=== PATIENT | male | born 1930 | race Caucasian/White ===

== ENCOUNTER 2016-11-05 10:18 | Inpatient (IN) ==
--- NOTE | 2016-11-05 11:13 | Emergency Department Note ---
Disposition Clinical Impression: Hematuria Pulmonary embolism Qualifiers: Pulmonary embolism type: other Chronicity: acute Acute cor pulmonale presence: without acute cor pulmonale Qualified Code(s): I26.99 - Other pulmonary embolism without acute cor pulmonale Disposition: Admitted As Inpatient Condition: Fair SOB HPI - General Chief Complaint: ED Shortness of Breath/Dyspnea Stated Complaint: SOB/Weak/High BP Time Seen by Provider: 11/05/16 10:24 Source: patient, family Limitations: physical limitation Nursing Notes Reviewed: Yes Vital Signs Reviewed: Yes - History of Present Illness Pt Subjective Complaint: shortness of breath Onset (ago): hour(s) (3) Severity: mild Consistency/Duration: constant Improves with: nothing Worsens with: exertion Associated symptoms: Denies: wheezing, sputum production Treatment prior to arrival: none Cough present: No - Related Data Home Medications Medication Instructions Recorded Confirmed Aspirin [Lo-Dose Aspirin EC] 81 mg PO DAILY 11/05/16 11/05/16 Atorvastatin Calcium [Lipitor] 20 mg PO HS 11/05/16 11/05/16 Diltiazem CD (24hr) [Cardizem CD] 120 mg PO DAILY 11/05/16 11/05/16 Enalapril Maleate [Vasotec] 2.5 mg PO DAILY 11/05/16 11/05/16 Furosemide [Lasix] 20 mg PO DAILY PRN 11/05/16 11/05/16 LORazepam [Ativan] 0.5 mg PO HS 11/05/16 11/05/16 Melatonin 10 mg PO HS PRN 11/05/16 11/05/16 Metoprolol [Lopressor] 25 mg PO BID 11/05/16 11/05/16 Naproxen Sodium [Aleve] 220 mg PO Q12H PRN 11/05/16 11/05/16 Warfarin [Coumadin] 3 mg PO 1800 11/05/16 11/05/16 Allergies Allergy/AdvReac Type Severity Reaction Status Date / Time tetanus immune globulin Allergy Intermediate Rash Verified 11/05/16 14:13 All systems ED: reviewed and negative except as stated. Constitutional: Reports: weakness. Denies: fever, chills Respiratory: Reports: dyspnea Gastrointestinal: Denies: nausea, vomiting Past Medical History - Past Medical History Source: patient, old records reviewed, obtained from family, nursing notes reviewed Medical history: Reports: aortic aneurysm, atrial fibrillation, CHF, myocardial infarction Surgical history: Reports: angioplasty/stent, appendectomy, knee replacement Psychiatric history: Reports: no psych history - Social History Smoking Status: Former smoker Smokeless Tobacco Status: No Alcohol use: Reports: none Drug use: Reports: none Physical Exam - General Limitations: physical limitation General appearance: alert, in no apparent distress - Head Head exam: atraumatic, normocephalic, normal inspection - Eye Eye exam: Present: normal appearance, PERRL, EOMI - Expanded Eye Exam Pupils: Left: reactive - ENT ENT exam: normal exam, normal oropharynx, mucous membranes moist - Expanded ENT Exam External ear exam: Present: normal external inspection Mouth exam: Present: normal external inspection Teeth exam: Present: normal inspection Throat exam: Present: normal inspection - Neck Neck exam: Present: normal inspection, full ROM, trachea midline - Chest Chest inspection: Present: normal inspection, symmetric chest wall rise - Respiratory Respiratory exam: Present: other (bibasilar crackles) - Cardiovascular Cardiovascular exam: Present: irregular rhythm - Abdominal Exam Abdominal exam: Present: soft, Non-Tender. Absent: tenderness, distention, guarding, rebound, rigidity - Extremities Exam Extremities exam: Present: normal inspection, full ROM. Absent: tenderness, pedal edema - Expanded Upper Extremity Exam Shoulder exam: Present: normal inspection, full ROM Arm exam: Present: normal inspection, full ROM Elbow exam: Present: normal inspection, full ROM Forearm/Wrist exam: Present: normal inspection, full ROM Hand exam: Present: normal inspection, full ROM Vascular exam: Normal: capillary refill, radial pulse - Expanded Lower Extremity Exam Hip/Pelvis exam: Present: normal inspection, full ROM Upper leg exam: Present: normal inspection, full ROM Knee exam: Present: normal inspection, full ROM Lower leg exam: Present: other (2+pitting edema) Ankle exam: Present: normal inspection, full ROM Foot/toe exam: Present: normal inspection, full ROM Neurovascular/Tendon exam: Absent: motor deficit, sensory deficit, tendon deficit - Back Exam Back exam: Present: normal inspection, full ROM. Absent: tenderness - Neurological Exam Neurological exam: Present: alert, oriented X3 - Expanded Neurological Exam Patient oriented to: Present: person, place, time Coma Scale Eye Opening: Spontaneous Coma Scale Motor Response: Obeys Commands Coma Scale Verbal Response: Oriented Coma Scale Total: 15 - Psychiatric Psychiatric exam: Present: normal affect, normal mood - Skin Skin exam: Present: warm, dry, intact, normal color Course Vital Signs Temperature 99.1 F 11/05/16 10:24 Pulse Rate 83 11/05/16 10:24 Respiratory Rate 20 11/05/16 10:24 Blood Pressure 118/85 11/05/16 10:24 O2 Sat by Pulse Oximetry 93 11/05/16 10:24 Temperature 99.1 F 11/05/16 10:24 Pulse Rate 69 11/05/16 14:22 Respiratory Rate 13 11/05/16 14:22 Blood Pressure 125/91 11/05/16 14:22 O2 Sat by Pulse Oximetry 95 11/05/16 14:22 Oxygen Delivery Oxygen Delivery Nasal Cannula Shortness of Breath/Dyspnea - [facility] Narrative Medical decision making narrative: Dr. Maldonado was notified that the patient will need heparin for his PE he has a known bladder mass and no hematuria for the last [address] Lopez except for the hospitalist service evaluated the patient in the ER we will start heparin now in the ER. - Differential Diagnosis Likely: pneumonia, asthma with exacerbation, pulmonary embolism, pneumothorax, arrhythmia - Medical Records Medical records reviewed: Yes I reviewed the patient's medical records. - Lab Data Lab results reviewed: Yes I reviewed the patient's lab results. Result diagrams: 11/05/16 11:21 11/05/16 11:21 Lab Results 11/05/16 11/05/16 11/05/16 Range/Units 11:21 11:21 11:21 WBC 8.9 (4.3-11.1) K/mcL RBC 4.72 (4.19-5.50) M/mcL Hgb 13.0 (12.9-16.9) g/dL Hct 40.2 (37.5-50.1) % MCV 85.2 (83.0-100.0) fL MCH 27.5 L (28.0-33.3) pg MCHC 32.3 (31.6-35.5) g/dL RDW 14.9 H (11.5-14.5) % Plt Count 263 (140-400) K/mcL MPV 10.0 (9.4-12.4) fL Immature Gran % 0.3 (0-4) % Seg Neutrophils % 75.2 % Lymphocytes % 13.5 % Monocytes % 8.7 % Eosinophils % 1.7 % Basophils % 0.6 % Neutrophils # 6.7 (1.6-8.9) K/mcL Lymphocytes # 1.2 (0.6-4.6) K/mcL Monocytes # 0.8 (0.0-1.3) K/mcL Eosinophils # 0.2 (0.0-0.6) K/mcL Basophils # 0.1 (0.0-0.2) K/mcL PT 24.7 H (9.4-12.1) Seconds INR 2.2 APTT 38.0 H (26.0-36.0) Seconds Sodium 140 (136-145) mEq/L Potassium 3.4 L (3.5-4.5) mEq/L Chloride 99 (98-109) mEq/L Carbon Dioxide 31 H (19-29) mEq/L BUN 22 (8-26) mg/dL Creatinine 1.26 H (0.72-1.25) mg/dL Est GFR ( Amer) > 60 (> 60) Est GFR (Non-Af Amer) 54 L (> 60) BUN/Creatinine Ratio 17 (6-26) Glucose 126 H (70-99) mg/dL Calculated Osmolality 295 (280-300) Calcium 9.0 (8.6-10.8) mg/dL Troponin I (0-0.03) ng/mL B-Natriuretic Peptide (0-100) pg/mL 11/05/16 11/05/16 Range/Units 11:21 11:21 WBC (4.3-11.1) K/mcL RBC (4.19-5.50) M/mcL Hgb (12.9-16.9) g/dL Hct (37.5-50.1) % MCV (83.0-100.0) fL MCH (28.0-33.3) pg MCHC (31.6-35.5) g/dL RDW (11.5-14.5) % Plt Count (140-400) K/mcL MPV (9.4-12.4) fL Immature Gran % (0-4) % Seg Neutrophils % % Lymphocytes % % Monocytes % % Eosinophils % % Basophils % % Neutrophils # (1.6-8.9) K/mcL Lymphocytes # (0.6-4.6) K/mcL Monocytes # (0.0-1.3) K/mcL Eosinophils # (0.0-0.6) K/mcL Basophils # (0.0-0.2) K/mcL PT (9.4-12.1) Seconds INR APTT (26.0-36.0) Seconds Sodium (136-145) mEq/L Potassium (3.5-4.5) mEq/L Chloride (98-109) mEq/L Carbon Dioxide (19-29) mEq/L BUN (8-26) mg/dL Creatinine (0.72-1.25) mg/dL Est GFR ( Amer) (> 60) Est GFR (Non-Af Amer) (> 60) BUN/Creatinine Ratio (6-26) Glucose (70-99) mg/dL Calculated Osmolality (280-300) Calcium (8.6-10.8) mg/dL Troponin I 0.06 H* (0-0.03) ng/mL B-Natriuretic Peptide 537 H (0-100) pg/mL - Radiology Data Radiology results reviewed: Yes I reviewed the patient's radiology results. Critical Care Time Critical Care Time: Yes Total Critical Care Time: 40 Attestation: Critical care performed: Time is exclusive of separately billable procedures. Time includes: direct patient care, patient reassessment, coordination of patient care, interpretation of data (laboratory data, radiology data, and respiratory data), review of patient's medical records, medical consultation and documentation of patient care. Procedures included in critical care time: Procedures excluded from critical care time:
[2016-11-05 11:30] LABS: Basophils # 0.1 K/mcL (0.0-0.2); Basophils % 0.6 %; Eosinophils # 0.2 K/mcL (0.0-0.6); Eosinophils % 1.7 %; Hematocrit 40.2 % (37.5-50.1); Immature Granulocytes % 0.3 % (0-4); Lymphocytes # 1.2 K/mcL (0.6-4.6); Lymphocytes % 13.5 %; Mean Corpuscular HGB Conc 32.3 g/dL (31.6-35.5); Mean Corpuscular Hemoglobin 27.5 pg (28.0-33.3); Mean Corpuscular Volume 85.2 fL (83.0-100.0); Monocytes # 0.8 K/mcL (0.0-1.3); Monocytes % 8.7 %; Neutrophils # 6.7 K/mcL (1.6-8.9); Platelet Count 263 K/mcL (140-400); Red Blood Count 4.72 M/mcL (4.19-5.50); Red Cell Distribution Width 14.9 % (11.5-14.5); Segmented Neutrophils % 75.2 %
[2016-11-05 11:36] LABS: INR 2.2; Prothrombin Time 24.7 Seconds (9.4-12.1)
[2016-11-05 11:42] LABS: BUN/Creatinine Ratio 17 (6-26); Blood Urea Nitrogen 22 mg/dL (8-26); Carbon Dioxide 31 mEq/L (19-29); Chloride 99 mEq/L (98-109); Glucose 126 mg/dL (70-99); Osmolality,Calculated 295 (280-300); Potassium 3.4 mEq/L (3.5-4.5); Sodium 140 mEq/L (136-145); eGFR For African Americans > 60 (> 60); eGFR For Non-African Americans 54 (> 60)
[2016-11-05] MEDS ORDERED: 0.9 % Sodium Chloride 500 ML IVC ONE (12:03)
[2016-11-05] MEDS ORDERED: *HR* Heparin 5,000 UNIT/ML VIAL IVP ONE (13:56)
[2016-11-05] MEDS ORDERED: *HR* Heparin 5,000 UNIT/ML VIAL IVP PRN ×2 (13:56)
[2016-11-05] MEDS: Heparin 25,000 UNIT/500 ML D5W 25,000 UNIT/500 ML MLS IVC SCH (14:15)
[2016-11-05] MEDS ORDERED: Naloxone 0.4 MG/ML INJ IVP PRN (14:31)
[2016-11-05] MEDS ORDERED: Acetaminophen 325 MG TABLET PO PRN (14:31)
[2016-11-05] MEDS ORDERED: *HR* HYDROcodone/Acet 5/325 mg TABLET PO PRN (14:31)
--- NOTE | 2016-11-05 14:56 | Event Note ---
Date of Encounter: 11/05/16 Time of Encounter: 14:52 Patient seen and examined with nurse practitioner. Agree with this assessment and plan. Acute sub massive pulmonary embolism. Patient has a 4 cm letter mass suspicious for malignancy on imaging and is currently having Wero hematuria. Patient's takes Coumadin for atrial fibrillation and his INR's 2.2. ER physician has spoken with urology and their agreeable with starting heparin drip. Watch for the security of hematuria. Appreciate urology recommendation. I am not sure if you benefit from Santamaria catheter because of expected worsening bleeding and clotting and complications related to that. I think the patient will benefit from placement of IVC filter for 2 reasons: 1st, patient had PE despite therapeutic anticoagulation while his INR was 2.2. 2nd patient has Wero hematuria from bladder mass and he will probably have periods of worsening bleeding requiring interruption of anticoagulation. Will discuss with cardiology for placement of IVC filter. Patient has acute congestive heart failure due to diastolic dysfunction and will give IV Lasix 40 mg daily. Patient is do not resuscitate do not intubate.
--- NOTE | 2016-11-05 15:02 | Internal Med History&Physical ---
Date of Encounter: 11/05/16 Time of Encounter: 15:01 Assessment and Plan (1) Pulmonary embolism Current visit: Yes Status: Acute Patient presented with shortness of breath. CTA revealed filling defect within the left lower lobe segmental pulmonary artery compatible with acute pulmonary embolism. As well as small to moderate-sized bilateral pleural effusions. This is despite having therapeutic anticoagulation with INR of 2.2 today. Patient has newly diagnosed bladder mass and malignancy may be inciting factor. continuous telemetry monitor Heparin drip started. Hold coumadin. Cardiology consulted, spoke with Dr. Farr who plans filter placement tomorrow. NPO after midnight for filter placement tomorrow. Qualifiers: Pulmonary embolism type: other Chronicity: acute Acute cor pulmonale presence: without acute cor pulmonale Qualified Code(s): I26.99 - Other pulmonary embolism without acute cor pulmonale (2) Bladder mass Current visit: No Status: Acute Patient with hematuria and presented to ED yesterday. CT abd/pelvis revealed 4.2cm bladder mass suspicious for malignancy. He was scheduled to see Dr. Maldonado tomorrow in the clinic. Urology consulted. (3) Hematuria Current visit: No Status: Acute Patient with hematuria and found to have bladder mass on CT yesterday. Coumadin held, but now on heparin drip for PE. Hgb stable at 13.0. Monitor for increased bleeding. Check CBC with morning labs. Urology consulted. (4) Anticoagulant long-term use Current visit: No Status: Chronic Patient on coumadin for history of afib. He was instructed to hold it yesterday for hematuria. INR today was therapeutic at 2.2. Heparin drip initiated for acute PE. Monitor for increased bleeding. check coags on schedule with heparin drip. (5) Atrial fibrillation Current visit: No Status: Chronic Patient with chronic afib, on metoprolol and diltiazem for rate control and coumadin for anti-coagulation. Coumadin held yesterday for hematuria. Heparin drip started today for PE. Continuous telemetry monitor. Qualifiers: Atrial fibrillation type: chronic Qualified Code(s): I48.2 - Chronic atrial fibrillation (6) CHF (congestive heart failure) Current visit: Yes Status: Acute Patient with pulmonary edema and small left pleural effusion on CXR. BLE +2 edema. Echo 03/19/16 showed LVEF of 65%, moderate concentric hypertrophy of the LV, indeterminate diastolic function, severely calcified aortic valve and severe aortic stenosis. daily weights strict Is/Os. Lasix 40mg IVP daily Qualifiers: Congestive heart failure type: unspecified congestive heart failure type Congestive heart failure chronicity: acute Qualified Code(s): I50.9 - Heart failure, unspecified (7) DVT prophylaxis Current visit: Yes Status: Acute anti-embolic stockings on heparin drip for PE. Internal Medicine - H&P: HPI Chief complaint: shortness of breath Admitted From: Emergency Dept Plans for Post Hospital Care: Home History of present illness: Mr. Hayes is a 85 year old male with atrial fibrillation on Coumadin, coronary artery disease, CHF, aortic aneurysm, and recently diagnosed bladder mass presents to the emergency department today with complaints of shortness of breath. This morning he woke up and stated he could not catch his breath, he felt very anxious, and he felt like he had a lot of pressure in his head pressure and numbness had resolved but he continued with shortness of breath. He denies any chest pain, palpitations, lightheadedness, nausea, vomiting, abdominal pain, fever, chills, sweats. Patient presented to the emergency room yesterday with complaints of hematuria, and was found to have a 4.2 cm near bladder mass on CT, and was scheduled to follow-up with urology tomorrow. He was instructed to hold his coumadin until evaluation by Urology. Evaluation in the emergency department included a chest x-ray which showed pulmonary edema and small left pleural effusion suggesting CHF. The CTA was obtained and showed filling defect within the left lower lobe compatible with acute pulmonary embolism, small to moderate size bilateral pleural effusions. Patient 's INR was found to be therapeutic at 2.2. Hemoglobin is stable at 13.0. BNP is elevated at 37. Troponin is mildly elevated to 0.06. Urology was consulted and felt it was safe to proceed with heparin drip given the patient is not massively bleeding with therapeutic INR. On exam, patient is alert and oriented , in no acute distress. Heart had irregular rhythm, normal rate. Lungs had mild crackles bilaterally. He has bilateral lower extremity +2 edema. Past Med Surg Social Fam HX - Past Medical History Medical history: aortic aneurysm, atrial fibrillation, CHF, myocardial infarction Psychiatric history: no psych history - Past Surgical History Surgical History: angioplasty/stent, appendectomy, knee replacement - Social History Smoking Status: Former smoker Smokeless Tobacco Status: No Alcohol use: none Drug use: none - Family History Father Hx Family Cardiac Disorders: Yes Internal Medicine - H&P: Meds Aspirin [Lo-Dose Aspirin EC] 81 mg PO DAILY 11/05/16 [History] Atorvastatin Calcium [Lipitor] 20 mg PO HS 11/05/16 [History] Diltiazem CD (24hr) [Cardizem CD] 120 mg PO DAILY 11/05/16 [History] Enalapril Maleate [Vasotec] 2.5 mg PO DAILY 11/05/16 [History] Furosemide [Lasix] 20 mg PO DAILY PRN 11/05/16 [History] LORazepam [Ativan] 0.5 mg PO HS 11/05/16 [History] Melatonin 10 mg PO HS PRN 11/05/16 [History] Metoprolol [Lopressor] 25 mg PO BID 11/05/16 [History] Naproxen Sodium [Aleve] 220 mg PO Q12H PRN 11/05/16 [History] Warfarin [Coumadin] 3 mg PO 1800 11/05/16 [History] Allergies tetanus immune globulin Allergy (Intermediate, Verified 11/05/16 14:13) Rash All Systems PM: A 10-system review of systems was performed and is negative for pertinent findings except as documented above in the HPI. - Constitutional Constitutional: no chills, no fever(s), no night sweats - EENT Eyes: no change in vision, no discharge, no pain, no photophobia Ears: no ear discharge, no ear pain, no tinnitus Nose, mouth and throat: no dysphagia, no nasal discharge, no neck pain, no sore throat - Cardiovascular Cardiovascular ROS IM: dyspnea, no chest pain, no diaphoresis, no lightheadedness, no palpitations, no syncope - Respiratory Respiratory: dyspnea, no cough, no wheezing, no excessive phlegm production - Gastrointestinal Gastrointestinal: heartburn, no abdominal pain, no diarrhea, no hematemesis, no hematochezia, no melena, no nausea, no vomiting - Genitourinary Genitourinary ROS male: hematuria - Musculoskeletal Musculoskeletal ROS IM: no numbness, no tingling - Integumentary Integumentary IM: no rash, no unusual bruising - Neurological Neurological ROS: headache(s), no confusion, no convulsions, no focal weakness, no numbness, no tingling, no tremor(s) - Hematologic/Lymphatic Hematologic/Lymphatic: no easy bruising - Constitutional Vitals: Temp Pulse Resp BP Pulse Ox 99.1 F 69 13 125/91 95 11/05/16 10:24 11/05/16 14:22 11/05/16 14:22 11/05/16 14:22 11/05/16 14:22 General appearance: Present: A&O X 3, pleasant, no acute distress - Head Head exam: Present: atraumatic, normocephalic - Eye Eye exam: Present: PERRL, conjuntiva pink, sclera anicteric Pupils: Present: PERRL - Neck Neck exam general surgery: Present: supple, trachea midline. Absent: lymphadenopathy - Respiratory Respiratory exam: Present: rales. Absent: accessory muscle use, rhonchi, wheezes - Cardiovascular Cardiovascular exam: Present: irregular rhythm, +S1, +S2. Absent: diastolic murmur, gallop, rubs, systolic murmur - GI/Abdominal GI/Abdominal exam: Present: normal bowel sounds, soft, no peritoneal signs. Absent: distended, tenderness - Extremities Exam Extremities exam: Present: pedal edema (+2 BLE edema), warm, radial pulses palpable and symetrical. Absent: calf tenderness, cyanotic - Neurological Exam Neurological exam: Present: CN II-XII intact, oriented X3, no focal deficits. Absent: pronater drift, facial droop, speech deficit - Skin Skin exam: Present: dry, intact Internal Med - H&P Results - Labs CBC & Chem 7: 11/05/16 11:21 11/05/16 11:21 Labs: All Lab Results (24 Hours) 11/05/16 11/05/16 11/05/16 Range/Units 11:21 11:21 11:21 WBC 8.9 (4.3-11.1) K/mcL RBC 4.72 (4.19-5.50) M/mcL Hgb 13.0 (12.9-16.9) g/dL Hct 40.2 (37.5-50.1) % MCV 85.2 (83.0-100.0) fL MCH 27.5 L (28.0-33.3) pg MCHC 32.3 (31.6-35.5) g/dL RDW 14.9 H (11.5-14.5) % Plt Count 263 (140-400) K/mcL MPV 10.0 (9.4-12.4) fL Immature Gran % 0.3 (0-4) % Seg Neutrophils % 75.2 % Lymphocytes % 13.5 % Monocytes % 8.7 % Eosinophils % 1.7 % Basophils % 0.6 % Neutrophils # 6.7 (1.6-8.9) K/mcL Lymphocytes # 1.2 (0.6-4.6) K/mcL Monocytes # 0.8 (0.0-1.3) K/mcL Eosinophils # 0.2 (0.0-0.6) K/mcL Basophils # 0.1 (0.0-0.2) K/mcL PT 24.7 H (9.4-12.1) Seconds INR 2.2 APTT 38.0 H (26.0-36.0) Seconds Sodium 140 (136-145) mEq/L Potassium 3.4 L (3.5-4.5) mEq/L Chloride 99 (98-109) mEq/L Carbon Dioxide 31 H (19-29) mEq/L BUN 22 (8-26) mg/dL Creatinine 1.26 H (0.72-1.25) mg/dL Est GFR ( Amer) > 60 (> 60) Est GFR (Non-Af Amer) 54 L (> 60) BUN/Creatinine Ratio 17 (6-26) Glucose 126 H (70-99) mg/dL Calculated Osmolality 295 (280-300) Calcium 9.0 (8.6-10.8) mg/dL Troponin I (0-0.03) ng/mL B-Natriuretic Peptide (0-100) pg/mL 11/05/16 11/05/16 Range/Units 11:21 11:21 WBC (4.3-11.1) K/mcL RBC (4.19-5.50) M/mcL Hgb (12.9-16.9) g/dL Hct (37.5-50.1) % MCV (83.0-100.0) fL MCH (28.0-33.3) pg MCHC (31.6-35.5) g/dL RDW (11.5-14.5) % Plt Count (140-400) K/mcL MPV (9.4-12.4) fL Immature Gran % (0-4) % Seg Neutrophils % % Lymphocytes % % Monocytes % % Eosinophils % % Basophils % % Neutrophils # (1.6-8.9) K/mcL Lymphocytes # (0.6-4.6) K/mcL Monocytes # (0.0-1.3) K/mcL Eosinophils # (0.0-0.6) K/mcL Basophils # (0.0-0.2) K/mcL PT (9.4-12.1) Seconds INR APTT (26.0-36.0) Seconds Sodium (136-145) mEq/L Potassium (3.5-4.5) mEq/L Chloride (98-109) mEq/L Carbon Dioxide (19-29) mEq/L BUN (8-26) mg/dL Creatinine (0.72-1.25) mg/dL Est GFR ( Amer) (> 60) Est GFR (Non-Af Amer) (> 60) BUN/Creatinine Ratio (6-26) Glucose (70-99) mg/dL Calculated Osmolality (280-300) Calcium (8.6-10.8) mg/dL Troponin I 0.06 H* (0-0.03) ng/mL B-Natriuretic Peptide 537 H (0-100) pg/mL - Diagnostic Studies Chest x-ray Additional comments: Chest X-Ray 11/05/16 11:12 IMPRESSION: Pulmonary edema and small left pleural effusion suggesting CHF. D/ / Braulio Sauer MD / Braulio Sauer MD Interpreting Provider: Braulio Sauer MD CT scan - chest Additional comments: Chest CTA 11/05/16 12:01 IMPRESSION: 1. Filling defect within the left lower lobe segmental pulmonary artery compatible with acute pulmonary embolism. 2. Small to moderate sized bilateral pleural effusions. There is pulmonary edema. Findings may represent CHF. 3. Cardiomegaly and coronary disease. 4. Mild ascending thoracic aortic aneurysm measures 4.1 cm. 5. The main pulmonary artery is dilated at 3.4 cm compatible with pulmonary arterial hypertension. Critical results were called by Dr. Braulio Sauer MD to Eamon Duenas on 11/05/2016 at 13:27. D/ / 11/05/2016 13:29:50 Braulio Sauer MD / alex Interpreting Provider: Braulio Sauer MD
--- NOTE | 2016-11-05 17:28 | Electrocardiograph Report ---
[place] AfterYes Test Date: 2016-11-05 Pat Name: Homero Hayes Department: 102 Room: 2NE28 Gender: M Wound Nurse: Kristi : 1930 Requested By: Eamon Duenas Order Number: [id number] Reading MD: Shan Samuel MD Measurements Intervals [place] Rate: 82 P: SC: 0 QRS: -68 QRSD: 153 T: 13 QT: 439 QTc: 478 Interpretive Statements ATRIAL FIBRILLATION MARKED LEFT AXIS DEVIATION [QRS AXIS < -30] RIGHT BUNDLE BRANCH BLOCK [120+ ms QRS DURATION, UPRIGHT V1, 40+ ms S IN I/aVL/V4/V5/V6] POSSIBLE SEPTAL MYOCARDIAL INFARCTION [30 ms Q WAVE IN V1/V2], OF INDETERMINATE AGE Electronically Signed On 11-05-2016 17:26:22 EDT by Shan Samuel MD
[2016-11-05] MEDS: Furosemide 40 MG/4 ML VIAL IVP SCH (17:49)
[2016-11-05] MEDS ORDERED: Mag Hydrox/Al Hydrox/Simeth 30 ML UDC PO PRN (17:50)
[2016-11-05 21:04] LABS: Activated Partial Thrombo Time > 360.0 Seconds (26.0-36.0)
[2016-11-05] MEDS: Famotidine 20 MG TABLET PO SCH (21:12)
[2016-11-05] MEDS: *HR* LORazepam 0.5 MG TABLET PO SCH (21:12)
[2016-11-05] MEDS: Melatonin 3 MG TABLET PO PRN (21:17)
[2016-11-05 21:34] LABS: Heparin anti-factor XA UFH 1.21 IU/mL (0.30-0.70)
[2016-11-06 00:29] LABS: Basophils # 0.1 K/mcL (0.0-0.2); Basophils % 0.6 %; Eosinophils # 0.2 K/mcL (0.0-0.6); Eosinophils % 2.1 %; Hematocrit 39.5 % (37.5-50.1); Hemoglobin 12.9 g/dL (12.9-16.9); Immature Granulocytes % 0.4 % (0-4); Immature Platelets 5.7 % (1.1-6.1); Lymphocytes # 1.9 K/mcL (0.6-4.6); Lymphocytes % 17.6 %; Mean Corpuscular HGB Conc 32.7 g/dL (31.6-35.5); Mean Corpuscular Hemoglobin 27.7 pg (28.0-33.3); Mean Corpuscular Volume 84.9 fL (83.0-100.0); Mean Platelet Volume 10.3 fL (9.4-12.4); Monocytes # 1.1 K/mcL (0.0-1.3); Monocytes % 9.7 %; Neutrophils # 7.5 K/mcL (1.6-8.9); Platelet Count 272 K/mcL (140-400); Red Blood Count 4.65 M/mcL (4.19-5.50); Red Cell Distribution Width 15.1 % (11.5-14.5); Segmented Neutrophils % 69.6 %
[2016-11-06 00:43] LABS: BUN/Creatinine Ratio 17 (6-26); Blood Urea Nitrogen 22 mg/dL (8-26); Calcium 9.1 mg/dL (8.6-10.8); Carbon Dioxide 30 mEq/L (19-29); Chloride 99 mEq/L (98-109); Glucose 103 mg/dL (70-99); Osmolality,Calculated 294 (280-300); Potassium 3.8 mEq/L (3.5-4.5); Sodium 140 mEq/L (136-145); eGFR For African Americans > 60 (> 60); eGFR For Non-African Americans 52 (> 60)
--- NOTE | 2016-11-06 07:19 | Urology - Consult Note ---
Date of Encounter: 11/06/16 Time of Encounter: 07:17 - Assessment and Plan (1) Hematuria Current Visit: Yes Status: Acute Assessment and plan: This is coming from the patient's bladder tumor which was found on CT scan. Patient will need transurethral resection of bladder tumor in the future. Patient's more acute issue is his pulmonary embolism and resultant pulmonary hypertension. We will continue to follow along. At this time no urgent need for resection of bladder tumor. Also no urgent need for urinary catheter as the patient is voiding at this time. Urology CN:HPI Consult date: 11/06/16 Reason for consult Urology: Other (bladder mass) Requesting physician: Lindsay Cummins History of present illness: Homero is an 85-year-old male with a history of 14 days of gross hematuria. Patient was in the emergency department earlier in the week where CT scan was done which revealed large left-sided bladder tumor. Patient did not have any hydronephrosis. He was emptying his bladder without any clots at that time. Patient does have a long-standing history of being on Coumadin. He is now admitted to the hospital secondary to pulmonary embolism. Heparin was added to the patient's anticoagulation regimen. Patient states that he is still voiding okay with continued blood in his urine. No clots and no difficulty voiding. Past Med Surg Social Fam HX - Past Medical History Medical history: aortic aneurysm, atrial fibrillation, CHF, myocardial infarction Psychiatric history: no psych history - Past Surgical History Surgical History: angioplasty/stent, appendectomy, knee replacement - Social History Smoking Status: Former smoker Smokeless Tobacco Status: No Alcohol use: none Drug use: none - Family History Father Hx Family Cardiac Disorders: Yes Medications and Allergies Aspirin [Lo-Dose Aspirin EC] 81 mg PO DAILY 11/05/16 [History] Atorvastatin Calcium [Lipitor] 20 mg PO HS 11/05/16 [History] Diltiazem CD (24hr) [Cardizem CD] 120 mg PO DAILY 11/05/16 [History] Enalapril Maleate [Vasotec] 2.5 mg PO DAILY 11/05/16 [History] Furosemide [Lasix] 20 mg PO DAILY PRN 11/05/16 [History] LORazepam [Ativan] 0.5 mg PO HS 11/05/16 [History] Melatonin 10 mg PO HS PRN 11/05/16 [History] Metoprolol [Lopressor] 25 mg PO BID 11/05/16 [History] Naproxen Sodium [Aleve] 220 mg PO Q12H PRN 11/05/16 [History] Warfarin [Coumadin] 3 mg PO 1800 11/05/16 [History] Allergies tetanus immune globulin Allergy (Intermediate, Verified 11/05/16 14:13) Rash Review of Systems - Constitutional no chills - EENT Nose, mouth and throat: no dizziness - Cardiovascular as per HPI - Respiratory as per HPI - Genitourinary as per HPI - Musculoskeletal no back pain - Integumentary no erythema Exam Initial Vital Signs Temp Pulse Resp BP Pulse Ox 99.1 F 83 20 118/85 93 11/05/16 10:24 11/05/16 10:24 11/05/16 10:24 11/05/16 10:24 11/05/16 10:24 - General physical appearance Present: well developed - Respiratory Present: normal respiratory effort - Cardiovascular Cardiovascular exam IM: RRR - Abdomen Abdomen: Present: soft - Genitourinary normal penis with no external lesions Urology Results - Labs 11/06/16 00:19 11/06/16 00:19 Abnormal lab results MCH 27.7 pg (28.0-33.3) L 11/06/16 00:19 RDW 15.1 % (11.5-14.5) H 11/06/16 00:19 PT 24.7 Seconds (9.4-12.1) H 11/05/16 11:21 APTT 79.3 Seconds (26.0-36.0) H D 11/06/16 04:50 Heparin Anti-Xa, Unfract 1.21 IU/mL (0.30-0.70) H* 11/05/16 20:26 Carbon Dioxide 30 mEq/L (19-29) H 11/06/16 00:19 Creatinine 1.30 mg/dL (0.72-1.25) H 11/06/16 00:19 Est GFR (Non-Af Amer) 52 (> 60) L 11/06/16 00:19 Glucose 103 mg/dL (70-99) H 11/06/16 00:19 Troponin I 0.07 ng/mL (0-0.03) H* 11/06/16 00:19 B-Natriuretic Peptide 537 pg/mL (0-100) H 11/05/16 11:21 Diabetes panel 11/06/16 Range/Units 00:19 Sodium 140 (136-145) mEq/L Potassium 3.8 (3.5-4.5) mEq/L Chloride 99 (98-109) mEq/L Carbon Dioxide 30 H (19-29) mEq/L BUN 22 (8-26) mg/dL Creatinine 1.30 H (0.72-1.25) mg/dL Glucose 103 H (70-99) mg/dL Calcium 9.1 (8.6-10.8) mg/dL Calcium panel 11/06/16 Range/Units 00:19 Calcium 9.1 (8.6-10.8) mg/dL Pituitary panel 11/06/16 Range/Units 00:19 Sodium 140 (136-145) mEq/L Potassium 3.8 (3.5-4.5) mEq/L Chloride 99 (98-109) mEq/L Carbon Dioxide 30 H (19-29) mEq/L BUN 22 (8-26) mg/dL Creatinine 1.30 H (0.72-1.25) mg/dL Glucose 103 H (70-99) mg/dL Calcium 9.1 (8.6-10.8) mg/dL Adrenal panel 11/06/16 Range/Units 00:19 Sodium 140 (136-145) mEq/L Potassium 3.8 (3.5-4.5) mEq/L Chloride 99 (98-109) mEq/L Carbon Dioxide 30 H (19-29) mEq/L BUN 22 (8-26) mg/dL Creatinine 1.30 H (0.72-1.25) mg/dL Glucose 103 H (70-99) mg/dL Calcium 9.1 (8.6-10.8) mg/dL All other labs normal. - Imaging CT scan - abdomen: image reviewed CT scan - pelvis: image reviewed Consult Discharge Plan - Plan Referrals: Marycruz Mackenzie MD [Primary Care Provider] -
[2016-11-06] MEDS: Furosemide 40 MG/4 ML VIAL IVP SCH (09:09)
[2016-11-06] MEDS: Diltiazem CD (24hr) 120 MG CAPSULE PO SCH (09:10)
[2016-11-06] MEDS: Famotidine 20 MG TABLET PO SCH ×2 (09:10→21:22)
--- NOTE | 2016-11-06 10:16 | Internal Med Progress Note ---
<Baljit Dickey - Last Filed: 11/06/16 16:32> Date of Encounter: 11/06/16 Time of Encounter: 10:00 - Assessment and plan (1) Pulmonary embolism Current Visit: Yes Status: Acute Assessment and plan: CTA revealed filling defect within the left lower lobe segmental pulmonary artery compatible with acute pulmonary embolism. This is despite having therapeutic anticoagulation with INR of 2.2. Patient has newly diagnosed bladder mass and malignancy, possible hypercoagulable state. Doppler negative for DVTs. On heparin drip, restart coumadin tonight. IVC filter placed today without complication; cardiology recommend goal INR 2.5- 3.5 and to consider hematology consult for further guidance on anticoagulant therapy. Concern with patient's hematuria. Qualifiers: Pulmonary embolism type: other Chronicity: acute Acute cor pulmonale presence: without acute cor pulmonale Qualified Code(s): I26.99 - Other pulmonary embolism without acute cor pulmonale (2) Atrial fibrillation Current Visit: No Status: Chronic Assessment and plan: Patient with chronic afib, on metoprolol and diltiazem for rate control and coumadin for anti-coagulation. Restarting coumadin. Heparin drip started for PE. Continuous manager monitoring. [id number] score 7 (age, HTN, embolism, CHF, vascular disease) Qualifiers: Atrial fibrillation type: chronic Qualified Code(s): I48.2 - Chronic atrial fibrillation (3) Anticoagulant long-term use Current Visit: No Status: Chronic Assessment and plan: Patient on coumadin for history of afib. He was instructed to hold it yesterday for hematuria. INR yesterday was therapeutic at 2.2, though PE found. Heparin drip initiated for acute PE. Monitor for increased bleeding. (4) Hematuria Current Visit: No Status: Acute Assessment and plan: Patient with hematuria and found to have bladder mass on CT. Urology consulted , recommending transurethral resection of bladder tumor in the future. No urgent need for resection of bladder tumor. Also no urgent need for urinary catheter as the patient is voiding at this time. (5) Bladder mass Current Visit: No Status: Acute Assessment and plan: CT abd/pelvis revealed 4.2cm bladder mass suspicious for malignancy. He was scheduled to see Dr. Maldonado in the clinic, however he was able to see him inpatient. See plan for hematuria. (6) CHF (congestive heart failure) Current Visit: Yes Status: Acute Assessment and plan: Patient with pulmonary edema and small left pleural effusion on CXR. BLE edema. Echo 03/19/16 showed LVEF of 65%, moderate concentric hypertrophy of the LV, indeterminate diastolic function, severely calcified aortic valve and severe aortic stenosis. daily weights strict Is/Os. Lasix 40mg IVP daily Qualifiers: Congestive heart failure type: unspecified congestive heart failure type Congestive heart failure chronicity: acute Qualified Code(s): I50.9 - Heart failure, unspecified (7) DVT prophylaxis Current Visit: Yes Status: Acute Assessment and plan: Heparin drip prior to IVC filter placement, will restart coumadin per pharmacy dosing. - Time Spent With Patient less than 15 minutes - Subjective Interval history: Patient denies respiratory distress or chest broderick currently, notes he feels better on oxygen. currently on 3L O2, no home oxygen. - Constitutional Vitals: Temp Pulse Resp BP Pulse Ox 97.5 F L 79 16 136/101 98 11/06/16 07:02 11/06/16 07:02 11/06/16 07:02 11/06/16 07:02 11/06/16 07:02 General appearance: Present: cooperative, A&O X 3, pleasant, no acute distress, answers questions appropriately - Head Head exam: Present: atraumatic, normocephalic - Eye Eye exam: Present: EOMI - ENT ENT exam: Present: mucous membranes moist - Neck Neck exam general surgery: Present: full ROM, supple - Respiratory Respiratory exam: Present: CTAB. Absent: rhonchi, wheezes - Cardiovascular Cardiovascular exam: Present: irregular rhythm - GI/Abdominal GI/Abdominal exam: Present: soft. Absent: tenderness - Extremities Exam Extremities exam: Present: pedal edema (1+ BLE edema), warm - Neurological Exam Neurological exam: Present: alert, oriented X3, no focal deficits - Psychiatric Psychiatric exam: Present: normal affect, normal mood - Skin Skin exam: Present: dry, normal color. Absent: cyanosis, rash Internal Medicine: Result - Labs CBC & Chem 7: 11/06/16 00:19 11/06/16 00:19 Labs: Short CBC 11/05/16 11/05/16 11/06/16 Range/Units 18:13 20:26 00:19 WBC (4.3-11.1) K/mcL RBC (4.19-5.50) M/mcL Hgb (12.9-16.9) g/dL Hct (37.5-50.1) % MCV (83.0-100.0) fL MCH (28.0-33.3) pg MCHC (31.6-35.5) g/dL RDW (11.5-14.5) % Plt Count (140-400) K/mcL MPV (9.4-12.4) fL Immature Gran % (0-4) % Seg Neutrophils % % Lymphocytes % % Monocytes % % Eosinophils % % Basophils % % Neutrophils # (1.6-8.9) K/mcL Lymphocytes # (0.6-4.6) K/mcL Monocytes # (0.0-1.3) K/mcL Eosinophils # (0.0-0.6) K/mcL Basophils # (0.0-0.2) K/mcL Immature Plt Fraction (1.1-6.1) % APTT > 360.0 H* D (26.0-36.0) Seconds Heparin Anti-Xa, Unfract 1.21 H* (0.30-0.70) IU/mL Sodium (136-145) mEq/L Potassium (3.5-4.5) mEq/L Chloride (98-109) mEq/L Carbon Dioxide (19-29) mEq/L BUN (8-26) mg/dL Creatinine (0.72-1.25) mg/dL Est GFR ( Amer) (> 60) Est GFR (Non-Af Amer) (> 60) BUN/Creatinine Ratio (6-26) Glucose (70-99) mg/dL Calculated Osmolality (280-300) Calcium (8.6-10.8) mg/dL Troponin I 0.06 H* 0.07 H* (0-0.03) ng/mL 11/06/16 11/06/16 11/06/16 Range/Units 00:19 00:19 04:50 WBC 10.8 (4.3-11.1) K/mcL RBC 4.65 (4.19-5.50) M/mcL Hgb 12.9 (12.9-16.9) g/dL Hct 39.5 (37.5-50.1) % MCV 84.9 (83.0-100.0) fL MCH 27.7 L (28.0-33.3) pg MCHC 32.7 (31.6-35.5) g/dL RDW 15.1 H (11.5-14.5) % Plt Count 272 (140-400) K/mcL MPV 10.3 (9.4-12.4) fL Immature Gran % 0.4 (0-4) % Seg Neutrophils % 69.6 % Lymphocytes % 17.6 % Monocytes % 9.7 % Eosinophils % 2.1 % Basophils % 0.6 % Neutrophils # 7.5 (1.6-8.9) K/mcL Lymphocytes # 1.9 (0.6-4.6) K/mcL Monocytes # 1.1 (0.0-1.3) K/mcL Eosinophils # 0.2 (0.0-0.6) K/mcL Basophils # 0.1 (0.0-0.2) K/mcL Immature Plt Fraction 5.7 (1.1-6.1) % APTT 79.3 H D (26.0-36.0) Seconds Heparin Anti-Xa, Unfract (0.30-0.70) IU/mL Sodium 140 (136-145) mEq/L Potassium 3.8 (3.5-4.5) mEq/L Chloride 99 (98-109) mEq/L Carbon Dioxide 30 H (19-29) mEq/L BUN 22 (8-26) mg/dL Creatinine 1.30 H (0.72-1.25) mg/dL Est GFR ( Amer) > 60 (> 60) Est GFR (Non-Af Amer) 52 L (> 60) BUN/Creatinine Ratio 17 (6-26) Glucose 103 H (70-99) mg/dL Calculated Osmolality 294 (280-300) Calcium 9.1 (8.6-10.8) mg/dL Troponin I (0-0.03) ng/mL BMP 11/06/16 00:19 Sodium 140 Potassium 3.8 Chloride 99 Carbon Dioxide 30 H BUN 22 Creatinine 1.30 H Glucose 103 H Calcium 9.1 Cardiac Enzymes 11/05/16 11/06/16 Range/Units 18:13 00:19 Troponin I 0.06 H* 0.07 H* (0-0.03) ng/mL - ABG Interpretation ABG results: PT/INR, D-dimer PT 24.7 Seconds (9.4-12.1) H 11/05/16 11:21 Consult Discharge Plan - Plan Referrals: Marycruz Mackenzie MD [Primary Care Provider] - <Latrell Leal - Last Filed: 11/06/16 16:55> Date of Encounter: 11/06/16 - Assessment and plan (1) Pulmonary embolism Current Visit: Yes Status: Acute Qualifiers: Pulmonary embolism type: other Chronicity: acute Acute cor pulmonale presence: without acute cor pulmonale Qualified Code(s): I26.99 - Other pulmonary embolism without acute cor pulmonale (2) Atrial fibrillation Current Visit: No Status: Chronic Qualifiers: Atrial fibrillation type: chronic Qualified Code(s): I48.2 - Chronic atrial fibrillation (3) Hematuria Current Visit: Yes Status: Acute (4) Bladder mass Current Visit: No Status: Acute (5) Hyperlipidemia Current Visit: No Status: Acute Qualifiers: Hyperlipidemia type: mixed hyperlipidemia Qualified Code(s): E78.2 - Mixed hyperlipidemia - Constitutional Vitals: Temp Pulse Resp BP Pulse Ox 96.4 F L 66 16 114/81 97 11/06/16 16:04 11/06/16 16:04 11/06/16 16:04 11/06/16 16:04 11/06/16 16:04 Internal Medicine: Result - Labs CBC & Chem 7: 11/06/16 00:19 11/06/16 00:19 Labs: Short CBC 11/06/16 Range/Units 00:19 WBC 10.8 (4.3-11.1) K/mcL Hgb 12.9 (12.9-16.9) g/dL Hct 39.5 (37.5-50.1) % Plt Count 272 (140-400) K/mcL Neutrophils # 7.5 (1.6-8.9) K/mcL BMP 11/06/16 00:19 Sodium 140 Potassium 3.8 Chloride 99 Carbon Dioxide 30 H BUN 22 Creatinine 1.30 H Glucose 103 H Calcium 9.1 Cardiac Enzymes 11/05/16 11/06/16 Range/Units 18:13 00:19 Troponin I 0.06 H* 0.07 H* (0-0.03) ng/mL - ABG Interpretation ABG results: PT/INR, D-dimer PT 24.7 Seconds (9.4-12.1) H 11/05/16 11:21 - Attending Attestation I examined this patient and my medical decision-making was reviewed with the Resident Physician on 11/06/16. I agree with the documented findings, disposition and treatment plan as described except to the extent set forth below. Mr Hayes is currently admitted for acute PE while on therapeutic coumadin and bladder tumor with hematuria. He is high risk due to need for IV meds and acute bleeding with anticoagulation and PE. Mr. Hayes is feeling OK. No pain at this time. Still with hematuria. On heparin drip. Appreciate urology and cardiology input. Exam Alert. Comfortable Heart irreg No wheeze I/P 1. Acute LLL PE 2. A fib 3. Bladder tumor with hematuria Further diagnoses and plan as above.
--- NOTE | 2016-11-06 12:09 | Cardiology Consult Note ---
Date of Encounter: 11/06/16 Time of Encounter: 10:00 Assessment and Plan (1) Pulmonary embolism Current Visit: Yes Status: Acute Per cardiology: -PE noted per CT scan. -Cardiology consulted for IVC filter placement, aware and ordered placement. -Risks versus benefits of IVC filter placement explained to pateint. Patient agreeable for IVC filter. -On heparin drip. -Management per primary service. -CArdiology plans to sign off after IVC filter placement. Qualifiers: Pulmonary embolism type: other Chronicity: acute Acute cor pulmonale presence: without acute cor pulmonale Qualified Code(s): I26.99 - Other pulmonary embolism without acute cor pulmonale (2) Atrial fibrillation Current Visit: No Status: Chronic Per cardiology: -Known history fo atrial fibrillation. -On coumadin in outpatient setting. INR 2.2 on admission, however patient with PE. -ON heparin drip now. [id number] score 7 (age, HTN, embolism, CHF, vascular disease). Recommend continuing anticogaulation due to increase risk of CVA or embolic event. -Patient currently rate controlled. -Recommned continuing current regimen. Qualifiers: Atrial fibrillation type: chronic Qualified Code(s): I48.2 - Chronic atrial fibrillation (3) Elevated troponin Current Visit: No Status: Acute Per cardiology: -Troponin 0.06, 0.06, 0.07. -Troponins flat and adynamic in the setting of PE. -ECG with no ischemic changes, -Pateint denies chest pain. -Do not suspect NSTEMI, suspect demand ischemia. NO cardiac rehab warranted at this time. (4) Bladder mass Current Visit: No Status: Acute Per cardiology: -Bladder mass noted per CT almost 2 weeks ago. -Pateint now with PE while therpeutic INRs on coumadin. -Management per primary and urology services. Discussion w patient/family: The assessment and plan as outlined above was discussed with the patient who expressed understanding and agreement. All questions were answered. Thank you for involving us in the care of your patient. Please call with any questions. Discussed and reviewed with . History of Present Illness Consult date: 11/05/16 Requesting physician: Lindsay Cummins Consult reason: PE, need for IVC filter Chief complaint: shortness of breath History of present illness: Mr. Crago is a 85 year old male with a relevant past medical history of hyperlipidemia, HTN, CAD, HTN, aortic stenosis, atrial fibrillation. Patient was in the ER for hematuria about [address] scan was performed and bladder tumor was noted. Patient was to follow up with urology. Patient states yesterday he became short of breath and he presented to ER. CT chest was performed and PE was noted. Cardiology has been consulted for IVC filter placement. Past Med Surg Social Fam HX - Past Medical History Attestation: Yes The following information was validated with the patient. Source: patient, obtained from family Medical history: aortic aneurysm, atrial fibrillation, CHF, myocardial infarction Psychiatric history: no psych history - Past Surgical History Surgical History: angioplasty/stent, appendectomy, knee replacement - Social History Smoking Status: Former smoker Smokeless Tobacco Status: No Alcohol use: none Drug use: none - Family History Father Hx Family Cardiac Disorders: Yes Medications and Allergies Aspirin [Lo-Dose Aspirin EC] 81 mg PO DAILY 11/05/16 [History] Atorvastatin Calcium [Lipitor] 20 mg PO HS 11/05/16 [History] Diltiazem CD (24hr) [Cardizem CD] 120 mg PO DAILY 11/05/16 [History] Enalapril Maleate [Vasotec] 2.5 mg PO DAILY 11/05/16 [History] Furosemide [Lasix] 20 mg PO DAILY PRN 11/05/16 [History] LORazepam [Ativan] 0.5 mg PO HS 11/05/16 [History] Melatonin 10 mg PO HS PRN 11/05/16 [History] Metoprolol [Lopressor] 25 mg PO BID 11/05/16 [History] Naproxen Sodium [Aleve] 220 mg PO Q12H PRN 11/05/16 [History] Warfarin [Coumadin] 3 mg PO 1800 11/05/16 [History] Allergies tetanus immune globulin Allergy (Intermediate, Verified 11/05/16 14:13) Rash All Systems Review: A 10-system review of systems was performed and is negative for pertinent findings except as documented above in the HPI. - Cardiovascular Cardiovascular: as per HPI, dyspnea on exertion Physical Examination Vital Signs, Last 4 Hours Temp Pulse Resp BP Pulse Ox 11/06/16 11:17 97.8 F 81 16 133/96 98 General: Conversant, No Apparent Distress HEENT: Atraumatic, Normocephaly, Mucus Membranes Moist Neck: No JVD, Normal carotid pulses Cardiac: Other (Irregularly, irregular) Lungs: Normal Breath Sounds, No Wheeze, Rales, Rhonchi Neuro: Alert and responsive, No focal deficits noted Abdomen: Soft, Non-Tender Skin: No rashes noted on visualized skin Musculoskeletal: No Chest Wall Tenderness Extremities: No Clubbing, No Cyanosis, Normal Pulses, Other (Mild bilateral non- pitting pedal edema. ) Results 11/06/16 00:19 11/06/16 00:19 Lab Results Impressions Chest CTA 11/05/16 12:01 IMPRESSION: 1. Filling defect within the left lower lobe segmental pulmonary artery compatible with acute pulmonary embolism. 2. Small to moderate sized bilateral pleural effusions. There is pulmonary edema. Findings may represent CHF. 3. Cardiomegaly and coronary disease. 4. Mild ascending thoracic aortic aneurysm measures 4.1 cm. 5. The main pulmonary artery is dilated at 3.4 cm compatible with pulmonary arterial hypertension. Critical results were called by Dr. Braulio Sauer MD to Eamon Duenas on 11/05/2016 at 13:27. D/ / 11/05/2016 13:29:50 Braulio Sauer MD / alex Interpreting Provider: Braulio Sauer MD Active Medications Acetaminophen (Tylenol) 650 mg PO Q6HR PRN PRN Reason: Mild Pain (1-3) Stop: 05/07/17 14:32 Acetaminophen/Hydrocodone Bitart ([place] 5-325 Mg) 1 tab PO Q4HR PRN PRN Reason: Moderate Pain (4-6) Stop: 05/07/17 14:32 Al Hydrox/Mg Hydrox/Simethicone (Maalox) 15 ml PO Q6HR PRN; Protocol PRN Reason: Indigestion Stop: 05/07/17 17:51 Atorvastatin Calcium (Lipitor) 20 mg PO HS [facility] Stop: 05/07/17 21:01 Last Admin: 11/05/16 21:12 Dose: 20 mg Diltiazem HCl (Cardizem Cd) 120 mg PO DAILY [facility] Stop: 05/08/17 09:01 Last Admin: 11/06/16 09:10 Dose: 120 mg Docusate Sodium (Colace) 100 mg PO BID PRN PRN Reason: Constipation Stop: 05/07/17 14:32 Famotidine (Pepcid) 20 mg PO BID [facility] Stop: 05/07/17 21:01 Last Admin: 11/06/16 09:10 Dose: 20 mg Furosemide (Lasix) 40 mg IVP DAILY [facility] Stop: 05/07/17 15:01 Last Admin: 11/06/16 09:09 Dose: 40 mg Heparin Sodium (Porcine) (Heparin) 5,400 unit 70 unit/kg (5400 unit) IVP Q6HR PRN PRN Reason: SEE COMMENTS Stop: 05/07/17 13:57 Heparin Sodium (Porcine) (Heparin) 2,700 unit 35 unit/kg (2700 unit) IVP Q6H PRN PRN Reason: SEE COMMENTS Stop: 05/07/17 13:57 Heparin Sodium/Dextrose (Heparin 25,000 Unit/500 Ml D5w) 25,000 unit in 500 mls @ 21.591 mls/hr IVC .[id number] [facility]; 14 UNIT/KG/HR PRN Reason: Protocol Stop: 05/07/17 14:01 Last Titration: 11/06/16 05:43 Dose: 10 unit/kg/hr, 15.422 mls/hr Lisinopril (Zestril) 2.5 mg PO DAILY [facility] Stop: 05/08/17 09:01 Last Admin: 11/06/16 09:09 Dose: 2.5 mg Lorazepam (Ativan) 0.5 mg PO HS [facility] Stop: 05/07/17 21:01 Last Admin: 11/05/16 21:12 Dose: 0.5 mg Melatonin (Melatonin) 9 mg PO HS PRN PRN Reason: Sleep Last Admin: 11/05/16 21:17 Dose: 9 mg Metoprolol Tartrate (Lopressor) 25 mg PO BID [facility] Stop: 05/07/17 21:01 Last Admin: 11/06/16 09:09 Dose: 25 mg Naloxone HCl (Narcan) 0.4 mg IVP Q2MIN PRN PRN Reason: Opioid Reversal Stop: 05/07/17 14:32 Laboratory Tests 11/05/16 11/05/16 11/05/16 11:21 11:21 18:13 Hgb Creatinine Troponin I 0.06 H* 0.06 H* B-Natriuretic Peptide 537 H 11/06/16 11/06/16 11/06/16 00:19 00:19 00:19 Hgb 12.9 Creatinine 1.30 H Troponin I 0.07 H* B-Natriuretic Peptide - Imaging and Cardiology Chest Xray: report reviewed Other Results: CT chest report reviewed - EKG Interpretation EKG results cardiology: personally reviewed (ECG with atrial fibrillation, bundle branch block, HR 82.), other (Telemetry reviewed with average HR 72, atrial fibrillation. Longest pause 2.6 seconds. PVCs noted.) Consult Discharge Plan - Plan Referrals: Marycruz Mackenzie MD [Primary Care Provider] -
[2016-11-06] MEDS ORDERED: 0.9 % Sodium Chloride 1,000 ML ONE ×2 (14:04→14:17)
[2016-11-06] MEDS ORDERED: Heparin 1,000 UNITS/500 mL NS 500 ML ONE (14:04)
[2016-11-06] MEDS ORDERED: *HR* Heparin 10,000 UNIT/10 ML VIAL ONE (14:04)
[2016-11-06] MEDS ORDERED: *HR* Midazolam HCl 2 MG/2 ML VIAL ONE (14:28)
[2016-11-06] MEDS ORDERED: *HR* FentaNYL (PF) 100 MCG/2 ML VIAL ONE (14:28)
--- NOTE | 2016-11-06 14:43 | Pre-Sedation Evaluation ---
Pre-sedation evaluation - Pre-sedation checklist Date of procedure: 11/06/16 Procedure: ivc filter Recent Vitals: Last Vital Signs Temp 97.8 F 11/06/16 11:17 Pulse 81 11/06/16 11:17 Resp 16 11/06/16 11:17 BP 133/96 11/06/16 11:17 Pulse Ox 98 11/06/16 11:17 H&P (including ROS) documented in medical record: Yes Previous reaction to sedatives/anesthetics: No Dietary Status: NPO after Midnight Airway Assessment: Patient can open mouth completely, TMJ function normal ASA Classification *see protocol: CLASS II-Mild systemic disease Plan of Care: Pt appropriate candidate for procedure/moderate/conscious sedation , Risks/benefits of procedure/sedation discussed w/ patient/family
--- NOTE | 2016-11-06 14:55 | Venous Imaging Report ---
LE Venous Duplex Patient Name:Homero Hayes Order Number:[id number] Procedure Date:11/06/2016 Date:1930ge:85 yrs Gender:Male Location:[facility] Room #: 2NE28 Crown Wheel Assembler:Corina Jack Referring MD:Maximiliano Farr MD, [facility] route sales trainee:Marycruz Mackenzie MD Reading MD:Fortunato Mathis MD Study Quality:Good Primary Indications:Pulmonary Embolism Secondary Indications: Shortness of breath Risk Factors Yes/No PE of Unknown Origin Impressions: Normal bilateral lower extremity deep and superficial venous exam. Recommendations: After imaging the patient returned to their room. Test completed on 11/06/2016 at 8:25:00 am. Findings Prior Study: No prior study available for comparison. Lower Extremity Venous Duplex Side Vein Compress Spontaneous Flow Augment Diameter (cm) Depth (cm) Right Distal Iliac Normal Yes Phasic Yes Right Common Femoral Normal Yes Phasic Yes Right Superficial Femoral Normal Yes Phasic Yes Right Popliteal Normal Yes Phasic Yes Right Posterior Tibial Normal Yes Phasic Yes Right Peroneal Normal Yes Phasic Yes Right Great Saphenous Normal Yes Phasic Yes Right Lesser Saphenous Normal Yes Phasic Yes Left Distal Iliac Normal Yes Phasic Yes Left Common Femoral Normal Yes Phasic Yes Left Superficial Femoral Normal Yes Phasic Yes Left Popliteal Normal Yes Phasic Yes Left Posterior Tibial Normal Yes Phasic Yes Left Peroneal Normal Yes Phasic Yes Left Great Saphenous Normal Yes Phasic Yes Left Lesser Saphenous Normal Yes Phasic Yes Updated by Fortunato Mathis MD on 11/06/2016 2:48:08 PM electronically signed on 11/06/2016 2:48:41 PM with status of Final
--- NOTE | 2016-11-06 15:04 | Event Note ---
Date of Encounter: 11/06/16 Time of Encounter: 15:03 - Cardiology Event Note Successful IVC filter placed per . Per previous note, cardiology will sign off. Follow up in cardiology clinic set. Re-consult if needed. Thank you.
--- NOTE | 2016-11-06 15:05 | Event Note ---
Date of Encounter: 11/06/16 Time of Encounter: 15:00 - Cardiology Event Note IVC filter implanted. No complications. Recommend continuing anticoagulation INR 2.5-3.
--- NOTE | 2016-11-06 15:27 | Invasive Diagnostic Lab Proc ---
Name: Homero Hayes Date of Study: 11/06/2016 Date: 1930 Ht: 170.0 in Medical Record#: [id number] Age: 85 Wt: 80 lb Gender: Male BSA: 1.92 Order #: [id number] BMI: 27.68 Physicians Performing MD: Maximiliano Farr MD, [facility] Referring MD: Referring MD: Staff Name Position Time In radu Cheney RN Monitor Eva Paz RN Cis Coordinator Sites, Lindsay RT (R) Scrub Indications Pulmonary Embolism Procedures Performed IVC FILTER PLACEMENT Pre-Procedure Checklist Informed consent is complete signed and on chart. H\\T\\P is on chart. ID band is on and ID verified with patient. Patient NPO for procedure The procedure was described for the patient and questions were answered. Blood Pressure: 136/101 ECG is on chart. Rhythm: Atrial Fibrillation Plan of Care Patient will tolerate the procedure without complications. Adequate level of comfort will be maintained. Hemodynamics will remain stable Patient will recover from procedure without complications. Respiratory function will be maintained. Cardiac rhythm will remain stable. Patient temperature will be maintained. Patient and/or family have verbalized understanding of the procedure. Patient Education Chief Complaint/Reason for Test: IVC filter Developmental Category: Geriatric (65+ years) Learning Barriers: None Education Needs: Procedure Education Method: Verbal Information Taught: IVC filter Educational Evaluation: Able to repeat information Intravenous Access Time IV Size Location DC'd Fluid/Drip Rate Units RN 07:40 18g 1 /" Patent On Arrival Rt Antecubital Heparin drip 760 units/hr Eva Paz RN Allergies tetanus immune globulin Vital Signs Time BP Systolic BP Diastolic HR O2 Sats ASA 136 101 79 98 02:31 PM 02:31 PM 02:47 PM 02:30 PM 131 71 72 79 02:35 PM 117 83 67 96 02:40 PM 99 63 71 96 02:45 PM 112 79 70 96 02:50 PM 117 74 60 96 02:55 PM 107 76 69 95 03:00 PM 113 69 68 95 03:05 PM 113 63 62 94 Procedure Medications Time Medication Dose Units Method Route 02:31 PM Oxygen 2 L/min nasal cannula 02:32 PM Versed 2 mg Intravenous 02:32 PM Fentanyl 50 mcg Intravenous 02:51 PM Lidocaine 2% 20 ml Subcutaneous Mk Score Preprocedure Postprocedure Activity 2- Moves 4 extremities sustained head lift Activity 2- Moves 4 extremities sustained head lift Circulation 2- SBP +/= 20 points of pre-anesthetic level Circulation 2- SBP +/= 20 points of pre-anesthetic level Consciousness 2- Awake and alert oriented x 3 Consciousness 2- Awake and alert oriented x 3 O2 Saturation 1- Needs O2 inhalation to maintain O2 saturation of 90% O2 Saturation 1- Needs O2 inhalation to maintain O2 saturation of 90% Respiratory 2- Able to deep breathe and cough well Respiratory 2- Able to deep breathe and cough well Total Score 9 Total Score 9 Contrast: Isovue 370- 200ml Contrast Amount: 21 ml Fluoro Dose: 73 mGy Procedure Log Time Note Entered By 02:30 PM Pt arrived to slab lifting engineer 2 at 14:25 [email or web address] 02:30 PM Radu Cheney RN Position: Monitor Time in: 14:30 csmith 02:30 PM Eva Paz RN Position: Cis Coordinator Time in: 14:30 csmith 02:30 PM Sites, Lindsay RT (R) Position: Scrub Time in: 14:30 csmith 02:30 PM Hair removed from procedure site in procedure lab using clippers. Bilateral groin prepped with Chloraprep by Eva Paz RN, safety strap applied then patient was draped. Skin intact. csmith 02:30 PM Physician arrived 14:30 csmith 02:30 PM Meet and greet completed csmith 02:30 PM Sign in performed according to hospital policy. csmith 02:31 PM Procedure start 14:31 csmith 02:31 PM 14:31 Oxygen at 2 L/min per nasal cannula by Eva Paz RN csmith 02:31 PM Time: 14:31 Is patient comfortable and pain free?: Yes csmith 02:31 PM Time: 14:31LOC: 5 = Fully awake and oriented or at pre-proc level csmith 02:32 PM 14:32 Versed 2 mg Intravenous Given by Eva Paz RN csmith 02:32 PM 14:32 Fentanyl 50 mcg Intravenous Given by Eva Paz RN csmith 02:47 PM Time: 14:31LOC: 4 = Oriented but drowsy csmith 02:47 PM Time: 14:31 Is patient comfortable and pain free?: Yes csmith 02:50 PM Time out perfomed csmith 02:51 PM 14:51 20 ml Lidocaine 2% to right groin Subcutaneous Given By Maximiliano Farr MD, FACC csmith 02:52 PM Patient Charges- Cook Celect IVC Filter ,Tray Pack and Pulse Oximetry. csmith 02:52 PM Access obtain and IVC Filter sheath inserted Rt Femoral vein. csmith 02:57 PM Inferior vena cava-gram performed csmith 02:58 PM IVC Filter inserted into the inferior vena cava csmith 03:00 PM IVC Filter deployed into the inferior vena cava csmith 03:01 PM Inferior vena cavagram performed. csmith 03:02 PM Time: 14:47 Is patient comfortable and pain free?: Yes csmith 03:02 PM Time: 14:47LOC: 4 = Oriented but drowsy csmith 03:03 PM Procedure completed at 15:03 csmith 03:03 PM Sign Out completed: Radiation Dose 73 mGy Fluoro Time: 1.4 minutes. Isovue 370- 200ml contrast 21 ml given by Maximiliano Farr MD, [facility]. Complications: None. Confirmed administered medications:Yes csmith 03:03 PM Isovue 370- 200ml,1 bottle(s) used. csmith 03:04 PM Post Blood Pressure: 113/69 csmith 03:04 PM Post EKG: Atrial Fibrillation csmith 03:04 PM 15:04 Post Pulses: Bilateral DP \\T\\ PT 1+. csmith 03:04 PM Information taught: V+Pad and IVC filter csmith 03:04 PM Education needs: Responsibilities of Patient in Care csmith 03:04 PM Learning barriers: None csmith 03:04 PM Education methods: Verbal csmith 03:04 PM Education evaluation: Able to repeat information csmith 03:04 PM Patient pain level 0/10 csmith 02:55 PM HR=69 bpm, IMDY=944/76 mmhg, SpO2=95.0 %, Resp=22 B/min, Comment=AF 03:00 PM HR=68 bpm, UWQB=567/69 mmhg, SpO2=95.0 %, Resp=7 B/min, Comment=AF 03:05 PM HR=62 bpm, QMNV=221/63 mmhg, SpO2=94.0 %, Resp=14 B/min, Comment=AF 02:27 PM PVIStat 02:30 PM Vitals capture started with the following parameters, Patient=Adult, Interval=5 min, Initial Zxsigmin=877 mmHg, Deflation Rate=5 mmHg, Cuff placed on Right Arm 02:30 PM HR=72 bpm, MOZH=627/71 mmhg, SpO2=79.0 %, Resp=8 B/min, Comment=AF 02:31 PM Recorded ECG: HR=72 Condition=Condition 1 02:35 PM HR=67 bpm, ZGXF=340/83 mmhg, SpO2=96.0 %, Resp=15 B/min, Comment=AF 02:40 PM HR=71 bpm, NIBP=99/63 mmhg, SpO2=96.0 %, Comment=AF 02:45 PM HR=70 bpm, UCUZ=421/79 mmhg, SpO2=96.0 %, Comment=AF 02:50 PM HR=60 bpm, UGTA=125/74 mmhg, SpO2=96.0 %, Resp=29 B/min, Comment=AF 03:05 PM Family placed in consult room. csmith 03:21 PM Report given to Noy VIZCARRA. Pt taken to [facility] Room # 28 15:17 csmith 03:21 PM Venous sheath pulled using manual compression and V+Pad for 15 minutes by Eva Paz RN csmith 03:22 PM Site status No bleeding/hematoma - Rt Groin as reported by Eva Paz RN at 15:21 csmith 03:22 PM Patient out of room 15:22 csmith Post Procedure Information Blood Pressure: 113/69 mmHg Rhythm: Atrial Fibrillation Post procedure instructions given Report Given To: [facility] Site Checks Time Location Status Staff Sheath In? Note 3:21:00 PM Rt Groin Eva Paz RN Pulses Time Site Pre Procedure Post Procedure Note 11/06/2016 2:37:00 PM Bilateral radial 2+ 11/06/2016 2:37:00 PM Bilateral DP 2+ 11/06/2016 2:37:00 PM Bilateral PT 1+ 3:04:00 PM Bilateral DP \\T\\ PT 1+ Updated by Radu Cheney RN on 11/06/2016 3:22:43 PM electronically signed on 11/06/2016 3:23:21 PM with status of Final
--- NOTE | 2016-11-06 16:06 | Invasive Diagnostic Lab ---
Name: Homero Hayes Date of Study: 11/06/2016 Date: 1930 Ht: 170.0 in Medical Record#: [id number] Age: 85 Wt: 80 lb Gender: Male BSA: 1.92 Order #: [id number] Fluoro: 73 mGy BMI: 27.68 Procedure MD: Maximiliano Farr MD, FACC Procedures Performed: IVC FILTER PLACEMENT Venography,Cava Inf S\T\I Indications: Pulmonary Embolism while on chronic anticoagulation Plan for surgery within 6 months Impressions: Normal inferior vena cava Successful placement of infrarenal IVC filter Recommendations: Optimize medical therapy of patient's disease INR 2.5-3 Description of procedure: After informed consent was obtained, conscious sedation was given. 20cc of lidocaine above right femoral vein. Using modified seldinger technique, femoral vein accessed and dilated followed by IVC filter sheath. Venogram was completed using 10cc x 2 seconds followed by successful IVC filter deployment. No complications. Venogram post deployment shows correct infrarenal position. Sheath removed and pressure held. Findings: Normal inferior vena cava Total Contrast: Isovue 370- 200ml 21mls Updated by Maximiliano Farr MD, FACC on 11/06/2016 3:59:16 PM electronically signed on 11/06/2016 4:02:27 PM with status of Final
[2016-11-06] MEDS: Heparin 25,000 UNIT/500 ML D5W 25,000 UNIT/500 ML MLS IVC SCH (17:08)
[2016-11-06 17:49] LABS: INR 1.9
[2016-11-06] MEDS ORDERED: Warfarin perPT PO PRN (18:00)
[2016-11-06] MEDS ORDERED: *HR* Warfarin 2.5 MG TABLET PO ONE (18:45)
[2016-11-06] MEDS: *HR* LORazepam 0.5 MG TABLET PO SCH (21:22)
[2016-11-06] MEDS: Melatonin 3 MG TABLET PO PRN (21:22)
[2016-11-07 05:40] LABS: Basophils # 0.1 K/mcL (0.0-0.2); Basophils % 0.6 %; Eosinophils # 0.3 K/mcL (0.0-0.6); Eosinophils % 3.5 %; Hematocrit 38.6 % (37.5-50.1); Hemoglobin 12.4 g/dL (12.9-16.9); Immature Granulocytes % 0.2 % (0-4); Lymphocytes % 20.6 %; Mean Corpuscular HGB Conc 32.1 g/dL (31.6-35.5); Mean Corpuscular Hemoglobin 27.5 pg (28.0-33.3); Mean Corpuscular Volume 85.6 fL (83.0-100.0); Mean Platelet Volume 10.2 fL (9.4-12.4); Monocytes # 0.9 K/mcL (0.0-1.3); Monocytes % 9.3 %; Neutrophils # 6.3 K/mcL (1.6-8.9); Platelet Count 254 K/mcL (140-400); Red Blood Count 4.51 M/mcL (4.19-5.50); Red Cell Distribution Width 14.8 % (11.5-14.5); Segmented Neutrophils % 65.8 %
[2016-11-07 05:43] LABS: INR 1.6; Prothrombin Time 17.7 Seconds (9.4-12.1)
[2016-11-07 05:45] LABS: Activated Partial Thrombo Time 60.9 Seconds (26.0-36.0)
[2016-11-07 05:53] LABS: BUN/Creatinine Ratio 14 (6-26); Blood Urea Nitrogen 16 mg/dL (8-26); Calcium 8.9 mg/dL (8.6-10.8); Carbon Dioxide 28 mEq/L (19-29); Chloride 100 mEq/L (98-109); Glucose 92 mg/dL (70-99); Osmolality,Calculated 285 (280-300); Potassium 3.9 mEq/L (3.5-4.5); Sodium 137 mEq/L (136-145); eGFR For African Americans > 60 (> 60); eGFR For Non-African Americans > 60 (> 60)
--- NOTE | 2016-11-07 07:01 | Urology Progress Note ---
Date of Encounter: 11/07/16 Time of Encounter: 06:59 - Assessment and Plan (1) Hematuria Current Visit: Yes Status: Acute Assessment and plan: from bladder tumor. patient sp ivc filter. will continue to follow along while in hospital, but no tumor resection planned during this hospitalization unless patient develops hematuria which can not be controlled. patient has multiple risk factors which make him high risk to undergo anesthesia. Progress Note Narrative: Patient seen this am. urine slightly pink tinged in the urinal. voiding ok. labs stable. Objective Initial Vital Signs Temp Pulse Resp BP Pulse Ox 99.1 F 83 20 118/85 93 11/05/16 10:24 11/05/16 10:24 11/05/16 10:24 11/05/16 10:24 11/05/16 10:24 - General physical appearance Present: well developed - Abdomen Present: soft - Labs 11/07/16 05:20 11/07/16 05:20 Diabetes panel 11/07/16 Range/Units 05:20 Sodium 137 (136-145) mEq/L Potassium 3.9 (3.5-4.5) mEq/L Chloride 100 (98-109) mEq/L Carbon Dioxide 28 (19-29) mEq/L BUN 16 (8-26) mg/dL Creatinine 1.11 (0.72-1.25) mg/dL Glucose 92 (70-99) mg/dL Calcium 8.9 (8.6-10.8) mg/dL Calcium panel 11/07/16 Range/Units 05:20 Calcium 8.9 (8.6-10.8) mg/dL Pituitary panel 11/07/16 Range/Units 05:20 Sodium 137 (136-145) mEq/L Potassium 3.9 (3.5-4.5) mEq/L Chloride 100 (98-109) mEq/L Carbon Dioxide 28 (19-29) mEq/L BUN 16 (8-26) mg/dL Creatinine 1.11 (0.72-1.25) mg/dL Glucose 92 (70-99) mg/dL Calcium 8.9 (8.6-10.8) mg/dL Adrenal panel 11/07/16 Range/Units 05:20 Sodium 137 (136-145) mEq/L Potassium 3.9 (3.5-4.5) mEq/L Chloride 100 (98-109) mEq/L Carbon Dioxide 28 (19-29) mEq/L BUN 16 (8-26) mg/dL Creatinine 1.11 (0.72-1.25) mg/dL Glucose 92 (70-99) mg/dL Calcium 8.9 (8.6-10.8) mg/dL Consult Discharge Plan - Plan Referrals: Marycruz Mackenzie MD [Primary Care Provider] -
[2016-11-07] MEDS: Diltiazem CD (24hr) 120 MG CAPSULE PO SCH (10:23)
[2016-11-07] MEDS: Furosemide 40 MG/4 ML VIAL IVP SCH (10:23)
[2016-11-07] MEDS: Famotidine 20 MG TABLET PO SCH ×2 (10:23→21:35)
[2016-11-07 15:13] LABS: BUN/Creatinine Ratio 13 (6-26); Blood Urea Nitrogen 15 mg/dL (8-26); Calcium 9.1 mg/dL (8.6-10.8); Carbon Dioxide 30 mEq/L (19-29); Chloride 100 mEq/L (98-109); Glucose 120 mg/dL (70-99); Magnesium 1.5 mg/dL (1.6-2.6); Osmolality,Calculated 290 (280-300); Potassium 3.6 mEq/L (3.5-4.5); Sodium 139 mEq/L (136-145); eGFR For African Americans > 60 (> 60); eGFR For Non-African Americans > 60 (> 60)
--- NOTE | 2016-11-07 15:20 | Internal Med Progress Note ---
Date of Encounter: 11/07/16 Time of Encounter: 14:43 - Assessment and plan (1) Pulmonary embolism Current Visit: Yes Status: Acute Assessment and plan: Pt with acute PE LLL. He is s/p IVC filter yesterday. No acute issues. He had some chest discomfort today but workup negative thus far. Continue heparin and coumadin. Qualifiers: Pulmonary embolism type: other Chronicity: acute Acute cor pulmonale presence: without acute cor pulmonale Qualified Code(s): I26.99 - Other pulmonary embolism without acute cor pulmonale (2) Atrial fibrillation Current Visit: No Status: Chronic Assessment and plan: Rate controlled a fib on monitor. Continue his current meds for rate control and anticoagulation. Qualifiers: Atrial fibrillation type: chronic Qualified Code(s): I48.2 - Chronic atrial fibrillation (3) Hematuria Current Visit: Yes Status: Acute Assessment and plan: Related to bladder tumor. Seems to be somewhat better today. (4) Bladder mass Current Visit: No Status: Acute Assessment and plan: Appreciate urology input. Family concerned about timing for the surgery. (5) Hyperlipidemia Current Visit: No Status: Acute Assessment and plan: Continue home medications. Qualifiers: Hyperlipidemia type: mixed hyperlipidemia Qualified Code(s): E78.2 - Mixed hyperlipidemia (6) Fluid overload Current Visit: No Status: Acute Assessment and plan: Improved on CXR today. Qualifiers: Hypervolemia type: other Qualified Code(s): E87.79 - Other fluid overload - Subjective Interval history: Mr. Hayes is currently admitted for acute LLL PE while anticoagulated and hematuria related to bladder mass. He is high risk due to potential for worsening anemia and respiratory status. Mr. Hayes was urinating a lot this AM. Much clearer. No pain. Family concerned about timing of surgery. This afternoon he had episode of weakness and headache. Weakness was diffuse and more like malaise. No neuro findings. Has some chest heaviness - "can't get a breath" ? anxiety. - Constitutional Vitals: Temp Pulse Resp BP Pulse Ox 97.8 F 89 16 129/91 93 11/07/16 11:28 11/07/16 11:28 11/07/16 11:28 11/07/16 11:28 11/07/16 11:28 General appearance: Present: cooperative, A&O X 3, pleasant, answers questions appropriately - Head Head exam: Present: normocephalic - Eye Eye exam: Present: conjuntiva pink - ENT ENT exam: Present: mucous membranes moist - Respiratory Respiratory exam: Present: rales. Absent: rhonchi, wheezes Additional comments: Some rales heard in both bases. No wheeze. - Cardiovascular Cardiovascular exam: Present: irregular rhythm - GI/Abdominal GI/Abdominal exam: Present: soft. Absent: tenderness - Extremities Exam Extremities exam: Present: warm. Absent: tenderness - Neurological Exam Neurological exam: Present: alert, oriented X3, no focal deficits - Skin Skin exam: Present: dry, warm. Absent: rash Internal Medicine: Result - Labs CBC & Chem 7: 11/07/16 05:20 11/07/16 14:52 Labs: Short CBC 11/07/16 Range/Units 05:20 WBC 9.7 (4.3-11.1) K/mcL Hgb 12.4 L (12.9-16.9) g/dL Hct 38.6 (37.5-50.1) % Plt Count 254 (140-400) K/mcL Neutrophils # 6.3 (1.6-8.9) K/mcL BMP 11/07/16 05:20 Sodium 137 Potassium 3.9 Chloride 100 Carbon Dioxide 28 BUN 16 Creatinine 1.11 Glucose 92 Calcium 8.9 - ABG Interpretation ABG results: PT/INR, D-dimer PT 17.7 Seconds (9.4-12.1) H 11/07/16 05:20 Consult Discharge Plan - Plan Referrals: Marycruz Mackenzie MD [Primary Care Provider] -
[2016-11-07] MEDS ORDERED: Magnesium Sulfate 2 GM in D5% in Water 100 ML IVPB ONE (15:40)
[2016-11-07] MEDS: *HR* Warfarin 3 MG TABLET PO SCH (18:10)
[2016-11-07] MEDS: *HR* LORazepam 0.5 MG TABLET PO SCH (18:10)
[2016-11-07] MEDS: Melatonin 3 MG TABLET PO PRN (21:33)
[2016-11-07] MEDS: *HR* LORazepam 0.5 MG TABLET PO PRN (21:35)
[2016-11-08] MEDS: Heparin 25,000 UNIT/500 ML D5W 25,000 UNIT/500 ML MLS IVC SCH (02:26)
[2016-11-08 05:47] LABS: Hematocrit 40.9 % (37.5-50.1); Mean Corpuscular HGB Conc 31.8 g/dL (31.6-35.5); Mean Corpuscular Hemoglobin 27.1 pg (28.0-33.3); Mean Corpuscular Volume 85.2 fL (83.0-100.0); Mean Platelet Volume 10.4 fL (9.4-12.4); Platelet Count 286 K/mcL (140-400); Red Cell Distribution Width 14.9 % (11.5-14.5)
[2016-11-08 05:53] LABS: INR 1.8; Prothrombin Time 20.1 Seconds (9.4-12.1)
[2016-11-08 06:09] LABS: Alanine Aminotransferase 20 Units/L (0-55); Albumin 2.9 g/dL (3.5-5.0); Albumin/Globulin Ratio 0.8 (1.1-2.2); Alkaline Phosphatase 119 Units/L (38-126); Aspartate Amino Transferase 30 Units/L (5-34); BUN/Creatinine Ratio 12 (6-26); Blood Urea Nitrogen 14 mg/dL (8-26); Calcium 9.4 mg/dL (8.6-10.8); Carbon Dioxide 29 mEq/L (19-29); Chloride 101 mEq/L (98-109); Globulin 3.6 g/dL (2.4-3.5); Glucose 95 mg/dL (70-99); Osmolality,Calculated 286 (280-300); Sodium 138 mEq/L (136-145); Total Protein 6.5 g/dL (6.0-8.3); eGFR For African Americans > 60 (> 60); eGFR For Non-African Americans 58 (> 60)
[2016-11-08] MEDS: Famotidine 20 MG TABLET PO SCH ×2 (08:43→22:14)
[2016-11-08] MEDS: Diltiazem CD (24hr) 120 MG CAPSULE PO SCH (08:44)
--- NOTE | 2016-11-08 10:47 | Internal Med Progress Note ---
Date of Encounter: 11/08/16 Time of Encounter: 09:30 - Assessment and plan (1) Pulmonary embolism Current Visit: Yes Status: Acute Assessment and plan: Acute LLL PE. Currently on heparin and coumadin with INR 1.8. Oxygenation is OK today. Continue heparin tonight. Hopeful therapeutic INR tomorrow. Qualifiers: Pulmonary embolism type: other Chronicity: acute Acute cor pulmonale presence: without acute cor pulmonale Qualified Code(s): I26.99 - Other pulmonary embolism without acute cor pulmonale (2) Atrial fibrillation Current Visit: No Status: Chronic Assessment and plan: Rate controlled a fib on monitor. Continue his current meds for rate control and anticoagulation. Qualifiers: Atrial fibrillation type: chronic Qualified Code(s): I48.2 - Chronic atrial fibrillation (3) Hematuria Current Visit: Yes Status: Acute Assessment and plan: Urine fairly clear today. (4) Bladder mass Current Visit: No Status: Acute Assessment and plan: Heme/onc eval today due to question of timing of surgery with regards to recent PE. Appreciate heme/onc and urol input. (5) Hyperlipidemia Current Visit: No Status: Acute Assessment and plan: Continue home medications. Qualifiers: Hyperlipidemia type: mixed hyperlipidemia Qualified Code(s): E78.2 - Mixed hyperlipidemia (6) Fluid overload Current Visit: No Status: Acute Assessment and plan: Improved on CXR today. Lasix on hold today. Qualifiers: Hypervolemia type: other Qualified Code(s): E87.79 - Other fluid overload (7) Anxiety about health Current Visit: Yes Status: Acute Assessment and plan: PRN Ativan ordered. - Subjective Interval history: Mr. Hayes is currently admitted for acute LLL PE while anticoagulated and hematuria related to bladder mass. He is moderate to high risk due to potential for worsening anemia and respiratory status. Mr. Hayes feels a little better today. He thinks yesterday's episode was anxiety. His urine has been clearer. INR now 1.8. No fever or chills. No chest pain or SOB. Received laxative yesterday and thinks it is going to work now. - Constitutional Vitals: Temp Pulse Resp BP Pulse Ox 97.7 F 73 16 140/91 96 11/08/16 06:46 11/08/16 06:46 11/08/16 06:46 11/08/16 06:46 11/08/16 06:46 General appearance: Present: cooperative, A&O X 3, pleasant, answers questions appropriately - Head Head exam: Present: normocephalic - Eye Eye exam: Present: conjuntiva pink - ENT ENT exam: Present: mucous membranes moist - Respiratory Respiratory exam: Present: CTAB. Absent: rhonchi, wheezes - Cardiovascular Cardiovascular exam: Present: irregular rhythm. Absent: tachycardia - GI/Abdominal GI/Abdominal exam: Present: soft. Absent: tenderness - Extremities Exam Extremities exam: Present: warm. Absent: pedal edema, tenderness - Neurological Exam Neurological exam: Present: alert, oriented X3, no focal deficits - Psychiatric Psychiatric exam: Present: anxious - Skin Skin exam: Present: dry, warm. Absent: rash Internal Medicine: Result - Labs CBC & Chem 7: 11/08/16 04:56 11/08/16 04:56 Labs: Short CBC 11/08/16 Range/Units 04:56 WBC 9.5 (4.3-11.1) K/mcL Hgb 13.0 (12.9-16.9) g/dL Hct 40.9 (37.5-50.1) % Plt Count 286 (140-400) K/mcL BMP 11/07/16 11/08/16 14:52 04:56 Sodium 139 138 Potassium 3.6 4.0 Chloride 100 101 Carbon Dioxide 30 H 29 BUN 15 14 Creatinine 1.15 1.18 Glucose 120 H 95 Calcium 9.1 9.4 Cardiac Enzymes 11/07/16 Range/Units 14:52 Troponin I 0.05 H* (0-0.03) ng/mL Liver Function 11/08/16 Range/Units 04:56 Total Bilirubin 1.0 (0.2-1.2) mg/dL AST 30 (5-34) Units/L ALT 20 (0-55) Units/L Alkaline Phosphatase 119 (38-126) Units/L Albumin 2.9 L (3.5-5.0) g/dL - ABG Interpretation ABG results: PT/INR, D-dimer PT 20.1 Seconds (9.4-12.1) H 11/08/16 04:56 - Impressions Impressions Head CT 11/07/16 14:38 IMPRESSION: No acute intracranial abnormality. D/ / Ziggy Correia MD / Ziggy Correia MD Interpreting Provider: Ziggy Correia MD Chest X-Ray 11/07/16 14:39 IMPRESSION: Interval improvement in mild perihilar congestive changes. Persistent small effusion. D/ / Quang Cabrera MD / Quang Cabrera MD Interpreting Provider: Quang Cabrera MD Consult Discharge Plan - Plan Referrals: Marycruz Mackenzie MD [Primary Care Provider] -
--- NOTE | 2016-11-08 10:57 | Oncology Inp Consult Note ---
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 Patient is also noted to have acute pulmonary embolism and is currently on anti-correlation with heparin with a long-term plan to go back to Coumadin. His lower extremity Dopplers are negative. He is status post vena cava filter placement as well. Atrial fibrillation currently under control patient follows up with cardiology for , CHF, AK, A fib. Co-morbidities noted, plan cystoscopy/procedural intervention bx at least a month-3 months unless patient develops gross bleeding. 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 His Hgb is stable, he is hypercoagulable lkely due to malignancy, predisposition to recurrent PE due to A fib all warranting continued anticoagulation at this time. Patient had numerous questions including no intervention for his bladder tumor. Plan was discussed briefly with him as noted above. - Data of Consult Requesting Physician: Latrell Leal DO Primary Care Provider: Marycruz Mackenzie - Consult Narrative Reason for consult: bladder mass, thrombosis, bleeding History of present illness: Mr. Hayes is a 85 year old male with medical history significant for atrial fibrillation, congestive heart failure, severe aortic stenosis, aortic aneurysm , myocardial infarction, history of enough hematuria in the past for the last 2 years or so with hematuria lasting for a week prior to admission patient underwent imaging with CT scan abdomen and pelvis which showed a nodular contour of the liver, 4.2 cm bladder mass concerning for malignancy. Patient has been on anticoagulation with Coumadin for chronic atrial fibrillation. He was hospitalized with pulmonary embolism, when he presented 11/05/2016 with the shortness of breath the and a CTA shows a filling defect in the left lower lobe segmental pulmonary artery. Patient was noted to have INR therapeutic on Coumadin at this time. He is started on heparin, due to bleeding IVC filter was also inserted. Patient denies any bleeding currently from bladder tumor. He has not undergone a cystoscopy. A urology has seen patient did due to concurrent comorbidities and acute pulmonary embolism intervention such as transurethral resection of bladder tumor is not planned for the current time. Patient has a touch a feeling of the lower abdomen, he denies any pain. He is able to wide without any bleeding or pain. He denies any chest pain or shortness of breath. Past Med Surg Social Fam HX - Past Medical History Medical history: aortic aneurysm, atrial fibrillation, CHF, myocardial infarction Psychiatric history: no psych history - Past Surgical History Surgical History: angioplasty/stent, appendectomy, knee replacement - Social History Smoking Status: Former smoker Smokeless Tobacco Status: No Alcohol use: none Drug use: none - Family History Father Hx Family Cardiac Disorders: Yes Medications and Allergies Aspirin [Lo-Dose Aspirin EC] 81 mg PO DAILY 11/05/16 [History] Atorvastatin Calcium [Lipitor] 20 mg PO HS 11/05/16 [History] Diltiazem CD (24hr) [Cardizem CD] 120 mg PO DAILY 11/05/16 [History] Enalapril Maleate [Vasotec] 2.5 mg PO DAILY 11/05/16 [History] Furosemide [Lasix] 20 mg PO DAILY PRN 11/05/16 [History] LORazepam [Ativan] 0.5 mg PO HS 11/05/16 [History] Melatonin 10 mg PO HS PRN 11/05/16 [History] Metoprolol [Lopressor] 25 mg PO BID 11/05/16 [History] Naproxen Sodium [Aleve] 220 mg PO Q12H PRN 11/05/16 [History] Warfarin [Coumadin] 3 mg PO 1800 11/05/16 [History] Allergies tetanus immune globulin Allergy (Intermediate, Verified 11/05/16 14:13) Rash Review of systems: as in HPI Oncology - Exam - Constitutional Vitals: Temp Pulse Resp BP Pulse Ox 97.7 F 73 16 140/91 96 11/08/16 06:46 11/08/16 06:46 11/08/16 06:46 11/08/16 06:46 11/08/16 06:46 General appearance: obese - Head Head exam: Present: atraumatic, normal inspection - Eye Eye exam: Present: sclera anicteric - ENT ENT exam: Present: mucous membranes dry - Neck Neck exam: Present: full ROM - Respiratory Respiratory exam: Present: CTAB - Cardiovascular Cardiovascular exam: Present: irregular rhythm, +S1, +S2 - GI/Abdominal GI/Abdominal exam: Present: normal bowel sounds, soft - Extremities Exam Extremities exam: Present: normal inspection - Neurological Exam Neurological exam: Present: alert, oriented X3 - Psychiatric Psychiatric exam: Present: normal mood Oncology - Results - Labs Labs: Short CBC 11/08/16 Range/Units 04:56 WBC 9.5 (4.3-11.1) K/mcL Hgb 13.0 (12.9-16.9) g/dL Hct 40.9 (37.5-50.1) % Plt Count 286 (140-400) K/mcL BMP 11/07/16 11/08/16 14:52 04:56 Sodium 139 138 Potassium 3.6 4.0 Chloride 100 101 Carbon Dioxide 30 H 29 BUN 15 14 Creatinine 1.15 1.18 Glucose 120 H 95 Calcium 9.1 9.4 Cardiac Enzymes 11/07/16 Range/Units 14:52 Troponin I 0.05 H* (0-0.03) ng/mL Liver Function 11/08/16 Range/Units 04:56 Total Bilirubin 1.0 (0.2-1.2) mg/dL AST 30 (5-34) Units/L ALT 20 (0-55) Units/L Alkaline Phosphatase 119 (38-126) Units/L Albumin 2.9 L (3.5-5.0) g/dL - Imaging and Cardiology CT scan - chest Status: image reviewed by me CT scan - abdomen Status: image reviewed by me Consult Discharge Plan - Plan Referrals: Marycruz Mackenzie MD [Primary Care Provider] -
[2016-11-08] MEDS: *HR* Warfarin 3 MG TABLET PO SCH (17:12)
[2016-11-08] MEDS: *HR* LORazepam 0.5 MG TABLET PO PRN (18:32)
--- NOTE | 2016-11-08 20:29 | Electrocardiograph Report ---
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
[2016-11-08] MEDS: Melatonin 3 MG TABLET PO PRN (22:13)
[2016-11-08] MEDS: *HR* LORazepam 0.5 MG TABLET PO SCH (22:13)
[2016-11-09 03:36] LABS: Hematocrit 39.8 % (37.5-50.1); Hemoglobin 12.9 g/dL (12.9-16.9); Mean Corpuscular HGB Conc 32.4 g/dL (31.6-35.5); Mean Corpuscular Hemoglobin 27.9 pg (28.0-33.3); Mean Corpuscular Volume 86.1 fL (83.0-100.0); Mean Platelet Volume 10.5 fL (9.4-12.4); Platelet Count 254 K/mcL (140-400); Red Blood Count 4.62 M/mcL (4.19-5.50); Red Cell Distribution Width 15.4 % (11.5-14.5)
[2016-11-09 03:42] LABS: Prothrombin Time 21.7 Seconds (9.4-12.1)
[2016-11-09 03:45] LABS: Activated Partial Thrombo Time 70.2 Seconds (26.0-36.0)
[2016-11-09 03:48] LABS: BUN/Creatinine Ratio 12 (6-26); Blood Urea Nitrogen 13 mg/dL (8-26); Calcium 9.4 mg/dL (8.6-10.8); Carbon Dioxide 27 mEq/L (19-29); Chloride 105 mEq/L (98-109); Glucose 98 mg/dL (70-99); Osmolality,Calculated 286 (280-300); Potassium 4.4 mEq/L (3.5-4.5); Sodium 138 mEq/L (136-145); eGFR For African Americans > 60 (> 60); eGFR For Non-African Americans > 60 (> 60)
[2016-11-09] MEDS: Heparin 25,000 UNIT/500 ML D5W 25,000 UNIT/500 ML MLS IVC SCH (07:27)
[2016-11-09] MEDS: Famotidine 20 MG TABLET PO SCH ×2 (08:43→21:47)
[2016-11-09] MEDS: Diltiazem CD (24hr) 120 MG CAPSULE PO SCH (08:43)
--- NOTE | 2016-11-09 10:00 | Internal Med Progress Note ---
<Baljit Dickey - Last Filed: 11/09/16 12:30> Date of Encounter: 11/09/16 Time of Encounter: 08:15 - Assessment and plan (1) Pulmonary embolism Current Visit: Yes Status: Acute Assessment and plan: Acute LLL PE. Currently on heparin and coumadin with INR 2.0. Oxygenation is good today. Continue heparin. Hopeful therapeutic INR tomorrow. Qualifiers: Pulmonary embolism type: other Chronicity: acute Acute cor pulmonale presence: without acute cor pulmonale Qualified Code(s): I26.99 - Other pulmonary embolism without acute cor pulmonale (2) Atrial fibrillation Current Visit: No Status: Chronic Assessment and plan: Rate controlled a fib on monitor. Continue his current meds for rate control and anticoagulation. Qualifiers: Atrial fibrillation type: chronic Qualified Code(s): I48.2 - Chronic atrial fibrillation (3) Hematuria Current Visit: No Status: Acute Assessment and plan: Patient noted to have hematuria and found to have bladder mass on CT prior to admission. Urology recommending transurethral resection of bladder tumor in the future, next 1-3 months. No gross hematuria noted over weekend. (4) Bladder mass Current Visit: No Status: Acute Assessment and plan: Heme/onc recommending intervention in the next 1-3 months. Appreciate heme/onc and urol input. (5) Hyperlipidemia Current Visit: No Status: Acute Assessment and plan: Continue home medications. Qualifiers: Hyperlipidemia type: mixed hyperlipidemia Qualified Code(s): E78.2 - Mixed hyperlipidemia (6) Fluid overload Current Visit: No Status: Acute Assessment and plan: Pedal edema and rhonchi/rales on exam. Qualifiers: Hypervolemia type: other Qualified Code(s): E87.79 - Other fluid overload (7) Anxiety about health Current Visit: Yes Status: Acute Assessment and plan: PRN Ativan ordered. - Time Spent With Patient less than 15 minutes - Subjective Interval history: Patient seen and examined at bedside, denies any acute complaints. States no hematuria over the weekend. - Constitutional Vitals: Temp Pulse Resp BP Pulse Ox 97.7 F 68 17 112/78 98 11/09/16 07:00 11/09/16 07:00 11/09/16 07:00 11/09/16 07:00 11/09/16 07:00 General appearance: Present: cooperative, A&O X 3, pleasant, answers questions appropriately - Head Head exam: Present: atraumatic, normocephalic - Eye Eye exam: Present: EOMI, conjuntiva pink - ENT ENT exam: Present: mucous membranes moist - Neck Neck exam general surgery: Present: full ROM - Respiratory Respiratory exam: Present: rales, rhonchi, wheezes - Cardiovascular Cardiovascular exam: Present: irregular rhythm - Extremities Exam Extremities exam: Present: pedal edema (R>L), warm. Absent: cyanotic, tenderness - Neurological Exam Neurological exam: Present: alert, oriented X3, no focal deficits - Psychiatric Psychiatric exam: Present: normal affect, normal mood - Skin Skin exam: Present: dry, normal color, warm. Absent: cyanosis Internal Medicine: Result - Labs CBC & Chem 7: 11/09/16 03:26 11/09/16 03:26 Labs: Short CBC 11/09/16 Range/Units 03:26 WBC 8.8 (4.3-11.1) K/mcL Hgb 12.9 (12.9-16.9) g/dL Hct 39.8 (37.5-50.1) % Plt Count 254 (140-400) K/mcL BMP 11/09/16 03:26 Sodium 138 Potassium 4.4 Chloride 105 Carbon Dioxide 27 BUN 13 Creatinine 1.10 Glucose 98 Calcium 9.4 - ABG Interpretation ABG results: PT/INR, D-dimer PT 21.7 Seconds (9.4-12.1) H 11/09/16 03:26 Consult Discharge Plan - Plan Referrals: Marycruz Mackenzie MD [Primary Care Provider] - <Latrell Leal - Last Filed: 11/09/16 17:00> Date of Encounter: 11/09/16 - Assessment and plan (1) Pulmonary embolism Current Visit: Yes Status: Acute Qualifiers: Pulmonary embolism type: other Chronicity: acute Acute cor pulmonale presence: without acute cor pulmonale Qualified Code(s): I26.99 - Other pulmonary embolism without acute cor pulmonale (2) Atrial fibrillation Current Visit: No Status: Chronic Qualifiers: Atrial fibrillation type: chronic Qualified Code(s): I48.2 - Chronic atrial fibrillation (3) Hematuria Current Visit: Yes Status: Acute (4) Bladder mass Current Visit: No Status: Acute (5) Hyperlipidemia Current Visit: No Status: Acute Qualifiers: Hyperlipidemia type: mixed hyperlipidemia Qualified Code(s): E78.2 - Mixed hyperlipidemia (6) Fluid overload Current Visit: No Status: Acute Qualifiers: Hypervolemia type: other Qualified Code(s): E87.79 - Other fluid overload (7) Anxiety about health Current Visit: Yes Status: Acute - Time Spent With Patient Time for my visit - 28min - Constitutional Vitals: Temp Pulse Resp BP Pulse Ox 97.9 F 54 18 121/79 94 11/09/16 15:00 11/09/16 15:00 11/09/16 15:00 11/09/16 15:00 11/09/16 15:00 Internal Medicine: Result - Labs CBC & Chem 7: 11/09/16 03:26 11/09/16 03:26 Labs: Short CBC 11/09/16 Range/Units 03:26 WBC 8.8 (4.3-11.1) K/mcL Hgb 12.9 (12.9-16.9) g/dL Hct 39.8 (37.5-50.1) % Plt Count 254 (140-400) K/mcL BMP 11/09/16 03:26 Sodium 138 Potassium 4.4 Chloride 105 Carbon Dioxide 27 BUN 13 Creatinine 1.10 Glucose 98 Calcium 9.4 Urine 11/09/16 Range/Units 16:08 Urine Color Yellow (Yellow) Urine Clarity Clear (Clear) Urine pH 7.5 (5.0-8.0) pH Units Ur Specific [place] 1.011 (1.010-1.025) Urine Protein Negative (Neg-Trace) mg/dL Urine Glucose (UA) Normal (Normal) mg/dL - ABG Interpretation ABG results: PT/INR, D-dimer PT 21.7 Seconds (9.4-12.1) H 11/09/16 03:26 - Attending Attestation I examined this patient and my medical decision-making was reviewed with the Resident Physician on 11/09/16. I agree with the documented findings, disposition and treatment plan as described except to the extent set forth below. Mr. Hayes is currently admitted for acute PE and hematuria from bladder tumor. He is currently moderate to high risk due to potential for worsening respiratory status. Mr. Hayes feels OK. He has been having some anxiety. No CP or SOB. Hematuria has improved. Exam Alert. Comfortable Heart irreg Lungs no wheeze I/P 1. PE 2. Hematuria 3. Bladder tumor Further diagnoses and plan as above.
--- NOTE | 2016-11-09 10:56 | Oncology Inp Progress Note ---
<Rob Bartlett - Last Filed: 11/09/16 14:19> Date of Encounter: 11/09/16 Time of Encounter: 10:54 (1) Bladder mass Current Visit: No Status: Acute Assessment and plan: Patient reports resolution of hematuria since 24 hours ago and has no other episodes of bleeding from other sources He continues to be bridged to Coumadin with Heparin drip; INR this morning is therapeutic at 2.0 CHADSVASC of 7 warrants continued anticoagulation despite acute episode of bleed in setting of PE and possible bladder malignancy Urology consulted and have recommended re-evaluation for possible cystoscopy/ intervention in the future if hematuria has resolved Oncology: Subj Interval history: Pt seen and examined. He states he is doing well this morning in terms of breathing and claims it is back to his baseline. He has no issues with chest pain or pain over his abdomen. He also reports his hematuria has resolve since yesterday morning. He denies issues with nausea, vomiting, diarrhea, and states he took a stool softener yesterday and had a loose bowel movement yesterday. - Constitutional Vitals: Vital Signs Temp Pulse Resp BP Pulse Ox 11/09/16 09:00 98 11/09/16 07:00 97.7 F 68 17 112/78 98 11/09/16 03:54 98.2 F 83 18 121/99 96 11/08/16 21:36 98.3 F 59 16 114/79 93 11/08/16 15:50 97.8 F 72 16 132/89 92 11/08/16 11:39 97.9 F 73 16 124/80 96 Intake and Output 11/08/16 11/09/16 11/09/16 23:59 07:59 15:59 Intake Total 50 / 50 350 / 350 Output Total 575 / 575 675 / 675 Balance -525 / -525 -325 / -325 Intake: IV Fluids 50 / 50 350 / 350 Heparin 25,000 UNIT/500 50 / 50 350 / 350 ML D5W 25,000 unit In 500 ml @ 14 UNIT/KG/HR 21. 591 mls/hr IVC .[id number] [facility] Rx#:[id number] Oral 0 / 0 Output: Urine 575 / 575 675 / 675 Other: Meal Breakfast Percent of Meal Consumed 20% # Bowel Movements 1 Weight 78.6 kg Patient Weight 11/09/16 23:59 Weight 78.6 kg General appearance: cooperative, no acute distress - Head Head exam: Present: atraumatic, normocephalic - Eye Eye exam: Present: EOMI, sclera anicteric - Respiratory Respiratory exam: Present: CTAB. Absent: accessory muscle use, rales, respiratory distress - Cardiovascular Cardiovascular exam: Present: irregular rhythm, +S1, +S2, systolic murmur - GI/Abdominal GI/Abdominal exam: Present: normal bowel sounds, soft. Absent: firm, guarding, rebound, tenderness - Extremities Exam Extremities exam: Present: pedal edema (1+ pitting BL). Absent: tenderness - Neurological Exam Neurological exam: Present: alert, no focal deficits. Absent: facial droop, speech deficit - Psychiatric Psychiatric exam: Present: normal affect, normal mood Oncology: Obj Data - Labs CBC & Chem 7: 11/09/16 03:26 11/09/16 03:26 Labs: Laboratory Results - last 24 hr 11/08/16 11/08/16 11/09/16 12:38 20:15 03:26 WBC 8.8 RBC 4.62 Hgb 12.9 Hct 39.8 MCV 86.1 MCH 27.9 L MCHC 32.4 RDW 15.4 H Plt Count 254 MPV 10.5 PT INR APTT 55.3 H 87.9 H D Sodium Potassium Chloride Carbon Dioxide BUN Creatinine Est GFR ( Amer) Est GFR (Non-Af Amer) BUN/Creatinine Ratio Glucose Calculated Osmolality Calcium 11/09/16 11/09/16 03:26 03:26 WBC RBC Hgb Hct MCV MCH MCHC RDW Plt Count MPV PT 21.7 H INR 2.0 APTT 70.2 H Sodium 138 Potassium 4.4 Chloride 105 Carbon Dioxide 27 BUN 13 Creatinine 1.10 Est GFR ( Amer) > 60 Est GFR (Non-Af Amer) > 60 BUN/Creatinine Ratio 12 Glucose 98 Calculated Osmolality 286 Calcium 9.4 - ABG Interpretation ABG results: PT/INR, D-dimer PT 21.7 Seconds (9.4-12.1) H 11/09/16 03:26 Consult Discharge Plan - Plan Referrals: Marycruz Mackenzie MD [Primary Care Provider] - <Johnny Sevilla - Last Filed: 11/09/16 17:41> Date of Encounter: 11/09/16 (1) Bladder mass Current Visit: No Status: Acute Assessment and plan: I have seen examined patient myself and reviewed the history physical findings, impression and plan as noted above by Rob Yuan which reflects my assessment and plan that was discussed during rounds. - Constitutional Vitals: Vital Signs Temp Pulse Resp BP Pulse Ox 11/09/16 15:00 97.9 F 54 18 121/79 94 11/09/16 09:00 98 11/09/16 07:00 97.7 F 68 17 112/78 98 11/09/16 03:54 98.2 F 83 18 121/99 96 11/08/16 21:36 98.3 F 59 16 114/79 93 Intake and Output 11/09/16 11/09/16 11/09/16 07:59 15:59 23:59 Intake Total 350 / 350 240 / 240 Output Total 675 / 675 Balance -325 / -325 240 / 240 Intake: IV Fluids 350 / 350 Heparin 25,000 UNIT/500 350 / 350 ML D5W 25,000 unit In 500 ml @ 14 UNIT/KG/HR 21. 591 mls/hr IVC .[id number] [facility] Rx#:[id number] Oral 240 / 240 Output: Urine 675 / 675 Other: Meal Lunch Percent of Meal Consumed 100% Weight 78.6 kg Patient Weight 11/09/16 23:59 Weight 78.6 kg Oncology: Obj Data - Labs CBC & Chem 7: 11/09/16 03:26 11/09/16 03:26 Labs: Laboratory Results - last 24 hr 11/08/16 11/09/16 11/09/16 20:15 03:26 03:26 WBC 8.8 RBC 4.62 Hgb 12.9 Hct 39.8 MCV 86.1 MCH 27.9 L MCHC 32.4 RDW 15.4 H Plt Count 254 MPV 10.5 PT INR APTT 87.9 H D Sodium 138 Potassium 4.4 Chloride 105 Carbon Dioxide 27 BUN 13 Creatinine 1.10 Est GFR ( Amer) > 60 Est GFR (Non-Af Amer) > 60 BUN/Creatinine Ratio 12 Glucose 98 Calculated Osmolality 286 Calcium 9.4 Urine Color Urine Clarity Urine pH Ur Specific [place] Urine Protein Urine Glucose (UA) Urine Ketones Urine Blood Urine Nitrite Urine Bilirubin Urine Urobilinogen Ur Leukocyte Esterase Urine Microscopic RBC Urine Microscopic WBC Ur Squamous Epith Cells Urine Bacteria Hyaline Casts Ur Culture Indicated? 11/09/16 11/09/16 03:26 16:08 WBC RBC Hgb Hct MCV MCH MCHC RDW Plt Count MPV PT 21.7 H INR 2.0 APTT 70.2 H Sodium Potassium Chloride Carbon Dioxide BUN Creatinine Est GFR ( Amer) Est GFR (Non-Af Amer) BUN/Creatinine Ratio Glucose Calculated Osmolality Calcium Urine Color Yellow Urine Clarity Clear Urine pH 7.5 Ur Specific [place] 1.011 Urine Protein Negative Urine Glucose (UA) Normal Urine Ketones Negative Urine Blood Moderate H Urine Nitrite Negative Urine Bilirubin Negative Urine Urobilinogen Normal Ur Leukocyte Esterase Trace H Urine Microscopic RBC 15-30 H Urine Microscopic WBC 3-5 H Ur Squamous Epith Cells Moderate H Urine Bacteria None Seen Hyaline Casts None Seen Ur Culture Indicated? YES A - ABG Interpretation ABG results: PT/INR, D-dimer PT 21.7 Seconds (9.4-12.1) H 11/09/16 03:26
[2016-11-09 16:20] LABS: Bilirubin,Urine Negative (Negative); Blood,Urine Moderate (Negative); Clarity,Urine Clear (Clear); Color,Urine Yellow (Yellow); Glucose,Urine (UA) Normal (Normal); Ketones,Urine Negative (Negative); Leukocyte Esterase,Urine Trace (Negative); Nitrite,Urine Negative (Negative); PH,Urine 7.5 pH Units (5.0-8.0); Protein,Urine Negative (Neg-Trace); Specific Gravity,Urine 1.011 (1.010-1.025); Urobilinogen,Urine Normal (Normal)
[2016-11-09 16:23] LABS: Bacteria,Urine None Seen per hpf (None-Few); Hyaline Casts,Urine None Seen per lpf (None-Few); RBC,Urine 15-30 per hpf (0-3); Squamous Epithelial Cell,Urine Moderate per lpf (None-Few)
[2016-11-09] MEDS: Aspirin Enteric Coated 81 MG Tablet PO SCH (17:06)
[2016-11-09] MEDS ORDERED: *HR* Warfarin 4 MG TABLET PO ONE (18:00)
[2016-11-09] MEDS: Melatonin 3 MG TABLET PO PRN (21:47)
[2016-11-09] MEDS: *HR* LORazepam 0.5 MG TABLET PO SCH (21:48)
[2016-11-10 05:31] LABS: INR 2.2; Prothrombin Time 24.1 Seconds (9.4-12.1)
[2016-11-10 07:21] LABS: Basophils # 0.1 K/mcL (0.0-0.2); Basophils % 0.7 %; Eosinophils # 0.4 K/mcL (0.0-0.6); Eosinophils % 3.8 %; Hemoglobin 13.6 g/dL (12.9-16.9); Immature Granulocytes % 0.4 % (0-4); Lymphocytes # 2.1 K/mcL (0.6-4.6); Lymphocytes % 22.2 %; Mean Corpuscular HGB Conc 32.4 g/dL (31.6-35.5); Mean Corpuscular Hemoglobin 27.4 pg (28.0-33.3); Mean Corpuscular Volume 84.7 fL (83.0-100.0); Mean Platelet Volume 10.4 fL (9.4-12.4); Platelet Count 275 K/mcL (140-400); Red Blood Count 4.96 M/mcL (4.19-5.50); Red Cell Distribution Width 15.4 % (11.5-14.5); Segmented Neutrophils % 62.9 %
[2016-11-10 07:31] LABS: BUN/Creatinine Ratio 12 (6-26); Blood Urea Nitrogen 12 mg/dL (8-26); Calcium 9.8 mg/dL (8.6-10.8); Carbon Dioxide 25 mEq/L (19-29); Chloride 104 mEq/L (98-109); Glucose 95 mg/dL (70-99); Osmolality,Calculated 284 (280-300); Potassium 4.7 mEq/L (3.5-4.5); Sodium 137 mEq/L (136-145); eGFR For African Americans > 60 (> 60); eGFR For Non-African Americans > 60 (> 60)
[2016-11-10] MEDS: Diltiazem CD (24hr) 120 MG CAPSULE PO SCH (07:53)
[2016-11-10] MEDS: Aspirin Enteric Coated 81 MG Tablet PO SCH (07:53)
[2016-11-10] MEDS: Famotidine 20 MG TABLET PO SCH ×2 (07:54→20:23)
[2016-11-10] MEDS: Furosemide 40 MG/4 ML VIAL IVP SCH (07:55)
[2016-11-10] MEDS: *HR* LORazepam 0.5 MG TABLET PO PRN ×2 (12:40→23:01)
--- NOTE | 2016-11-10 14:39 | Internal Med Progress Note ---
<Baljit Dickey - Last Filed: 11/10/16 16:57> Date of Encounter: 11/10/16 Time of Encounter: 11:50 - Assessment and plan (1) Pulmonary embolism Current Visit: Yes Status: Acute Assessment and plan: Acute LLL PE. Currently on heparin and coumadin with INR 2.2. Discussed with cardiology which comfirmed goal INR of 2.5-3.0. Continue heparin. Hopeful therapeutic INR tomorrow. Qualifiers: Pulmonary embolism type: other Chronicity: acute Acute cor pulmonale presence: without acute cor pulmonale Qualified Code(s): I26.99 - Other pulmonary embolism without acute cor pulmonale (2) Atrial fibrillation Current Visit: No Status: Chronic Assessment and plan: Rate controlled a fib on monitor. Continue his current meds for rate control and anticoagulation. Qualifiers: Atrial fibrillation type: chronic Qualified Code(s): I48.2 - Chronic atrial fibrillation (3) Hematuria Current Visit: No Status: Acute Assessment and plan: Patient noted to have hematuria and found to have bladder mass on CT prior to admission. Urology recommending transurethral resection of bladder tumor in the future, next 1-3 months. No gross hematuria noted over weekend, some noted overnight. (4) Bladder mass Current Visit: No Status: Acute Assessment and plan: Heme/onc recommending intervention in the next 1-3 months. Appreciate heme/onc and urol input. (5) Hyperlipidemia Current Visit: No Status: Acute Assessment and plan: Continue home medications. Qualifiers: Hyperlipidemia type: mixed hyperlipidemia Qualified Code(s): E78.2 - Mixed hyperlipidemia (6) Fluid overload Current Visit: No Status: Acute Assessment and plan: Pedal edema and rhonchi/rales improving. Patient notes feeling "weird" after receiving lasix IV. Notes history of PO lasix tolerated well, will switch to PO. Qualifiers: Hypervolemia type: other Qualified Code(s): E87.79 - Other fluid overload (7) Anxiety about health Current Visit: Yes Status: Acute Assessment and plan: PRN Ativan ordered. - Time Spent With Patient 25 - 35 minutes - Subjective Interval history: Patient seen and examined at bedside, denies any acute complaints. States he had some wheezing yesterday, better today. Notes mild swelling of feet. States he thinks his Mg is low because he feels "crazy" and "weird", but unable to give description. No dizziness, weakness, numbness, tingling, or headache. - Constitutional Vitals: Temp Pulse Resp BP Pulse Ox 98 F 72 16 108/74 97 11/10/16 11:33 11/10/16 11:33 11/10/16 11:33 11/10/16 11:33 11/10/16 11:33 General appearance: Present: cooperative, A&O X 3, pleasant, no acute distress, answers questions appropriately - Head Head exam: Present: atraumatic, normocephalic - Eye Eye exam: Present: EOMI, conjuntiva pink - ENT ENT exam: Present: mucous membranes moist - Neck Neck exam general surgery: Present: full ROM - Respiratory Respiratory exam: Present: decreased breath sounds, CTAB Additional comments: Rhonchi from yesterday not appreciated. - Cardiovascular Cardiovascular exam: Present: irregular rhythm - GI/Abdominal GI/Abdominal exam: Present: soft. Absent: firm, guarding - Extremities Exam Extremities exam: Present: pedal edema, warm. Absent: cyanotic - Neurological Exam Neurological exam: Present: alert, oriented X3, no focal deficits - Psychiatric Psychiatric exam: Present: anxious - Skin Skin exam: Present: dry, normal color, warm. Absent: cyanosis, rash Internal Medicine: Result - Labs CBC & Chem 7: 11/10/16 06:51 11/10/16 06:51 Labs: Short CBC 11/10/16 Range/Units 06:51 WBC 9.6 (4.3-11.1) K/mcL Hgb 13.6 (12.9-16.9) g/dL Hct 42.0 (37.5-50.1) % Plt Count 275 (140-400) K/mcL Neutrophils # 6.0 (1.6-8.9) K/mcL BMP 11/10/16 06:51 Sodium 137 Potassium 4.7 H Chloride 104 Carbon Dioxide 25 BUN 12 Creatinine 0.97 Glucose 95 Calcium 9.8 Urine 11/09/16 Range/Units 16:08 Urine Color Yellow (Yellow) Urine Clarity Clear (Clear) Urine pH 7.5 (5.0-8.0) pH Units Ur Specific [place] 1.011 (1.010-1.025) Urine Protein Negative (Neg-Trace) mg/dL Urine Glucose (UA) Normal (Normal) mg/dL - ABG Interpretation ABG results: PT/INR, D-dimer PT 24.1 Seconds (9.4-12.1) H 11/10/16 04:14 Consult Discharge Plan - Plan Instructions: Heart Failure (DC), Atrial Fibrillation (DC), Pulmonary Embolism (DC), Acute Hematuria (DC), Acute Hematuria (GEN) Referrals: Marycruz Mackenzie MD [Primary Care Provider] - 11/20/16 10:45 am <Pradip Ang - Last Filed: 11/10/16 18:22> Date of Encounter: 11/10/16 - Constitutional Vitals: Temp Pulse Resp BP Pulse Ox 97.9 F 80 16 130/67 97 11/10/16 15:31 11/10/16 15:31 11/10/16 15:31 11/10/16 15:31 11/10/16 15:31 Internal Medicine: Result - Labs CBC & Chem 7: 11/10/16 06:51 11/10/16 06:51 Labs: Short CBC 11/10/16 Range/Units 06:51 WBC 9.6 (4.3-11.1) K/mcL Hgb 13.6 (12.9-16.9) g/dL Hct 42.0 (37.5-50.1) % Plt Count 275 (140-400) K/mcL Neutrophils # 6.0 (1.6-8.9) K/mcL BMP 11/10/16 06:51 Sodium 137 Potassium 4.7 H Chloride 104 Carbon Dioxide 25 BUN 12 Creatinine 0.97 Glucose 95 Calcium 9.8 - ABG Interpretation ABG results: PT/INR, D-dimer PT 24.1 Seconds (9.4-12.1) H 11/10/16 04:14 - Attending Attestation I examined this patient and my medical decision-making was reviewed with the AUTOMOTIVE SERVICE PROFESSIONAL/PA/Advanced Practice Nurse/Resident Physician. I agree with the documented findings, disposition and treatment plan as described except to the extent set forth below.
[2016-11-10] MEDS ORDERED: *HR* Warfarin 4 MG TABLET PO ONE (18:00)
[2016-11-10] MEDS: *HR* LORazepam 0.5 MG TABLET PO SCH (20:24)
[2016-11-10] MEDS: Melatonin 3 MG TABLET PO PRN (22:20)
[2016-11-11 05:20] LABS: INR 2.3; Prothrombin Time 25.3 Seconds (9.4-12.1)
[2016-11-11 06:51] VITALS: BP 114/85
[2016-11-11 07:19] LABS: BUN/Creatinine Ratio 13 (6-26); Blood Urea Nitrogen 15 mg/dL (8-26); Calcium 9.8 mg/dL (8.6-10.8); Carbon Dioxide 28 mEq/L (19-29); Chloride 102 mEq/L (98-109); Glucose 97 mg/dL (70-99); Magnesium 1.7 mg/dL (1.6-2.6); Osmolality,Calculated 287 (280-300); Potassium 4.1 mEq/L (3.5-4.5); Sodium 138 mEq/L (136-145); eGFR For African Americans > 60 (> 60); eGFR For Non-African Americans > 60 (> 60)
--- NOTE | 2016-11-11 08:45 | Discharge Summary ---
<Baljit Dickey - Last Filed: 11/12/16 16:36> Date of Encounter: 11/11/16 Time of Encounter: 09:00 - Discharge Diagnosis (1) Pulmonary embolism Priority: Primary Status: Acute Qualifiers: Pulmonary embolism type: other Chronicity: acute Acute cor pulmonale presence: without acute cor pulmonale Qualified Code(s): I26.99 - Other pulmonary embolism without acute cor pulmonale (2) Atrial fibrillation Priority: Secondary Status: Chronic Qualifiers: Atrial fibrillation type: chronic Qualified Code(s): I48.2 - Chronic atrial fibrillation (3) Hematuria Priority: Secondary Status: Inactive (4) Bladder mass Priority: Secondary Status: Inactive (5) Hyperlipidemia Priority: Secondary Status: Acute Qualifiers: Hyperlipidemia type: mixed hyperlipidemia Qualified Code(s): E78.2 - Mixed hyperlipidemia (6) Fluid overload Priority: Secondary Status: Inactive Qualifiers: Hypervolemia type: other Qualified Code(s): E87.79 - Other fluid overload (7) Anxiety about health Priority: Secondary Status: Acute - Discharge Medications Prescriptions: Enoxaparin [Lovenox] 80 mg SQ Q12HR #6 syr Warfarin [Coumadin] 3.5 mg PO 1800 #7 tablet Home Medications: Aspirin [Lo-Dose Aspirin EC] 81 mg PO DAILY 11/05/16 [History] Atorvastatin Calcium [Lipitor] 20 mg PO HS 11/05/16 [History] Diltiazem CD (24hr) [Cardizem CD] 120 mg PO DAILY 11/05/16 [History] Enalapril Maleate [Vasotec] 2.5 mg PO DAILY 11/05/16 [History] Furosemide [Lasix] 20 mg PO DAILY PRN 11/05/16 [History] LORazepam [Ativan] 0.5 mg PO HS 11/05/16 [History] Melatonin 10 mg PO HS PRN 11/05/16 [History] Metoprolol [Lopressor] 25 mg PO BID 11/05/16 [History] Naproxen Sodium [Aleve] 220 mg PO Q12H PRN 11/05/16 [History] Enoxaparin [Lovenox] 80 mg SQ Q12HR #6 syr 11/11/16 [Rx] Warfarin [Coumadin] 3.5 mg PO 1800 #7 tablet 11/11/16 [Rx] Allergies/Adverse Reactions: Allergies tetanus immune globulin Allergy (Intermediate, Verified 11/05/16 14:13) Rash Date of admission: 11/05/16 14:31 Primary care physician: Marycruz Mackenzie Consults: 11/05/16 14:52 Consult to Cardiology [CONS] Routine Comment: Consulting Provider: Cardiology [facility] Reason for Consult: PE despite therapeutic anticoagulation. Call Completed: Yes 11/05/16 14:57 Consult to Urology [CONS] Routine Consulting Provider: Urology Adela Reason for Consult: bladder mass, hematuria. hospitalized with PE. Call Completed: Yes 11/08/16 10:45 Consult to Oncology Hematology [CONS] Routine Consulting Provider: Johnny Sevilla Reason for Consult: PE on therapeutic coumadin and has bladder mass Time Notified: 10:00 Call Completed: Yes Discharging clinician: Pradip Ang Anticipated date of discharge: 11/11/16 - Patient Status Disposition: Home Health Service Condition: Fair Functional capacity at discharge: independent ambulation Overall status at discharge: patient is progressing back to baseline - Discharge Instructions Instructions: Heart Failure (DC), Atrial Fibrillation (DC), Pulmonary Embolism (DC), Acute Hematuria (DC), Acute Hematuria (GEN) Follow Up With: Marycruz Mackenzie MD [Primary Care Provider] - 11/20/16 10:45 am Additional Instructions: Home Health to check INR tomorrow(11/13/16) and Wednesday (11/16/16), INR previously monitored and managed by Otf Verdugo, DAMASCENER with cardiology, patient wishes to continue to follow with Lucina. On Coumadin for PE and A fib, goal INR of 2.5 per cardio, bridging with lovenox injections BID until INR is therapeutic. If INR therapeutic he will not need to continue lovenox injections. Follow up with PCP in next 5-7 days or sooner if needed. Follow up with Cardiology. Follow up with Urology. - Diet and Activity Activity: increase activity as tolerated Diet: advance to your usual diet Interval History: No acute events overnight. Patient states IV lasix makes him urinate a lot and fee "weird"; switched back to PO. Patient states he is ready to return home and wants Otf Verdugo to manage his coumadin and INR. Hospital course: Mr. Hayes is a 85 year old male with atrial fibrillation on Coumadin, coronary artery disease, CHF, aortic aneurysm, and recently diagnosed bladder mass that presented to the emergency department with complaints of shortness of breath. He had presented to the emergency room the day before with complaints of hematuria, and was found to have a 4.2 cm near bladder mass on CT, his coumadin was held and he was scheduled to follow-up with urology.On return to ED, CTA was obtained and showed filling defect within the left lower lobe compatible with acute pulmonary embolism, small to moderate size bilateral pleural effusions. Patient's INR was found to be therapeutic at 2.2. Cardiology consult, IVC filter placed and recommended continuation of coumadin with INR goal of 2.5-3.0. Urology consulted, recommending transurethral resection of bladder tumor in the future. Heme/onc consulted for bladder mass, recommending intervention in the next 1-3 months as outpatient. Patient received lasix as tolerated for fluid overload. Breathing improved during stay and patient remained stable. Patient requesting to return home, though INR was not yet to goal. Social work se up home health to come to patient's house tomorrow to check INR, if not therapeutic patient to continue with lovenox BID, if therapeutic can continue on coumadin only. Patient notes coumadin monitored and adjusted by Otf Verdugo CNP with cardiology; this was confirmed by outpatient records. - Time Spent with Patient Total time spent providing and/or coordinating discharge services: Greater than 30 minutes (40m) - Constitutional Vitals: Temp Pulse Resp BP Pulse Ox 97.9 F 76 14 114/85 96 11/11/16 06:47 11/11/16 06:47 11/11/16 06:47 11/11/16 06:47 11/11/16 06:47 General appearance: Present: cooperative, A&O X 3, pleasant, no acute distress, answers questions appropriately - Head Head exam: Present: atraumatic, normocephalic - Eye Eye exam: Present: EOMI, conjuntiva pink - ENT ENT exam: Present: mucous membranes moist - Neck Neck exam general surgery: Present: full ROM, supple - Respiratory Respiratory exam: Present: CTAB - Cardiovascular Cardiovascular exam: Present: irregular rhythm - GI/Abdominal GI/Abdominal exam: Present: soft. Absent: firm, guarding - Extremities Exam Extremities exam: Present: pedal edema (trace b/l). Absent: cyanotic - Neurological Exam Neurological exam: Present: alert, oriented X3, no focal deficits - Psychiatric Psychiatric exam: Present: normal affect, normal mood - Skin Skin exam: Present: normal color, warm. Absent: rash <AshiaPradip P - Last Filed: 11/12/16 18:39> Date of Encounter: 11/12/16 Date of admission: 11/05/16 14:31 Primary care physician: Marycruz Mackenzie Consults: 11/05/16 14:52 Consult to Cardiology [CONS] Routine Comment: Consulting Provider: Cardiology Adela Reason for Consult: PE despite therapeutic anticoagulation. Call Completed: Yes 11/05/16 14:57 Consult to Urology [CONS] Routine Consulting Provider: Urology [place] Reason for Consult: bladder mass, hematuria. hospitalized with PE. Call Completed: Yes 11/08/16 10:45 Consult to Oncology Hematology [CONS] Routine Consulting Provider: Johnny Sevilla Reason for Consult: PE on therapeutic coumadin and has bladder mass Time Notified: 10:00 Call Completed: Yes Hospital course: Mr. Hayes is a 85 year old male - Time Spent with Patient Total time spent providing and/or coordinating discharge services: - Constitutional Vitals: Temp Pulse Resp BP Pulse Ox 97.9 F 76 14 114/85 96 11/11/16 06:47 11/11/16 06:47 11/11/16 06:47 11/11/16 06:47 11/11/16 08:00 - Attending Attestation I examined this patient and my medical decision-making was reviewed with the CRIMINAL RESEARCH SPECIALIST/PA/Advanced Practice Nurse/Resident Physician. I agree with the documented findings, disposition and treatment plan as described except to the extent set forth below.
[2016-11-11] MEDS: Famotidine 20 MG TABLET PO SCH (08:54)
[2016-11-11] MEDS: Diltiazem CD (24hr) 120 MG CAPSULE PO SCH (08:55)
[2016-11-11] MEDS: Aspirin Enteric Coated 81 MG Tablet PO SCH (08:55)
--- NOTE | 2016-11-11 12:14 | Physician Discharge Referral ---
<Baljit Dickey - Last Filed: 11/11/16 12:11> Home Health/Hosp Referral Info Transfer to: Home Health Provider in Charge Post Discharge: Other (INR to Otf Verdugo CNP with cardiology.) - Diagnosis (1) Pulmonary embolism Priority: Primary Status: Acute (2) Atrial fibrillation Priority: Secondary Status: Chronic (3) Hematuria Priority: Secondary Status: Acute (4) Bladder mass Priority: Secondary Status: Acute (5) Hyperlipidemia Priority: Secondary Status: Acute (6) Fluid overload Priority: Secondary Status: Acute (7) Anxiety about health Priority: Secondary Status: Acute - Respiratory Orders Oxygen / L per min (2L) Smoking Cessation: Smoking cessation has been advised. For more information, call the [employer] Tobacco Quit Line at 8-040-YFEA-NOW. - Diet/Nutrition Diet/Nutrition Orders: Cardiac - Activity Activity Orders: Up ad murtaza, Ambulate - Services Needed Following services are medically necessary services: Nursing Other Treatments: INR ordered for tomorrow, managed by Otf Verdugo CNP with cardiology. Patient to receive Lovenox BID until INR 2.5 or greater. - Transfer Medications Prescriptions: Enoxaparin [Lovenox] 80 mg SQ Q12HR #6 syr Warfarin [Coumadin] 3.5 mg PO 1800 #7 tablet Home Medications: Aspirin [Lo-Dose Aspirin EC] 81 mg PO DAILY 11/05/16 [History] Atorvastatin Calcium [Lipitor] 20 mg PO HS 11/05/16 [History] Diltiazem CD (24hr) [Cardizem CD] 120 mg PO DAILY 11/05/16 [History] Enalapril Maleate [Vasotec] 2.5 mg PO DAILY 11/05/16 [History] Furosemide [Lasix] 20 mg PO DAILY PRN 11/05/16 [History] LORazepam [Ativan] 0.5 mg PO HS 11/05/16 [History] Melatonin 10 mg PO HS PRN 11/05/16 [History] Metoprolol [Lopressor] 25 mg PO BID 11/05/16 [History] Naproxen Sodium [Aleve] 220 mg PO Q12H PRN 11/05/16 [History] Enoxaparin [Lovenox] 80 mg SQ Q12HR #6 syr 11/11/16 [Rx] Warfarin [Coumadin] 3.5 mg PO 1800 #7 tablet 11/11/16 [Rx] Allergies/Adverse Reactions: Allergies tetanus immune globulin Allergy (Intermediate, Verified 11/05/16 14:13) Rash Certification: Further, I certify that my clinical findings support that this patient is homebound (i.e. absences from home require considerable and taxing effort and are for medical reasons or orthodoxy services or infrequently or short duration when for other reasons) because: Homebound Reason: Patient requires assistance of a person or device to safely leave home, Severity of cardiac or pulmonary status limits activity tolerance Attestation: My signature below is to certify that this patient is under my care and that I, or nurse practitioner, or a physician's assistant banquet manager working with me, has a face-to -face encounter with this patient. <Pradip Ang P - Last Filed: 11/11/16 19:06> - Respiratory Orders Smoking Cessation: Smoking cessation has been advised. For more information, call the [place] Tobacco Quit Line at 6-084-BFJV-NOW. Certification: Further, I certify that my clinical findings support that this patient is homebound (i.e. absences from home require considerable and taxing effort and are for medical reasons or orthodoxy services or infrequently or short duration when for other reasons) because: Attestation: My signature below is to certify that this patient is under my care and that I, or nurse practitioner, or a physician's assistant banquet manager working with me, has a face-to -face encounter with this patient.
[2016-11-11] MEDS ORDERED: *HR* Warfarin 4 MG TABLET PO ONE (18:00)
== END 2016-11-11 16:04 | disposition home health service (06) | DRG 166 ==
LOC: 2NENU 10:18 → EMEROO 10:18 → SUATTDRO 14:31 → 2NENU 15:20
PROVIDERS: ADMIT Hospitalist; ATTEND Internal Medicine

== ENCOUNTER 2017-01-06 23:35 | Observation (INO) ==
[2017-01-07 00:45] LABS: Basophils # 0.1 K/mcL (0.0-0.2); Basophils % 0.7 %; Eosinophils # 0.6 K/mcL (0.0-0.6); Eosinophils % 6.6 %; Hematocrit 41.5 % (37.5-50.1); Hemoglobin 13.5 g/dL (12.9-16.9); Immature Granulocytes % 0.3 % (0-4); Lymphocytes # 1.8 K/mcL (0.6-4.6); Lymphocytes % 18.8 %; Mean Corpuscular HGB Conc 32.5 g/dL (31.6-35.5); Mean Corpuscular Hemoglobin 26.6 pg (28.0-33.3); Mean Corpuscular Volume 81.7 fL (83.0-100.0); Mean Platelet Volume 9.9 fL (9.4-12.4); Monocytes # 1.2 K/mcL (0.0-1.3); Monocytes % 12.9 %; Neutrophils # 5.7 K/mcL (1.6-8.9); Platelet Count 312 K/mcL (140-400); Red Blood Count 5.08 M/mcL (4.19-5.50); Red Cell Distribution Width 14.6 % (11.5-14.5); Segmented Neutrophils % 60.7 %
[2017-01-07 00:57] LABS: BUN/Creatinine Ratio 19 (6-26); Blood Urea Nitrogen 25 mg/dL (8-26); Calcium 9.5 mg/dL (8.6-10.8); Carbon Dioxide 26 mEq/L (19-29); Chloride 98 mEq/L (98-109); Glucose 106 mg/dL (70-99); Osmolality,Calculated 281 (280-300); Sodium 133 mEq/L (136-145); eGFR For African Americans > 60 (> 60); eGFR For Non-African Americans 50 (> 60)
--- NOTE | 2017-01-07 02:54 | Emergency Department Note ---
Disposition Clinical Impression: Elevated troponin Dyspnea Qualifiers: Dyspnea type: dyspnea on exertion Qualified Code(s): R06.09 - Other forms of dyspnea Disposition: Admitted As Inpatient Condition: Good Time of Disposition: 04:37 General Adult HPI - General Chief complaint: ED Shortness of Breath/Dyspnea Stated complaint: thinks has pneumonia congested seb Time Seen by Provider: 01/07/17 02:38 Source: patient Limitations: no limitations Nursing Notes Reviewed: Yes Vital Signs Reviewed: Yes - History of Present Illness HPI Narrative: This is a 86-year-old male with a past medical history of HI that required stent placement, pulmonary embolism a month ago that required an IVC filter, atrial fibrillation, and recent removal of a bladder tumor. He presents to the emergency department with a five-day history of what he thought was a cold. He states that 3 days ago he was pushing a shopping cart and had some dyspnea on exertion. His family decided that it best to bring him in today. He has had productive cough Pain Scale: 0 - Related Data Home Medications Medication Instructions Recorded Confirmed Aspirin [Lo-Dose Aspirin EC] 81 mg PO DAILY 11/05/16 12/14/16 Atorvastatin Calcium [Lipitor] 20 mg PO HS 11/05/16 12/14/16 Diltiazem CD (24hr) [Cardizem CD] 120 mg PO DAILY 11/05/16 12/14/16 Enalapril Maleate [Vasotec] 2.5 mg PO DAILY 11/05/16 12/14/16 Furosemide [Lasix] 20 mg PO DAILY PRN 11/05/16 12/14/16 LORazepam [Ativan] 0.5 mg PO HS 11/05/16 12/14/16 Melatonin 10 mg PO HS PRN 11/05/16 12/14/16 Metoprolol [Lopressor] 25 mg PO BID 11/05/16 12/14/16 Naproxen Sodium [Aleve] 220 mg PO Q12H PRN 11/05/16 12/14/16 Previous Rx's Medication Instructions Recorded Warfarin [Coumadin] 3.5 mg PO 1800 #7 tablet 11/11/16 HYDROcodone/Acet 5/325 mg [[place] 1 tab PO Q6H PRN #10 tablet 12/14/16 5-325 mg] Allergies Allergy/AdvReac Type Severity Reaction Status Date / Time tetanus immune globulin Allergy Intermediate unknown Verified 01/06/17 23:45 All systems ED: reviewed and negative except as stated. Constitutional: Reports: chills, weakness. Denies: fever ENT ED: Reports: congestion. Denies: throat pain, dysphagia Cardiovascular: Reports: dyspnea on exertion. Denies: chest pain, edema Respiratory: Reports: cough, sputum production (White). Denies: wheezes, hemoptysis Gastrointestinal: Denies: abdominal pain, nausea, vomiting Genitourinary: Denies: urgency, dysuria, frequency Musculoskeletal: Reports: myalgia Integumentary: Denies: rash Neurological: Denies: headache, weakness, numbness, paresthesias, confusion Psychiatric: Denies: anxiety Endocrine: Reports: fatigue Past Medical History - Past Medical History Medical history: Reports: aortic aneurysm, atrial fibrillation, cancer, CHF, myocardial infarction Surgical history: Reports: angioplasty/stent, appendectomy, knee replacement Psychiatric history: Reports: no psych history - Social History Smoking Status: Former smoker Smokeless Tobacco Status: No Alcohol use: Reports: none Drug use: Reports: none Physical Exam - General Limitations: no limitations General appearance: alert, other (86-year-old male in no apparent distress) - Head Head exam: normocephalic, normal inspection - Eye Eye exam: Present: EOMI. Absent: scleral icterus, conjunctival injection - ENT ENT exam: normal oropharynx - Neck Neck exam: Present: full ROM, trachea midline. Absent: tenderness, meningismus - Chest Chest inspection: Present: symmetric chest wall rise. Absent: tenderness - Respiratory Respiratory exam: Present: normal lung sounds bilaterally. Absent: respiratory distress, wheezes, stridor - Cardiovascular Cardiovascular exam: Present: irregular rhythm - Abdominal Exam Abdominal exam: Present: soft, Non-Tender. Absent: distention, guarding, rebound, rigidity - Extremities Exam Extremities exam: Present: full ROM. Absent: calf tenderness - Neurological Exam Neurological exam: Present: alert, oriented X3 - Psychiatric Psychiatric exam: Present: normal affect, normal mood - Skin Skin exam: Present: warm, dry, intact, normal color Course - Reevaluation(s) Reevaluation #1: He had an elevated troponin level of 0.04. Once again, he denied any chest pain , diaphoresis, nausea, vomiting. Time: 03:40 Vital Signs Temperature 98 F 01/06/17 23:39 Pulse Rate 72 01/06/17 23:39 Respiratory Rate 16 01/06/17 23:39 Blood Pressure 113/78 01/06/17 23:39 O2 Sat by Pulse Oximetry 95 01/06/17 23:39 Temperature 98 F 01/06/17 23:39 Pulse Rate 72 01/07/17 02:10 Respiratory Rate 18 01/07/17 04:26 Blood Pressure 121/82 01/07/17 04:26 O2 Sat by Pulse Oximetry 98 01/07/17 02:10 Oxygen Delivery Oxygen Delivery Room Air Medical Decision Making - MDM Narrative Medical decision making narrative: This is an 86-year-old male with a past medical history of CHF, atrial fibrillation, recent pulmonary embolism, recent IVC filter, HI with stent placement. He presented to the emergency department with some dyspnea, dyspnea on exertion , fatigue, and productive cough. This was immediately concerning for pneumonia , ACS, recurrent pulmonary embolism. An EKG and chest x-ray were obtained. The EKG was unchanged from his last one on 11/07/2016. His chest x-ray did not reveal pneumonia. A CBC was obtained and did not reveal anemia or leukocytosis. However, he had an elevated troponin of 0.04. This troponin is equivalent to that of his baseline. However , I will we did a repeat troponin 3 hours later and this one did trend upward to 0.06 At this time, I think it is reasonable to admit this patient due to his recent decline from baseline, dyspnea on exertion, as well as his upward trending of troponin. I spoke to the hospitalist on the phone and he is in agreement. - Lab Data Result diagrams: 01/07/17 00:33 01/07/17 00:33 Lab Results 01/07/17 01/07/17 01/07/17 Range/Units 00:33 00:33 00:33 WBC 9.4 (4.3-11.1) K/mcL RBC 5.08 (4.19-5.50) M/mcL Hgb 13.5 (12.9-16.9) g/dL Hct 41.5 (37.5-50.1) % MCV 81.7 L (83.0-100.0) fL MCH 26.6 L (28.0-33.3) pg MCHC 32.5 (31.6-35.5) g/dL RDW 14.6 H (11.5-14.5) % Plt Count 312 (140-400) K/mcL MPV 9.9 (9.4-12.4) fL Immature Gran % 0.3 (0-4) % Seg Neutrophils % 60.7 % Lymphocytes % 18.8 % Monocytes % 12.9 % Eosinophils % 6.6 % Basophils % 0.7 % Neutrophils # 5.7 (1.6-8.9) K/mcL Lymphocytes # 1.8 (0.6-4.6) K/mcL Monocytes # 1.2 (0.0-1.3) K/mcL Eosinophils # 0.6 (0.0-0.6) K/mcL Basophils # 0.1 (0.0-0.2) K/mcL Sodium 133 L (136-145) mEq/L Potassium 4.0 (3.5-4.5) mEq/L Chloride 98 (98-109) mEq/L Carbon Dioxide 26 (19-29) mEq/L BUN 25 (8-26) mg/dL Creatinine 1.34 H (0.72-1.25) mg/dL Est GFR ( Amer) > 60 (> 60) Est GFR (Non-Af Amer) 50 L (> 60) BUN/Creatinine Ratio 19 (6-26) Glucose 106 H (70-99) mg/dL Calculated Osmolality 281 (280-300) Calcium 9.5 (8.6-10.8) mg/dL Troponin I 0.04 H* (0-0.03) ng/mL B-Natriuretic Peptide (0-100) pg/mL 01/07/17 01/07/17 Range/Units 00:33 03:26 WBC (4.3-11.1) K/mcL RBC (4.19-5.50) M/mcL Hgb (12.9-16.9) g/dL Hct (37.5-50.1) % MCV (83.0-100.0) fL MCH (28.0-33.3) pg MCHC (31.6-35.5) g/dL RDW (11.5-14.5) % Plt Count (140-400) K/mcL MPV (9.4-12.4) fL Immature Gran % (0-4) % Seg Neutrophils % % Lymphocytes % % Monocytes % % Eosinophils % % Basophils % % Neutrophils # (1.6-8.9) K/mcL Lymphocytes # (0.6-4.6) K/mcL Monocytes # (0.0-1.3) K/mcL Eosinophils # (0.0-0.6) K/mcL Basophils # (0.0-0.2) K/mcL Sodium (136-145) mEq/L Potassium (3.5-4.5) mEq/L Chloride (98-109) mEq/L Carbon Dioxide (19-29) mEq/L BUN (8-26) mg/dL Creatinine (0.72-1.25) mg/dL Est GFR ( Amer) (> 60) Est GFR (Non-Af Amer) (> 60) BUN/Creatinine Ratio (6-26) Glucose (70-99) mg/dL Calculated Osmolality (280-300) Calcium (8.6-10.8) mg/dL Troponin I 0.06 H* (0-0.03) ng/mL B-Natriuretic Peptide 204 H (0-100) pg/mL - EKG Data EKG #1 EKG attestation: Yes I reviewed and interpreted this EKG. EKG results narrative: 01/07/2017 00:37 Ventricular rate 66 bpm, DE interval no P waves, QRS duration 153 ms, QTC 447, QTC 460 ms, left axis. Atrial fibrillation with a right bundle branch block. This is unchanged from his EKG from November 15, 2016 Attestation Statement - Attestation Attestation: I, Ahmet Art MD, personally evaluated this patient and discussed their management with the resident physician. I reviewed the resident's note and agree with the documented findings, medical decision making, and plan of care. 86-year-old male presents to the emergency department with a complaint of some cough and congestion with increased shortness of breath for the past several days. To 3 days ago he had an episode of severe weakness while pushing a shopping cart. He states that he had to stop and sit down and rest. He did not pass out. He is not really noticed any chest pain but states his chest feels tight. Productive cough with thick white sputum. No fever. On examination patient is a well-developed well-nourished elderly male in no acute distress. He is alert and oriented 3. There is no cyanosis or diaphoresis. Chest is nontender to palpation. Breath sounds are decreased bilaterally with some scattered bilateral wheezes. Heart irregularly irregular with a normal rate. Abdomen is soft and nontender with normal bowel sounds. Labs reviewed. Initial troponin 0.04. A 3 hour repeat troponin was obtained that had actually increased to 0.06. The hospitalist, Dr. Gallegos, was consulted and accepted admission of the patient.
[2017-01-07] MEDS ORDERED: 0.9 % Sodium Chloride 1,000 ML IVC ONE (03:08)
[2017-01-07] MEDS ORDERED: Acetaminophen 325 MG TABLET PO PRN (08:27)
[2017-01-07] MEDS ORDERED: *HR* HYDROcodone/Acet 5/325 mg TABLET PO PRN (08:32)
[2017-01-07] MEDS ORDERED: Furosemide 20 MG TABLET PO PRN (08:32)
[2017-01-07] MEDS ORDERED: Melatonin 3 MG TABLET PO PRN (08:32)
[2017-01-07] MEDS ORDERED: Naloxone 0.4 MG/ML INJ IVP PRN (08:34)
[2017-01-07] MEDS: Aspirin Enteric Coated 81 MG Tablet PO SCH ×2 (09:34→21:14)
[2017-01-07] MEDS: dilTIAZem HCl 60 MG TABLET PO SCH (09:35)
--- NOTE | 2017-01-07 10:07 | Internal Med History&Physical ---
Date of Encounter: 01/07/17 Time of Encounter: 08:00 Assessment and Plan (1) General weakness Current visit: Yes Status: Acute Etiology is and determined, but patient has a recent cough. Probably has a cold or a viral infection. - We will continue supportive treatment. - PTOT evaluation - Patient's symptoms has improved. (2) CKD (chronic kidney disease) Current visit: Yes Status: Acute Stable. Chronic. Qualifiers: Chronic kidney disease stage: stage 3 (moderate) Qualified Code(s): N18.3 - Chronic kidney disease, stage 3 (moderate) (3) Bronchitis Current visit: Yes Status: Acute Patient has cough with whitish sputum. Chest x-ray shows negative for pneumonia. SpO2 95% in RA - Symptomatic treatment with Robitussin DM. (4) CHF (congestive heart failure) Current visit: No Status: Acute Chronic. No signs of exacerbation. Qualifiers: Congestive heart failure type: diastolic Congestive heart failure chronicity: acute Qualified Code(s): I50.31 - Acute diastolic (congestive) heart failure (5) Atrial fibrillation Current visit: No Status: Chronic Heart rate is well controlled. Continue Coumadin for anticoagulation. Qualifiers: Atrial fibrillation type: chronic Qualified Code(s): I48.2 - Chronic atrial fibrillation (6) Elevated troponin Current visit: Yes Status: Acute Patient has elevated troponin. His old chart has been reviewed. Patient has chronic elevation of troponin. Probably due to CHF and this EKG. - We will track 3 sets of troponin - Continue cardiac monitoring. - Continue home medication for CAD: Aspirin, beta bronwyn, and statin. (7) Pulmonary embolism Current visit: No Status: Acute Patient has recently diagnosed PE. On Coumadin for anticoagulations. Had IVC filter placed Qualifiers: Pulmonary embolism type: other Chronicity: acute Acute cor pulmonale presence: without acute cor pulmonale Qualified Code(s): I26.99 - Other pulmonary embolism without acute cor pulmonale (8) DVT prophylaxis Current visit: No Status: Acute Patient is on Coumadin (9) Bladder tumor Current visit: Yes Status: Acute Patient has recent diagnosed of bladder tumor. S/P TURBT. Continue follow up as outpatient. Internal Medicine - H&P: HPI Chief complaint: Weakness Admitted From: Home Plans for Post Hospital Care: Home History of present illness: Mr. Hayes is a 86 year old male with history of A. fib, recent PE s/p IVC filter , CAD S/P stent, hypertension, presented to ER for general weakness and do not feel good since Wednesday (3 days ago). Patient has cough for about 1 week, with a whitish sputum. Since Wednesday, he feel generally weak, cannot control himself on walking. Patient has low fever with temperature 99. He denies runny nose, sore throat, shortness of breath, chest pain, nausea, abdominal pain, or diarrhea. Patient has no mental status change, slurred speech, one-sided weakness or numbness, or facial drop. In emergency room, he was found elevated troponin. Patient was admitted to for further monitoring. Past Med Surg Social Fam HX - Past Medical History Medical history: aortic aneurysm, atrial fibrillation, cancer, CHF, myocardial infarction, pulmonary embolus Psychiatric history: no psych history - Past Surgical History Surgical History: angioplasty/stent, appendectomy, knee replacement - Social History Smoking Status: Former smoker Smokeless Tobacco Status: No Alcohol use: none Drug use: none - Family History Father Hx Family Cardiac Disorders: Yes Internal Medicine - H&P: Meds RX: Aspirin [Lo-Dose Aspirin EC] 81 mg PO DAILY 11/05/16 [History] RX: Atorvastatin Calcium [Lipitor] 20 mg PO HS 11/05/16 [History] RX: Enalapril Maleate [Vasotec] 2.5 mg PO BID 11/05/16 [History] RX: Furosemide [Lasix] 20 mg PO DAILY PRN 11/05/16 [History] RX: LORazepam [Ativan] 0.5 mg PO HS 11/05/16 [History] RX: Melatonin 10 mg PO HS PRN 11/05/16 [History] RX: Metoprolol [Lopressor] 25 mg PO BID 11/05/16 [History] RX: Naproxen Sodium [Aleve] 220 mg PO Q12H PRN 11/05/16 [History] RX: HYDROcodone/Acet 5/325 mg [[place] 5-325 mg] 1 tab PO Q6H PRN #10 tablet 12/14 [Rx] Diltiazem HCl [Cardizem LA] 60 mg PO DAILY 01/07/17 [History] RX: Warfarin [Coumadin] 3 mg PO 1800 01/07/17 [History] Allergies tetanus immune globulin Allergy (Intermediate, Verified 01/06/17 23:45) unknown UNKNOWN PER PATIENT All Systems PM: A 10-system review of systems was performed and is negative for pertinent findings except as documented above in the HPI. - Constitutional Vitals: Temp Pulse Resp BP Pulse Ox 97.5 F L 87 18 118/79 96 01/07/17 07:41 01/07/17 07:41 01/07/17 07:41 01/07/17 07:41 01/07/17 07:41 General appearance: Present: A&O X 3, no acute distress, answers questions appropriately - Head Head exam: Present: atraumatic, normocephalic - Eye Eye exam: Present: PERRL, conjuntiva pink, sclera anicteric Pupils: Present: PERRL - Neck Neck exam general surgery: Present: supple, trachea midline. Absent: lymphadenopathy - Respiratory Respiratory exam: Present: CTAB. Absent: accessory muscle use, rales, rhonchi, wheezes - Cardiovascular Cardiovascular exam: Present: RRR, +S1, +S2. Absent: diastolic murmur, gallop, rubs, systolic murmur - GI/Abdominal GI/Abdominal exam: Present: normal bowel sounds, soft, no peritoneal signs. Absent: distended, tenderness - Extremities Exam Extremities exam: Present: warm, radial pulses palpable and symetrical. Absent : calf tenderness, cyanotic, pedal edema - Neurological Exam Neurological exam: Present: CN II-XII intact, oriented X3, no focal deficits. Absent: pronater drift, facial droop, speech deficit - Skin Skin exam: Present: dry, intact Internal Med - H&P Results - Labs CBC & Chem 7: 01/07/17 00:33 01/07/17 00:33 Labs: Cardiac Enzymes 01/07/17 Range/Units 09:07 Troponin I 0.06 H* (0-0.03) ng/mL
[2017-01-07 12:10] LABS: INR 1.6; Prothrombin Time 17.3 Seconds (9.4-12.1)
--- NOTE | 2017-01-07 15:39 | Electrocardiograph Report ---
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
[2017-01-07] MEDS ORDERED: Warfarin perPT PO PRN (18:00)
[2017-01-07] MEDS ORDERED: *HR* Warfarin 3 MG TABLET PO SCH (18:00)
[2017-01-07] MEDS ORDERED: *HR* LORazepam 0.5 MG TABLET PO SCH (21:00)
[2017-01-07] MEDS ORDERED: Aspirin Enteric Coated 81 MG Tablet PO SCH (21:00)
[2017-01-08 06:09] LABS: BUN/Creatinine Ratio 18 (6-26); Blood Urea Nitrogen 20 mg/dL (8-26); Calcium 9.1 mg/dL (8.6-10.8); Carbon Dioxide 29 mEq/L (19-29); Chloride 98 mEq/L (98-109); Glucose 90 mg/dL (70-99); Osmolality,Calculated 280 (280-300); Potassium 3.8 mEq/L (3.5-4.5); Sodium 134 mEq/L (136-145); eGFR For African Americans > 60 (> 60); eGFR For Non-African Americans > 60 (> 60)
[2017-01-08 06:15] LABS: Basophils # 0.1 K/mcL (0.0-0.2); Basophils % 0.6 %; Eosinophils # 0.7 K/mcL (0.0-0.6); Eosinophils % 6.7 %; Hemoglobin 12.5 g/dL (12.9-16.9); Immature Granulocytes % 0.4 % (0-4); Lymphocytes % 18.5 %; Mean Corpuscular HGB Conc 32.1 g/dL (31.6-35.5); Mean Corpuscular Hemoglobin 26.4 pg (28.0-33.3); Mean Corpuscular Volume 82.3 fL (83.0-100.0); Mean Platelet Volume 9.6 fL (9.4-12.4); Monocytes # 1.2 K/mcL (0.0-1.3); Monocytes % 10.6 %; Platelet Count 326 K/mcL (140-400); Red Blood Count 4.74 M/mcL (4.19-5.50); Red Cell Distribution Width 14.6 % (11.5-14.5); Segmented Neutrophils % 63.2 %
[2017-01-08] MEDS ORDERED: Enoxaparin Weight Dosing SQ SCH (08:13)
[2017-01-08] MEDS ORDERED: Amoxicillin 500 MG CAPSULE PO SCH (08:28)
--- NOTE | 2017-01-08 08:28 | Discharge Summary ---
Date of Encounter: 01/08/17 Time of Encounter: 08:26 - Discharge Diagnosis (1) Pulmonary embolism Priority: Primary Status: Acute Comments: Pulmonary emboli with nontherapeutic INR During his past admission his goal INR was between 2.5 and 3 (2) Elevated troponin Priority: Primary Status: Acute Comments: Chronically elevated troponins, adynamic (3) Atrial fibrillation Priority: Secondary Status: Chronic Qualifiers: Atrial fibrillation type: chronic Qualified Code(s): I48.2 - Chronic atrial fibrillation (4) Anticoagulant long-term use Priority: Secondary Status: Chronic (5) Hyperlipidemia Priority: Secondary Status: Acute Qualifiers: Hyperlipidemia type: mixed hyperlipidemia Qualified Code(s): E78.2 - Mixed hyperlipidemia (6) CKD (chronic kidney disease) Priority: Secondary Status: Acute Qualifiers: Chronic kidney disease stage: stage 3 (moderate) Qualified Code(s): N18.3 - Chronic kidney disease, stage 3 (moderate) (7) Bronchitis Priority: Primary Status: Acute Comments: Acute bronchitis bacterial versus viral is Start amoxicillin (8) Bladder tumor Priority: Secondary Status: Acute - Discharge Medications Prescriptions: Amoxicillin [Amoxil] 500 mg PO Q8HR #21 Enoxaparin [Lovenox *PHARMACY WT BASED*] 100 mg SQ DAILY #7 mg Home Medications: Aspirin [Lo-Dose Aspirin EC] 81 mg PO DAILY 11/05/16 [History] Atorvastatin Calcium [Lipitor] 20 mg PO HS 11/05/16 [History] Enalapril Maleate [Vasotec] 2.5 mg PO BID 11/05/16 [History] Furosemide [Lasix] 20 mg PO DAILY PRN 11/05/16 [History] LORazepam [Ativan] 0.5 mg PO HS 11/05/16 [History] Melatonin 10 mg PO HS PRN 11/05/16 [History] Metoprolol [Lopressor] 25 mg PO BID 11/05/16 [History] Naproxen Sodium [Aleve] 220 mg PO Q12H PRN 11/05/16 [History] HYDROcodone/Acet 5/325 mg [[place] 5-325 mg] 1 tab PO Q6H PRN #10 tablet 12/14/16 [Rx] Diltiazem HCl [Cardizem LA] 60 mg PO DAILY 01/07/17 [History] Warfarin [Coumadin] 3 mg PO 1800 01/07/17 [History] Amoxicillin [Amoxil] 500 mg PO Q8HR #21 01/08/17 [Rx] Enoxaparin [Lovenox *PHARMACY WT BASED*] 100 mg SQ DAILY #7 mg 01/08/17 [Rx] Allergies/Adverse Reactions: Allergies tetanus immune globulin Allergy (Intermediate, Verified 01/06/17 23:45) unknown UNKNOWN PER PATIENT Date of admission: 01/07/17 04:16 Primary care physician: Marycruz Mackenzie Consults: 01/07/17 08:30 Consult to Occupational Therapy [CONS] Routine Comment: Evaluate, develop and implement POC Reason for Consult: Weakness Consult to Physical Therapy [CONS] Routine Comment: Evaluate, develop and implement POC Reason for Consult: Weakness - Patient Status Disposition: Home, Self-Care Condition: Good Overall status at discharge: patient is progressing back to baseline - Discharge Instructions Follow Up With: Marycruz Mackenzie MD [Primary Care Provider] - 01/15/17 1:45 pm ( ) Additional Instructions: Follow-up with primary care physician within the next 7 days. Continue taking Coumadin and Lovenox until INR is 2.5, goal is between 2.5 and 3. Follow-up with cardiology within the next 7 days. - Diet and Activity Activity: increase activity as tolerated Diet: low fat, low cholesterol Hospital course: Mr. Hayes is a 86 year old male with history of A. fib, recent PE s/p IVC filter on Coumadin, CAD S/P stent, hypertension, presented to ER for general weakness and has not felt good since Wednesday. Patient had cough for about 1 week , with a whitish sputum. Since Wednesday, he feel generally weak, could not control himself on walking. Patient had a low fever with temperature 99. He denied a runny nose, sore throat, shortness of breath, chest pain, nausea, abdominal pain, or diarrhea. Patient had no mental status change, slurred speech, or numbness, nor facial drop. In emergency room, he was found elevated troponin of 0.04 but he has chronically elevated troponins . He says that his INR was supratherapeutic last week up to 5 and was not taking his Coumadin for that reason. Yesterday it was 1.6. Currently the patient is supposed to take 3 mg daily and says that Otf Verdugo manages this. Unfortunately Otf is on medication and the patient initially refused to take Lovenox as it is very expensive. - Time Spent with Patient Total time spent providing and/or coordinating discharge services: Greater than 30 minutes (40 min) - Constitutional Vitals: Temp Pulse Resp BP Pulse Ox 97.6 F 75 18 100/65 96 01/08/17 07:23 01/08/17 07:23 01/08/17 07:23 01/08/17 07:23 01/08/17 07:23 General appearance: Present: A&O X 3, no acute distress, answers questions appropriately - Head Head exam: Present: atraumatic, normocephalic - Eye Eye exam: Present: PERRL, conjuntiva pink, sclera anicteric Pupils: Present: PERRL - Neck Neck exam general surgery: Present: supple, trachea midline. Absent: lymphadenopathy - Respiratory Respiratory exam: Present: CTAB. Absent: accessory muscle use, rales, rhonchi, wheezes - Cardiovascular Cardiovascular exam: Present: RRR, +S1, +S2. Absent: diastolic murmur, gallop, rubs, systolic murmur - GI/Abdominal GI/Abdominal exam: Present: normal bowel sounds, soft, no peritoneal signs. Absent: distended, tenderness - Extremities Exam Extremities exam: Present: warm, radial pulses palpable and symetrical. Absent : calf tenderness, cyanotic, pedal edema - Neurological Exam Neurological exam: Present: CN II-XII intact, oriented X3, no focal deficits. Absent: pronater drift, facial droop, speech deficit - Skin Skin exam: Present: dry, intact
[2017-01-08] MEDS: dilTIAZem HCl 60 MG TABLET PO SCH (08:33)
[2017-01-08] MEDS: Aspirin Enteric Coated 81 MG Tablet PO SCH (08:33)
[2017-01-08] MEDS ORDERED: Furosemide 20 MG TABLET PO SCH (09:00)
[2017-01-08] MEDS ORDERED: *HR* Enoxaparin 80 MG/0.8 ML SYRINGE SQ SCH (09:00)
[2017-01-08 09:05] LABS: INR 1.7; Prothrombin Time 18.2 Seconds (9.4-12.1)
[2017-01-08 10:55] VITALS: BP 92/58
--- NOTE | 2017-01-08 13:14 | Event Note ---
Date of Encounter: 01/08/17 Time of Encounter: 11:30 - Cardiology Event Note Patient known to cardiology. Patient was refusing to take lovenox injections, until seen by cardiology. I had a lengthy discussion with patient and family regarding need for lovenox injections and risks of not taking injections due to subtherapeutic INR. Patient reports it is a cost issue. I discussed with aids social worker who arranged for medication to be dispensed by [facility]. Son and daughter in law covered cost of lovenox injections which was $32. Patient agreeable to take lovenox injections. Recommend re-checking INR on Wednesday, ordered through [facility]. INR/Coumadin monitored by cardiology clinic. Will continue to follow in outpatient setting.
== END 2017-01-08 13:30 | disposition home or self-care (01) ==
LOC: EMEROO 23:35 → 2ANU 23:35
PROVIDERS: ADMIT Internal Medicine; ATTEND Internal Medicine

== ENCOUNTER 2017-02-06 15:10 | Inpatient (IN) ==
[2017-02-06] MEDS ORDERED: Aspirin 81 MG TAB.CHEW PO STA (15:58)
[2017-02-06 16:02] LABS: Basophils % 0.4 %; Eosinophils # 0.2 K/mcL (0.0-0.6); Hematocrit 37.5 % (37.5-50.1); Immature Granulocytes % 0.5 % (0-4); Lymphocytes # 1.5 K/mcL (0.6-4.6); Lymphocytes % 13.8 %; Mean Corpuscular Hemoglobin 26.3 pg (28.0-33.3); Mean Corpuscular Volume 82.2 fL (83.0-100.0); Mean Platelet Volume 9.8 fL (9.4-12.4); Monocytes # 0.9 K/mcL (0.0-1.3); Monocytes % 8.5 %; Neutrophils # 8.1 K/mcL (1.6-8.9); Platelet Count 277 K/mcL (140-400); Red Blood Count 4.56 M/mcL (4.19-5.50); Red Cell Distribution Width 16.8 % (11.5-14.5); Segmented Neutrophils % 74.8 %
[2017-02-06 16:10] LABS: BUN/Creatinine Ratio 19 (6-26); Blood Urea Nitrogen 25 mg/dL (8-26); Calcium 10.7 mg/dL (8.6-10.8); Carbon Dioxide 35 mEq/L (19-29); Chloride 95 mEq/L (98-109); Glucose 112 mg/dL (70-99); Osmolality,Calculated 295 (280-300); Potassium 3.5 mEq/L (3.5-4.5); Sodium 140 mEq/L (136-145); eGFR For African Americans > 60 (> 60); eGFR For Non-African Americans 50 (> 60)
[2017-02-06 16:16] LABS: Activated Partial Thrombo Time 41.8 Seconds (26.0-36.0)
--- NOTE | 2017-02-06 16:18 | Emergency Department Note ---
START Narrative - START START: I examined this patient and my medical decision-making was reviewed with the Resident Physician. I agree with the documented findings, disposition and treatment plan as described except to the extent set forth below. Patient was independently seen and evaluated by myself. Patient was seen with the emergency medicine resident Alfredo Marte. Please see copy of her notes for details of this ED encounter management and disposition. Briefly: A 86-year-old male via EMS for shortness of breath. Was seen just yesterday at [facility] and treated for CHF with diuretics. He was able to diurese but he still short of breath and unable to tolerate this at home. He does have bibasilar rales with peripheral edema. Denies new chest pain. We will re- accomplished screening labs and we will admit this patient for congestive heart failure acute exacerbation of chronic condition with failure of outpatient management. Disposition pending
[2017-02-06 16:20] LABS: INR 2.7; Prothrombin Time 29.2 Seconds (9.4-12.1)
[2017-02-06] MEDS ORDERED: Furosemide 20 MG/2 ML VIAL IVP ONE (16:53)
--- NOTE | 2017-02-06 16:53 | Emergency Department Note ---
Disposition Clinical Impression: Elevated troponin CHF exacerbation Qualifiers: Congestive heart failure type: unspecified congestive heart failure type Qualified Code(s): I50.9 - Heart failure, unspecified Disposition: Admitted As Inpatient Condition: Good General Adult HPI - General Chief complaint: ED Shortness of Breath/Dyspnea Stated complaint: Bi-lateral Edema Source: patient, family Mode of arrival: ambulatory Limitations: no limitations Nursing Notes Reviewed: Yes Vital Signs Reviewed: Yes - History of Present Illness HPI Narrative: Patient is here for evaluation of shortness of breath and leg swelling. Patient was seen in the emergency department yesterday and was sent home after sure decision making. The patient initially responded to IV Lasix given but has no longer had good urinary output. Patient continues to have shortness of breath and leg swelling. Patient denies any chest pain at this time. Previous labs show that the patient had an elevated troponin as well as a BNP. Symptoms have been getting worse for the last several days. Worsening fatigue, shortness of breath, swelling in legs. Patient denies chest pain. Pain Scale: 0 - Related Data Home Medications Medication Instructions Recorded Confirmed Aspirin [Lo-Dose Aspirin EC] 81 mg PO DAILY 11/05/16 02/06/17 Atorvastatin Calcium [Lipitor] 20 mg PO HS 11/05/16 02/06/17 Enalapril Maleate [Vasotec] 2.5 mg PO BID 11/05/16 02/06/17 Furosemide [Lasix] 20 mg PO DAILY PRN 11/05/16 02/06/17 LORazepam [Ativan] 0.5 mg PO TID PRN 11/05/16 02/06/17 Melatonin 10 mg PO HS PRN 11/05/16 02/06/17 Metoprolol [Lopressor] 25 mg PO BID 11/05/16 02/06/17 Naproxen Sodium [Aleve] 220 mg PO Q12H PRN 11/05/16 02/06/17 Diltiazem HCl [Cardizem LA] 60 mg PO DAILY 01/07/17 02/06/17 Warfarin [Coumadin] 3 mg PO AD 01/07/17 02/06/17 Enoxaparin [Lovenox] 80 mg SQ Q12HR 02/06/17 02/06/17 Warfarin [Coumadin] 4 mg PO AD 02/06/17 02/06/17 Allergies Allergy/AdvReac Type Severity Reaction Status Date / Time tetanus immune globulin Allergy Intermediate unknown Verified 02/06/17 15:21 All systems ED: reviewed and negative except as stated. Constitutional: Denies: fever, chills Cardiovascular: Reports: dyspnea on exertion. Denies: chest pain, palpitations Respiratory: Reports: dyspnea Gastrointestinal: Denies: abdominal pain, nausea Genitourinary: Denies: urgency, dysuria Musculoskeletal: Reports: other (Lower extremity swelling). Denies: back pain Integumentary: Denies: rash Endocrine: Reports: fatigue Past Medical History - Past Medical History Medical history: Reports: aortic aneurysm, atrial fibrillation, cancer, CHF, myocardial infarction, pulmonary embolus Surgical history: Reports: angioplasty/stent, appendectomy, knee replacement Psychiatric history: Reports: no psych history - Social History Smoking Status: Former smoker Smokeless Tobacco Status: No Alcohol use: Reports: none Drug use: Reports: none Physical Exam General appearance: NAD, conversant Eyes: anicteric sclerae, moist conjunctivae; PERRL HENT: Atraumatic; oropharynx clear with moist mucous membranes and no mucosal ulcerations Neck: Normal inspection; Trachea midline; FROM, supple Lungs: Rales bilateral bases CV: Irregular rhythm, no MRGs Abdomen: Soft, non-tender; no rebound or gaurding Extremities: No peripheral edema or extremity lymphadenopathy Skin: Normal temperature; no rash, ulcers or lesions Psych: Appropriate mood and affect Neuro: alert and oriented to person, place and time - General General appearance: alert, in no apparent distress Course - Reevaluation(s) Reevaluation #1: Patient found to have an elevated troponin as well as an elevated BNP and concern for mild changes on chest x-ray. Patient given aspirin and Lasix. Patient admitted to the hospitalist service. - Consultations Consultation #1: Discussed with hospitalist. Patient accepted for admission. Vital Signs Temperature 97.5 F L 02/06/17 15:18 Pulse Rate 91 02/06/17 15:18 Respiratory Rate 20 02/06/17 15:18 Blood Pressure 100/67 02/06/17 15:18 O2 Sat by Pulse Oximetry 89 02/06/17 15:18 Temperature 97.5 F L 02/06/17 15:18 Pulse Rate 91 02/06/17 15:18 Respiratory Rate 20 02/06/17 15:18 Blood Pressure 100/67 02/06/17 15:18 O2 Sat by Pulse Oximetry 95 02/06/17 15:56 Oxygen Delivery Oxygen Delivery Room Air Medical Decision Making - Lab Data Result diagrams: 02/06/17 15:50 02/06/17 15:50 Lab Results 02/06/17 02/06/17 02/06/17 Range/Units 15:50 15:50 15:50 WBC 10.8 (4.3-11.1) K/mcL RBC 4.56 (4.19-5.50) M/mcL Hgb 12.0 L (12.9-16.9) g/dL Hct 37.5 (37.5-50.1) % MCV 82.2 L (83.0-100.0) fL MCH 26.3 L (28.0-33.3) pg MCHC 32.0 (31.6-35.5) g/dL RDW 16.8 H (11.5-14.5) % Plt Count 277 (140-400) K/mcL MPV 9.8 (9.4-12.4) fL Immature Gran % 0.5 (0-4) % Seg Neutrophils % 74.8 % Lymphocytes % 13.8 % Monocytes % 8.5 % Eosinophils % 2.0 % Basophils % 0.4 % Neutrophils # 8.1 (1.6-8.9) K/mcL Lymphocytes # 1.5 (0.6-4.6) K/mcL Monocytes # 0.9 (0.0-1.3) K/mcL Eosinophils # 0.2 (0.0-0.6) K/mcL Basophils # 0.0 (0.0-0.2) K/mcL PT 29.2 H D (9.4-12.1) Seconds INR 2.7 D APTT 41.8 H (26.0-36.0) Seconds Sodium 140 (136-145) mEq/L Potassium 3.5 (3.5-4.5) mEq/L Chloride 95 L (98-109) mEq/L Carbon Dioxide 35 H (19-29) mEq/L BUN 25 (8-26) mg/dL Creatinine 1.35 H (0.72-1.25) mg/dL Est GFR ( Amer) > 60 (> 60) Est GFR (Non-Af Amer) 50 L (> 60) BUN/Creatinine Ratio 19 (6-26) Glucose 112 H (70-99) mg/dL Calculated Osmolality 295 (280-300) Calcium 10.7 (8.6-10.8) mg/dL Troponin I (0-0.03) ng/mL 02/06/17 Range/Units 15:50 WBC (4.3-11.1) K/mcL RBC (4.19-5.50) M/mcL Hgb (12.9-16.9) g/dL Hct (37.5-50.1) % MCV (83.0-100.0) fL MCH (28.0-33.3) pg MCHC (31.6-35.5) g/dL RDW (11.5-14.5) % Plt Count (140-400) K/mcL MPV (9.4-12.4) fL Immature Gran % (0-4) % Seg Neutrophils % % Lymphocytes % % Monocytes % % Eosinophils % % Basophils % % Neutrophils # (1.6-8.9) K/mcL Lymphocytes # (0.6-4.6) K/mcL Monocytes # (0.0-1.3) K/mcL Eosinophils # (0.0-0.6) K/mcL Basophils # (0.0-0.2) K/mcL PT (9.4-12.1) Seconds INR APTT (26.0-36.0) Seconds Sodium (136-145) mEq/L Potassium (3.5-4.5) mEq/L Chloride (98-109) mEq/L Carbon Dioxide (19-29) mEq/L BUN (8-26) mg/dL Creatinine (0.72-1.25) mg/dL Est GFR ( Amer) (> 60) Est GFR (Non-Af Amer) (> 60) BUN/Creatinine Ratio (6-26) Glucose (70-99) mg/dL Calculated Osmolality (280-300) Calcium (8.6-10.8) mg/dL Troponin I 0.17 H* (0-0.03) ng/mL - EKG Data EKG #1 EKG attestation: Yes I reviewed and interpreted this EKG. EKG results narrative: EKG shows atrial fibrillation with ventricular rate of 83 bpm. QRS 155. QTC 463. No significant ST elevations or depressions. There are inverted and biphasic T waves in the anterior leads. No previous EKG for comparison at this time.
[2017-02-06] MEDS ORDERED: Naloxone 0.4 MG/ML INJ IVP PRN (20:18)
[2017-02-06] MEDS ORDERED: Acetaminophen 325 MG TABLET PO PRN (20:18)
[2017-02-06] MEDS ORDERED: Furosemide 240 MG in D5% in Water 96 ML IVC SCH (20:18)
[2017-02-06] MEDS ORDERED: Ondansetron 4 MG/2 ML VIAL IVP PRN (20:18)
[2017-02-06] MEDS ORDERED: MOM Conc 10 ML UD.LIQ PO PRN (20:18)
[2017-02-06] MEDS ORDERED: *HR* Morphine 2 MG/ML SYRINGE IVP PRN (20:18)
--- NOTE | 2017-02-06 20:35 | Internal Med History&Physical ---
Date of Encounter: 02/06/17 Time of Encounter: 19:40 Assessment and Plan (1) CHF (congestive heart failure) Current visit: Yes Status: Acute 1. Will treat with Lasix drip and fluid restriction of 2000 ml/day. 2. Last ECHO showed LVEF of 65% and diastolic dysfunction. 3. Will order repeat ECHO in the morning and consult with cardiology. 4. Continue BB. 5. No YESY due to severe . Qualifiers: Congestive heart failure type: diastolic Congestive heart failure chronicity: acute on chronic Qualified Code(s): I50.33 - Acute on chronic diastolic (congestive) heart failure (2) Non-STEMI (non-ST elevated myocardial infarction) Current visit: No Status: Acute 1. Likely exacerbated by severe compounded with CHF. 2. Patient anti-coagulated with Coumadin. 3. Continue home meds as appropriate (no YESY). 4. Will trend troponins, EKG's, and repeat ECHO. 5. Consult cardiology. (3) Aortic stenosis Current visit: No Status: Chronic 1. Stop YESY. 2. Consult Cardiology for guidance regarding possibility of valvuloplasty options, if any. 3. Patient not interested in AVR. 4. Continue BB and avoid drastic afterload reduction. Qualifiers: Cardiac valve disease etiology: etiology unspecified Qualified Code(s): I35.0 - Nonrheumatic aortic (valve) stenosis (4) Acute kidney injury superimposed on chronic kidney disease Current visit: Yes Status: Acute 1. Stop YESY. 2. Monitor renal function closely on Lasix drip. 3. Consult nephrology if renal function fails to improve or worsens. 4. Likely secondary to severe . (5) DVT prophylaxis Current visit: Yes Status: Acute 1. Therapeutic on Coumadin. 2. Consult pharmacy for dosing and monitoring INR. Internal Medicine - H&P: HPI Chief complaint: SOB; edema Admitted From: Emergency Dept Plans for Post Hospital Care: Home History of present illness: Mr. Hayes is a 86 year old male who presents to the ER with complaints of shortness of breath, lower extremity edema, and vague chest tightness. Symptoms started about 4 days ago. He came to the ER yesterday and was discharged from the ER after receiving some Lasix. However, symptoms persisted and he worsened, so he came back to the ER today. Workup in ER revealed patient to have CHF, and he did have elevation of his troponins prompting admission. I reviewed his old medical records, lab studies, and imaging studies prior to assessing patient. Of note, patient has severe aortic stenosis and recently was diagnosed with pulmonary embolus about 4 months ago. Upon my assessment of the patient, he complains of lower extremity edema and worsening shortness of breath. Overall, he feels a little better now that he did upon presentation to the ER today. He has diuresed some. He denies any active chest pain. He follows with cardiology and has been advised to consider aortic valve replacement. However, he is not interested in undergoing open heart surgery. He is interested in valvuloplasty, but I am not sure if aortic stenosis is amenable to valvuloplasty. I advised him to discuss with cardiology. On his last echo about one year ago, his ejection fraction was 65% and he had some mild diastolic dysfunction. As of last echo, his left ventricular systolic function was preserved. He also had a bladder tumor, but that has been resected and he is due to follow-up with urology soon for repeat instrumentation. I confirmed CODE STATUS with patient and family -- he requests DNRCC Arrest/DNI. Past Med Surg Social Fam HX - Past Medical History Attestation: Yes The following information was validated with the patient. Source: patient, old records reviewed, obtained from family Medical history: aortic aneurysm, atrial fibrillation, cancer, CHF, myocardial infarction, pulmonary embolus, valvular heart disease (severe aortic stenosis) Psychiatric history: no psych history - Past Surgical History Surgical History: angioplasty/stent, appendectomy, knee replacement - Social History Smoking Status: Former smoker Smokeless Tobacco Status: No Alcohol use: none Drug use: none Current living situation: Home, With Family Activity Level: Independent ambulation Recent Out of Country Travel Within the Last 8 Weeks: No - Family History Father Hx Family Cardiac Disorders: Yes Internal Medicine - H&P: Meds Aspirin [Lo-Dose Aspirin EC] 81 mg PO DAILY 11/05/16 [History] Atorvastatin Calcium [Lipitor] 20 mg PO HS 11/05/16 [History] Enalapril Maleate [Vasotec] 2.5 mg PO BID 11/05/16 [History] Furosemide [Lasix] 20 mg PO DAILY PRN 11/05/16 [History] LORazepam [Ativan] 0.5 mg PO TID PRN 11/05/16 [History] Melatonin 10 mg PO HS PRN 11/05/16 [History] Metoprolol [Lopressor] 25 mg PO BID 11/05/16 [History] Naproxen Sodium [Aleve] 220 mg PO Q12H PRN 11/05/16 [History] Diltiazem HCl [Cardizem LA] 60 mg PO DAILY 01/07/17 [History] Warfarin [Coumadin] 3 mg PO AD 01/07/17 [History] Enoxaparin [Lovenox] 80 mg SQ Q12HR 02/06/17 [History] Warfarin [Coumadin] 4 mg PO AD 02/06/17 [History] 3 Allergy/AdvReac Type Severity Reaction Status Date / Time tetanus immune globulin Allergy Intermediate unknown Verified 02/06/17 15:21 - Constitutional Constitutional: weight gain, no chills, no fever(s), no night sweats - EENT Eyes: no blurry vision, no change in vision Ears: no ear pain, no tinnitus Nose, mouth and throat: no nasal congestion, no sinus pain, no sinus pressure, no sore throat - Cardiovascular Cardiovascular ROS IM: chest pain, dyspnea, dyspnea on exertion, edema, irregular heart rhythm, orthopnea, no syncope - Respiratory Respiratory: dyspnea, dyspnea on exertion, no cough, no hemoptysis, no excessive phlegm production, no change in phlegm color - Gastrointestinal Gastrointestinal: bloating, no abdominal pain, no diarrhea, no hematemesis, no hematochezia, no melena, no vomiting - Genitourinary Genitourinary ROS male: no dysuria, no flank pain, no hematuria - Musculoskeletal Musculoskeletal ROS IM: no arthralgias, no back pain - Integumentary Integumentary IM: no rash, no jaundice - Neurological Neurological ROS: no dizziness, no focal weakness, no frequent falls - Psychiatric Psychiatric: no anxiety, no depression - Endocrine Endocrine IM: no polydipsia, no polyuria - Hematologic/Lymphatic Hematologic/Lymphatic: easy bruising, no lymphadenopathy - Allergic/Immunologic Allergic/Immunologic: no GI upset with certain foods - Constitutional Vitals: Temp Pulse Resp BP Pulse Ox 97.5 F L 90 18 137/88 94 02/06/17 15:18 02/06/17 17:21 02/06/17 17:37 02/06/17 17:37 02/06/17 17:21 General appearance: Present: cooperative, mild distress, A&O X 3, pleasant, answers questions appropriately - Head Head exam: Present: atraumatic, normal inspection - Eye Eye exam: Present: EOMI, normal appearance, PERRL. Absent: scleral icterus Pupils: Present: normal accommodation - ENT ENT exam: Present: mucous membranes moist, normal exam - Neck Neck exam general surgery: Present: full ROM, supple. Absent: tenderness - Expanded Neck Exam Neck exam: Absent: carotid bruit - Respiratory Respiratory exam: Present: rales, respiratory distress (mild). Absent: chest wall tenderness, wheezes - Cardiovascular Cardiovascular exam: Present: RRR, +S1, +S2, systolic murmur (grade 3 murmur) - GI/Abdominal GI/Abdominal exam: Present: normal bowel sounds, soft. Absent: hepatomegaly, mass, splenomegaly, tenderness - Extremities Exam Extremities exam: Present: full ROM, normal capillary refill, pedal edema (2-3+) . Absent: calf tenderness, joint swelling - Back Exam Back exam: Present: normal inspection. Absent: CVA tenderness (L), CVA tenderness (R) - Neurological Exam Neurological exam: Present: alert, CN II-XII intact, oriented X3, no focal deficits, strengths equal and symetr throughout - Psychiatric Psychiatric exam: Present: normal affect, normal mood - Skin Skin exam: Present: dry, warm. Absent: rash Internal Med - H&P Results - Labs CBC & Chem 7: 02/06/17 15:50 02/06/17 15:50 - EKG Data -: EKG Interpreted by Myself - EKG Data Prior EKG available for review: no EKG comments: 02/06/17 20:59 Atrial fibrillation; RBBB - Impressions ITS Impressions Chest CTA 02/06/17 18:11 IMPRESSION: No evidence of pulmonary embolism. Pulmonary edema with small bilateral pleural effusions. Cholelithiasis. Pulmonary arteries are enlarged which can be seen with pulmonary artery hypertension. Ascending aorta is mildly dilated measuring 4.1 cm, unchanged. D/ / Eva Schwab MD / Eva Schwab MD Interpreting Provider: Eva Schwab MD - Diagnostic Studies Chest x-ray Status: image reviewed by me (intrsetitial edema) CT scan - chest Additional comments: Report reviewed -- no PE - VTE Reasons for not Prescribing Prophylaxis: Not indicated-Anticoagulated or INR therapeutic
[2017-02-06] MEDS: Melatonin 3 MG TABLET PO PRN (22:26)
[2017-02-06] MEDS: *HR* LORazepam 0.5 MG TABLET PO PRN (22:26)
[2017-02-07 04:08] LABS: Basophils # 0.1 K/mcL (0.0-0.2); Basophils % 0.5 %; Eosinophils # 0.4 K/mcL (0.0-0.6); Eosinophils % 4.2 %; Hematocrit 33.4 % (37.5-50.1); Hemoglobin 10.9 g/dL (12.9-16.9); Immature Granulocytes % 0.2 % (0-4); Lymphocytes # 1.8 K/mcL (0.6-4.6); Lymphocytes % 19.5 %; Mean Corpuscular HGB Conc 32.6 g/dL (31.6-35.5); Mean Corpuscular Hemoglobin 26.9 pg (28.0-33.3); Mean Corpuscular Volume 82.5 fL (83.0-100.0); Mean Platelet Volume 9.9 fL (9.4-12.4); Monocytes # 0.8 K/mcL (0.0-1.3); Neutrophils # 6.1 K/mcL (1.6-8.9); Platelet Count 226 K/mcL (140-400); Red Blood Count 4.05 M/mcL (4.19-5.50); Red Cell Distribution Width 16.8 % (11.5-14.5); Segmented Neutrophils % 66.6 %
[2017-02-07 04:23] LABS: Alanine Aminotransferase 33 Units/L (0-55); Albumin 2.5 g/dL (3.5-5.0); Albumin/Globulin Ratio 0.7 (1.1-2.2); Alkaline Phosphatase 106 Units/L (38-126); Aspartate Amino Transferase 33 Units/L (5-34); BUN/Creatinine Ratio 18 (6-26); Bilirubin,Total 0.7 mg/dL (0.2-1.2); Blood Urea Nitrogen 24 mg/dL (8-26); Calcium 9.9 mg/dL (8.6-10.8); Carbon Dioxide 37 mEq/L (19-29); Chloride 93 mEq/L (98-109); Chol/HDL Ratio 4.5 (0-4.9); Cholesterol 143 mg/dL (< 200); Globulin 3.4 g/dL (2.4-3.5); Glucose 92 mg/dL (70-99); HDL Cholesterol 32 mg/dL (40-59); LDL Cholesterol,Calculated 93 mg/dL (0-99); Magnesium 1.7 mg/dL (1.6-2.6); Osmolality,Calculated 292 (280-300); Potassium 3.5 mEq/L (3.5-4.5); Sodium 139 mEq/L (136-145); Total Protein 5.9 g/dL (6.0-8.3); Triglycerides 92 mg/dL (< 150); eGFR For African Americans > 60 (> 60); eGFR For Non-African Americans 50 (> 60)
[2017-02-07 08:05] LABS: INR 2.3; Prothrombin Time 24.7 Seconds (9.4-12.1)
[2017-02-07] MEDS: Aspirin Enteric Coated 81 MG Tablet PO SCH (08:55)
[2017-02-07] MEDS ORDERED: dilTIAZem HCl 60 MG TABLET PO SCH (09:00)
--- NOTE | 2017-02-07 10:26 | Cardiology Consult Note ---
<Abhishek Palmer - Last Filed: 02/07/17 11:13> Date of Encounter: 02/07/17 Time of Encounter: 10:20 Assessment and Plan (1) Severe aortic valve stenosis Current Visit: Yes Status: Acute H/o severe aortic stenosis. Patient previously declined evaluation. He is now agreeable to be evaluated for TAVR. Check TTE. Last ANIKA was 02/2016 demonstrated LVEF 65%, indeterminate diastolc function, moderate hypertophy of left ventricle, RV moderately dilated with mild reduction in fucntion, severely calcified aortic valve with reduced leaflet excursion. Severe aortic stenosis by DI and AV 0.27 and 0.85cm2. MIld MR, mild TR, mild PH, no segmental wall motion abnormalities. He will need R/LHC and possible ANIKA based on echocardiogram results. Discussed with Dr. Richard, hold coumadin tonight and start heparin gtt this evening. (2) CHF exacerbation Current Visit: Yes Status: Acute Acute on chronic diastolic CHF / severe valvular disease. EF 65% on last TTE. BNP 719. CTA shows pulmonary edema and bilateral pleural effusions. Wt 169 lbs 11/2016 and 172 lbs on admission. Weight 165 lbs today. IV diuretic given with good results. He does still c/o gas symptoms. Consider GI eval. Low sodium diet and daily weights. Await TTE. Qualifiers: Congestive heart failure type: diastolic Qualified Code(s): I50.33 - Acute on chronic diastolic (congestive) heart failure (3) Elevated troponin Current Visit: Yes Status: Acute Mild adynamic troponin elevation likely demand from acute CHF and severe aortic stenosis. He will need LHC prior to TAVR if he is a candidate. Denies recurrent hematuria after treatment for bladder tumor. TTE pending. (4) Atrial fibrillation Current Visit: No Status: Chronic Currently rate controlled. Continue coumadin therapy. Goal INR 2.0-3.0. Qualifiers: Atrial fibrillation type: chronic Qualified Code(s): I48.2 - Chronic atrial fibrillation Discussion w patient/family: The assessment and plan as outlined above was discussed with the patient and/or family members who expressed understanding and agreement. All questions were answered. Thank you for involving us in the care of your patient. Please call with any questions. History of Present Illness Consult date: 02/07/17 Requesting physician: Clayton Cervantes Consult reason: CHF, aortic stenosis Chief complaint: SOB and fatigue History of present illness: Mr. Hayes is a 86 year old male with a relevant past medical history of hyperlipidemia, HTN, CAD s/p PCI in 2008, HTN, severe aortic stenosis, atrial fibrillation, PE s/p IVC on coumadin. He presented with the c/o increasing SOB with activity and increasing fatigue over the past week. He has SOB with minimal activity. He says he was finding it very hard to stay awake. He also c/ o gas pressure build up in his abdomen. He took multiple things to relieve the pressure including tums, antacids, and gas x. He continues to have gas pressure and bloating. Cardiology consulted for CHF, elevated troponin, and known severe aortic stenosis. He was last seen in the cardiology office 12/03/2016. At that time he declined further evaluation of his aortic valve. He also c/o ongoing hematuria due to a bladder tumor. He reports having his bladder tumor removed recently and he now has no more bleeding. 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 He is was scheduled for repeat cystoscopy but this was cancelled. He states he is willing to have non-invasive intervention on his heart valve. Last TTE 02/2016 : EF 65%, indeterminate diastolc function, moderate hypertophy of left ventricle, RV moderately dilated with mild reduction in fucntion, severely calcified aortic valve with reduced leaflet excursion. Severe aortic stenosis by DI and AV 0.27 and 0.85cm2. MIld MR, mild TR, mild PH, no segmental wall motion abnormalities. Past Med Surg Social Fam HX - Past Medical History Attestation: Yes The following information was validated with the patient. Medical history: atrial fibrillation, cancer, CHF, coronary artery disease, myocardial infarction, pulmonary embolus, valvular heart disease (severe aortic stenosis) Psychiatric history: no psych history - Past Surgical History Surgical History: angioplasty/stent, appendectomy, knee replacement - Social History Smoking Status: Former smoker Smokeless Tobacco Status: No Alcohol use: none Drug use: none - Family History Father Hx Family Cardiac Disorders: Yes Medications and Allergies Aspirin [Lo-Dose Aspirin EC] 81 mg PO DAILY 11/05/16 [History] Atorvastatin Calcium [Lipitor] 20 mg PO HS 11/05/16 [History] Enalapril Maleate [Vasotec] 2.5 mg PO BID 11/05/16 [History] Furosemide [Lasix] 20 mg PO DAILY PRN 11/05/16 [History] LORazepam [Ativan] 0.5 mg PO TID PRN 11/05/16 [History] Melatonin 10 mg PO HS PRN 11/05/16 [History] Metoprolol [Lopressor] 25 mg PO BID 11/05/16 [History] Naproxen Sodium [Aleve] 220 mg PO Q12H PRN 11/05/16 [History] Diltiazem HCl [Cardizem LA] 60 mg PO DAILY 01/07/17 [History] Warfarin [Coumadin] 3 mg PO AD 01/07/17 [History] Enoxaparin [Lovenox] 80 mg SQ Q12HR 02/06/17 [History] Warfarin [Coumadin] 4 mg PO AD 02/06/17 [History] 3 Allergy/AdvReac Type Severity Reaction Status Date / Time tetanus immune globulin Allergy Intermediate unknown Verified 02/06/17 15:21 All Systems Review: A 10-system review of systems was performed and is negative for pertinent findings except as documented above in the HPI. Physical Examination Vital Signs, Last 4 Hours Temp Pulse Resp BP Pulse Ox 02/07/17 07:08 97.8 F 84 14 120/79 95 General: Conversant, No Apparent Distress HEENT: Atraumatic, Normocephaly, Mucus Membranes Moist Neck: No JVD, Normal carotid pulses Cardiac: Other (irregularly irregular. Grade 2/6 SHARLENE at the RSB 2nd IS.) Lungs: Normal Breath Sounds, No Wheeze, Rales, Rhonchi Neuro: Alert and responsive, No focal deficits noted Abdomen: Soft, Non-Tender Skin: No rashes noted on visualized skin Musculoskeletal: No Chest Wall Tenderness Extremities: No Clubbing, No Cyanosis, Normal Pulses, Other (Trace BLE edema) Results 02/07/17 03:46 02/07/17 03:46 Lab Results 02/06/17 02/07/17 02/07/17 21:54 03:46 03:46 WBC 9.2 Hgb 10.9 L Hct 33.4 L Plt Count 226 INR Sodium 139 Potassium 3.5 Chloride 93 L Carbon Dioxide 37 H BUN 24 Creatinine 1.34 H Glucose 92 Calcium 9.9 Magnesium 1.7 Total Bilirubin 0.7 AST 33 ALT 33 Alkaline Phosphatase 106 Troponin I 0.15 H* 02/07/17 02/07/17 03:46 07:45 WBC Hgb Hct Plt Count INR 2.3 Sodium Potassium Chloride Carbon Dioxide BUN Creatinine Glucose Calcium Magnesium Total Bilirubin AST ALT Alkaline Phosphatase Troponin I 0.16 H* Chest X-Ray 02/06/17 15:56 IMPRESSION: 1. No significant change. D/ / Elvis Camarillo MD / Elvis Camarillo MD Interpreting Provider: Elvis Camarillo MD Chest CTA 02/06/17 18:11 IMPRESSION: No evidence of pulmonary embolism. Pulmonary edema with small bilateral pleural effusions. Cholelithiasis. Pulmonary arteries are enlarged which can be seen with pulmonary artery hypertension. Ascending aorta is mildly dilated measuring 4.1 cm, unchanged. D/ / Eva Schwab MD / Eva Schwab MD Interpreting Provider: Eva Schwab MD - Imaging and Cardiology Echo: report reviewed - EKG Interpretation EKG results cardiology: personally reviewed (Atrial fibrillation with RBBB) Consult Discharge Plan - Plan Referrals: Marycruz Mackenzie MD [Primary Care Provider] - <RichardJeramie - Last Filed: 02/07/17 23:23> Date of Encounter: 02/07/17 Assessment and Plan Discussion w patient/family: The assessment and plan as outlined above was discussed with the patient and/or family members who expressed understanding and agreement. All questions were answered. Thank you for involving us in the care of your patient. Please call with any questions. History of Present Illness History of present illness: Mr. Hayes is a 86 year old male All Systems Review: A 10-system review of systems was performed and is negative for pertinent findings except as documented above in the HPI. Physical Examination Vital Signs, Last 4 Hours Temp Pulse Resp BP Pulse Ox 02/07/17 21:00 98.6 F 87 19 136/100 97 Results 02/07/17 16:23 02/07/17 03:46 Lab Results 02/07/17 02/07/1702/07/17 03:46 03:46 03:46 WBC 9.2 Hgb 10.9 L Hct 33.4 L Plt Count 226 INR APTT Sodium 139 Potassium 3.5 Chloride 93 L Carbon Dioxide 37 H BUN 24 Creatinine 1.34 H Glucose 92 Calcium 9.9 Magnesium 1.7 Total Bilirubin 0.7 AST 33 ALT 33 Alkaline Phosphatase 106 Troponin I 0.16 H* 02/07/17 02/07/17 02/07/17 07:45 11:22 16:23 WBC 9.0 Hgb 12.8 L D Hct 39.4 Plt Count 256 INR 2.3 APTT Sodium Potassium Chloride Carbon Dioxide BUN Creatinine Glucose Calcium Magnesium Total Bilirubin AST ALT Alkaline Phosphatase Troponin I 0.12 H* 02/07/17 16:23 WBC Hgb Hct Plt Count INR 2.0 APTT 35.5 Sodium Potassium Chloride Carbon Dioxide BUN Creatinine Glucose Calcium Magnesium Total Bilirubin AST ALT Alkaline Phosphatase Troponin I - Attending Attestation Pt seen and examined independently, chart reviewed, old records reviewed, essentially agree with above, my evaluation as follows: Asked to evaluate pt for , CHF CC; Shortness of breath with exertion, fatique. Pt presented to ER with complaints of progressive shortness of breath with exertion, fatique and daytime somnolence. Pt reports marked decrease in exercise tolerance, was able to chop wood and perform lawn maintence four months ago, now becomes markedly short of breath walking twenty feet. When he becomes short of breath, will last for three to five minutes after he sits down , afterwhich he is extreemly tired for several hours. He has self limited activity to prevent provocation of symptoms. He has known history of critical , with previous recomendations for TAVR, which pt had declined. He is very concerned about potential renal damage from LHC, after watching his dwindle and on dialysis. He know feels he has no quality of life, and is willing to accept small but real risk of LHC and contrast CT for evaluation prior to TAVR. He notes is breathing much easier since hospital admission, now able to walk twenty feet across room without provocation of symptoms. IMP/Plan: 1. Acute on chronic diastolic heart failure secondary to critical , LVH, responding well to IV lasix. 2. Critical symptomatic , last CK .85 cm2 02/2016, will repeat transthoacic echo, to reevaluate , LV function. Pt would prefer transfer to [facility] for TAVR consideration, would prefer invasive studies be performed there if it will speed up process. 3. Chronic persistent A fib with controlled ventricular response, on warfarin for systemic anticoagulation for primary stroke risk reduction, hold warfarin for planned invasive studies, begin IV heparin for stroke risk reduction. 4. Bladder cancer, unknown cell type with recent resection, due for relook cystoscopy. 5. Elevated troponin - not rising, suspect due to demand perfusion mismatch with acute exacerbation diastolic heart failure, will continue to trend, will be determining coronary anatomy at [facility] soon to determine if has ischemic substrate.
[2017-02-07] MEDS ORDERED: *HR* Heparin 5,000 UNIT/ML VIAL IVP PRN (15:56)
[2017-02-07 16:36] LABS: Hematocrit 39.4 % (37.5-50.1); Mean Corpuscular HGB Conc 32.5 g/dL (31.6-35.5); Mean Corpuscular Hemoglobin 26.9 pg (28.0-33.3); Mean Corpuscular Volume 82.8 fL (83.0-100.0); Platelet Count 256 K/mcL (140-400); Red Blood Count 4.76 M/mcL (4.19-5.50); Red Cell Distribution Width 16.8 % (11.5-14.5)
[2017-02-07 16:44] LABS: Prothrombin Time 21.8 Seconds (9.4-12.1)
[2017-02-07 16:45] LABS: Hemoglobin 12.8 g/dL (12.9-16.9)
[2017-02-07 16:46] LABS: Activated Partial Thrombo Time 35.5 Seconds (26.0-36.0)
--- NOTE | 2017-02-07 17:19 | Electrocardiograph Report ---
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
[2017-02-07] MEDS ORDERED: *HR* Warfarin 2 MG TABLET PO ONE (18:00)
[2017-02-07] MEDS ORDERED: Warfarin perPT PO PRN (18:00)
[2017-02-07] MEDS ORDERED: Albuterol 2.5 MG/3 ML NEBULIZER IH PRN (18:07)
--- NOTE | 2017-02-07 18:11 | Internal Med Progress Note ---
Date of Encounter: 02/07/17 Time of Encounter: 18:08 - Assessment and plan (1) Non-STEMI (non-ST elevated myocardial infarction) Current Visit: Yes Status: Acute (2) CHF (congestive heart failure) Current Visit: Yes Status: Acute Qualifiers: Congestive heart failure type: diastolic Congestive heart failure chronicity: acute on chronic Qualified Code(s): I50.33 - Acute on chronic diastolic (congestive) heart failure (3) Pneumonia Current Visit: Yes Status: Acute Qualifiers: Qualified Code(s): J18.9 - Pneumonia, unspecified organism (4) Acute exacerbation of chronic obstructive pulmonary disease (COPD) Current Visit: Yes Status: Acute (5) Atrial fibrillation Current Visit: Yes Status: Chronic Qualifiers: Atrial fibrillation type: chronic Qualified Code(s): I48.2 - Chronic atrial fibrillation (6) Hyperlipidemia Current Visit: Yes Status: Acute Qualifiers: Hyperlipidemia type: mixed hyperlipidemia Qualified Code(s): E78.2 - Mixed hyperlipidemia (7) Aortic stenosis Current Visit: Yes Status: Chronic Qualifiers: Cardiac valve disease etiology: etiology unspecified Qualified Code(s): I35.0 - Nonrheumatic aortic (valve) stenosis (8) CKD (chronic kidney disease) Current Visit: Yes Status: Acute Qualifiers: Chronic kidney disease stage: stage 3 (moderate) Qualified Code(s): N18.3 - Chronic kidney disease, stage 3 (moderate) (9) DVT prophylaxis Current Visit: Yes Status: Acute - Subjective Interval history: Mr. Hayes is a 86 year old male who presents to the ER with complaints of shortness of breath, lower extremity edema, and vague chest tightness. Symptoms started about 4 days ago. He came to the ER yesterday and was discharged from the ER after receiving some Lasix. However, symptoms persisted and he worsened, so he came back to the ER today. Workup in ER revealed patient to have CHF, and he did have elevation of his troponins prompting admission. He was given Lasix last night and seems like that helped his breathing quite a bit. However on chest examination it seems that he has a lateral rhonchi and wheezing is has a productive cough in addition. I suspect he has underlying pneumonia as well as acute COPD exacerbation. His oxygen demand as high as he is on 4 L. I will start him on IV Zosyn IV steroid med nebs and follow his CBC and CMP. last ANIKA was 02/2016 demonstrated LVEF 65%, indeterminate diastolc function, moderate hypertophy of left ventricle, RV moderately dilated with mild reduction in fucntion, severely calcified aortic valve with reduced leaflet excursion. Severe aortic stenosis by DI and AV 0.27 and 0.85cm2. MIld MR, mild TR, mild PH, no segmental wall motion abnormalities. At that time he refused intervention but this time he is open to the cardiology will further work him up and planned to do a cardiac cath. - Constitutional Vitals: Temp Pulse Resp BP Pulse Ox 98.3 F 87 16 142/83 97 02/07/17 16:17 02/07/17 16:17 02/07/17 16:17 02/07/17 16:17 02/07/17 16:17 General appearance: Present: cooperative, mild distress, A&O X 3, pleasant, answers questions appropriately - Head Head exam: Present: atraumatic, normocephalic - Eye Eye exam: Present: PERRL, conjuntiva pink, sclera anicteric Pupils: Present: PERRL - Neck Neck exam general surgery: Present: supple, trachea midline. Absent: lymphadenopathy - Respiratory Respiratory exam: Present: decreased breath sounds, rhonchi, wheezes. Absent: accessory muscle use, rales - Cardiovascular Cardiovascular exam: Present: RRR, +S1, +S2. Absent: diastolic murmur, gallop, rubs, systolic murmur - GI/Abdominal GI/Abdominal exam: Present: normal bowel sounds, soft, no peritoneal signs. Absent: distended, tenderness - Extremities Exam Extremities exam: Present: warm, radial pulses palpable and symmetrical. Absent : calf tenderness, cyanotic, pedal edema - Neurological Exam Neurological exam: Present: CN II-XII intact, oriented X3, no focal deficits. Absent: pronater drift, facial droop, speech deficit - Skin Skin exam: Present: dry, intact Internal Medicine: Result - Labs CBC & Chem 7: 02/07/17 16:23 02/07/17 03:46 Labs: Short CBC 02/07/17 02/07/17 Range/Units 03:46 16:23 WBC 9.2 9.0 (4.3-11.1) K/mcL Hgb 10.9 L 12.8 L D (12.9-16.9) g/dL Hct 33.4 L 39.4 (37.5-50.1) % Plt Count 226 256 (140-400) K/mcL Neutrophils # 6.1 (1.6-8.9) K/mcL BMP 02/07/17 03:46 Sodium 139 Potassium 3.5 Chloride 93 L Carbon Dioxide 37 H BUN 24 Creatinine 1.34 H Glucose 92 Calcium 9.9 Cardiac Enzymes 02/06/17 02/07/17 02/07/17 Range/Units 21:54 03:46 11:22 Troponin I 0.15 H* 0.16 H* 0.12 H* (0-0.03) ng/mL Liver Function 02/07/17 Range/Units 03:46 Total Bilirubin 0.7 (0.2-1.2) mg/dL AST 33 (5-34) Units/L ALT 33 (0-55) Units/L Alkaline Phosphatase 106 (38-126) Units/L Albumin 2.5 L (3.5-5.0) g/dL - ABG Interpretation ABG results: PT/INR, D-dimer PT 21.8 Seconds (9.4-12.1) H 02/07/17 16:23 - VTE Reasons for not Prescribing Prophylaxis: Not indicated-Anticoagulated or INR therapeutic Consult Discharge Plan - Plan Referrals: Marycruz Mackenzie MD [Primary Care Provider] -
[2017-02-07] MEDS: Ipratropium/Albuterol Neb 3 ML IH SCH ×2 (20:36→23:03)
[2017-02-07] MEDS: *HR* LORazepam 0.5 MG TABLET PO PRN (21:40)
[2017-02-07] MEDS: Melatonin 3 MG TABLET PO PRN (22:01)
[2017-02-07] MEDS ORDERED: *HR* Heparin 5,000 UNIT/ML VIAL IVP ONE (23:50)
[2017-02-08] MEDS: methylPREDNISolone 125 MG/2 ML VIAL IVP SCH ×4 (00:25→23:48)
[2017-02-08] MEDS: Piperacillin/Tazobactam 3.375 GM in D5% in Water (Mini-Bag+) 100 ML IVPB SCH ×4 (00:25→23:47)
[2017-02-08] MEDS: Heparin 25,000 UNIT/500 ML D5W 25,000 UNIT/500 ML MLS IVC SCH (00:51)
[2017-02-08] MEDS: Ipratropium/Albuterol Neb 3 ML IH SCH ×4 (04:41→22:41)
[2017-02-08 06:51] LABS: Basophils % 0.1 %; Eosinophils % 0.2 %; Hematocrit 38.3 % (37.5-50.1); Hemoglobin 12.3 g/dL (12.9-16.9); Immature Granulocytes % 0.5 % (0-4); Lymphocytes # 0.9 K/mcL (0.6-4.6); Lymphocytes % 10.6 %; Mean Corpuscular HGB Conc 32.1 g/dL (31.6-35.5); Mean Corpuscular Hemoglobin 26.3 pg (28.0-33.3); Mean Platelet Volume 10.1 fL (9.4-12.4); Monocytes # 0.1 K/mcL (0.0-1.3); Monocytes % 1.2 %; Neutrophils # 7.8 K/mcL (1.6-8.9); Platelet Count 242 K/mcL (140-400); Red Blood Count 4.67 M/mcL (4.19-5.50); Red Cell Distribution Width 16.4 % (11.5-14.5); Segmented Neutrophils % 87.4 %
[2017-02-08 06:57] LABS: INR 1.9; Prothrombin Time 20.4 Seconds (9.4-12.1)
[2017-02-08 07:04] LABS: Alanine Aminotransferase 29 Units/L (0-55); Albumin 2.6 g/dL (3.5-5.0); Albumin/Globulin Ratio 0.7 (1.1-2.2); Alkaline Phosphatase 117 Units/L (38-126); Aspartate Amino Transferase 28 Units/L (5-34); BUN/Creatinine Ratio 21 (6-26); Bilirubin,Total 0.9 mg/dL (0.2-1.2); Blood Urea Nitrogen 25 mg/dL (8-26); Calcium 9.7 mg/dL (8.6-10.8); Carbon Dioxide 30 mEq/L (19-29); Chloride 98 mEq/L (98-109); Globulin 3.6 g/dL (2.4-3.5); Glucose 154 mg/dL (70-99); Magnesium 1.9 mg/dL (1.6-2.6); Osmolality,Calculated 289 (280-300); Potassium 4.4 mEq/L (3.5-4.5); Sodium 136 mEq/L (136-145); Total Protein 6.2 g/dL (6.0-8.3); eGFR For African Americans > 60 (> 60); eGFR For Non-African Americans 57 (> 60)
[2017-02-08 07:12] LABS: Activated Partial Thrombo Time 155.3 Seconds (26.0-36.0)
[2017-02-08 07:38] LABS: Heparin anti-factor XA UFH 0.68 IU/mL (0.30-0.70)
[2017-02-08] MEDS: Aspirin Enteric Coated 81 MG Tablet PO SCH (08:48)
[2017-02-08] MEDS: *HR* LORazepam 0.5 MG TABLET PO PRN ×2 (08:48→21:23)
--- NOTE | 2017-02-08 08:59 | Cardiology Progress Note ---
Date of Encounter: 02/08/17 Time of Encounter: 09:00 Assessment and Plan (1) Severe aortic valve stenosis Current Visit: Yes Status: Acute Pwer Cardiology: H/o severe aortic stenosis. Patient previously declined evaluation. He is now agreeable and requesting to be evaluated for TAVR. Last TTE was 02/2016 demonstrated LVEF 65%, indeterminate diastolc function, moderate hypertophy of left ventricle, RV moderately dilated with mild reduction in fucntion, severely calcified aortic valve with reduced leaflet excursion. Severe aortic stenosis by DI and AV 0.27 and 0.85cm2. Mild MR, mild TR, mild PH, no segmental wall motion abnormalities. Current echo shows EF 60%, by Doppler severe aortic stenosis with PV 4m/s, mean gradient of 35 mmHg, DI 0.17, AV 0.56 cm. Also, severe biatrial enlargement, moderate MR, mild TR, mild pulmonic regurgitation, moderate pulmonary hypertension, NSWMA. Per discussion with Dr. Mtz, plans for left heart catheterization tomorrow. Patient agreeable to placed DNR/DNI status temporarily on hold for 24 hours for procedure. (2) CHF (congestive heart failure) Current Visit: Yes Status: Acute Per Cardiology: BNP upon arrival 719 with imaging showing pulmonary edema and bilateral pleural effusions. According to records net I&O +239ml. Lasix drip currently on hold. Clinically appears improved. Was able tolerate laying flat. Continues to have some mild conversational dyspnea, edema, and slightly tachycardic. We'll give Lasix 20 mg IV 1 today. Monitor BMP and follow closely with pending catheterization. Of note, takes Lasix 20 mg by mouth daily at home as needed. Weight upon arrival 171 pounds and currently 165 pounds-- most recent weights appear to be in the mid 160s. Qualifiers: Congestive heart failure type: diastolic Congestive heart failure chronicity: acute on chronic Qualified Code(s): I50.33 - Acute on chronic diastolic (congestive) heart failure (3) Acute kidney injury superimposed on chronic kidney disease Current Visit: Yes Status: Acute Per Cardiology History of mild CK D stage IIIa. Improved. Continue to monitor closely. (4) Atrial fibrillation Current Visit: Yes Status: Chronic Per Cardiology: Known history of persistent atrial fibrillation. On beta bronwyn and calcium channel bronwyn as outpatient. Currently A. fib in the 90s to 100s with average heart rate the past 12 hours 98. We'll titrate beta bronwyn for heart rate optimization-- Lopressor increased to 50mg by mouth twice a day. Qualifiers: Atrial fibrillation type: chronic Qualified Code(s): I48.2 - Chronic atrial fibrillation (5) Pulmonary embolism Current Visit: No Status: Chronic Per Cardiology: Had recent PE and on Coumadin, currently on hold for pending catheterization. Continue with IV heparin drip. Has recent IVC filter placement. Qualifiers: Pulmonary embolism type: other Chronicity: acute Acute cor pulmonale presence: without acute cor pulmonale Qualified Code(s): I26.99 - Other pulmonary embolism without acute cor pulmonale (6) Anticoagulant long-term use Current Visit: No Status: Chronic Per Cardiology: Previously anticoagulated with Coumadin for persistent atrial fib ablation. Also on Coumadin managed by cardiology for recent PE as well. Patient recently bridged with Lovenox during recent hospital stay. Also bridged with Lovenox for outpatient urology procedure. Currently patient was prepared to undergo another urology procedure as an outpatient today while on Coumadin. Again, Coumadin currently off for possible catheterization. Continue with heparin drip. (7) Elevated troponin Current Visit: Yes Status: Acute Per Cardiology: Mild adynamic troponin elevation likely demand from acute CHF and severe aortic stenosis. Chest pain-free. Do not suspect non-STEMI. No cardiac rehabilitation consult warranted at this time. Pending [facility] prior to TAVR if he is a candidate. Denies recurrent hematuria after treatment for bladder tumor. (8) Bladder tumor Current Visit: No Status: Chronic Per Cardiology: Recently diagnosed with bladder tumor with subsequent bladder tumor resection with pathology showing low grade bladder cancer without invasion per urology note with no recurrence of hematuria. Encouraged to follow-up with urology as outpatient as scheduled. (9) Ascending aortic aneurysm Current Visit: Yes Status: Chronic Per Cardiology: CT scan from this hospital stay shows ascending aorta with mild dilation of 4.1 cm, unchanged. Negative for PE. Discussion w patient/family: The assessment and plan as outlined above was discussed with the patient and/or family members who expressed understanding and agreement. All questions were answered. Thank you for involving us in the care of your patient. Please call with any questions. Subjective Principal diagnosis: SOB Interval history: Patient reports shortness of breath at rest and bilateral lower extremity swelling have improved since admission. He denies any chest pain. Patient inquiry now into further evaluation of his aortic stenosis and interested in potential TAVR. He reports reschedule outpatient urology procedure initially planned for today, however now postponed due to this admission. Regarding his bladder tumor, he reports no further treatment pending in terms of radiation or chemotherapy at this time. He denies any awareness to any metastasis. Objective Vital Signs, Last 4 Hours Temp Pulse Resp BP Pulse Ox 02/08/17 08:13 98.6 F 99 16 145/109 98 General: Conversant, No Apparent Distress HEENT: Atraumatic, Normocephaly, Mucus Membranes Moist Neck: No JVD, Normal carotid pulses Cardiac: Other (Grade III/ murmur, irregularly irregular) Lungs: Normal Breath Sounds, No Wheeze, Rales, Rhonchi Neuro: Alert and responsive, No focal deficits noted Abdomen: Soft, Non-Tender Skin: No rashes noted on visualized skin Musculoskeletal: No Chest Wall Tenderness Extremities: No Clubbing, No Cyanosis, Normal Pulses, Other (Trace edema to bilateral lower extremities; right greater than left) Results 02/08/17 06:34 02/08/17 06:34 Lab Results Laboratory Tests 01/07/17 01/08/17 02/06/17 15:37 05:31 15:50 INR 2.7 D Creatinine 1.11 Est GFR (Non-Af Amer) > 60 Troponin I 0.04 H* LDL Cholesterol, Calc 02/06/17 02/06/17 02/06/17 15:50 15:50 21:54 INR Creatinine 1.35 H Est GFR (Non-Af Amer) 50 L Troponin I 0.17 H* 0.15 H* LDL Cholesterol, Calc 02/07/17 02/07/17 02/07/17 03:46 03:46 11:22 INR Creatinine 1.34 H Est GFR (Non-Af Amer) Troponin I 0.16 H* 0.12 H* LDL Cholesterol, Calc 93 02/08/17 02/08/17 06:34 06:34 INR 1.9 Creatinine 1.21 Est GFR (Non-Af Amer) 57 L Troponin I LDL Cholesterol, Calc ITS Impressions Chest X-Ray 02/06/17 15:56 IMPRESSION: 1. No significant change. D/ / Elvis Camarillo MD / Elvis Camarillo MD Interpreting Provider: Elvis Camarillo MD Chest CTA 02/06/17 18:11 IMPRESSION: No evidence of pulmonary embolism. Pulmonary edema with small bilateral pleural effusions. Cholelithiasis. Pulmonary arteries are enlarged which can be seen with pulmonary artery hypertension. Ascending aorta is mildly dilated measuring 4.1 cm, unchanged. D/ / Eva Schwab MD / Eva Schwab MD Interpreting Provider: Eva Schwab MD Active Medications Acetaminophen (Tylenol) 650 mg PO Q6HR PRN PRN Reason: Mild Pain (1-3) Stop: 08/08/17 20:19 Albuterol Sulfate (Proventil Neb) 2.5 mg IH Q2H PRN; Protocol PRN Reason: Shortness Of Breath/Wheezing Stop: 08/09/17 18:08 Albuterol/Ipratropium (Duoneb) 3 ml IH QIDR [facility]MER PRN Reason: Protocol Stop: 08/09/17 18:16 Last Admin: 02/08/17 04:41 Dose: 3 ml Aspirin (Aspirin Ec) 81 mg PO DAILY [facility] Stop: 08/09/17 09:01 Last Admin: 02/08/17 08:48 Dose: 81 mg Bismuth Subsalicylate (Pepto-Bismol (262mg/15ml) Susp) 30 ml PO QID PRN PRN Reason: SEE COMMENTS Stop: 08/08/17 20:19 Docusate Sodium (Colace) 100 mg PO BID PRN PRN Reason: Constipation Stop: 08/08/17 20:19 Heparin Sodium (Porcine) (Heparin) 5,300 unit 70 unit/kg (5300 unit) IVP Q6HR PRN PRN Reason: SEE COMMENTS Stop: 08/09/17 15:57 Heparin Sodium (Porcine) (Heparin) 2,600 unit 35 unit/kg (2600 unit) IVP Q6H PRN PRN Reason: SEE COMMENTS Stop: 08/09/17 23:51 Furosemide 240 mg/ Dextrose 120 mls @ 5 mls/hr IVC .Q24H SUMMER PRN Reason: 10 MG/HR Stop: 08/08/17 20:19 Last Infusion: 02/06/17 23:25 Dose: 0 mg/hr, 0 mls/hr Heparin Sodium/Dextrose (Heparin 25,000 Unit/500 Ml D5w) 25,000 unit in 500 mls @ 21.112 mls/hr IVC .[id number] SUMMER; 14 UNIT/KG/HR PRN Reason: Protocol Stop: 08/09/17 23:51 Last Titration: 02/08/17 08:15 Dose: 11 unit/kg/hr, 16.588 mls/hr Piperacillin Sod/Tazobactam (Sod 3.375 gm/ Dextrose) 100 mls @ 25 mls/hr IVPB Q8HR [facility] PRN Reason: Protocol Stop: 02/17/17 19:59 Last Admin: 02/08/17 08:47 Dose: 25 mls/hr Lorazepam (Ativan) 0.5 mg PO TID PRN PRN Reason: Anxiety Stop: 08/08/17 20:26 Last Admin: 02/08/17 08:48 Dose: 0.5 mg Magnesium Hydroxide (Milk Of Magnesia Conc) 10 ml PO DAILY PRN PRN Reason: Indigestion Stop: 08/08/17 20:19 Melatonin (Melatonin) 9 mg PO HS PRN PRN Reason: Sleep Last Admin: 02/07/17 22:01 Dose: 9 mg Methylprednisolone (Solu-Medrol) 60 mg IVP Q8HR [facility] Stop: 08/10/17 00:01 Last Admin: 02/08/17 08:48 Dose: 60 mg Metoprolol Tartrate (Lopressor) 25 mg PO BID [facility] Stop: 08/08/17 21:01 Last Admin: 02/08/17 08:48 Dose: 25 mg Morphine Sulfate (Morphine Sulfate) 2 mg IVP Q4HR PRN PRN Reason: Chest Pain Stop: 08/08/17 20:19 Naloxone HCl (Narcan) 0.4 mg IVP Q2MIN PRN PRN Reason: Opioid Reversal Stop: 08/08/17 20:19 Ondansetron HCl (Zofran) 4 mg IVP Q8HR PRN PRN Reason: Nausea And Vomiting Stop: 08/08/17 20:19 Simethicone (Gas-X) 80 mg PO TID PRN PRN Reason: Dyspepsia Stop: 08/08/17 20:19 Simvastatin (Zocor) 40 mg PO HS [facility] Stop: 08/08/17 21:01 Last Admin: 02/07/17 21:40 Dose: 40 mg - Imaging and Cardiology Echo: report reviewed Cardiac cath: pending - EKG Interpretation EKG results cardiology: other (24 hr tele reviewed and shows average heart rate the past 12 hours 98, remains A. fib in the 90s to 100's on telemetry) - VTE Reasons for not Prescribing Prophylaxis: Not indicated-Anticoagulated or INR therapeutic Consult Discharge Plan - Plan Referrals: Marycruz Mackenzie MD [Primary Care Provider] -
[2017-02-08] MEDS ORDERED: Furosemide 20 MG/2 ML VIAL IVP ONE (14:49)
[2017-02-08] MEDS: *HR* Heparin 5,000 UNIT/ML VIAL IVP PRN (17:21)
--- NOTE | 2017-02-08 17:44 | Internal Med Progress Note ---
Date of Encounter: 02/08/17 Time of Encounter: 17:42 - Assessment and plan (1) Non-STEMI (non-ST elevated myocardial infarction) Current Visit: Yes Status: Acute (2) CHF (congestive heart failure) Current Visit: Yes Status: Acute Qualifiers: Congestive heart failure type: diastolic Congestive heart failure chronicity: acute on chronic Qualified Code(s): I50.33 - Acute on chronic diastolic (congestive) heart failure (3) Pneumonia Current Visit: Yes Status: Acute Qualifiers: Pneumonia type: due to unspecified organism Laterality: unspecified laterality Lung location: unspecified part of lung Qualified Code(s): J18.9 - Pneumonia, unspecified organism (4) Aortic stenosis Current Visit: Yes Status: Chronic Qualifiers: Cardiac valve disease etiology: etiology unspecified Qualified Code(s): I35.0 - Nonrheumatic aortic (valve) stenosis (5) Acute exacerbation of chronic obstructive pulmonary disease (COPD) Current Visit: Yes Status: Acute (6) Atrial fibrillation Current Visit: Yes Status: Chronic Qualifiers: Atrial fibrillation type: chronic Qualified Code(s): I48.2 - Chronic atrial fibrillation (7) Hyperlipidemia Current Visit: Yes Status: Acute Qualifiers: Hyperlipidemia type: mixed hyperlipidemia Qualified Code(s): E78.2 - Mixed hyperlipidemia (8) CKD (chronic kidney disease) Current Visit: Yes Status: Acute Qualifiers: Chronic kidney disease stage: stage 3 (moderate) Qualified Code(s): N18.3 - Chronic kidney disease, stage 3 (moderate) (9) DVT prophylaxis Current Visit: Yes Status: Acute - Subjective Interval history: Mr. Hayes is a 86 year old male who presents to the ER with complaints of shortness of breath, lower extremity edema, and vague chest tightness. Symptoms started about 4 days ago. He came to the ER yesterday and was discharged from the ER after receiving some Lasix. However, symptoms persisted and he worsened, so he came back to the ER today. Workup in ER revealed patient to have CHF, and he did have elevation of his troponins prompting admission. He was given Lasix last night and seems like that helped his breathing quite a bit. However on chest examination it seems that he has a lateral rhonchi and wheezing is has a productive cough in addition. I suspect he has underlying pneumonia as well as acute COPD exacerbation. His oxygen demand as high as he is on 4 L. I will start him on IV Zosyn IV steroid med nebs and follow his CBC and CMP. His lung examination showed quite a bit of improvement and we may start tapering down his steroids from tomorrow. Echo was done and showed LV ejection fraction about 65% no wall motion abnormality severe aortic stenosis and biatrial enlargement. llast ANIKA was 2015 demonstrated LVEF 65%, indeterminate diastolc function, moderate hypertophy of left ventricle, RV moderately dilated with mild reduction in fucntion, severely calcified aortic valve with reduced leaflet excursion. Severe aortic stenosis by DI and AV 0.27 and 0.85cm2. MIld MR, mild TR, mild PH , no segmental wall motion abnormalities. At that time he refused intervention but this time he is open to the cardiology will further work him up and planned to do a cardiac cath once INR is down.. - Constitutional Vitals: Temp Pulse Resp BP Pulse Ox 98 F 83 16 107/78 98 02/08/17 15:51 02/08/17 15:51 02/08/17 16:30 02/08/17 15:51 02/08/17 16:30 General appearance: Present: cooperative, mild distress, A&O X 3, pleasant, answers questions appropriately - Head Head exam: Present: atraumatic, normocephalic - Eye Eye exam: Present: PERRL, conjuntiva pink, sclera anicteric Pupils: Present: PERRL - Neck Neck exam general surgery: Present: supple, trachea midline. Absent: lymphadenopathy - Respiratory Respiratory exam: Present: CTAB. Absent: accessory muscle use, rales, rhonchi, wheezes - Cardiovascular Cardiovascular exam: Present: RRR, +S1, +S2, systolic murmur. Absent: diastolic murmur, gallop, rubs - GI/Abdominal GI/Abdominal exam: Present: normal bowel sounds, soft, no peritoneal signs. Absent: distended, tenderness - Extremities Exam Extremities exam: Present: warm, radial pulses palpable and symmetrical. Absent : calf tenderness, cyanotic, pedal edema - Neurological Exam Neurological exam: Present: CN II-XII intact, oriented X3, no focal deficits. Absent: pronater drift, facial droop, speech deficit - Skin Skin exam: Present: dry, intact Internal Medicine: Result - Labs CBC & Chem 7: 02/08/17 06:34 02/08/17 06:34 Labs: Short CBC 02/08/17 Range/Units 06:34 WBC 8.9 (4.3-11.1) K/mcL Hgb 12.3 L (12.9-16.9) g/dL Hct 38.3 (37.5-50.1) % Plt Count 242 (140-400) K/mcL Neutrophils # 7.8 (1.6-8.9) K/mcL BMP 02/08/17 06:34 Sodium 136 Potassium 4.4 Chloride 98 Carbon Dioxide 30 H BUN 25 Creatinine 1.21 Glucose 154 H Calcium 9.7 Liver Function 02/08/17 Range/Units 06:34 Total Bilirubin 0.9 (0.2-1.2) mg/dL AST 28 (5-34) Units/L ALT 29 (0-55) Units/L Alkaline Phosphatase 117 (38-126) Units/L Albumin 2.6 L (3.5-5.0) g/dL - ABG Interpretation ABG results: PT/INR, D-dimer PT 20.4 Seconds (9.4-12.1) H 02/08/17 06:34 - VTE Reasons for not Prescribing Prophylaxis: Not indicated-Anticoagulated or INR therapeutic Consult Discharge Plan - Plan Referrals: Marycruz Mackenzie MD [Primary Care Provider] -
[2017-02-08] MEDS: Melatonin 3 MG TABLET PO PRN (21:25)
[2017-02-08] MEDS: Bismuth Subsalicylate 120 ML ORAL SUSPENSION PO PRN (23:49)
[2017-02-08] MEDS: Simethicone 80 MG TAB.CHEW PO PRN (23:49)
[2017-02-09] MEDS: Ipratropium/Albuterol Neb 3 ML IH SCH ×3 (04:23→16:07)
[2017-02-09] MEDS: Heparin 25,000 UNIT/500 ML D5W 25,000 UNIT/500 ML MLS IVC SCH (05:24)
[2017-02-09 05:30] LABS: INR 1.6; Prothrombin Time 17.2 Seconds (9.4-12.1)
[2017-02-09 05:39] LABS: Alanine Aminotransferase 26 Units/L (0-55); Albumin 2.7 g/dL (3.5-5.0); Albumin/Globulin Ratio 0.8 (1.1-2.2); Alkaline Phosphatase 102 Units/L (38-126); Aspartate Amino Transferase 25 Units/L (5-34); BUN/Creatinine Ratio 24 (6-26); Bilirubin,Total 0.7 mg/dL (0.2-1.2); Blood Urea Nitrogen 30 mg/dL (8-26); Calcium 9.3 mg/dL (8.6-10.8); Carbon Dioxide 29 mEq/L (19-29); Chloride 97 mEq/L (98-109); Globulin 3.5 g/dL (2.4-3.5); Glucose 145 mg/dL (70-99); Magnesium 1.8 mg/dL (1.6-2.6); Osmolality,Calculated 287 (280-300); Potassium 3.6 mEq/L (3.5-4.5); Sodium 134 mEq/L (136-145); Total Protein 6.2 g/dL (6.0-8.3); eGFR For African Americans > 60 (> 60); eGFR For Non-African Americans 56 (> 60)
[2017-02-09 05:40] LABS: Hematocrit 35.3 % (37.5-50.1); Hemoglobin 11.4 g/dL (12.9-16.9); Immature Granulocytes % 0.9 % (0-4); Lymphocytes % 4.3 %; Mean Corpuscular HGB Conc 32.3 g/dL (31.6-35.5); Mean Corpuscular Hemoglobin 26.2 pg (28.0-33.3); Mean Corpuscular Volume 81.1 fL (83.0-100.0); Mean Platelet Volume 10.1 fL (9.4-12.4); Monocytes # 0.4 K/mcL (0.0-1.3); Monocytes % 1.9 %; Neutrophils # 20.4 K/mcL (1.6-8.9); Platelet Count 255 K/mcL (140-400); Red Blood Count 4.35 M/mcL (4.19-5.50); Red Cell Distribution Width 16.4 % (11.5-14.5); Segmented Neutrophils % 92.9 %
[2017-02-09] MEDS: *HR* LORazepam 0.5 MG TABLET PO PRN ×3 (05:49→21:25)
--- NOTE | 2017-02-09 08:39 | Event Note ---
Date of Encounter: 02/09/17 Time of Encounter: 08:30 - Cardiology Event Note Laboratory Tests 02/09/17 02/09/17 02/09/17 05:15 05:15 05:15 WBC 22.0 H D INR 1.6 Creatinine 1.23 Est GFR (Non-Af Amer) 56 L Selected Entries 02/08/17 23:54 02/09/17 04:32 02/09/17 07:38 Pulse Rate 96 90 94 Blood Pressure 100/73 107/62 104/76 Active Medications Acetaminophen (Tylenol) 650 mg PO Q6HR PRN PRN Reason: Mild Pain (1-3) Stop: 08/08/17 20:19 Albuterol Sulfate (Proventil Neb) 2.5 mg IH Q2H PRN; Protocol PRN Reason: Shortness Of Breath/Wheezing Stop: 08/09/17 18:08 Albuterol/Ipratropium (Duoneb) 3 ml IH QIDR [facility] PRN Reason: Protocol Stop: 08/09/17 18:16 Last Admin: 02/09/17 04:23 Dose: 3 ml Aspirin (Aspirin Ec) 81 mg PO DAILY [facility] Stop: 08/09/17 09:01 Last Admin: 02/08/17 08:48 Dose: 81 mg Atorvastatin Calcium (Lipitor) 20 mg PO HS [facility] Stop: 08/08/17 21:01 Last Admin: 02/08/17 21:23 Dose: 20 mg Bismuth Subsalicylate (Pepto-Bismol (262mg/15ml) Susp) 30 ml PO QID PRN PRN Reason: SEE COMMENTS Stop: 08/08/17 20:19 Last Admin: 02/08/17 23:49 Dose: 30 ml Docusate Sodium (Colace) 100 mg PO BID PRN PRN Reason: Constipation Stop: 08/08/17 20:19 Last Admin: 02/08/17 21:23 Dose: 100 mg Heparin Sodium (Porcine) (Heparin) 5,300 unit 70 unit/kg (5300 unit) IVP Q6HR PRN PRN Reason: SEE COMMENTS Stop: 08/09/17 15:57 Heparin Sodium (Porcine) (Heparin) 2,600 unit 35 unit/kg (2600 unit) IVP Q6H PRN PRN Reason: SEE COMMENTS Stop: 08/09/17 23:51 Last Admin: 02/08/17 17:21 Dose: 2,600 unit Heparin Sodium/Dextrose (Heparin 25,000 Unit/500 Ml D5w) 25,000 unit in 500 mls @ 21.112 mls/hr IVC .[id number] SUMMER; 14 UNIT/KG/HR PRN Reason: Protocol Stop: 08/09/17 23:51 Last Titration: 02/09/17 05:56 Dose: 12.32 unit/kg/hr, 18.579 mls/hr Piperacillin Sod/Tazobactam (Sod 3.375 gm/ Dextrose) 100 mls @ 25 mls/hr IVPB Q8HR [facility] PRN Reason: Protocol Stop: 02/17/17 19:59 Last Admin: 02/08/17 23:47 Dose: 25 mls/hr Lorazepam (Ativan) 0.5 mg PO TID PRN PRN Reason: Anxiety Stop: 08/08/17 20:26 Last Admin: 02/09/17 05:49 Dose: 0.5 mg Magnesium Hydroxide (Milk Of Magnesia Conc) 10 ml PO DAILY PRN PRN Reason: Indigestion Stop: 08/08/17 20:19 Melatonin (Melatonin) 9 mg PO HS PRN PRN Reason: Sleep Last Admin: 02/08/17 21:25 Dose: 9 mg Methylprednisolone (Solu-Medrol) 60 mg IVP Q8HR [facility] Stop: 08/10/17 00:01 Last Admin: 02/08/17 23:48 Dose: 60 mg Metoprolol Tartrate (Lopressor) 50 mg PO BID [facility] Stop: 08/10/17 21:01 Last Admin: 02/08/17 21:22 Dose: 50 mg Morphine Sulfate (Morphine Sulfate) 2 mg IVP Q4HR PRN PRN Reason: Chest Pain Stop: 08/08/17 20:19 Naloxone HCl (Narcan) 0.4 mg IVP Q2MIN PRN PRN Reason: Opioid Reversal Stop: 08/08/17 20:19 Ondansetron HCl (Zofran) 4 mg IVP Q8HR PRN PRN Reason: Nausea And Vomiting Stop: 08/08/17 20:19 Simethicone (Gas-X) 80 mg PO TID PRN PRN Reason: Dyspepsia Stop: 08/08/17 20:19 Last Admin: 02/08/17 23:49 Dose: 80 mg Patient remains agreeable for LHC/RHC and to hold DNR/DNI status for 24 hrs for procedure. Further recs after procedure. Discussed with Dr. Richard.
[2017-02-09] MEDS: methylPREDNISolone 125 MG/2 ML VIAL IVP SCH ×2 (08:52→17:44)
[2017-02-09] MEDS: Piperacillin/Tazobactam 3.375 GM in D5% in Water (Mini-Bag+) 100 ML IVPB SCH ×3 (08:52→23:22)
[2017-02-09] MEDS: Aspirin Enteric Coated 81 MG Tablet PO SCH (08:53)
[2017-02-09] MEDS ORDERED: 0.9 % Sodium Chloride 1,000 ML ONE ×2 (08:54→09:09)
[2017-02-09] MEDS ORDERED: *HR* Heparin 10,000 UNIT/10 ML VIAL ONE (08:54)
[2017-02-09] MEDS ORDERED: Heparin 1,000 UNITS/500 mL NS 500 ML ONE ×2 (08:54→08:56)
[2017-02-09] MEDS ORDERED: *HR* Midazolam HCl 2 MG/2 ML VIAL ONE (09:24)
--- NOTE | 2017-02-09 09:32 | Pre-Sedation Evaluation ---
Pre-sedation evaluation - Pre-sedation checklist Date of procedure: 02/09/17 Procedure: LHC RHC Recent Vitals: Last Vital Signs Temp 97.8 F 02/09/17 07:38 Pulse 94 02/09/17 07:38 Resp 16 02/09/17 07:38 BP 104/76 02/09/17 07:38 Pulse Ox 96 02/09/17 07:38 H&P (including ROS) documented in medical record: Yes Previous reaction to sedatives/anesthetics: No Dietary Status: NPO after Midnight Dentition: No loose teeth or bridges Possible difficult airway: No ASA Classification *see protocol: CLASS III-Severe systemic disease Plan of Care: Pt appropriate candidate for procedure/moderate/conscious sedation , Risks/benefits of procedure/sedation discussed w/ patient/family
[2017-02-09] MEDS ORDERED: 0.9 % Sodium Chloride 1,000 ML IVC SCH (10:30)
--- NOTE | 2017-02-09 11:56 | Event Note ---
Date of Encounter: 02/09/17 Time of Encounter: 11:45 - Cardiology Event Note Per discussion with Dr. Richard, catheterization with no significant lesions requiring intervention. Aortic valve area 1.59. Recommend resuming Coumadin, however son indicates discussing with urology possible inpatient evaluation for the previously scheduled outpatient procedure earlier this week. Continue IV heparin drip for now. Resume Coumadin when able. Target INR 2.0-3.0. Patient reports taking Lasix 20 mg by mouth daily at home-- will resume his Lasix increase to 40 mg by mouth daily sicne had edema and SOB on admission. We'll follow BMP as outpatient. Per discussion with Dr. Richard, recommend GI evaluation -- will notify outpatient PCP. We'll discuss cardiac rehabilitation at outpatient follow-up. Per discussion with Dr. Mtz and patient request, will facilitate outpatient referral to [facility] for eval. for potential candidacy for TAVR in the future if clinically warranted. Will s/o, re-consult PRN, follow-up scheduled.
--- NOTE | 2017-02-09 12:08 | Invasive Diagnostic Lab ---
Name: Homero Hayes Date of Study: 02/09/2017 Date: 1930 Ht: 170.2 cm /67.0 in Medical Record#: [id number] Age: 86 Wt: 75. kg / 165.35 lb Account/Order#: [id number] Gender: Male BSA: 1.87 Order #: [id number] Fluoro Dose: 356 mGy BMI: 25.89 Procedure Physician: Jeramie Richard DO Referring MD: Referring MD: Procedures Performed: RHC/LHC Indications: Acute Coronary Syndrome Impressions: Coronary arteries mildly irregular, stent sites widely patent, no angiographically significant forcal stenosis. Normal LV systolic function, EF 55% Moderate Aortic Stenosis, CK 1.59 Recommendations: Optimal medical therapy of patient's disease. Aggressive risk factor modification. . History/Risk Factors: pneumonia CKD DVT cancer aortic stenosis COPD A Fib CAD PE valvular heart disease Dyslipidemia CHF Chronic Lung Disease Prior ME Procedure Access obtained in the right Femoral vein by percutaneous puncture Access obtained in the right Femoral vein. A 7 Chinese catheter was introduced via the venous sheath, balloon was inflated and catheter was advanced through the right heart chambers into the pulmonary artery capillary wedge position. Right sided pressures were obtained. Complications: None Contrast: Isovue 100ml Hemodynamics: Pressures Site Systolic/ A Wave Diastolic/ V Wave End Diastolic/ Mean HR AO 120 78 96 76 AO 125 84 102 88 LV 131 8 13 92 LV 132 4 12 96 AO 109 68 88 93 PCW 28 33 25 82 RV 53 7 10 83 RA 13 12 10 87 MPA 51 24 36 89 Valve Data Aortic Mitral Mean Gradient:(mmHg) 10.72 Peak to Peak Gradient: (mmHg) Valve Area: (cm2) 1.585 Heart Rate: (bpm) Right Heart Data Thermodilution Cardiac Output (l/min) 4.6 LV Ventriculography Ejection Method: LV Gram Ejection Fraction: 55% Wall Motion: GORDON Anterobasal Normal Anterolateral Normal Apical: Normal Inferoapical Normal Inferobasal Normal Coronary Dominance: Lesion Findings/Interventions * Left Main Coronary Artery The LMCA is angiographically free of disease. The LMCA is angiographically free of disease. * Left Anterior Descending The LAD is angiographically free of disease. The LAD is angiographically free of disease. The 1st Diagonal is angiographically free of disease. The 1st Diagonal is angiographically free of disease. The Left Anterior Descending has patent stents present from a previous procedure and has mild luminal irregularities. * Circumflex The Circumflex is angiographically free of disease. The Circumflex is angiographically free of disease. The 1st Marginal is angiographically free of disease. The 1st Marginal is angiographically free of disease. The Left PDA is angiographically free of disease. The Left PDA is angiographically free of disease. * Ramus The Ramus is angiographically free of disease. * Right Coronary Artery The RCA is angiographically free of disease. The RCA is angiographically free of disease. Updated by Jeramie Richard DO on 02/09/2017 10:49:06 AM Jeramie Richard DO electronically signed on 02/09/2017 10:50:26 AM with status of Final
--- NOTE | 2017-02-09 12:08 | Invasive Diagnostic Lab Proc ---
Name: Homero Hayes Date of Study: 02/09/2017 Date: 1930 Ht: 67.0in Medical Record#: [id number] Age: 86 Wt: 165.35lb Gender: Male BSA: 1.87 Order #: [id number] BMI: 25.89 Physicians Procedure Physician: Jeramie Richard DO Referring MD: Referring MD: Staff Name Position Time In Delma Noriega RN Beam Builder 09:27 AM Ghada Bhakta RN Beam Builder 09:28 AM Brionna Carbajal RN Monitor 09:28 AM Lindsay Jamison RT (R) Scrub 09:28 AM Indications Indication Acute Coronary Syndrome Procedures Performed Procedure R&L HRT ART/VENTRICLE ANGIO Pre-Procedure Checklist Informed consent is complete signed and on chart. H&P is on chart. ID band is on and ID verified with patient. Patient NPO for procedure The procedure was described for the patient and questions were answered. Blood Pressure: 104/76 ECG is on chart. Plan of Care Patient will tolerate the procedure without complications. Adequate level of comfort will be maintained. Hemodynamics will remain stable Patient will recover from procedure without complications. Respiratory function will be maintained. Cardiac rhythm will remain stable. Patient temperature will be maintained. Patient and/or family have verbalized understanding of the procedure. Patient Education Chief Complaint/Reason for Test: Cardiac Cath Developmental Category: Geriatric (65+ years) Developmentally Appropriate for Age: Yes Learning Barriers: None Education Needs: Procedure Education Method: Verbal Information Taught: Cardiac Cath Educational Evaluation: Able to repeat information Intravenous Access Time IV Size Location DC'd Fluid/Drip Rate Units RN 09:04 AM 20g 1 06/24" Patent On Arrival Lt Arm 0.9NaCl 50 ml/hr Ghada Bhakta RN Allergies tetanus immune globulin Vital Signs Time BP (mmHg) HR (bpm) O2 Sat. RR (bpm) LOC 09:04 AM 104 / 76 94 96 % 16 5 = Fully awake and oriented or at pre-proc level 09:31 AM / % 5 = Fully awake and oriented or at pre-proc level 09:31 AM / % 5 = Fully awake and oriented or at pre-proc level 09:34 AM / % 5 = Fully awake and oriented or at pre-proc level 09:49 AM / % 4 = Oriented but drowsy 10:04 AM / % 5 = Fully awake and oriented or at pre-proc level 09:28 AM 132 / 81 100 96 % 16 09:33 AM 118 / 81 89 96 % 15 09:38 AM 115 / 80 93 94 % 19 09:43 AM 122 / 79 75 94 % 18 09:48 AM 118 / 82 92 95 % 19 09:53 AM 113 / 88 86 96 % 23 09:58 AM 125 / 81 90 96 % 21 10:03 AM 110 / 78 84 95 % 19 10:08 AM 120 / 82 75 98 % 19 10:13 AM 118 / 79 92 97 % 22 10:18 AM 125 / 82 96 96 % 17 10:23 AM 125 / 79 82 92 % 22 10:28 AM 130 / 87 71 91 % 26 10:19 AM / % 5 = Fully awake and oriented or at pre-proc level Procedural Medications Time Medication Dose Units Method Given By 09:30 AM Oxygen 2 L/min nasal cannula Ghada Bhakta RN 09:31 AM Versed 1 mg Intravenous Ghada Bhakta RN 09:45 AM Lidocaine 2% 10 ml Subcutaneous Jeramie Richard DO Mk Score Preprocedure Postprocedure Activity 2- Moves 4 extremities sustained head lift Activity 2- Moves 4 extremities sustained head lift Circulation 2- SBP +/= 20 points of pre-anesthetic level Circulation 2- SBP +/= 20 points of pre-anesthetic level Consciousness 2- Awake and alert oriented x 3 Consciousness 2- Awake and alert oriented x 3 O2 Saturation 2- Able to maintain O2 satruation of 92% on room air O2 Saturation 2- Able to maintain O2 satruation of 92% on room air Respiratory 2- Able to deep breathe and cough well Respiratory 2- Able to deep breathe and cough well Total Score 10 Total Score 10 Contrast Agent: Isovue Diagnostic Contrast: 100 ml Total Contrast: 100 ml Fluoro Dose: 356 mGy Procedure Log Time Note Enter By 09:27 AM Pt arrived to laborer syrup machine 2 at 09:27 [email or web address] 09:27 AM Patient charges- Angio tray pack, Navilyst 3mm J, Pulse Oximetry and ACIST tubing and transducer [email or web address] 09:27 AM Case Delayed No [email or web address] 09:27 AM Vitals capture started with the following parameters, Patient=Adult, Interval=5 min, Initial Dchfmiak=065 mmHg, Deflation Rate=5 mmHg, Cuff placed on Left Arm 09:27 AM Rinku and greet completed [email or web address] 09:27 AM Sign in performed according to hospital policy. [email or web address] 09:27 AM Procedure start : [email or web address] 09:28 AM Delma Noriega RN Position: Beam Builder Time in: 09:27 [email or web address] 09:28 AM Ghada Bhakta RN Position: Beam Builder Time in: 09:28 [email or web address] 09:28 AM YI=260 bpm, PZPY=418/81 mmhg, SpO2=96.0 %, Resp=16 B/min, Comment=AF 09:28 AM Brionna Carbajal RN Position: Monitor Time in: :28 [email or web address] 09:28 AM Lindsay Jamison RT (R) Position: Scrub Time in: :28 [email or web address] 09:30 AM Hair removed from procedure site in procedure lab using clippers. Bilateral groin prepped with Chloraprep by Delma Noriega RN, safety strap applied then patient was draped. Skin intact. [email or web address] 09:31 AM Time: :30 Oxygen on at 2 L/min per nasal cannula by Ghada Bhakta RN [facility] 09:31 AM Time: :31 Versed 1 mg Intravenous Given by Ghada Bhakta RN [email or web address] 09:31 AM Time: :31 Patient comfortable and pain free: Yes [email or web address] 09:31 AM Time: :31LOC: 5 = Fully awake and oriented or at pre-proc level [email or web address] 09:31 AM Clinical Presentation: Unstable angina [email or web address] 09:32 AM Recorded ECG: HR=94 Condition=Condition 1 09:33 AM HR=89 bpm, PNNW=072/81 mmhg, SpO2=96.0 %, Resp=15 B/min, Comment=AF 09:34 AM Time: :31 Patient comfortable and pain free: Yes [email or web address] 09:34 AM Time: :31LOC: 5 = Fully awake and oriented or at pre-proc level [email or web address] 09:38 AM HR=93 bpm, QIEJ=282/80 mmhg, SpO2=94.0 %, Resp=19 B/min, Comment=AF 09:40 AM [ Select Channel To Zero ] 09:41 AM Pressure channel 2 zeroed. 09:43 AM HR=75 bpm, IOBG=816/79 mmhg, SpO2=94.0 %, Resp=18 B/min, Comment=AF 09:44 AM Time out performed according to hospital policy [email or web address] 09:45 AM Time: :45 10 ml Lidocaine 2% to right groin Subcutaneous Given by Jeramie Richard DO [email or web address] 09:48 AM HR=92 bpm, JNUA=513/82 mmhg, SpO2=95.0 %, Resp=19 B/min, Comment=AF 09:49 AM Time: 34 Patient comfortable and pain free: Yes [email or web address] 09:49 AM Time: :34LOC: 5 = Fully awake and oriented or at pre-proc level [email or web address] 09:50 AM Unsuccessful access attempt # 1 into the right Femoral artery. Manual pressure applied to achieve hemostasis.. [email or web address] 09:53 AM Access obtained by percutaneous puncture. 6Fr 10cm Terumo [place] sheath placed in right Femoral artery. [id number] [email or web address] 09:53 AM HR=86 bpm, JINB=635/88 mmhg, SpO2=96.0 %, Resp=23 B/min, Comment=AF 09:54 AM 6Fr FL 4 catheter inserted over the wire DN [email or web address] 09:54 AM 0.035 145cm Navilyst 3mmJ wire [id number] [email or web address] 09:55 AM LCA angiography performed in multiple views. [email or web address] 09:55 AM Recorded Pressure: Ao, HR=76, Condition=Condition 1 (Aorta) Ao 120/78/96 09:56 AM Wire removed [email or web address] 09:56 AM 0.035 260cm Navilyst 3mmJ wire [id number] [email or web address] 09:57 AM Catheter removed [email or web address] 09:57 AM 6Fr FR 4 catheter inserted over the wire DNC [email or web address] 09:58 AM HR=90 bpm, APND=454/81 mmhg, SpO2=96.0 %, Resp=21 B/min, Comment=AF 09:59 AM Recorded Pressure: Ao, HR=88, Condition=Condition 1 (Aorta) Ao 125/84/102 10:01 AM RCA angiography performed in multiple views. [email or web address] 10:02 AM Catheter removed [email or web address] 10:02 AM 5Fr MPA catheter inserted over the wire [id number] [email or web address] 10:03 AM HR=84 bpm, JJUQ=444/78 mmhg, SpO2=95.0 %, Resp=19 B/min, Comment=AF 10:04 AM Time: :49 Patient comfortable and pain free: Yes [email or web address] 10:04 AM Time: 09:49LOC: 4 = Oriented but drowsy [email or web address] 10:04 AM Catheter removed [email or web address] 10:06 AM 6Fr JR 4 Cordis guide catheter was used to cannulate the PCI vessel successfully. reused? No [email or web address] 10:06 AM Pressure channel 2 zeroed. 10:07 AM Recorded Pressure: LV, HR=92, Condition=Condition 1 (Left Ventricle) LV 131/8/13 10:08 AM HR=75 bpm, IUMA=046/82 mmhg, SpO2=98.0 %, Resp=19 B/min, Comment=AF 10:08 AM Recorded Pressure: LV, Ao, HR=94, Condition=Condition 1 (Left Ventricle) LV 132/4/12, (Aorta) Ao 109/68/88 10:09 AM Guide catheter removed intact. [email or web address] 10:10 AM prepping for RHC [email or web address] 10:11 AM Access obtained by percutaneous puncture. 7Fr 11cm Cordis Gracie sheath placed in right Femoral vein. [id number] [email or web address] 10:11 AM 7 F Kemp [employer] Nelson-Ledy 'S' tip inserted through venous sheath [email or web address] 10:13 AM HR=92 bpm, EQAJ=575/79 mmhg, SpO2=97.0 %, Resp=22 B/min 10:15 AM Thermo CO: CO=4.5 l/m, HR=76 bpm, Condition=Condition 1. Used in calculation. Equipment: Description and Size=SWAN 7FR, Type=Bath Probe, CC=0.578 Injectant: Temp=19.0 - 22.0 Celsius, Volume=10.0 ml 10:15 AM injecting for cardiac outputs [email or web address] 10:15 AM Thermo CO: CO=4.7 l/m, HR=78 bpm, Condition=Condition 1. Used in calculation. Equipment: Description and Size=SWAN 7FR, Type=Bath Probe, CC=0.578 Injectant: Temp=19.0 - 22.0 Celsius, Volume=10.0 ml 10:16 AM Thermo CO: CO=4.5 l/m, HR=93 bpm, Condition=Condition 1. Used in calculation. Equipment: Description and Size=SWAN 7FR, Type=Bath Probe, CC=0.578 Injectant: Temp=19.0 - 22.0 Celsius, Volume=10.0 ml 10:16 AM Recorded Pressure: MPA, HR=89, Condition=Condition 1 (Main Pulmonary Artery) MPA 51/24/36 10:16 AM Right heart hemodynamics and Cardiac Outputs obtained. [email or web address] 10:17 AM Recorded Pressure: PCW, HR=82, Condition=Condition 1 (Pulmonary Capillary Wedge) PCW 28/33/25 10:17 AM Recorded Pressure: RV, HR=83, Condition=Condition 1 (Right Ventricle) RV 53/7/10 10:18 AM HR=96 bpm, TIVL=450/82 mmhg, SpO2=96.0 %, Resp=17 B/min 10:18 AM Recorded Pressure: RA, HR=87, Condition=Condition 1 (Right Atrium) RA 02/06/10 10:18 AM Nelson-Ledy catheter removed with balloon intact [email or web address] 10:19 AM Time: 10:04LOC: 5 = Fully awake and oriented or at pre-proc level [email or web address] 10:19 AM Time: 10:04 Patient comfortable and pain free: Yes [email or web address] 10:20 AM Procedure completed at 10:20 [email or web address] 10:20 AM Sign out completed: Radiation Dose 356.08 mGy Fluoro Time: 7.4 Isovue 370 - 200ml contrast 100 ml given by Jeramie Richard DO. Complications: NoneCardiac Rehab Consult needed: NoConfirmed administered medications: Yes [email or web address] 10:20 AM Isovue 370 - 200ml,1 Bottle(s) used. [email or web address] 10:21 AM Post ECG Atrial Fibrillation [email or web address] 10:21 AM Post Blood Pressure 125/82 [email or web address] 10:21 AM 10:21 Post Pulses Bilateral DP & PT 2+ [email or web address] 10:21 AM Information taught Cardiac Cath [email or web address] 10:21 AM Education needs Procedure, Plan of Care, and Responsibilities of Patient in Care [email or web address] 10:21 AM Learning barriers :None [email or web address] 10:21 AM Education Methods Verbal [email or web address] 10:21 AM Education evaluation Able to repeat information [email or web address] 10:22 AM Family placed in consult room. [email or web address] 10:22 AM Delay to floor No [email or web address] 10:22 AM cardiac outputs 4.5, 4.7, 4.5 [email or web address] 10:23 AM HR=82 bpm, IPOR=901/79 mmhg, SpO2=92 %, Resp=22 B/min 10:28 AM HR=71 bpm, DJKA=922/87 mmhg, SpO2=91 %, Resp=26 B/min 10:28 AM Arterial sheath pulled, V+Pad closure device used and was Successful S/N. [email or web address] 10:28 AM Venous sheath pulled, V+Pad closure device used and was Successful S/N. [email or web address] 10:28 AM Arterial sheath pulled using manual compression and V+ Pad for 15 minutes by Lindsay Jamison RT (R) [email or web address] 10:28 AM Arterial sheath pulled using manual compression and V+ Pad for 15 minutes by Lindsay Jamison RT (R) [email or web address] 10:29 AM Report given to Hugo VIZCARRA Pt taken to E Room #28. 10:28 [email or web address] 10:35 AM Time: 10:19 Patient comfortable and pain free: Yes [email or web address] 10:35 AM Time: 10:19LOC: 5 = Fully awake and oriented or at pre-proc level [email or web address] 10:41 AM Site status No bleeding/hematoma - Rt Groin as reported by Lindsay Jamison RT (R) at 10:40 [email or web address] 10:41 AM Opsite applied [email or web address] 10:41 AM Patient out of room: 10:41 [email or web address] Complications Complication None Hemodynamics Pressures Site Systolic/A Wave Diastolic/V Wave Mean AO 120 78 96 AO 125 84 102 LV 131 8 13 LV 132 4 12 AO 109 68 88 PCW 28 33 25 RV 53 7 10 RA 13 12 10 MPA 51 24 36 Cardiac Output 4.6 l/min Cardiac Index 2.46 l/min/m2 Post Procedure Information Blood Pressure: 125/82 mmHg Rhythm: Atrial Fibrillation Post procedural instructions were given Site Checks Time Location Status Staff Sheath In? Note 10:40 AM Rt Groin No bleeding/hematoma Lindsay Jamison RT (R) Pulses Time Site Pre-Procedure Post-Procedure Note 02/09/2017 9:04:00 AM Bilateral DP & PT 2+ 02/09/2017 9:04:00 AM Bilateral radial 2+ 10:21:00 AM Bilateral DP & PT 2+ Updated by Brionna Carbajal RN on 02/09/2017 10:42:45 AM Lindsay Ball RT electronically signed on 02/09/2017 10:43:19 AM with status of Final
--- NOTE | 2017-02-09 16:40 | Internal Med Progress Note ---
Date of Encounter: 02/09/17 Time of Encounter: 16:39 - Assessment and plan (1) Non-STEMI (non-ST elevated myocardial infarction) Current Visit: Yes Status: Acute (2) CHF (congestive heart failure) Current Visit: Yes Status: Acute Qualifiers: Congestive heart failure type: diastolic Congestive heart failure chronicity: acute on chronic Qualified Code(s): I50.33 - Acute on chronic diastolic (congestive) heart failure (3) Pneumonia Current Visit: Yes Status: Acute Qualifiers: Pneumonia type: due to unspecified organism Laterality: unspecified laterality Lung location: unspecified part of lung Qualified Code(s): J18.9 - Pneumonia, unspecified organism (4) Aortic stenosis Current Visit: Yes Status: Chronic Qualifiers: Cardiac valve disease etiology: etiology unspecified Qualified Code(s): I35.0 - Nonrheumatic aortic (valve) stenosis (5) Acute exacerbation of chronic obstructive pulmonary disease (COPD) Current Visit: Yes Status: Acute (6) Atrial fibrillation Current Visit: Yes Status: Chronic Qualifiers: Atrial fibrillation type: chronic Qualified Code(s): I48.2 - Chronic atrial fibrillation (7) Hyperlipidemia Current Visit: Yes Status: Acute Qualifiers: Hyperlipidemia type: mixed hyperlipidemia Qualified Code(s): E78.2 - Mixed hyperlipidemia (8) CKD (chronic kidney disease) Current Visit: Yes Status: Acute Qualifiers: Chronic kidney disease stage: stage 3 (moderate) Qualified Code(s): N18.3 - Chronic kidney disease, stage 3 (moderate) (9) DVT prophylaxis Current Visit: Yes Status: Acute - Subjective Interval history: Mr. Hayes is a 86 year old male who presents to the ER with complaints of shortness of breath, lower extremity edema, and vague chest tightness. Symptoms started about 4 days ago. He came to the ER yesterday and was discharged from the ER after receiving some Lasix. However, symptoms persisted and he worsened, so he came back to the ER today. Workup in ER revealed patient to have CHF, and he did have elevation of his troponins prompting admission. He was given Lasix last night and seems like that helped his breathing quite a bit. However on chest examination it seems that he has a lateral rhonchi and wheezing is has a productive cough in addition. I suspect he has underlying pneumonia as well as acute COPD exacerbation. His oxygen demand as high as he is on 4 L. I will start him on IV Zosyn IV steroid med nebs and follow his CBC and CMP. His lung examination showed quite a bit of improvement and we may start tapering down his steroids from tomorrow. Echo was done and showed LV ejection fraction about 65% no wall motion abnormality severe aortic stenosis and biatrial enlargement. llast ANIKA was 2015 demonstrated LVEF 65%, indeterminate diastolc function, moderate hypertophy of left ventricle, RV moderately dilated with mild reduction in fucntion, severely calcified aortic valve with reduced leaflet excursion. Severe aortic stenosis by DI and AV 0.27 and 0.85cm2. MIld MR, mild TR, mild PH , no segmental wall motion abnormalities. Cardiac catheter was done and no significant stenosis was found. Cardiology will facilitate outpatient referral to [facility] for eval. for potential candidacy for TAVR in the future if clinically warranted. Will s/o, re-consult PRN, follow-up scheduled. Patient is requesting some urological procedure which was planned this week. We will check with him if it needs to be done as an inpatient. - Constitutional Vitals: Temp Pulse Resp BP Pulse Ox 98.1 F 109 18 118/102 95 02/09/17 15:21 02/09/17 15:21 02/09/17 16:08 02/09/17 15:21 02/09/17 16:08 General appearance: Present: cooperative, mild distress, A&O X 3, pleasant, answers questions appropriately - Head Head exam: Present: atraumatic, normocephalic - Eye Eye exam: Present: PERRL, conjuntiva pink, sclera anicteric Pupils: Present: PERRL - Neck Neck exam general surgery: Present: supple, trachea midline. Absent: lymphadenopathy - Respiratory Respiratory exam: Present: CTAB. Absent: accessory muscle use, rales, rhonchi, wheezes - Cardiovascular Cardiovascular exam: Present: RRR, +S1, +S2. Absent: diastolic murmur, gallop, rubs, systolic murmur - GI/Abdominal GI/Abdominal exam: Present: normal bowel sounds, soft, no peritoneal signs. Absent: distended, tenderness - Extremities Exam Extremities exam: Present: warm, radial pulses palpable and symmetrical. Absent : calf tenderness, cyanotic, pedal edema - Neurological Exam Neurological exam: Present: CN II-XII intact, oriented X3, no focal deficits. Absent: pronater drift, facial droop, speech deficit - Skin Skin exam: Present: dry, intact Internal Medicine: Result - Labs CBC & Chem 7: 02/09/17 05:15 02/09/17 05:15 Labs: Short CBC 02/09/17 Range/Units 05:15 WBC 22.0 H D (4.3-11.1) K/mcL Hgb 11.4 L (12.9-16.9) g/dL Hct 35.3 L (37.5-50.1) % Plt Count 255 (140-400) K/mcL Neutrophils # 20.4 H (1.6-8.9) K/mcL BMP 02/09/17 05:15 Sodium 134 L Potassium 3.6 Chloride 97 L Carbon Dioxide 29 BUN 30 H Creatinine 1.23 Glucose 145 H Calcium 9.3 Liver Function 02/09/17 Range/Units 05:15 Total Bilirubin 0.7 (0.2-1.2) mg/dL AST 25 (5-34) Units/L ALT 26 (0-55) Units/L Alkaline Phosphatase 102 (38-126) Units/L Albumin 2.7 L (3.5-5.0) g/dL - ABG Interpretation ABG results: PT/INR, D-dimer PT 17.2 Seconds (9.4-12.1) H 02/09/17 05:15 - VTE Reasons for not Prescribing Prophylaxis: Not indicated-Anticoagulated or INR therapeutic Consult Discharge Plan - Plan Referrals: Marycruz Mackenzie MD [Primary Care Provider] - 02/17/17 1:45 pm
[2017-02-09] MEDS ORDERED: *HR* Warfarin 3 MG TABLET PO ONE (18:00)
[2017-02-09] MEDS ORDERED: Warfarin perPT PO PRN ×2 (18:00)
[2017-02-09] MEDS ORDERED: Potassium Chloride 40 MEQ, Lidocaine 1% 2 ML in D5% in Water 500 ML IVPB ONE (18:19)
[2017-02-09 19:08] LABS: BUN/Creatinine Ratio 23 (6-26); Blood Urea Nitrogen 28 mg/dL (8-26); Calcium 9.2 mg/dL (8.6-10.8); Carbon Dioxide 27 mEq/L (19-29); Chloride 97 mEq/L (98-109); Glucose 200 mg/dL (70-99); Magnesium 1.9 mg/dL (1.6-2.6); Osmolality,Calculated 291 (280-300); Potassium 3.7 mEq/L (3.5-4.5); Sodium 135 mEq/L (136-145); eGFR For African Americans > 60 (> 60); eGFR For Non-African Americans 57 (> 60)
[2017-02-09] MEDS: Melatonin 3 MG TABLET PO PRN (21:21)
[2017-02-09] MEDS: Simethicone 80 MG TAB.CHEW PO PRN (21:23)
[2017-02-09] MEDS: Bismuth Subsalicylate 120 ML ORAL SUSPENSION PO PRN (22:15)
[2017-02-10] MEDS: Ipratropium/Albuterol Neb 3 ML IH SCH ×3 (03:30→15:34)
[2017-02-10] MEDS ORDERED: methylPREDNISolone 125 MG/2 ML VIAL IVP SCH (06:00)
[2017-02-10 06:59] LABS: INR 1.6; Prothrombin Time 17.7 Seconds (9.4-12.1)
[2017-02-10 07:04] LABS: Alanine Aminotransferase 29 Units/L (0-55); Albumin 2.5 g/dL (3.5-5.0); Albumin/Globulin Ratio 0.8 (1.1-2.2); Alkaline Phosphatase 87 Units/L (38-126); Aspartate Amino Transferase 31 Units/L (5-34); BUN/Creatinine Ratio 29 (6-26); Bilirubin,Total 0.6 mg/dL (0.2-1.2); Blood Urea Nitrogen 32 mg/dL (8-26); Calcium 9.1 mg/dL (8.6-10.8); Carbon Dioxide 30 mEq/L (19-29); Chloride 98 mEq/L (98-109); Globulin 3.2 g/dL (2.4-3.5); Glucose 121 mg/dL (70-99); Magnesium 1.8 mg/dL (1.6-2.6); Osmolality,Calculated 286 (280-300); Potassium 4.7 mEq/L (3.5-4.5); Sodium 134 mEq/L (136-145); Total Protein 5.7 g/dL (6.0-8.3); eGFR For African Americans > 60 (> 60); eGFR For Non-African Americans > 60 (> 60)
[2017-02-10 07:13] LABS: Hemoglobin 10.9 g/dL (12.9-16.9); Immature Granulocytes % 1.1 % (0-4); Lymphocytes # 0.9 K/mcL (0.6-4.6); Mean Corpuscular Hemoglobin 27.1 pg (28.0-33.3); Mean Corpuscular Volume 82.1 fL (83.0-100.0); Mean Platelet Volume 10.3 fL (9.4-12.4); Monocytes # 0.8 K/mcL (0.0-1.3); Monocytes % 3.6 %; Neutrophils # 20.5 K/mcL (1.6-8.9); Platelet Count 234 K/mcL (140-400); Red Blood Count 4.02 M/mcL (4.19-5.50); Red Cell Distribution Width 17.2 % (11.5-14.5); Segmented Neutrophils % 91.3 %
[2017-02-10] MEDS: *HR* Heparin 5,000 UNIT/ML VIAL IVP PRN (07:41)
[2017-02-10] MEDS: Furosemide 40 MG TABLET PO SCH (09:35)
[2017-02-10] MEDS: Aspirin Enteric Coated 81 MG Tablet PO SCH (09:35)
[2017-02-10] MEDS: Piperacillin/Tazobactam 3.375 GM in D5% in Water (Mini-Bag+) 100 ML IVPB SCH (09:37)
[2017-02-10] MEDS ORDERED: Metoprolol 100 MG TABLET PO SCH (09:45)
[2017-02-10] MEDS ORDERED: *HR* Enoxaparin 80 MG/0.8 ML SYRINGE SQ SCH (11:30)
[2017-02-10] MEDS: predniSONE 20 MG TABLET PO SCH (17:55)
[2017-02-10] MEDS ORDERED: *HR* Warfarin 7.5 MG TABLET PO ONE (18:00)
[2017-02-10] MEDS: *HR* Enoxaparin 80 MG/0.8 ML SYRINGE SQ SCH (19:24)
[2017-02-10] MEDS: *HR* LORazepam 0.5 MG TABLET PO PRN (21:12)
[2017-02-10] MEDS: Metoprolol 100 MG TABLET PO SCH (21:12)
[2017-02-10] MEDS: Melatonin 3 MG TABLET PO PRN (21:12)
[2017-02-10] MEDS: Bismuth Subsalicylate 120 ML ORAL SUSPENSION PO PRN (21:27)
[2017-02-11] MEDS: Simethicone 80 MG TAB.CHEW PO PRN (00:55)
[2017-02-11] MEDS: Ipratropium/Albuterol Neb 3 ML IH SCH ×3 (02:00→16:09)
[2017-02-11] MEDS: *HR* Enoxaparin 80 MG/0.8 ML SYRINGE SQ SCH (05:50)
[2017-02-11] MEDS: Bismuth Subsalicylate 120 ML ORAL SUSPENSION PO PRN (05:50)
[2017-02-11 07:01] LABS: Basophils % 0.1 %; Hematocrit 33.3 % (37.5-50.1); Immature Granulocytes % 0.9 % (0-4); Lymphocytes # 0.9 K/mcL (0.6-4.6); Lymphocytes % 5.4 %; Mean Corpuscular Hemoglobin 27.3 pg (28.0-33.3); Mean Corpuscular Volume 82.6 fL (83.0-100.0); Monocytes # 0.6 K/mcL (0.0-1.3); Monocytes % 3.5 %; Neutrophils # 15.6 K/mcL (1.6-8.9); Platelet Count 213 K/mcL (140-400); Red Blood Count 4.03 M/mcL (4.19-5.50); Red Cell Distribution Width 17.6 % (11.5-14.5); Segmented Neutrophils % 90.1 %
[2017-02-11 07:05] LABS: INR 2.4; Prothrombin Time 26.3 Seconds (9.4-12.1)
[2017-02-11 07:19] LABS: Alanine Aminotransferase 45 Units/L (0-55); Albumin 2.6 g/dL (3.5-5.0); Albumin/Globulin Ratio 0.8 (1.1-2.2); Alkaline Phosphatase 88 Units/L (38-126); Aspartate Amino Transferase 42 Units/L (5-34); BUN/Creatinine Ratio 35 (6-26); Bilirubin,Total 0.5 mg/dL (0.2-1.2); Blood Urea Nitrogen 36 mg/dL (8-26); Calcium 8.8 mg/dL (8.6-10.8); Carbon Dioxide 31 mEq/L (19-29); Chloride 96 mEq/L (98-109); Globulin 3.4 g/dL (2.4-3.5); Glucose 112 mg/dL (70-99); Osmolality,Calculated 289 (280-300); Potassium 4.9 mEq/L (3.5-4.5); Sodium 135 mEq/L (136-145); eGFR For African Americans > 60 (> 60); eGFR For Non-African Americans > 60 (> 60)
[2017-02-11] MEDS: Aspirin Enteric Coated 81 MG Tablet PO SCH (09:57)
[2017-02-11] MEDS: Metoprolol 100 MG TABLET PO SCH ×2 (09:57→20:21)
[2017-02-11] MEDS: Furosemide 40 MG TABLET PO SCH (09:58)
[2017-02-11] MEDS: predniSONE 20 MG TABLET PO SCH ×2 (09:58→17:52)
[2017-02-11] MEDS: *HR* LORazepam 0.5 MG TABLET PO PRN ×2 (15:03→20:21)
--- NOTE | 2017-02-11 15:07 | Discharge Summary ---
Date of Encounter: 02/11/17 Time of Encounter: 15:05 - Discharge Diagnosis (1) Non-STEMI (non-ST elevated myocardial infarction) Priority: Primary Status: Acute (2) CHF (congestive heart failure) Priority: Secondary Status: Acute Qualifiers: Congestive heart failure type: diastolic Congestive heart failure chronicity: acute on chronic Qualified Code(s): I50.33 - Acute on chronic diastolic (congestive) heart failure (3) Pneumonia Priority: Primary Status: Acute Qualifiers: Pneumonia type: due to unspecified organism Laterality: unspecified laterality Lung location: unspecified part of lung Qualified Code(s): J18.9 - Pneumonia, unspecified organism (4) Aortic stenosis Priority: Secondary Status: Chronic Qualifiers: Cardiac valve disease etiology: etiology unspecified Qualified Code(s): I35.0 - Nonrheumatic aortic (valve) stenosis (5) Acute exacerbation of chronic obstructive pulmonary disease (COPD) Priority: Secondary Status: Acute (6) Atrial fibrillation Priority: Secondary Status: Chronic Qualifiers: Atrial fibrillation type: chronic Qualified Code(s): I48.2 - Chronic atrial fibrillation (7) Hyperlipidemia Priority: Secondary Status: Acute Qualifiers: Hyperlipidemia type: mixed hyperlipidemia Qualified Code(s): E78.2 - Mixed hyperlipidemia (8) CKD (chronic kidney disease) Priority: Secondary Status: Acute Qualifiers: Chronic kidney disease stage: stage 3 (moderate) Qualified Code(s): N18.3 - Chronic kidney disease, stage 3 (moderate) (9) DVT prophylaxis Priority: Secondary Status: Acute - Discharge Medications Prescriptions: Amoxicillin/Clavulanate [Augmentin] 875 mg PO BIDWM #20 tab Docusate [Colace] 200 mg PO BID #60 tab Furosemide [Lasix] 40 mg PO DAILY #30 tab Ipratropium/Albuterol Neb [Duoneb] 3 ml IH TIDR #120 inh Metoprolol [Lopressor] 100 mg PO BID #60 tab Omeprazole [PriLOSEC] 20 mg PO DAILY@0630 #30 tab Home Medications: Aspirin [Lo-Dose Aspirin EC] 81 mg PO DAILY 11/05/16 [History] Atorvastatin Calcium [Lipitor] 20 mg PO HS 11/05/16 [History] Enalapril Maleate [Vasotec] 2.5 mg PO BID 11/05/16 [History] LORazepam [Ativan] 0.5 mg PO TID PRN 11/05/16 [History] Melatonin 10 mg PO HS PRN 11/05/16 [History] Diltiazem HCl [Cardizem LA] 60 mg PO DAILY 01/07/17 [History] Warfarin [Coumadin] 3 mg PO AD 01/07/17 [History] Warfarin [Coumadin] 4 mg PO AD 02/06/17 [History] Acetaminophen [Tylenol] 650 mg PO Q6HR PRN tab 02/11/17 [Rx] Amoxicillin/Clavulanate [Augmentin] 875 mg PO BIDWM #20 tab 02/11/17 [Rx] Bismuth Subsalicylate [PEPTO-BISMOL (262mg/15mL) Susp] 30 ml PO QID PRN [Rx] Docusate [Colace] 200 mg PO BID #60 tab 02/11/17 [Rx] Furosemide [Lasix] 40 mg PO DAILY #30 tab 02/11/17 [Rx] Ipratropium/Albuterol Neb [Duoneb] 3 ml IH TIDR #120 inh 02/11/17 [Rx] Metoprolol [Lopressor] 100 mg PO BID #60 tab 02/11/17 [Rx] Omeprazole [PriLOSEC] 20 mg PO DAILY@0630 #30 tab 02/11/17 [Rx] Allergies/Adverse Reactions: 3 Allergy/AdvReac Type Severity Reaction Status Date / Time tetanus immune globulin Allergy Intermediate unknown Verified 02/06/17 15:21 Procedures/tests Complete & Pending: Procedures Performed prior 72 hours Category Date Time Status CL Cardiac Catheterization [CL] Routine Knitting Inspector 02/09/17 12:00 Completed CL Cardiac Catheterization [CL] Routine Knitting Inspector 02/09/17 12:00 Stop Req EV echocardiogram Routine Y 02/08/17 20:18 Completed Date of admission: 02/06/17 20:18 Primary care physician: Marycruz Mackenzie Discharging clinician: Vicenta Almanzar Anticipated date of discharge: 02/11/17 - Patient Status Disposition: Home, Self-Care Condition: Good Overall status at discharge: patient is progressing back to baseline - Discharge Instructions Follow Up With: Marycruz Mackenzie MD [Primary Care Provider] - 02/17/17 1:45 pm Forms: ED Satisfaction Letter - Diet and Activity Activity: increase activity as tolerated Diet: advance to your usual diet, diabetic diet, low fat, low cholesterol, low salt diet (Patient is referred to GI as outpatient nurses have already scheduled an appointment) Hospital course: Mr. Hayes is a 86 year old male who presents to the ER with complaints of shortness of breath, lower extremity edema, and vague chest tightness. Symptoms started about 4 days ago. He came to the ER yesterday and was discharged from the ER after receiving some Lasix. However, symptoms persisted and he worsened, so he came back to the ER today. Workup in ER revealed patient to have CHF, and he did have elevation of his troponins prompting admission. He was given Lasix last night and seems like that helped his breathing quite a bit. However on chest examination it seems that he has a lateral rhonchi and wheezing is has a productive cough in addition. I suspect he has underlying pneumonia as well as acute COPD exacerbation. His oxygen demand as high as he is on 4 L. he was restarted on IV Zosyn IV steroids and med nebs and Mucinex. Echo was done and showed LV ejection fraction about 65% no wall motion abnormality severe aortic stenosis and biatrial enlargement. llast ANIKA was 2015 demonstrated LVEF 65%, indeterminate diastolc function, moderate hypertophy of left ventricle, RV moderately dilated with mild reduction in fucntion, severely calcified aortic valve with reduced leaflet excursion. Severe aortic stenosis by DI and AV 0.27 and 0.85cm2. MIld MR, mild TR, mild PH , no segmental wall motion abnormalities. Cardiac catheter was done and no significant stenosis was found. Cardiology will facilitate outpatient referral to [facility] for eval. for potential candidacy for TAVR in the future if clinically warranted. Will s/o, re-consult PRN, follow-up scheduled. Patient has complained some dyspepsia though his hemoglobin is stable and he is referred to GI up as outpatient upon his request. - Time Spent with Patient Total time spent providing and/or coordinating discharge services: Greater than 30 minutes - Constitutional Vitals: Temp Pulse Resp BP Pulse Ox 97.9 F 83 16 116/88 95 02/11/17 07:00 02/11/17 07:00 02/11/17 07:51 02/11/17 07:00 02/11/17 10:15 General appearance: Present: cooperative, mild distress, A&O X 3, pleasant, answers questions appropriately - Head Head exam: Present: atraumatic, normocephalic - Eye Eye exam: Present: PERRL, conjuntiva pink, sclera anicteric Pupils: Present: PERRL - Neck Neck exam general surgery: Present: supple, trachea midline. Absent: lymphadenopathy - Respiratory Respiratory exam: Present: CTAB. Absent: accessory muscle use, rales, rhonchi, wheezes Additional comments: Scattered wheezing and some rhonchi much better examination than yesterday much better airflow - Cardiovascular Cardiovascular exam: Present: RRR, +S1, +S2. Absent: diastolic murmur, gallop, rubs, systolic murmur - GI/Abdominal GI/Abdominal exam: Present: normal bowel sounds, soft, no peritoneal signs. Absent: distended, tenderness - Extremities Exam Extremities exam: Present: warm, radial pulses palpable and symmetrical. Absent : calf tenderness, cyanotic, pedal edema - Neurological Exam Neurological exam: Present: CN II-XII intact, oriented X3, no focal deficits. Absent: pronater drift, facial droop, speech deficit - Skin Skin exam: Present: dry, intact - VTE Reasons for not Prescribing Prophylaxis: Not indicated-Anticoagulated or INR therapeutic
[2017-02-11] MEDS: Melatonin 3 MG TABLET PO PRN (20:21)
[2017-02-12] MEDS: Ipratropium/Albuterol Neb 3 ML IH SCH ×2 (00:54→10:01)
[2017-02-12 01:45] LABS: Basophils % 0.1 %; Hematocrit 32.4 % (37.5-50.1); Hemoglobin 10.6 g/dL (12.9-16.9); Immature Granulocytes % 1.1 % (0-4); Lymphocytes # 0.8 K/mcL (0.6-4.6); Lymphocytes % 5.3 %; Mean Corpuscular HGB Conc 32.7 g/dL (31.6-35.5); Mean Corpuscular Hemoglobin 27.2 pg (28.0-33.3); Mean Corpuscular Volume 83.3 fL (83.0-100.0); Mean Platelet Volume 10.5 fL (9.4-12.4); Monocytes # 0.6 K/mcL (0.0-1.3); Monocytes % 4.3 %; Neutrophils # 12.7 K/mcL (1.6-8.9); Platelet Count 227 K/mcL (140-400); Red Blood Count 3.89 M/mcL (4.19-5.50); Red Cell Distribution Width 17.8 % (11.5-14.5); Segmented Neutrophils % 89.2 %
[2017-02-12 01:58] LABS: Alanine Aminotransferase 57 Units/L (0-55); Albumin 2.5 g/dL (3.5-5.0); Albumin/Globulin Ratio 0.8 (1.1-2.2); Alkaline Phosphatase 83 Units/L (38-126); Aspartate Amino Transferase 51 Units/L (5-34); BUN/Creatinine Ratio 35 (6-26); Bilirubin,Total 0.5 mg/dL (0.2-1.2); Blood Urea Nitrogen 38 mg/dL (8-26); Calcium 8.4 mg/dL (8.6-10.8); Carbon Dioxide 28 mEq/L (19-29); Chloride 99 mEq/L (98-109); Globulin 3.2 g/dL (2.4-3.5); Glucose 118 mg/dL (70-99); Osmolality,Calculated 286 (280-300); Potassium 4.6 mEq/L (3.5-4.5); Sodium 133 mEq/L (136-145); Total Protein 5.7 g/dL (6.0-8.3); eGFR For African Americans > 60 (> 60); eGFR For Non-African Americans > 60 (> 60)
[2017-02-12] MEDS: *HR* LORazepam 0.5 MG TABLET PO PRN (03:36)
[2017-02-12 07:01] LABS: INR 3.4; Prothrombin Time 37.3 Seconds (9.4-12.1)
[2017-02-12] MEDS: Metoprolol 100 MG TABLET PO SCH (08:14)
[2017-02-12] MEDS: Aspirin Enteric Coated 81 MG Tablet PO SCH (08:14)
[2017-02-12] MEDS: predniSONE 20 MG TABLET PO SCH (08:14)
[2017-02-12] MEDS: Furosemide 40 MG TABLET PO SCH (10:57)
[2017-02-12 11:34] VITALS: BP 147/93
--- NOTE | 2017-02-12 12:07 | Internal Med Progress Note ---
Date of Encounter: 02/12/17 Time of Encounter: 12:06 - Assessment and plan (1) Acute exacerbation of chronic obstructive pulmonary disease (COPD) Current Visit: Yes Status: Resolved Assessment and plan: Stable to be discharged home today on Augmentin for his pneumonia. (2) CHF (congestive heart failure) Current Visit: Yes Status: Chronic Assessment and plan: Euvolemic. Continue Lasix 10 mg by mouth daily. Patient instructed regarding fluid restriction, salt restriction and checking his weights daily. Outpatient follow-up with cardiology for referral to [facility] for possible TAVR for his severe aortic stenosis. Qualifiers: Congestive heart failure type: diastolic Congestive heart failure chronicity: chronic Qualified Code(s): I50.32 - Chronic diastolic (congestive ) heart failure (3) Atrial fibrillation Current Visit: Yes Status: Chronic Qualifiers: Atrial fibrillation type: chronic Qualified Code(s): I48.2 - Chronic atrial fibrillation (4) Pulmonary embolism Current Visit: No Status: Chronic Qualifiers: Pulmonary embolism type: other Chronicity: acute Acute cor pulmonale presence: without acute cor pulmonale Qualified Code(s): I26.99 - Other pulmonary embolism without acute cor pulmonale - Subjective Interval history: Patient seen and evaluated today. Denies any chest pain, chest tightness, feeling dizzy or lightheaded. He is eager to be discharged home today. - Constitutional Vitals: Temp Pulse Resp BP Pulse Ox 97.6 F 76 16 147/93 98 02/12/17 11:29 02/12/17 11:29 02/12/17 11:29 02/12/17 11:29 02/12/17 11:29 General appearance: Present: cooperative, mild distress, A&O X 3, pleasant, answers questions appropriately Exam: Gen.: Lying in bed. No acute distress. Chest: Clear to auscultation bilaterally. No adventitious sounds present. CVS: First and second heart sounds present. No murmurs, rubs or gallops. Internal Medicine: Result - Labs CBC & Chem 7: 02/12/17 01:30 02/12/17 01:30 Labs: Short CBC 02/12/17 Range/Units 01:30 WBC 14.2 H (4.3-11.1) K/mcL Hgb 10.6 L (12.9-16.9) g/dL Hct 32.4 L (37.5-50.1) % Plt Count 227 (140-400) K/mcL Neutrophils # 12.7 H (1.6-8.9) K/mcL BMP 02/12/17 01:30 Sodium 133 L Potassium 4.6 H Chloride 99 Carbon Dioxide 28 BUN 38 H Creatinine 1.09 Glucose 118 H Calcium 8.4 L Liver Function 02/12/17 Range/Units 01:30 Total Bilirubin 0.5 (0.2-1.2) mg/dL AST 51 H (5-34) Units/L ALT 57 H (0-55) Units/L Alkaline Phosphatase 83 (38-126) Units/L Albumin 2.5 L (3.5-5.0) g/dL - ABG Interpretation ABG results: PT/INR, D-dimer PT 37.3 Seconds (9.4-12.1) H 02/12/17 06:32 - VTE Reasons for not Prescribing Prophylaxis: Not indicated-Anticoagulated or INR therapeutic Consult Discharge Plan - Plan Instructions: Metoprolol (By mouth), Furosemide (By mouth), Omeprazole (By mouth), Amoxicillin/Clavulanate Potassium (By mouth), Laxative, Stool Softeners (By mouth), Ipratropium/Albuterol (By breathing), Myocardial Infarction (DC), Heart Failure (DC), Atrial Fibrillation (DC), Chronic Kidney Disease (DC), Chronic Kidney Disease (GEN), Chronic Obstructive Pulmonary Disease (DC), Pneumonia (DC) Referrals: Marycruz Mackenzie MD [Primary Care Provider] - 02/17/17 1:45 pm Prescriptions: Amoxicillin/Clavulanate [Augmentin] 875 mg PO BIDWM #20 tab Docusate [Colace] 200 mg PO BID #60 tab Furosemide [Lasix] 10 mg PO DAILY #10 tablet Metoprolol [Lopressor] 100 mg PO BID #60 tab Omeprazole [PriLOSEC] 20 mg PO DAILY@0630 #30 tab
--- NOTE | 2017-02-12 14:02 | Event Note ---
Date of Encounter: 02/12/17 Time of Encounter: 14:00 - Cardiology Event Note Patient reported episode of chest tightness last night. States did not have any recurrence after that episode. Patient denies current chest tightness. Family wanted cardiology to be aware of chest tightness. Patient is being discharged today. Recent LHC with no intervention. Patient educated to call cardiology for worsening symptoms. Patient states understanding. Patient is being scheduled for cardiology follow up.
--- NOTE | 2017-02-12 15:31 | Electrocardiograph Report ---
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
== END 2017-02-12 15:20 | disposition home or self-care (01) | DRG 280 ==
LOC: EMEROO 15:10 → 2NENU 15:10 → SUATTDRO 20:18
PROVIDERS: ADMIT Pediatrics; ATTEND Internal Medicine Sleep Medicine

== ENCOUNTER 2017-04-05 13:11 | Inpatient (IN) ==
[2017-04-05] MEDS ORDERED: Ipratropium/Albuterol Neb 3 ML IH ONE (13:55)
[2017-04-05] MEDS ORDERED: Piperacillin/Tazobactam 3.375 GM in D5% in Water (Mini-Bag+) 100 ML IVPB ONE (14:00)
[2017-04-05] MEDS ORDERED: Vancomycin 1,000 MG in D5% in Water 250 ML IVPB ONE (14:02)
[2017-04-05] MEDS ORDERED: Levofloxacin 750 MG/150 ML 750 MG/150 ML BAG IVPB ONE (14:02)
--- NOTE | 2017-04-05 14:14 | Emergency Department Note ---
Disposition Clinical Impression: COPD with exacerbation UTI (urinary tract infection) Qualifiers: Urinary tract infection type: site unspecified Hematuria presence: with hematuria Qualified Code(s): N39.0 - Urinary tract infection, site not specified CHF exacerbation Qualifiers: Congestive heart failure type: systolic Qualified Code(s): I50.23 - Acute on chronic systolic (congestive) heart failure Disposition: Admitted As Inpatient Time of Disposition: 16:55 SOB HPI - General Chief Complaint: ED Shortness of Breath/Dyspnea Stated Complaint: SOB Time Seen by Provider: 04/05/17 13:30 Source: patient, family Limitations: no limitations Nursing Notes Reviewed: Yes Vital Signs Reviewed: Yes - History of Present Illness Patient is an 86-year-old male past medical history for PE, CHF, bladder cancer under treatment with Dr. Maldonado of Urology, DVT status post IVC filter. Patient presents with acute onset of shortness of breath times today. Family states patient is gaining weight today record 2 pound increase. - Related Data Home Medications Medication Instructions Recorded Confirmed Aspirin [Lo-Dose Aspirin EC] 81 mg PO DAILY 11/05/16 04/05/17 Atorvastatin Calcium [Lipitor] 20 mg PO HS 11/05/16 04/05/17 LORazepam [Ativan] 0.5 mg PO TID PRN 11/05/16 04/05/17 Melatonin 10 mg PO HS PRN 11/05/16 04/05/17 Warfarin [Coumadin] 3 mg PO DAILY 01/07/17 04/05/17 Albuterol Neb [AccuNeb] 0.63 mg IH TID 02/15/17 04/05/17 Furosemide [Lasix] 20 mg PO DAILY 03/06/17 04/05/17 Budesonide/Formoterol 160/4.5 2 puff IH BIDR 03/30/17 04/05/17 [Symbicort 160/4.5] Metoprolol [Lopressor] 25 mg PO BID 03/30/17 04/05/17 Umeclidinium Carr [Incruse 1 puff IH DAILY 03/30/17 04/05/17 Ellipta] Previous Rx's Medication Instructions Recorded Acetaminophen [Tylenol] 650 mg PO Q6HR PRN tab 02/11/17 Bismuth Subsalicylate 30 ml PO QID PRN 02/11/17 [PEPTO-BISMOL (262mg/15mL) Susp] Docusate [Colace] 200 mg PO BID #60 tab 02/11/17 Omeprazole [PriLOSEC] 20 mg PO DAILY@0630 #30 tab 02/11/17 HYDROcodone/Acet 5/325 mg [[place] 1 tab PO Q4HR PRN #10 tablet 04/01/17 5-325 mg] Allergies Allergy/AdvReac Type Severity Reaction Status Date / Time tetanus immune globulin Allergy Intermediate unknown Verified 03/06/17 17:39 All systems ED: reviewed and negative except as stated. Review of Systems: As Per HPI Constitutional: Reports: weakness. Denies: fever, chills Eyes: Denies: vision change ENT ED: Reports: congestion Cardiovascular: Denies: chest pain, palpitations, dyspnea on exertion Respiratory: Reports: cough. Denies: wheezes Gastrointestinal: Denies: abdominal pain, nausea, vomiting, diarrhea Genitourinary: Reports: dysuria. Denies: urgency Musculoskeletal: Denies: back pain Integumentary: Denies: rash Neurological: Denies: headache Psychiatric: Denies: anxiety Endocrine: Reports: fatigue Hematological/Lymphatic: Denies: easy bleeding Past Medical History - Past Medical History Attestation: Yes The following information was validated with the patient. Source: patient Medical history: Reports: atrial fibrillation, cancer, CHF, COPD, coronary artery disease, myocardial infarction, pulmonary embolus, valvular heart disease Surgical history: Reports: angioplasty/stent, appendectomy, knee replacement, vascular surgery (TAVR) Psychiatric history: Reports: no psych history - Social History Smoking Status: Former smoker Smokeless Tobacco Status: No Alcohol use: Reports: none Drug use: Reports: none Physical Exam Vital Signs Temperature 97.7 F 04/05/17 13:14 Pulse Rate 129 04/05/17 13:14 Respiratory Rate 24 04/05/17 13:14 Blood Pressure 134/76 04/05/17 13:14 O2 Sat by Pulse Oximetry 88 04/05/17 13:14 Temperature 97.7 F 04/05/17 13:14 Pulse Rate 129 04/05/17 13:14 Respiratory Rate 24 04/05/17 13:14 Blood Pressure 134/76 04/05/17 13:14 O2 Sat by Pulse Oximetry 93 04/05/17 13:18 Oxygen Delivery Oxygen Delivery Room Air Patient is an 86-year-old male who is alert and oriented 3 and does not appear to be in any distress at this time. Patient's very thin but not cachectic. Patient has active wet sounding cough, and has some conversational dyspnea - General Limitations: no limitations General appearance: alert - Head Head exam: atraumatic, normocephalic, normal inspection - Eye Eye exam: Present: normal appearance, PERRL, EOMI - ENT ENT exam: normal exam, normal oropharynx, mucous membranes moist - Neck Neck exam: Present: normal inspection, full ROM, trachea midline - Chest Chest inspection: Present: normal inspection, symmetric chest wall rise. Absent : tenderness, rash - Respiratory Respiratory exam: Present: other (Bilateral Rales and some rhonchi patient showed green sputum recently coughed up). Absent: wheezes - Cardiovascular Cardiovascular exam: Present: regular rate, irregular rhythm, normal heart sounds - Abdominal Exam Abdominal exam: Present: soft, Non-Tender. Absent: tenderness, distention, guarding, rebound, rigidity - Extremities Exam Extremities exam: Present: normal inspection, full ROM, normal capillary refill. Absent: tenderness, pedal edema, joint swelling, calf tenderness - Back Exam Back exam: Present: normal inspection, full ROM. Absent: tenderness, CVA tenderness (R), CVA tenderness (L) - Skin Skin exam: Present: warm, dry, intact, normal color, pallor Course Vital Signs Temperature 97.7 F 04/05/17 13:14 Pulse Rate 129 04/05/17 13:14 Respiratory Rate 24 04/05/17 13:14 Blood Pressure 134/76 04/05/17 13:14 O2 Sat by Pulse Oximetry 88 04/05/17 13:14 Temperature 97.7 F 04/05/17 13:14 Pulse Rate 97 04/05/17 15:41 Respiratory Rate 22 04/05/17 16:35 Blood Pressure 134/93 04/05/17 16:35 O2 Sat by Pulse Oximetry 95 04/05/17 15:41 Oxygen Delivery Oxygen Delivery Bipap Shortness of Breath/Dyspnea - MDM Narrative Medical decision making narrative: Patient has a lot of comorbidities which make the patient presently concerning for possible sepsis, heart failure, ACS/ID, 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 Currently patient is afebrile but presented tachycardic with an O2 saturation of 88. Fluids being held secondary to history of CHF and recently gained. Patient has no pedal edema. Patient's elevation of white count 12.8, patient has a UTI, patient has no elevation of lactic acid, patient's troponin is elevated but lower than previous. Patient's troponin looks to be chronically elevated on review of old lab work. Cultures ordered and pending. Patient was placed on BiPAP which helped bring him out of A. fib RVR. After resolution of patient's symptoms. Patient asked to be taken off secondary to discomfort. Chest x-ray shows chronic COPD but no pulmonary edema. Patient was placed on vancomycin 1500 mg, Zosyn 3.375 g, levofloxacin 750 mg, patient is also given DuoNeb therapy. Patient be admitted for acute on chronic COPD exacerbation, CHF exacerbation, UTI. Patient understands and agrees to decision for admission Dr. Mann the hospitalist who accepted patient for admission at 1544 hrs. - Lab Data Lab results reviewed: Yes I reviewed the patient's lab results. Lab results narrative: Short CBC 04/05/17 Range/Units 14:05 WBC 12.8 H (4.3-11.1) K/mcL Hgb 10.6 L (12.9-16.9) g/dL Hct 33.7 L (37.5-50.1) % Plt Count 653 H D (140-400) K/mcL Neutrophils # 10.4 H (1.6-8.9) K/mcL BMP 04/05/17 Range/Units 14:05 Sodium 136 (136-145) mEq/L Potassium 4.4 (3.5-4.5) mEq/L Chloride 102 (98-109) mEq/L Carbon Dioxide 24 (19-29) mEq/L BUN 14 (8-26) mg/dL Creatinine 0.89 (0.72-1.25) mg/dL Glucose 133 H (70-99) mg/dL Calcium 9.4 (8.6-10.8) mg/dL Cardiac Enzymes 04/05/17 Range/Units 14:05 Troponin I 0.09 H* (0-0.03) ng/mL Liver Function 04/05/17 Range/Units 14:05 Total Bilirubin 0.6 (0.2-1.2) mg/dL Direct Bilirubin 0.3 (0.0-0.5) mg/dL AST 34 (5-34) Units/L ALT 41 (0-55) Units/L Alkaline Phosphatase 150 H (38-126) Units/L Albumin 2.6 L (3.5-5.0) g/dL Urine 04/05/17 Range/Units 14:05 Urine Color [place] A (Yellow) Urine Clarity Cloudy A (Clear) Urine pH 6.0 (5.0-8.0) pH Units Ur Specific [place] 1.024 (1.010-1.025) Urine Protein 30 H (Neg-Trace) mg/dL Urine Glucose (UA) Normal (Normal) mg/dL Result diagrams: 04/05/17 14:05 04/05/17 14:05 Lab Results 04/05/17 04/05/17 04/05/17 Range/Units 14:05 14:05 14:05 WBC 12.8 H (4.3-11.1) K/mcL RBC 4.11 L (4.19-5.50) M/mcL Hgb 10.6 L (12.9-16.9) g/dL Hct 33.7 L (37.5-50.1) % MCV 82.0 L (83.0-100.0) fL MCH 25.8 L (28.0-33.3) pg MCHC 31.5 L (31.6-35.5) g/dL RDW 17.9 H (11.5-14.5) % Plt Count 653 H D (140-400) K/mcL MPV 9.0 L (9.4-12.4) fL Immature Gran % 0.9 (0-4) % Seg Neutrophils % 80.9 % Lymphocytes % 9.1 % Monocytes % 6.7 % Eosinophils % 1.9 % Basophils % 0.5 % Neutrophils # 10.4 H (1.6-8.9) K/mcL Lymphocytes # 1.2 (0.6-4.6) K/mcL Monocytes # 0.9 (0.0-1.3) K/mcL Eosinophils # 0.2 (0.0-0.6) K/mcL Basophils # 0.1 (0.0-0.2) K/mcL Platelet Estimate Increased H (Normal) Immature Plt Fraction 2.5 (1.1-6.1) % Polychromasia 1+ A (Not Present) Anisocytosis 1+ A (Not Present) PT (9.4-12.1) Seconds INR Sodium 136 (136-145) mEq/L Potassium 4.4 (3.5-4.5) mEq/L Chloride 102 (98-109) mEq/L Carbon Dioxide 24 (19-29) mEq/L BUN 14 (8-26) mg/dL Creatinine 0.89 (0.72-1.25) mg/dL Est GFR ( Amer) > 60 (> 60) Est GFR (Non-Af Amer) > 60 (> 60) BUN/Creatinine Ratio 16 (6-26) Glucose 133 H (70-99) mg/dL Calculated Osmolality 284 (280-300) Lactic Acid (0.5-2.2) mmol/L Calcium 9.4 (8.6-10.8) mg/dL Ionized Calcium (1.15-1.35) mmol/L Total Bilirubin 0.6 (0.2-1.2) mg/dL Direct Bilirubin 0.3 (0.0-0.5) mg/dL Indirect Bilirubin 0.3 (0.0-1.2) mg/dL AST 34 (5-34) Units/L ALT 41 (0-55) Units/L Alkaline Phosphatase 150 H (38-126) Units/L Troponin I 0.09 H* (0-0.03) ng/mL B-Natriuretic Peptide (0-100) pg/mL Serum Total Protein 6.9 (6.0-8.3) g/dL Albumin 2.6 L (3.5-5.0) g/dL Globulin 4.3 H (2.4-3.5) g/dL Albumin/Globulin Ratio 0.6 L (1.1-2.2) Urine Color (Yellow) Urine Clarity (Clear) Urine pH (5.0-8.0) pH Units Ur Specific [place] (1.010-1.025) Urine Protein (Neg-Trace) mg/dL Urine Glucose (UA) (Normal) mg/dL Urine Ketones (Negative) mg/dL Urine Blood (Negative) Urine Nitrite (Negative) Urine Bilirubin (Negative) Urine Urobilinogen (Normal) mg/dL Ur Leukocyte Esterase (Negative) Urine Microscopic RBC (0-3) per hpf Urine Microscopic WBC (0-3) per hpf Ur Squamous Epith Cells (None-Few) per lpf Urine Bacteria (None-Few) per hpf Hyaline Casts (None-Few) per lpf Ur Culture Indicated? (NO) 04/05/17 04/05/17 04/05/17 Range/Units 14:05 14:05 14:05 WBC (4.3-11.1) K/mcL RBC (4.19-5.50) M/mcL Hgb (12.9-16.9) g/dL Hct (37.5-50.1) % MCV (83.0-100.0) fL MCH (28.0-33.3) pg MCHC (31.6-35.5) g/dL RDW (11.5-14.5) % Plt Count (140-400) K/mcL MPV (9.4-12.4) fL Immature Gran % (0-4) % Seg Neutrophils % % Lymphocytes % % Monocytes % % Eosinophils % % Basophils % % Neutrophils # (1.6-8.9) K/mcL Lymphocytes # (0.6-4.6) K/mcL Monocytes # (0.0-1.3) K/mcL Eosinophils # (0.0-0.6) K/mcL Basophils # (0.0-0.2) K/mcL Platelet Estimate (Normal) Immature Plt Fraction (1.1-6.1) % Polychromasia (Not Present) Anisocytosis (Not Present) PT (9.4-12.1) Seconds INR Sodium (136-145) mEq/L Potassium (3.5-4.5) mEq/L Chloride (98-109) mEq/L Carbon Dioxide (19-29) mEq/L BUN (8-26) mg/dL Creatinine (0.72-1.25) mg/dL Est GFR ( Amer) (> 60) Est GFR (Non-Af Amer) (> 60) BUN/Creatinine Ratio (6-26) Glucose (70-99) mg/dL Calculated Osmolality (280-300) Lactic Acid 2.0 (0.5-2.2) mmol/L Calcium (8.6-10.8) mg/dL Ionized Calcium (1.15-1.35) mmol/L Total Bilirubin (0.2-1.2) mg/dL Direct Bilirubin (0.0-0.5) mg/dL Indirect Bilirubin (0.0-1.2) mg/dL AST (5-34) Units/L ALT (0-55) Units/L Alkaline Phosphatase (38-126) Units/L Troponin I (0-0.03) ng/mL B-Natriuretic Peptide 517 H (0-100) pg/mL Serum Total Protein (6.0-8.3) g/dL Albumin (3.5-5.0) g/dL Globulin (2.4-3.5) g/dL Albumin/Globulin Ratio (1.1-2.2) Urine Color [place] A (Yellow) Urine Clarity Cloudy A (Clear) Urine pH 6.0 (5.0-8.0) pH Units Ur Specific [place] 1.024 (1.010-1.025) Urine Protein 30 H (Neg-Trace) mg/dL Urine Glucose (UA) Normal (Normal) mg/dL Urine Ketones Trace H (Negative) mg/dL Urine Blood Negative (Negative) Urine Nitrite Positive A (Negative) Urine Bilirubin Small H (Negative) Urine Urobilinogen Normal (Normal) mg/dL Ur Leukocyte Esterase Small H (Negative) Urine Microscopic RBC 0-3 (0-3) per hpf Urine Microscopic WBC 5-15 H (0-3) per hpf Ur Squamous Epith Cells Few (None-Few) per lpf Urine Bacteria None Seen (None-Few) per hpf Hyaline Casts None Seen (None-Few) per lpf Ur Culture Indicated? YES A (NO) 04/05/17 04/05/17 Range/Units 14:05 14:07 WBC (4.3-11.1) K/mcL RBC (4.19-5.50) M/mcL Hgb (12.9-16.9) g/dL Hct (37.5-50.1) % MCV (83.0-100.0) fL MCH (28.0-33.3) pg MCHC (31.6-35.5) g/dL RDW (11.5-14.5) % Plt Count (140-400) K/mcL MPV (9.4-12.4) fL Immature Gran % (0-4) % Seg Neutrophils % % Lymphocytes % % Monocytes % % Eosinophils % % Basophils % % Neutrophils # (1.6-8.9) K/mcL Lymphocytes # (0.6-4.6) K/mcL Monocytes # (0.0-1.3) K/mcL Eosinophils # (0.0-0.6) K/mcL Basophils # (0.0-0.2) K/mcL Platelet Estimate (Normal) Immature Plt Fraction (1.1-6.1) % Polychromasia (Not Present) Anisocytosis (Not Present) PT 26.1 H (9.4-12.1) Seconds INR 2.4 Sodium (136-145) mEq/L Potassium (3.5-4.5) mEq/L Chloride (98-109) mEq/L Carbon Dioxide (19-29) mEq/L BUN (8-26) mg/dL Creatinine (0.72-1.25) mg/dL Est GFR ( Amer) (> 60) Est GFR (Non-Af Amer) (> 60) BUN/Creatinine Ratio (6-26) Glucose (70-99) mg/dL Calculated Osmolality (280-300) Lactic Acid (0.5-2.2) mmol/L Calcium (8.6-10.8) mg/dL Ionized Calcium 1.17 (1.15-1.35) mmol/L Total Bilirubin (0.2-1.2) mg/dL Direct Bilirubin (0.0-0.5) mg/dL Indirect Bilirubin (0.0-1.2) mg/dL AST (5-34) Units/L ALT (0-55) Units/L Alkaline Phosphatase (38-126) Units/L Troponin I (0-0.03) ng/mL B-Natriuretic Peptide (0-100) pg/mL Serum Total Protein (6.0-8.3) g/dL Albumin (3.5-5.0) g/dL Globulin (2.4-3.5) g/dL Albumin/Globulin Ratio (1.1-2.2) Urine Color (Yellow) Urine Clarity (Clear) Urine pH (5.0-8.0) pH Units Ur Specific [place] (1.010-1.025) Urine Protein (Neg-Trace) mg/dL Urine Glucose (UA) (Normal) mg/dL Urine Ketones (Negative) mg/dL Urine Blood (Negative) Urine Nitrite (Negative) Urine Bilirubin (Negative) Urine Urobilinogen (Normal) mg/dL Ur Leukocyte Esterase (Negative) Urine Microscopic RBC (0-3) per hpf Urine Microscopic WBC (0-3) per hpf Ur Squamous Epith Cells (None-Few) per lpf Urine Bacteria (None-Few) per hpf Hyaline Casts (None-Few) per lpf Ur Culture Indicated? (NO) - Radiology Data Radiology results reviewed: Yes I reviewed the patient's radiology results. Chest X-Ray 04/05/17 13:19 IMPRESSION: 1. No acute cardiopulmonary process. 2. Chronic changes of COPD. D/ / Mckinley Lindsay MD / Mckinley Lindsay MD Interpreting Provider: Mckinley Lindsay MD - EKG Data EKG attestation: Yes I reviewed and interpreted this EKG. EKG results narrative: EKG taken 04/05/2017 at 1317 hrs. shows A. fib with RVR at a rate of [address] depressions in lateral leads of V3 which not seen on previous EKG taken 03/28/2017 that shows atrial fibrillation with RVR at a rate of 1 26 bpm. Both show right bundle branch block. Critical Care Time Critical Care Time: Yes Total Critical Care Time: 35 Attestation: Critical care performed: Time is exclusive of separately billable procedures. Time includes: direct patient care, patient reassessment, coordination of patient care, interpretation of data (laboratory data, radiology data, and respiratory data), review of patient's medical records, medical consultation and documentation of patient care. Procedures included in critical care time: Procedures excluded from critical care time: Attestation Statement - Attestation Attestation: I, Delbert Maravilla DO, examined this patient [id number] and my medical decision-making was reviewed with Dr. Bakari Ramirez, Resident Physician. I agree with the documented findings, disposition and treatment plan as described except to the extent set forth below. Please see my progress notes for details.
[2017-04-05 14:22] LABS: Bilirubin,Urine Small (Negative); Blood,Urine Negative (Negative); Clarity,Urine Cloudy (Clear); Color,Urine Orange (Yellow); Glucose,Urine (UA) Normal (Normal); Ketones,Urine Trace mg/dL (Negative); Leukocyte Esterase,Urine Small (Negative); Nitrite,Urine Positive (Negative); Protein,Urine 30 mg/dL (Neg-Trace); Specific Gravity,Urine 1.024 (1.010-1.025); Urobilinogen,Urine Normal (Normal)
[2017-04-05] MEDS ORDERED: Hydrocortisone Sodium Succ 100 MG/2 ML VIAL IVP ONE (14:24)
[2017-04-05 14:25] LABS: Bacteria,Urine None Seen per hpf (None-Few); Hyaline Casts,Urine None Seen per lpf (None-Few); RBC,Urine 0-3 per hpf (0-3); Squamous Epithelial Cell,Urine Few per lpf (None-Few)
[2017-04-05 14:26] LABS: Basophils # 0.1 K/mcL (0.0-0.2); Basophils % 0.5 %; Eosinophils # 0.2 K/mcL (0.0-0.6); Eosinophils % 1.9 %; Hematocrit 33.7 % (37.5-50.1); Hemoglobin 10.6 g/dL (12.9-16.9); Immature Granulocytes % 0.9 % (0-4); Immature Platelets 2.5 % (1.1-6.1); Lymphocytes # 1.2 K/mcL (0.6-4.6); Lymphocytes % 9.1 %; Mean Corpuscular HGB Conc 31.5 g/dL (31.6-35.5); Mean Corpuscular Hemoglobin 25.8 pg (28.0-33.3); Monocytes # 0.9 K/mcL (0.0-1.3); Monocytes % 6.7 %; Platelet Count 653 K/mcL (140-400); Red Blood Count 4.11 M/mcL (4.19-5.50); Red Cell Distribution Width 17.9 % (11.5-14.5); Segmented Neutrophils % 80.9 %
[2017-04-05] MEDS ORDERED: Furosemide 40 MG/4 ML VIAL IVP ONE (14:26)
[2017-04-05 14:28] LABS: Neutrophils # 10.4 K/mcL (1.6-8.9)
[2017-04-05 14:31] LABS: INR 2.4; Prothrombin Time 26.1 Seconds (9.4-12.1)
[2017-04-05 14:41] LABS: Alanine Aminotransferase 41 Units/L (0-55); Albumin 2.6 g/dL (3.5-5.0); Albumin/Globulin Ratio 0.6 (1.1-2.2); Alkaline Phosphatase 150 Units/L (38-126); Aspartate Amino Transferase 34 Units/L (5-34); BUN/Creatinine Ratio 16 (6-26); Bilirubin,Direct 0.3 mg/dL (0.0-0.5); Bilirubin,Indirect 0.3 mg/dL (0.0-1.2); Bilirubin,Total 0.6 mg/dL (0.2-1.2); Blood Urea Nitrogen 14 mg/dL (8-26); Calcium 9.4 mg/dL (8.6-10.8); Carbon Dioxide 24 mEq/L (19-29); Chloride 102 mEq/L (98-109); Globulin 4.3 g/dL (2.4-3.5); Glucose 133 mg/dL (70-99); Osmolality,Calculated 284 (280-300); Potassium 4.4 mEq/L (3.5-4.5); Sodium 136 mEq/L (136-145); Total Protein 6.9 g/dL (6.0-8.3); eGFR For African Americans > 60 (> 60); eGFR For Non-African Americans > 60 (> 60)
[2017-04-05 14:56] LABS: Anisocytosis 1+ (Not Present); Platelet Estimate Increased (Normal); Polychromasia 1+ (Not Present)
--- NOTE | 2017-04-05 15:30 | Emergency Department Note ---
START Narrative - START START: Patient seen and examined the time of arrival. See history of present illness vital signs are concerning for A. fib with RVR. Patient has known history of A. fib. Patient also has multiple other comorbid medical issues including a recent valvular replacement at [facility]. Since then his had intermittent shortness of breath secondary to fluid overload. Patient has had multiple episodes of this was last 2 weeks including admission and discharge within the last 3 or 4 days. Family is concerned for possible fluid overload again at this time. Patient has significant orthopnea conversational dyspnea and increased work of breathing. He denies any active chest pain fevers chills nausea vomiting or diarrhea. Denies any headache or vision change at this time. Screening evaluation cleared for septic presentation based on the tachycardia tachypnea and complaint of shortness of breath. Patient had broad- spectrum antibiotics ordered. Urinalysis shows gross urinary tract infection with multiple lab abnormalities included a elevated BNP, troponin that appears to be downtrending from previous. Patient otherwise is resting in the bed at this time. He was offered BiPAP and he said that he would like to try to this point with symptom control otherwise heart rate will be controlled as respiratory status is reviewed and resolved. Breathing treatments ordered at this point. Patient clinically showed signs of acute fluid overload or increased work of breathing not necessarily secondary to cardiac related issue at this point. Chest x-ray and definitive evaluation be completed this point. Patient and family formidable comfortable this plan. See detailed documentation of physical exam for medical intervention, medical decision making and disposition and the resident physician's note. My physical exam shows frail-appearing gentleman with decreased aeration bilaterally secondary to decreased respiratory effort. Patient also has some conversational dyspnea. He has no visible signs of fluid overload in the extremities but he does sound wet and evaluation. Heart is tachycardic and regular this time. Patient' s workup will be completed and admission process will be completed. Patient discussed with hospitals. See detailed documentation of this conversation. Patient will be admitted for definitive evaluation and management. Patient is stable at this time family culpable plan.
[2017-04-05] MEDS ORDERED: Naloxone 0.4 MG/ML INJ IVP PRN (16:45)
[2017-04-05] MEDS ORDERED: Ondansetron 4 MG/2 ML VIAL IVP PRN (16:45)
[2017-04-05] MEDS ORDERED: *HR* LORazepam 0.5 MG TABLET PO PRN (16:49)
[2017-04-05] MEDS ORDERED: Melatonin 3 MG TABLET PO PRN (16:49)
[2017-04-05] MEDS ORDERED: Albuterol 2.5 MG/3 ML NEBULIZER IH PRN (16:51)
[2017-04-05] MEDS ORDERED: Warfarin perPT PO PRN (18:00)
--- NOTE | 2017-04-05 18:20 | Internal Med History&Physical ---
Date of Encounter: 04/05/17 Time of Encounter: 18:12 Assessment and Plan (1) Atrial fibrillation with RVR Current visit: No Status: Chronic Most likely triggered by heart failure present. Rate controlled we will continue with metoprolol for rate control and Coumadin (2) Acute respiratory failure with hypoxia Current visit: No Status: Acute 1 patient had episode of increasing shortness of breath presented to the ER pulse ox was 88% and heart rate was 129. Most likely related to CHF exacerbation. We will continue diuresing patient as well as oxygen titrated to maintain SPO2 greater than 92%. The patient does have history of COPD and we will continue with bronchodilators as needed (3) UTI (urinary tract infection) Current visit: Yes Status: Acute Patient has chronic indwelling catheter urinalysis revealed UTI. Urine culture and blood cultures sent. Previous micro-showed no growth we will continue with Rocephin IV pending sensitivity results Qualifiers: Urinary tract infection type: site unspecified Hematuria presence: with hematuria Qualified Code(s): N39.0 - Urinary tract infection, site not specified; R31.9 - Hematuria, unspecified; R31.9 - Hematuria, unspecified (4) Acute diastolic (congestive) heart failure Current visit: No Status: Acute Patient has a history of diastolic heart failure EF of 60%. His BNP was 517 slightly elevated from previous presentation. Apparently the patient states he was on 40 of Lasix and was placed back on 20. Ordered Lasix 40 mg twice a day have patient refuses and would only want daily states it drops of blood pressure too much. Continuous cardiac monitoring-patient's refusing Consult cardiology Monitor intake and output daily weights Low sodium diet Fluid restriction (5) Anticoagulant long-term use Current visit: No Status: Chronic 1 patient's presently on Coumadin INR is 2.4 we will check INR daily pharmacy to dose (6) Chronic indwelling Santamaria catheter Current visit: No Status: Chronic Patient has a history of bladder cancer is being followed by Dr. Lopez in. We will continue with indwelling Santamaria (7) S/P TAVR (transcatheter aortic valve replacement) Current visit: No Status: Chronic Continue with Lasix as well as Coumadin (8) DVT prophylaxis Current visit: No Status: Acute He is on Coumadin Internal Medicine - H&P: HPI Chief complaint: Shortness of breath Admitted From: Emergency Dept Plans for Post Hospital Care: Home History of present illness: Mr. Hayes is a 86 year old male past medical history of CHF bladder cancer under treatment per Dr. Lux COPD DVT status post IVC filter valvular disease TAVR completed at [place] earlier this month. Patient had a valve replacement TAVR at [place] earlier this month. Since then he has had intermittent shortness of breath and was recently admitted to this facility for CHF, he was diuresed and discharged home. He states he was doing well when he was on 40 mg of Lasix now he is on 20 mg. Over the past 2-3 days he has been experiencing orthopnea conversational dyspnea , 1.8 pound weight gain over 4 hours. He is not on any home oxygen he presented to the ER was in respiratory distress with SPO2 of 88% heart rate was 129 is in atrial fib RVR he did not have any chest pain. He was given IV Lasix history and was 0.09 which appears to be trending down from previous his lactate was 2 units BNP was 517 which is elevated from previous chest x-ray with chronic COPD changes urinalysis obtained indicative of UTI. He was initiated on broad-spectrum antibiotic coverage. He has been admitted for further workup and evaluation presently patient does not appear to be in respiratory distress his lung sounds have scattered crackles throughout denies any chest pain. He states that he has been compliant with his medications and has been abiding to his fluid restriction as well as low-sodium diet. He does have a chronic indwelling catheter. He is hemodynamically stable this time Past Med Surg Social Fam HX - Past Medical History Medical history: atrial fibrillation, cancer, CHF, COPD, coronary artery disease , myocardial infarction, pulmonary embolus, valvular heart disease Psychiatric history: no psych history - Past Surgical History Surgical History: angioplasty/stent, appendectomy, knee replacement, vascular surgery (TAVR) - Social History Smoking Status: Former smoker Smokeless Tobacco Status: No Alcohol use: none Drug use: none - Family History Father Hx Family Cardiac Disorders: Yes Internal Medicine - H&P: Meds Aspirin [Lo-Dose Aspirin EC] 81 mg PO DAILY 11/05/16 [History] Atorvastatin Calcium [Lipitor] 20 mg PO HS 11/05/16 [History] LORazepam [Ativan] 0.5 mg PO TID PRN 11/05/16 [History] Melatonin 10 mg PO HS PRN 11/05/16 [History] Warfarin [Coumadin] 3 mg PO DAILY 01/07/17 [History] Acetaminophen [Tylenol] 650 mg PO Q6HR PRN tab 02/11/17 [Rx] Bismuth Subsalicylate [PEPTO-BISMOL (262mg/15mL) Susp] 30 ml PO QID PRN [Rx] Docusate [Colace] 200 mg PO BID #60 tab 02/11/17 [Rx] Omeprazole [PriLOSEC] 20 mg PO DAILY@0630 #30 tab 02/11/17 [Rx] Albuterol Neb [AccuNeb] 0.63 mg IH TID 02/15/17 [History] Furosemide [Lasix] 20 mg PO DAILY 03/06/17 [History] Budesonide/Formoterol 160/4.5 [Symbicort 160/4.5] 2 puff IH BIDR 03/30/17 [ History] Metoprolol [Lopressor] 25 mg PO BID 03/30/17 [History] Umeclidinium [place] [Incruse Ellipta] 1 puff IH DAILY 03/30/17 [History] HYDROcodone/Acet 5/325 mg [[place] 5-325 mg] 1 tab PO Q4HR PRN #10 tablet [Rx] 3 Allergy/AdvReac Type Severity Reaction Status Date / Time tetanus immune globulin Allergy Intermediate unknown Verified 03/06/17 17:39 All Systems PM: A 10-system review of systems was performed and is negative for pertinent findings except as documented above in the HPI. - Constitutional Constitutional: weight gain, no chills, no fever(s), no night sweats - EENT Eyes: no change in vision, no discharge, no pain, no photophobia Nose, mouth and throat: no dysphagia, no nasal discharge, no neck pain, no sore throat - Cardiovascular Cardiovascular ROS IM: dyspnea on exertion, orthopnea, no chest pain, no diaphoresis, no dyspnea, no lightheadedness, no palpitations, no syncope - Respiratory Respiratory: dyspnea on exertion, no cough, no dyspnea, no wheezing, no excessive phlegm production - Gastrointestinal Gastrointestinal: no abdominal pain, no diarrhea, no hematemesis, no hematochezia, no melena, no nausea, no vomiting - Musculoskeletal Musculoskeletal ROS IM: no numbness, no tingling - Integumentary Integumentary IM: no rash, no unusual bruising - Neurological Neurological ROS: no confusion, no convulsions, no focal weakness, no numbness, no tingling, no tremor(s) - Hematologic/Lymphatic Hematologic/Lymphatic: no easy bruising - Constitutional Vitals: Temp Pulse Resp BP Pulse Ox 98.1 F 94 16 132/85 93 04/05/17 17:23 04/05/17 17:23 04/05/17 17:23 04/05/17 17:23 04/05/17 17:23 General appearance: Present: A&O X 3, answers questions appropriately - Head Head exam: Present: atraumatic, normocephalic - Eye Eye exam: Present: PERRL, conjuntiva pink, sclera anicteric Pupils: Present: PERRL - Neck Neck exam general surgery: Present: supple, trachea midline. Absent: lymphadenopathy - Respiratory Respiratory exam: Absent: accessory muscle use, rales, rhonchi, wheezes Additional comments: Crackles in the bases bilaterally - Cardiovascular Cardiovascular exam: Present: RRR, +S1, +S2. Absent: diastolic murmur, gallop, rubs, systolic murmur - GI/Abdominal GI/Abdominal exam: Present: normal bowel sounds, soft, no peritoneal signs. Absent: distended, tenderness - Extremities Exam Extremities exam: Present: warm, radial pulses palpable and symmetrical. Absent : calf tenderness, cyanotic, pedal edema - Neurological Exam Neurological exam: Present: CN II-XII intact, oriented X3, no focal deficits. Absent: pronater drift, facial droop, speech deficit - Skin Skin exam: Present: dry, intact Internal Med - H&P Results - Labs CBC & Chem 7: 04/05/17 14:05 04/05/17 14:05 - EKG Data Prior EKG available for review: yes When compared to previous EKG: there is no significant change EKG comments: 04/05/17 18:22 A. fib with RVR - Diagnostic Studies Other Images Additional comments: Chest X-Ray 04/05/17 13:19 IMPRESSION: 1. No acute cardiopulmonary process. 2. Chronic changes of COPD. D/ / Mckinley Lindsay MD / Mckinley Lindsay MD Interpreting Provider: Mckinley Lindsay MD
[2017-04-05] MEDS: *HR* Warfarin 3 MG TABLET PO SCH (18:39)
[2017-04-05] MEDS: Acetaminophen 325 MG TABLET PO PRN (18:46)
[2017-04-05] MEDS: Ipratropium/Albuterol Neb 3 ML IH SCH ×2 (20:50→23:39)
[2017-04-05] MEDS: Budesonide/Formoterol 160/4.5 MDI IH SCH (21:38)
[2017-04-06] MEDS ORDERED: Furosemide 40 MG/4 ML VIAL IVP ONE (02:35)
[2017-04-06 03:44] LABS: Basophils % 0.1 %; Eosinophils % 0.1 %; Hematocrit 31.8 % (37.5-50.1); Hemoglobin 10.3 g/dL (12.9-16.9); Immature Granulocytes % 0.6 % (0-4); Lymphocytes # 1.2 K/mcL (0.6-4.6); Lymphocytes % 8.7 %; Mean Corpuscular HGB Conc 32.4 g/dL (31.6-35.5); Mean Corpuscular Hemoglobin 25.8 pg (28.0-33.3); Mean Corpuscular Volume 79.7 fL (83.0-100.0); Mean Platelet Volume 8.8 fL (9.4-12.4); Monocytes # 0.8 K/mcL (0.0-1.3); Neutrophils # 11.9 K/mcL (1.6-8.9); Platelet Count 555 K/mcL (140-400); Red Blood Count 3.99 M/mcL (4.19-5.50); Red Cell Distribution Width 17.7 % (11.5-14.5); Segmented Neutrophils % 84.5 %
[2017-04-06] MEDS: Ipratropium/Albuterol Neb 3 ML IH SCH ×6 (03:59→23:57)
[2017-04-06 04:09] LABS: BUN/Creatinine Ratio 14 (6-26); Blood Urea Nitrogen 14 mg/dL (8-26); Calcium 9.4 mg/dL (8.6-10.8); Carbon Dioxide 26 mEq/L (19-29); Chloride 96 mEq/L (98-109); Glucose 144 mg/dL (70-99); Magnesium 1.8 mg/dL (1.6-2.6); Osmolality,Calculated 277 (280-300); Potassium 3.8 mEq/L (3.5-4.5); Sodium 132 mEq/L (136-145); eGFR For African Americans > 60 (> 60); eGFR For Non-African Americans > 60 (> 60)
[2017-04-06] MEDS: Budesonide/Formoterol 160/4.5 MDI IH SCH ×2 (08:02→19:40)
[2017-04-06] MEDS: Pantoprazole 40 MG VIAL IVP SCH (08:22)
[2017-04-06] MEDS: Aspirin Enteric Coated 81 MG Tablet PO SCH (08:22)
[2017-04-06] MEDS: (Umeclidinium Bromide [Incruse Ellipta] 1 PUFF) IH SCH (08:23)
[2017-04-06] MEDS: Acetaminophen 325 MG TABLET PO PRN ×2 (08:40→14:44)
[2017-04-06 08:57] LABS: INR 2.4; Prothrombin Time 26.6 Seconds (9.4-12.1)
[2017-04-06] MEDS ORDERED: Furosemide 40 MG/4 ML VIAL IVP SCH (09:00)
--- NOTE | 2017-04-06 12:08 | Internal Med Progress Note ---
Date of Encounter: 04/06/17 Time of Encounter: 12:15 - Assessment and plan (1) CHF (congestive heart failure) Current Visit: Yes Status: Chronic Assessment and plan: Acute on chronic CHFE possibly secondary to Afib with RVR Continu diuresis I/O -3.4L at this time Continue daily weights, fluid restriction and strict I/O cardiology has been consulted Qualifiers: Congestive heart failure type: diastolic Congestive heart failure chronicity: acute on chronic Qualified Code(s): I50.33 - Acute on chronic diastolic (congestive) heart failure (2) Atrial fibrillation Current Visit: Yes Status: Chronic Assessment and plan: With RVR Was started on digoxi due to narrow blood pressure window Continue current therapy., monitor Chem Qualifiers: Atrial fibrillation type: chronic Qualified Code(s): I48.2 - Chronic atrial fibrillation (3) Anticoagulant long-term use Current Visit: Yes Status: Chronic Assessment and plan: Continue coumadin, dose with INR, pharmacy to dose (4) Hyperlipidemia Current Visit: Yes Status: Chronic Assessment and plan: Continue current meds Qualifiers: Hyperlipidemia type: mixed hyperlipidemia Qualified Code(s): E78.2 - Mixed hyperlipidemia (5) Elevated troponin Current Visit: Yes Status: Acute Assessment and plan: Secondary to demand ischemia, adynamic (6) CKD (chronic kidney disease) Current Visit: Yes Status: Chronic Assessment and plan: Cr is stable so far, continue to monitor Qualifiers: Chronic kidney disease stage: stage 3 (moderate) Qualified Code(s): N18.3 - Chronic kidney disease, stage 3 (moderate) (7) Bladder tumor Current Visit: Yes Status: Chronic Assessment and plan: Chronic indwelling stephenson, consult urology (8) Acute respiratory failure with hypoxia Current Visit: Yes Status: Acute Assessment and plan: Secondary to CHFE Continue supplemental O2 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) Current Visit: Yes Status: Chronic Assessment and plan: ECHO from 03/29 noted (10) UTI (urinary tract infection) Current Visit: Yes Status: Acute Assessment and plan: UA is dirty, indwelling stephenson, follow culture reports, continue ceftriaxone Qualifiers: Urinary tract infection type: site unspecified Hematuria presence: with hematuria Qualified Code(s): N39.0 - Urinary tract infection, site not specified; R31.9 - Hematuria, unspecified; R31.9 - Hematuria, unspecified - Subjective Interval history: Seen and evaluated at bedside with family Denies new complains Admitted and being managed for hypoxia secondary to CHFE, secondary to [employer] with RVR He had been refusing telemetry for most of his hospital stay He remains tachycardic - Constitutional Vitals: Temp Pulse Resp BP Pulse Ox 97.5 F L 114 17 111/76 94 04/06/17 11:15 04/06/17 11:15 04/06/17 11:39 04/06/17 11:15 04/06/17 11:39 General appearance: Present: A&O X 3, pleasant, no acute distress, answers questions appropriately - Head Head exam: Present: atraumatic, normocephalic - Eye Eye exam: Present: PERRL, conjuntiva pink, sclera anicteric Pupils: Present: PERRL - Neck Neck exam general surgery: Present: supple, trachea midline. Absent: lymphadenopathy - Respiratory Additional comments: Bilateral crackles up to one-third of lung bases - Cardiovascular Cardiovascular exam: Present: irregular rhythm, +S1, +S2, tachycardia. Absent: diastolic murmur, gallop, rubs, systolic murmur - GI/Abdominal GI/Abdominal exam: Present: normal bowel sounds, soft, no peritoneal signs. Absent: distended, tenderness - Extremities Exam Extremities exam: Present: warm, radial pulses palpable and symmetrical. Absent : calf tenderness, cyanotic, pedal edema - Neurological Exam Neurological exam: Present: alert, CN II-XII intact, oriented X3, no focal deficits. Absent: pronater drift, facial droop, speech deficit - Skin Skin exam: Present: dry, intact Internal Medicine: Result - Labs CBC & Chem 7: 04/06/17 03:29 04/06/17 03:29 Labs: Short CBC 04/06/17 Range/Units 03:29 WBC 14.1 H (4.3-11.1) K/mcL Hgb 10.3 L (12.9-16.9) g/dL Hct 31.8 L (37.5-50.1) % Plt Count 555 H (140-400) K/mcL Neutrophils # 11.9 H (1.6-8.9) K/mcL BMP 04/06/17 03:29 Sodium 132 L Potassium 3.8 Chloride 96 L Carbon Dioxide 26 BUN 14 Creatinine 0.98 Glucose 144 H Calcium 9.4 Cardiac Enzymes 04/05/17 04/06/17 Range/Units 20:19 03:29 Troponin I 0.10 H* 0.10 H* (0-0.03) ng/mL - ABG Interpretation ABG results: PT/INR, D-dimer PT 26.6 Seconds (9.4-12.1) H 04/06/17 08:09 Consult Discharge Plan - Plan Referrals: Marycruz Mackenzie MD [Primary Care Provider] - 04/14/17 1:45 pm
--- NOTE | 2017-04-06 12:54 | Electrocardiograph Report ---
[address] [place] [address] Test Date: 2017-04-05 Pat Name: Homero Haeys Department: [id number] Room: 3B41 Gender: M Card Filer: : [id number] Requested By: Cira Mchugh Order Number: [id number] Reading MD: Henok Mejia Measurements Intervals [place] Rate: 122 P: [place]: 0 QRS: -82 QRSD: 143 T: 50 QT: 353 QTc: 425 Interpretive Statements ATRIAL FIBRILLATION WITH RAPID VENTRICULAR RESPONSE RIGHT BUNDLE BRANCH BLOCK LEFT ANTERIOR FASCICULAR BLOCK POSSIBLE ANTEROSEPTAL MYOCARDIAL INFARCTION, OF INDETERMINATE AGE Electronically Signed On 04-06-2017 12:52:53 EDT by Henok Mejia
[2017-04-06] MEDS: *HR* Digoxin 0.5 MG/2 ML AMPUL IVP SCH ×2 (13:44→18:43)
--- NOTE | 2017-04-06 14:19 | Cardiology Consult Note ---
Date of Encounter: 04/06/17 Time of Encounter: 11:30 Assessment and Plan (1) CHF exacerbation Current Visit: Yes Status: Acute Per cardiology: -admitted with increased shortness of breath. -Known diastolic CHF -BNP on admission 517. -Crackles noted to bilateral lower lobes. -On lasix 40 IV daily. -Net negative 1900ml. -Requireing O2 at 2LPM (not normally on at home). -WEight on admission 69.9kg. -Weight 03/15/17 at PCP 72.7 kg. -Strict i/os, daily weights, fluid restriction. -Continue IV diuresis -Will continue to monitor. Qualifiers: Congestive heart failure type: diastolic Qualified Code(s): I50.33 - Acute on chronic diastolic (congestive) heart failure (2) Elevated troponin Current Visit: No Status: Acute Per cardiology: -Troponins 0.09, 0.1, 0.1 -Troponins flat and adynamic in the setting of CHF. -Denies chest pain. -ECG with no acute ischemic changes. -Do nto suspect NSTEMI, suspect demand ischemia related to CHF. NO cardiology rehab warranted. (3) Atrial fibrillation with RVR Current Visit: No Status: Chronic Per cardiology: -Known chronic a.fib. -CUrrently on lopressor. -HR 120-130s. -Refused telemetry monitoring. -On coumadin for anticoagulation. -I discussed at length with patient regarding telemetry monitoring. Patient now agreeable. Nurse notified. -Discussed and reviewed with , will start digoxin. Will receive IV loading dose today. Will start oral tomorrow (creatinine 0.98 today) -Will continue to monitor. (4) CAD (coronary artery disease) Current Visit: Yes Status: Acute Per cardiology: -Known CAD s/p PCI 2008. -[facility] 01/2017 with patent stents other barnett luminal irregularities. -Denies chest pain. -on asa, statin, beta bronwyn. -TTE 03/29/17 with Impressions: LVEF 60%. Normal LV chamber size and function. Mild to moderate concentric left ventricular hypertrophy. Indeterminate diastolic function. Atypical septal motion consistent with bundle branch block. Moderately dilated right ventricle with normal appearing function. Severely dilated right atrium. Bioprosthetic aortic valve appears well seated in the LVOT. Leaflets not well visualized. Mild aortic regurgitation. Unable to determine if valvular or perivalvular. No aortic stenosis. Mean gradient 13 mmHg. Mild tricuspid regurgitation. Estimated RVSP is 40 mmHg. Mild pulmonary hypertension. Left Ventricular Wall Motion: Rest Echo Findings All wall segments showed normal motion. -Will continue to monitor. Qualifiers: Coronary Disease-Associated Artery/Lesion type: [place] artery [place] vs. transplanted heart: [place] heart Associated angina: without angina Qualified Code(s): I25.10 - Atherosclerotic heart disease of [place] coronary artery without angina pectoris (5) S/P TAVR (transcatheter aortic valve replacement) Current Visit: No Status: Chronic Per cardiology: -Recent TAVR. -Echo 03/29/17 with aortic valve well seated in LVOT. -WIll continue to monitor. Discussion w patient/family: The assessment and plan as outlined above was discussed with the patient and/or family members who expressed understanding and agreement. All questions were answered. Thank you for involving us in the care of your patient. Please call with any questions. History of Present Illness Consult date: 04/06/17 Requesting physician: Gely Sarmiento Consult reason: CHF Chief complaint: shortness of breath History of present illness: Mr. Hayes is a 86 year old male with a relevant past medical history of CAD s/p PCI, chronic a.fib, CHF, hyperlipidemia, PE, IVC filter, bladder CA, severe aortic stenosis s/p recent TAVR. Patient presented to [facility] with complaints of increased shortness of breath. Patient reports he felt like he was smothering. Patient reports he has been non-compliant at home with daily weights. Also states he may be drinking more fluid at home due to dry mouth. Patient denies chest pain. Pateint states breathing is somewhat imrpoved since admission. Past Med Surg Social Fam HX - Past Medical History Attestation: Yes The following information was validated with the patient. Source: patient, old records reviewed, obtained from family Medical history: atrial fibrillation, cancer, CHF, COPD, coronary artery disease , myocardial infarction, pulmonary embolus, valvular heart disease Psychiatric history: no psych history - Past Surgical History Surgical History: angioplasty/stent, appendectomy, knee replacement, vascular surgery (TAVR) - Social History Smoking Status: Former smoker Smokeless Tobacco Status: No Alcohol use: none Drug use: none - Family History Father Hx Family Cardiac Disorders: Yes Medications and Allergies Aspirin [Lo-Dose Aspirin EC] 81 mg PO DAILY 11/05/16 [History] Atorvastatin Calcium [Lipitor] 20 mg PO HS 11/05/16 [History] LORazepam [Ativan] 0.5 mg PO TID PRN 11/05/16 [History] Melatonin 10 mg PO HS PRN 11/05/16 [History] Warfarin [Coumadin] 3 mg PO DAILY 01/07/17 [History] Acetaminophen [Tylenol] 650 mg PO Q6HR PRN tab 02/11/17 [Rx] Bismuth Subsalicylate [PEPTO-BISMOL (262mg/15mL) Susp] 30 ml PO QID PRN [Rx] Docusate [Colace] 200 mg PO BID #60 tab 02/11/17 [Rx] Omeprazole [PriLOSEC] 20 mg PO DAILY@0630 #30 tab 02/11/17 [Rx] Albuterol Neb [AccuNeb] 0.63 mg IH TID 02/15/17 [History] Furosemide [Lasix] 20 mg PO DAILY 03/06/17 [History] Budesonide/Formoterol 160/4.5 [Symbicort 160/4.5] 2 puff IH BIDR 03/30/17 [ History] Metoprolol [Lopressor] 25 mg PO BID 03/30/17 [History] Umeclidinium [place] [Incruse Ellipta] 1 puff IH DAILY 03/30/17 [History] HYDROcodone/Acet 5/325 mg [[place] 5-325 mg] 1 tab PO Q4HR PRN #10 tablet [Rx] 3 Allergy/AdvReac Type Severity Reaction Status Date / Time tetanus immune globulin Allergy Intermediate unknown Verified 03/06/17 17:39 All Systems Review: A 10-system review of systems was performed and is negative for pertinent findings except as documented above in the HPI. - Cardiovascular Cardiovascular: as per HPI, dyspnea at rest, dyspnea on exertion, irregular heart rhythm Physical Examination Vital Signs, Last 4 Hours Temp Pulse Resp BP Pulse Ox 04/06/17 11:39 17 94 04/06/17 11:15 97.5 F L 114 17 111/76 94 General: Conversant, No Apparent Distress HEENT: Atraumatic, Normocephaly, Mucus Membranes Moist Neck: No JVD, Normal carotid pulses Cardiac: Normal S1 and S2, No Murmur, Other (Irregularly irregular) Lungs: Other (Bilateral lower lobes with crackles noted. ) Neuro: Alert and responsive, No focal deficits noted Abdomen: Soft, Non-Tender Skin: No rashes noted on visualized skin Musculoskeletal: No Chest Wall Tenderness Extremities: No Clubbing, No Cyanosis, No Edema, Normal Pulses Results 04/06/17 03:29 04/06/17 03:29 Lab Results Active Medications Acetaminophen (Tylenol) 650 mg PO Q6HR PRN PRN Reason: Mild Pain (1-3) Stop: 10/05/17 16:46 Last Admin: 04/06/17 08:40 Dose: 650 mg Albuterol Sulfate (Proventil Neb) 2.5 mg IH Q2H PRN PRN Reason: Shortness Of Breath/Wheezing Stop: 10/05/17 16:52 Albuterol/Ipratropium (Duoneb) 3 ml IH [id number] [facility] Stop: 10/05/17 20:01 Last Admin: 04/06/17 11:39 Dose: 3 ml Aspirin (Aspirin Ec) 81 mg PO DAILY [facility] Stop: 10/06/17 09:01 Last Admin: 04/06/17 08:22 Dose: 81 mg Atorvastatin Calcium (Lipitor) 20 mg PO HS [facility] Stop: 10/05/17 21:01 Last Admin: 04/05/17 21:23 Dose: 20 mg Budesonide/Formoterol Fumarate (Symbicort) 2 puff IH BIDR [facility] PRN Reason: Protocol Stop: 10/05/17 22:01 Last Admin: 04/06/17 08:02 Dose: 2 puff Digoxin (Lanoxin) 0.25 mg IVP Q6HR [facility] Stop: 04/07/17 00:01 Last Admin: 04/06/17 13:44 Dose: 0.25 mg Digoxin (Lanoxin) 0.125 mg PO DAILY [facility] Stop: 10/07/17 09:01 Docusate Sodium (Colace) 200 mg PO BID [facility] PRN Reason: Protocol Stop: 10/05/17 21:01 Last Admin: 04/06/17 08:22 Dose: 200 mg Furosemide (Lasix) 40 mg IVP DAILY [facility] Stop: 10/06/17 09:01 Last Admin: 04/06/17 08:22 Dose: 40 mg Guaifenesin (Mucinex) 600 mg PO BID PRN PRN Reason: Congestion Stop: 10/05/17 22:01 Last Admin: 04/06/17 02:23 Dose: 600 mg Ceftriaxone Sodium 1,000 mg/ (Dextrose) 100 mls @ 200 mls/hr IVPB Q24H [facility] Stop: 10/06/17 01:01 Last Infusion: 04/06/17 03:03 Dose: Infused Lorazepam (Ativan) 0.5 mg PO TID PRN PRN Reason: Anxiety Stop: 10/05/17 16:50 Last Admin: 04/06/17 02:23 Dose: 0.5 mg Melatonin (Melatonin) 9 mg PO HS PRN PRN Reason: Sleep Metoprolol Tartrate (Lopressor) 50 mg PO BID [facility] Stop: 10/06/17 21:01 Naloxone HCl (Narcan) 0.4 mg IVP Q2MIN PRN PRN Reason: Opioid Reversal Stop: 10/05/17 16:46 Ondansetron HCl (Zofran) 4 mg IVP Q8HR PRN PRN Reason: Nausea And Vomiting Stop: 10/05/17 16:46 Pantoprazole Sodium (Protonix) 40 mg IVP DAILY [facility] Stop: 10/06/17 09:01 Last Admin: 04/06/17 08:22 Dose: 40 mg Pharmacy Profile Note (Patient Taking Own Medication) 0 each IH DAILY [facility] Stop: 10/06/17 09:01 Last Admin: 04/06/17 08:23 Dose: Not Given Phenazopyridine HCl (Pyridium) 100 mg PO TID PRN PRN Reason: Pain Stop: 10/06/17 02:34 Last Admin: 04/06/17 13:08 Dose: 100 mg Warfarin Sodium (Coumadin) 3 mg PO DAILY@1800 [facility] Stop: 10/05/17 18:01 Last Admin: 04/05/17 18:39 Dose: 3 mg Warfarin Sodium (Coumadin Perpt) 1 each PO DAILY@1800 PRN PRN Reason: SEE COMMENTS Stop: 10/05/17 18:01 Laboratory Tests 04/05/17 04/05/17 04/05/17 14:05 14:05 20:19 WBC Hgb INR Creatinine Magnesium Troponin I 0.09 H* 0.10 H* B-Natriuretic Peptide 517 H 04/06/17 04/06/17 04/06/17 03:29 03:29 03:29 WBC 14.1 H Hgb 10.3 L INR Creatinine 0.98 Magnesium 1.8 Troponin I 0.10 H* B-Natriuretic Peptide 04/06/17 08:09 WBC Hgb INR 2.4 Creatinine Magnesium Troponin I B-Natriuretic Peptide - Imaging and Cardiology Chest Xray: report reviewed Echo: report reviewed Cardiac cath: report reviewed - EKG Interpretation EKG results cardiology: personally reviewed (ECG with atrial fibrillation with RVR, HR 122,), other (Unable to review telemetry due to patient refused.) Consult Discharge Plan - Plan Referrals: Marycruz Mackenzie MD [Primary Care Provider] - 04/14/17 1:45 pm
[2017-04-06] MEDS: Fluticasone Propionate Nasal 50 MCG/SPRAY BOTTLE NS SCH (17:21)
[2017-04-06] MEDS: *HR* Warfarin 3 MG TABLET PO SCH (18:34)
--- NOTE | 2017-04-06 19:26 | Urology - Consult Note ---
Date of Encounter: 04/06/17 Time of Encounter: 19:24 - Assessment and Plan (1) Urinary retention Current Visit: Yes Status: Acute Assessment and plan: Continue indwelling catheter for now. I discussed proceeding with self intermittent catheterization teaching. The patient is resistant but the family wishes him to proceed. If they decide they wish to proceed with this option will need prompt follow-up after discharge with Dr. Maldonado for teaching. Patient is not a surgical candidate for TURP with his continuing cardiac issues (2) Bladder tumor Current Visit: Yes Status: Chronic Assessment and plan: Tumors are unlikely to progress quickly. He is currently not stable from a cardiac standpoint undergo TURBT. We'll proceed when stable from a cardiac standpoint. The family will contact the office. Urology CN:HPI Consult date: 04/06/17 History of present illness: Patient known to the urology service. Urologist is Dr. Maldonado. Patient has 2 known bladder tumors and awaiting TURBT. He is also developed urinary retention is catheter dependent. currently admitted with cardiac complications Past Med Surg Social Fam HX - Past Medical History Medical history: atrial fibrillation, cancer, CHF, COPD, coronary artery disease , myocardial infarction, pulmonary embolus, valvular heart disease Psychiatric history: no psych history - Past Surgical History Surgical History: angioplasty/stent, appendectomy, knee replacement, vascular surgery (TAVR) - Social History Smoking Status: Former smoker Smokeless Tobacco Status: No Alcohol use: none Drug use: none - Family History Father Hx Family Cardiac Disorders: Yes Medications and Allergies Aspirin [Lo-Dose Aspirin EC] 81 mg PO DAILY 11/05/16 [History] Atorvastatin Calcium [Lipitor] 20 mg PO HS 11/05/16 [History] LORazepam [Ativan] 0.5 mg PO TID PRN 11/05/16 [History] Melatonin 10 mg PO HS PRN 11/05/16 [History] Warfarin [Coumadin] 3 mg PO DAILY 01/07/17 [History] Acetaminophen [Tylenol] 650 mg PO Q6HR PRN tab 02/11/17 [Rx] Bismuth Subsalicylate [PEPTO-BISMOL (262mg/15mL) Susp] 30 ml PO QID PRN [Rx] Docusate [Colace] 200 mg PO BID #60 tab 02/11/17 [Rx] Omeprazole [PriLOSEC] 20 mg PO DAILY@0630 #30 tab 02/11/17 [Rx] Albuterol Neb [AccuNeb] 0.63 mg IH TID 02/15/17 [History] Furosemide [Lasix] 20 mg PO DAILY 03/06/17 [History] Budesonide/Formoterol 160/4.5 [Symbicort 160/4.5] 2 puff IH BIDR 03/30/17 [ History] Metoprolol [Lopressor] 25 mg PO BID 03/30/17 [History] Umeclidinium [place] [Incruse Ellipta] 1 puff IH DAILY 03/30/17 [History] HYDROcodone/Acet 5/325 mg [[place] 5-325 mg] 1 tab PO Q4HR PRN #10 tablet [Rx] 3 Allergy/AdvReac Type Severity Reaction Status Date / Time tetanus immune globulin Allergy Intermediate unknown Verified 03/06/17 17:39 Review of Systems - Constitutional no chills, no fever(s) Exam Initial Vital Signs Temp Pulse Resp BP Pulse Ox 97.7 F 129 24 134/76 88 04/05/17 13:14 04/05/17 13:14 04/05/17 13:14 04/05/17 13:14 04/05/17 13:14 - General physical appearance Present: no distress, chronically ill - Abdomen Abdomen: Present: soft - Additional Findings Santamaria catheter with clear urine Urology Results - Labs 04/06/17 03:29 04/06/17 03:29 Abnormal lab results WBC 14.1 K/mcL (4.3-11.1) H 04/06/17 03:29 RBC 3.99 M/mcL (4.19-5.50) L 04/06/17 03:29 Hgb 10.3 g/dL (12.9-16.9) L 04/06/17 03:29 Hct 31.8 % (37.5-50.1) L 04/06/17 03:29 MCV 79.7 fL (83.0-100.0) L 04/06/17 03:29 MCH 25.8 pg (28.0-33.3) L 04/06/17 03:29 RDW 17.7 % (11.5-14.5) H 04/06/17 03:29 Plt Count 555 K/mcL (140-400) H 04/06/17 03:29 MPV 8.8 fL (9.4-12.4) L 04/06/17 03:29 Neutrophils # 11.9 K/mcL (1.6-8.9) H 04/06/17 03:29 Platelet Estimate Increased (Normal) H 04/05/17 14:05 Polychromasia 1+ (Not Present) A 04/05/17 14:05 Anisocytosis 1+ (Not Present) A 04/05/17 14:05 PT 26.6 Seconds (9.4-12.1) H 04/06/17 08:09 Sodium 132 mEq/L (136-145) L 04/06/17 03:29 Chloride 96 mEq/L (98-109) L 04/06/17 03:29 Glucose 144 mg/dL (70-99) H 04/06/17 03:29 Calculated Osmolality 277 (280-300) L 04/06/17 03:29 Alkaline Phosphatase 150 Units/L (38-126) H 04/05/17 14:05 Troponin I 0.10 ng/mL (0-0.03) H* 04/06/17 03:29 B-Natriuretic Peptide 517 pg/mL (0-100) H 04/05/17 14:05 Albumin 2.6 g/dL (3.5-5.0) L 04/05/17 14:05 Globulin 4.3 g/dL (2.4-3.5) H 04/05/17 14:05 Albumin/Globulin Ratio 0.6 (1.1-2.2) L 04/05/17 14:05 Urine Color [place] (Yellow) A 04/05/17 14:05 Urine Clarity Cloudy (Clear) A 04/05/17 14:05 Urine Protein 30 mg/dL (Neg-Trace) H 04/05/17 14:05 Urine Ketones Trace mg/dL (Negative) H 04/05/17 14:05 Urine Nitrite Positive (Negative) A 04/05/17 14:05 Urine Bilirubin Small (Negative) H 04/05/17 14:05 Ur Leukocyte Esterase Small (Negative) H 04/05/17 14:05 Urine Microscopic WBC 5-15 per hpf (0-3) H 04/05/17 14:05 Ur Culture Indicated? YES (NO) A 04/05/17 14:05 Diabetes panel 04/06/17 Range/Units 03:29 Sodium 132 L (136-145) mEq/L Potassium 3.8 (3.5-4.5) mEq/L Chloride 96 L (98-109) mEq/L Carbon Dioxide 26 (19-29) mEq/L BUN 14 (8-26) mg/dL Creatinine 0.98 (0.72-1.25) mg/dL Glucose 144 H (70-99) mg/dL Calcium 9.4 (8.6-10.8) mg/dL Calcium panel 04/06/17 Range/Units 03:29 Calcium 9.4 (8.6-10.8) mg/dL Pituitary panel 04/06/17 Range/Units 03:29 Sodium 132 L (136-145) mEq/L Potassium 3.8 (3.5-4.5) mEq/L Chloride 96 L (98-109) mEq/L Carbon Dioxide 26 (19-29) mEq/L BUN 14 (8-26) mg/dL Creatinine 0.98 (0.72-1.25) mg/dL Glucose 144 H (70-99) mg/dL Calcium 9.4 (8.6-10.8) mg/dL Adrenal panel 04/06/17 Range/Units 03:29 Sodium 132 L (136-145) mEq/L Potassium 3.8 (3.5-4.5) mEq/L Chloride 96 L (98-109) mEq/L Carbon Dioxide 26 (19-29) mEq/L BUN 14 (8-26) mg/dL Creatinine 0.98 (0.72-1.25) mg/dL Glucose 144 H (70-99) mg/dL Calcium 9.4 (8.6-10.8) mg/dL All other labs normal. Consult Discharge Plan - Plan Referrals: Marycruz Mackenzie MD [Primary Care Provider] - 04/14/17 1:45 pm
[2017-04-07] MEDS: *HR* Digoxin 0.5 MG/2 ML AMPUL IVP SCH (00:11)
[2017-04-07] MEDS: Ipratropium/Albuterol Neb 3 ML IH SCH ×6 (03:52→22:51)
[2017-04-07 04:17] LABS: INR 2.7; Prothrombin Time 29.6 Seconds (9.4-12.1)
[2017-04-07 04:21] LABS: Basophils # 0.1 K/mcL (0.0-0.2); Basophils % 0.5 %; Eosinophils # 0.4 K/mcL (0.0-0.6); Eosinophils % 2.8 %; Hematocrit 32.5 % (37.5-50.1); Hemoglobin 10.5 g/dL (12.9-16.9); Immature Granulocytes % 1.2 % (0-4); Lymphocytes # 1.8 K/mcL (0.6-4.6); Lymphocytes % 13.3 %; Mean Corpuscular HGB Conc 32.3 g/dL (31.6-35.5); Mean Corpuscular Hemoglobin 25.9 pg (28.0-33.3); Mean Platelet Volume 8.8 fL (9.4-12.4); Monocytes # 1.1 K/mcL (0.0-1.3); Monocytes % 7.8 %; Neutrophils # 10.1 K/mcL (1.6-8.9); Platelet Count 602 K/mcL (140-400); Red Blood Count 4.06 M/mcL (4.19-5.50); Red Cell Distribution Width 17.6 % (11.5-14.5); Segmented Neutrophils % 74.4 %
[2017-04-07 04:31] LABS: BUN/Creatinine Ratio 17 (6-26); Blood Urea Nitrogen 16 mg/dL (8-26); Calcium 9.4 mg/dL (8.6-10.8); Carbon Dioxide 29 mEq/L (19-29); Chloride 97 mEq/L (98-109); Glucose 105 mg/dL (70-99); Osmolality,Calculated 282 (280-300); Sodium 135 mEq/L (136-145); eGFR For African Americans > 60 (> 60); eGFR For Non-African Americans > 60 (> 60)
[2017-04-07] MEDS: Budesonide/Formoterol 160/4.5 MDI IH SCH ×2 (08:21→19:59)
[2017-04-07] MEDS: *HR* Digoxin 0.125 MG TABLET PO SCH (09:13)
[2017-04-07] MEDS: Aspirin Enteric Coated 81 MG Tablet PO SCH (09:13)
--- NOTE | 2017-04-07 09:13 | Cardiology Progress Note ---
Date of Encounter: 04/07/17 Time of Encounter: 08:45 Assessment and Plan (1) CHF exacerbation Current Visit: Yes Status: Acute Per cardiology: -admitted with increased shortness of breath. -Known diastolic CHF -BNP on admission 517. -Lung sounds improved today. -On lasix 40 IV daily. -Net negative 4326ml. -Requireing O2 at 2LPM (not normally on at home). -WEight on admission 69.9kg. -Weight 03/15/17 at PCP 72.7 kg. -Strict i/os, daily weights, fluid restriction. -Will change lasix to po dose (of note, patient normally takes 20mg of lasix BID at home, after last visit was decreased to 2mg daily). -Cardiology will sign off and will follow in outpatient setting. Follow up set. Qualifiers: Congestive heart failure type: diastolic Qualified Code(s): I50.33 - Acute on chronic diastolic (congestive) heart failure (2) Elevated troponin Current Visit: Yes Status: Acute Per cardiology: -Troponins 0.09, 0.1, 0.1 -Troponins flat and adynamic in the setting of CHF. -Denies chest pain. -ECG with no acute ischemic changes. -Do nto suspect NSTEMI, suspect demand ischemia related to CHF. NO cardiology rehab warranted. (3) Atrial fibrillation with RVR Current Visit: No Status: Chronic Per cardiology: -Known chronic a.fib. -CUrrently on lopressor and digoxin po. Was given IV load of digoxin yesterday. -Average HR previous 12 hours noted to be 95. -On coumadin for anticoagulation. INR today 2.7. -Continue digoxin (creatinine 0.95 today) -Will continue to monitor in outpatient setting. (4) CAD (coronary artery disease) Current Visit: Yes Status: Acute Per cardiology: -Known CAD s/p PCI 2008. -C 01/2017 with patent stents other barnett luminal irregularities. -Denies chest pain. -on asa, statin, beta bronwyn. -TTE 03/29/17 with Impressions: LVEF 60%. Normal LV chamber size and function. Mild to moderate concentric left ventricular hypertrophy. Indeterminate diastolic function. Atypical septal motion consistent with bundle branch block. Moderately dilated right ventricle with normal appearing function. Severely dilated right atrium. Bioprosthetic aortic valve appears well seated in the LVOT. Leaflets not well visualized. Mild aortic regurgitation. Unable to determine if valvular or perivalvular. No aortic stenosis. Mean gradient 13 mmHg. Mild tricuspid regurgitation. Estimated RVSP is 40 mmHg. Mild pulmonary hypertension. Left Ventricular Wall Motion: Rest Echo Findings All wall segments showed normal motion. -Will continue to monitor in outpatient setting. Qualifiers: Coronary Disease-Associated Artery/Lesion type: [place] artery [place] vs. transplanted heart: [place] heart Associated angina: without angina Qualified Code(s): I25.10 - Atherosclerotic heart disease of [place] coronary artery without angina pectoris (5) S/P TAVR (transcatheter aortic valve replacement) Current Visit: Yes Status: Chronic Per cardiology: -Recent TAVR. -Echo 03/29/17 with aortic valve well seated in LVOT. -WIll continue to monitor in outpatient setting. Discussion w patient/family: The assessment and plan as outlined above was discussed with the patient and/or family members who expressed understanding and agreement. All questions were answered. Thank you for involving us in the care of your patient. Please call with any questions. Discussed and reviewed with . Subjective Principal diagnosis: CHF Interval history: Pateint states he is doing well this morning. Patient states breathing has improved. Objective Vital Signs, Last 4 Hours Temp Pulse Resp BP Pulse Ox 04/07/17 08:21 16 93 04/07/17 07:00 97.9 F 80 16 119/82 93 General: Conversant, No Apparent Distress HEENT: Atraumatic, Normocephaly, Mucus Membranes Moist Neck: No JVD, Normal carotid pulses Cardiac: Normal S1 and S2, No Murmur, Other (Irregularly, irregular. ) Lungs: Normal Breath Sounds, No Wheeze, Rales, Rhonchi Neuro: Alert and responsive, No focal deficits noted Abdomen: Soft, Non-Tender Skin: No rashes noted on visualized skin Musculoskeletal: No Chest Wall Tenderness Extremities: No Clubbing, No Cyanosis, No Edema, Normal Pulses Results 04/07/17 03:50 04/07/17 03:50 Lab Results Active Medications Acetaminophen (Tylenol) 650 mg PO Q6HR PRN PRN Reason: Mild Pain (1-3) Stop: 10/05/17 16:46 Last Admin: 04/06/17 14:44 Dose: 650 mg Albuterol Sulfate (Proventil Neb) 2.5 mg IH Q2H PRN PRN Reason: Shortness Of Breath/Wheezing Stop: 10/05/17 16:52 Albuterol/Ipratropium (Duoneb) 3 ml IH [id number] [place] Stop: 10/05/17 20:01 Last Admin: 04/07/17 08:20 Dose: 3 ml Aspirin (Aspirin Ec) 81 mg PO DAILY [facility] Stop: 10/06/17 09:01 Last Admin: 04/06/17 08:22 Dose: 81 mg Atorvastatin Calcium (Lipitor) 20 mg PO HS [facility] Stop: 10/05/17 21:01 Last Admin: 04/06/17 22:01 Dose: 20 mg Budesonide/Formoterol Fumarate (Symbicort) 2 puff IH BIDR [place] PRN Reason: Protocol Stop: 10/05/17 22:01 Last Admin: 04/07/17 08:21 Dose: 2 puff Digoxin (Lanoxin) 0.125 mg PO DAILY [facility] Stop: 10/07/17 09:01 Docusate Sodium (Colace) 200 mg PO BID [facility] PRN Reason: Protocol Stop: 10/05/17 21:01 Last Admin: 04/06/17 22:02 Dose: 200 mg Fluticasone Propionate (Flonase) 100 mcg NS DAILY [facility] PRN Reason: Protocol Stop: 10/06/17 15:16 Last Admin: 04/06/17 17:21 Dose: 100 mcg Furosemide (Lasix) 20 mg PO BIDDIURETIC [facility] Stop: 10/07/17 17:01 Guaifenesin (Mucinex) 600 mg PO BID PRN PRN Reason: Congestion Stop: 10/05/17 22:01 Last Admin: 04/06/17 14:49 Dose: 600 mg Ceftriaxone Sodium 1,000 mg/ (Dextrose) 100 mls @ 200 mls/hr IVPB Q24H [facility] Stop: 10/06/17 01:01 Last Admin: 04/07/17 00:12 Dose: 200 mls/hr Lorazepam (Ativan) 0.5 mg PO TID PRN PRN Reason: Anxiety Stop: 10/05/17 16:50 Last Admin: 04/06/17 02:23 Dose: 0.5 mg Melatonin (Melatonin) 9 mg PO HS PRN PRN Reason: Sleep Metoprolol Tartrate (Lopressor) 50 mg PO BID [facility] Stop: 10/06/17 21:01 Last Admin: 04/06/17 22:02 Dose: 50 mg Naloxone HCl (Narcan) 0.4 mg IVP Q2MIN PRN PRN Reason: Opioid Reversal Stop: 10/05/17 16:46 Ondansetron HCl (Zofran) 4 mg IVP Q8HR PRN PRN Reason: Nausea And Vomiting Stop: 10/05/17 16:46 Pantoprazole Sodium (Protonix) 40 mg IVP DAILY [place] Stop: 10/06/17 09:01 Last Admin: 04/06/17 08:22 Dose: 40 mg Pharmacy Profile Note (Patient Taking Own Medication) 0 each IH DAILY [facility] Stop: 10/06/17 09:01 Last Admin: 04/06/17 08:23 Dose: Not Given Phenazopyridine HCl (Pyridium) 100 mg PO TID PRN PRN Reason: Pain Stop: 10/06/17 02:34 Last Admin: 04/06/17 22:01 Dose: 100 mg Warfarin Sodium (Coumadin) 3 mg PO DAILY@1800 [facility] Stop: 10/05/17 18:01 Last Admin: 04/06/17 18:34 Dose: 3 mg Warfarin Sodium (Coumadin Perpt) 1 each PO DAILY@1800 PRN PRN Reason: SEE COMMENTS Stop: 10/05/17 18:01 Laboratory Tests 04/07/17 04/07/17 04/07/17 03:50 03:50 03:50 WBC 13.7 H Hgb 10.5 L INR 2.7 Creatinine 0.95 - Imaging and Cardiology Chest Xray: report reviewed Echo: report reviewed Cardiac cath: report reviewed - EKG Interpretation EKG results cardiology: other (Telemetry reviewed with average HR previous 12 hours noted to be 95, atrial fibrillation. PVCs, couplets, and triplets noted.) Consult Discharge Plan - Plan Referrals: Marycruz Mackenzie MD [Primary Care Provider] - 04/14/17 1:45 pm
[2017-04-07] MEDS: (Umeclidinium Bromide [Incruse Ellipta] 1 PUFF) IH SCH (09:18)
[2017-04-07] MEDS: Pantoprazole 40 MG VIAL IVP SCH (09:19)
[2017-04-07] MEDS: Fluticasone Propionate Nasal 50 MCG/SPRAY BOTTLE NS SCH (09:20)
--- NOTE | 2017-04-07 12:20 | Internal Med Progress Note ---
Date of Encounter: 04/07/17 Time of Encounter: 12:19 - Assessment and plan (1) CHF (congestive heart failure) Current Visit: Yes Status: Chronic Assessment and plan: Acute on chronic CHFE possibly secondary to Afib with RVR Continue diuresis I/O -4.1L at this time Continue daily weights, fluid restriction and strict I/O Qualifiers: Congestive heart failure type: diastolic Congestive heart failure chronicity: acute on chronic Qualified Code(s): I50.33 - Acute on chronic diastolic (congestive) heart failure (2) Atrial fibrillation Current Visit: Yes Status: Chronic Assessment and plan: With RVR Was started on digoxin due to narrow blood pressure window HR is better controlled now, no new events Continue current therapy., monitor Chem Qualifiers: Atrial fibrillation type: chronic Qualified Code(s): I48.2 - Chronic atrial fibrillation (3) Anticoagulant long-term use Current Visit: Yes Status: Chronic Assessment and plan: Continue coumadin, dose with INR, pharmacy to dose (4) Hyperlipidemia Current Visit: Yes Status: Chronic Assessment and plan: Continue current meds Qualifiers: Hyperlipidemia type: mixed hyperlipidemia Qualified Code(s): E78.2 - Mixed hyperlipidemia (5) Elevated troponin Current Visit: Yes Status: Acute Assessment and plan: Secondary to demand ischemia, adynamic (6) CKD (chronic kidney disease) Current Visit: Yes Status: Chronic Assessment and plan: Cr is stable so far, continue to monitor Qualifiers: Chronic kidney disease stage: stage 3 (moderate) Qualified Code(s): N18.3 - Chronic kidney disease, stage 3 (moderate) (7) Bladder tumor Current Visit: Yes Status: Chronic Assessment and plan: Chronic indwelling stephenson, eval noted (8) Acute respiratory failure with hypoxia Current Visit: Yes Status: Acute Assessment and plan: Secondary to CHFE Continue supplemental O2, per RN, qualified for home O2 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) Current Visit: Yes Status: Chronic Assessment and plan: ECHO from 03/29 noted (10) UTI (urinary tract infection) Current Visit: Yes Status: Suspected Assessment and plan: UA is dirty, indwelling stephenson, Leukocytosis improving on antibiotics Urine culture negative Continue antibiotics for now Qualifiers: Urinary tract infection type: site unspecified Hematuria presence: with hematuria Qualified Code(s): N39.0 - Urinary tract infection, site not specified; R31.9 - Hematuria, unspecified; R31.9 - Hematuria, unspecified - Subjective Interval history: Seen and evaluated at bedside with family Denies new complains Admitted and being managed for hypoxia secondary to CHFE, secondary to Afb with RVR HR better controlled on Digoxin , no new complains Ambulates to restroom and back, still requiring supplemental O2 - Constitutional Vitals: Temp Pulse Resp BP Pulse Ox 98.3 F 93 18 111/65 96 04/07/17 11:11 04/07/17 11:11 04/07/17 11:27 04/07/17 11:11 04/07/17 12:00 General appearance: Present: A&O X 3, no acute distress, answers questions appropriately - Head Head exam: Present: atraumatic, normocephalic - Eye Eye exam: Present: PERRL, conjuntiva pink, sclera anicteric Pupils: Present: PERRL - Neck Neck exam general surgery: Present: supple, trachea midline. Absent: lymphadenopathy - Respiratory Respiratory exam: Present: rales (at the bases bilaterally, improved from prior exam 04/06). Absent: accessory muscle use, rhonchi, wheezes - Cardiovascular Cardiovascular exam: Present: irregular rhythm, +S1, +S2. Absent: diastolic murmur, gallop, rubs, systolic murmur - GI/Abdominal GI/Abdominal exam: Present: normal bowel sounds, soft, no peritoneal signs. Absent: distended, tenderness - Additional comments: draining clear urine - Extremities Exam Extremities exam: Present: warm, radial pulses palpable and symmetrical. Absent : calf tenderness, cyanotic, pedal edema - Neurological Exam Neurological exam: Present: alert, CN II-XII intact, oriented X3, no focal deficits. Absent: pronater drift, facial droop, speech deficit - Skin Skin exam: Present: dry, intact Internal Medicine: Result - Labs CBC & Chem 7: 04/07/17 03:50 04/07/17 03:50 Labs: Short CBC 04/07/17 Range/Units 03:50 WBC 13.7 H (4.3-11.1) K/mcL Hgb 10.5 L (12.9-16.9) g/dL Hct 32.5 L (37.5-50.1) % Plt Count 602 H (140-400) K/mcL Neutrophils # 10.1 H (1.6-8.9) K/mcL BMP 04/07/17 03:50 Sodium 135 L Potassium 4.0 Chloride 97 L Carbon Dioxide 29 BUN 16 Creatinine 0.95 Glucose 105 H Calcium 9.4 - ABG Interpretation ABG results: PT/INR, D-dimer PT 29.6 Seconds (9.4-12.1) H 04/07/17 03:50 Consult Discharge Plan - Plan Referrals: Marycruz Mackenzie MD [Primary Care Provider] - 04/14/17 1:45 pm
[2017-04-07] MEDS: *HR* Warfarin 3 MG TABLET PO SCH (17:21)
[2017-04-07] MEDS: Furosemide 20 MG TABLET PO SCH (17:22)
[2017-04-08] MEDS ORDERED: Nitroglycerin 0.4 MG TAB.SUBL SL PRN (02:35)
[2017-04-08] MEDS: Ipratropium/Albuterol Neb 3 ML IH SCH ×4 (03:27→11:12)
[2017-04-08 03:44] LABS: Basophils # 0.1 K/mcL (0.0-0.2); Basophils % 0.5 %; Eosinophils # 0.4 K/mcL (0.0-0.6); Eosinophils % 2.5 %; Hematocrit 33.6 % (37.5-50.1); Hemoglobin 10.8 g/dL (12.9-16.9); Immature Granulocytes % 0.7 % (0-4); Immature Platelets 1.6 % (1.1-6.1); Lymphocytes % 13.2 %; Mean Corpuscular HGB Conc 32.1 g/dL (31.6-35.5); Mean Corpuscular Hemoglobin 25.9 pg (28.0-33.3); Mean Corpuscular Volume 80.6 fL (83.0-100.0); Mean Platelet Volume 8.7 fL (9.4-12.4); Monocytes # 1.2 K/mcL (0.0-1.3); Monocytes % 8.3 %; Platelet Count 698 K/mcL (140-400); Red Blood Count 4.17 M/mcL (4.19-5.50); Red Cell Distribution Width 17.7 % (11.5-14.5); Segmented Neutrophils % 74.8 %
[2017-04-08 04:05] LABS: INR 2.7
[2017-04-08 04:09] LABS: BUN/Creatinine Ratio 18 (6-26); Blood Urea Nitrogen 18 mg/dL (8-26); Calcium 9.3 mg/dL (8.6-10.8); Carbon Dioxide 26 mEq/L (19-29); Chloride 97 mEq/L (98-109); Glucose 104 mg/dL (70-99); Magnesium 1.8 mg/dL (1.6-2.6); Osmolality,Calculated 278 (280-300); Sodium 133 mEq/L (136-145); eGFR For African Americans > 60 (> 60); eGFR For Non-African Americans > 60 (> 60)
--- NOTE | 2017-04-08 04:32 | Event Note ---
Date of Encounter: 04/08/17 Time of Encounter: 02:45 Cardiac Enzymes 04/08/17 Range/Units 03:32 Troponin I 0.18 H* (0-0.03) ng/mL Notified by RN at 02:27 that patient is c/o chest pressure. EKG revealed A-fib without signs of ischemia or acute changes from prior EKGs. BP was 119/75 and sublingual NTG was administered. Patient reported resolution of CP after NTG administration. His previously troponin levels were adynamic at 0.10, and repeat troponin level was 0.18. Cardiology sign off after evaluating the patient yesterday and attributing his troponin elevation to demand ischemia related to CHF rather than NSTEMI. Patient is already on ASA, beta bronwyn, and Warfarin. Will continue present management, repeat troponin in 6 hours, and consider re-consulting cardiology in AM if troponin continues to increase.
[2017-04-08] MEDS: (Umeclidinium Bromide [Incruse Ellipta] 1 PUFF) IH SCH (07:26)
[2017-04-08] MEDS: Budesonide/Formoterol 160/4.5 MDI IH SCH (07:41)
[2017-04-08] MEDS: Aspirin Enteric Coated 81 MG Tablet PO SCH (07:53)
[2017-04-08] MEDS: Furosemide 20 MG TABLET PO SCH (07:53)
[2017-04-08] MEDS: *HR* Digoxin 0.125 MG TABLET PO SCH (07:53)
[2017-04-08] MEDS: Fluticasone Propionate Nasal 50 MCG/SPRAY BOTTLE NS SCH (07:55)
[2017-04-08] MEDS: Pantoprazole 40 MG VIAL IVP SCH (07:57)
[2017-04-08 11:25] VITALS: BP 123/78
--- NOTE | 2017-04-08 11:57 | Physician Discharge Referral ---
Home Health/Hosp Referral Info Transfer to: Home Health Attending Provider: Simran Provider in Charge Post Discharge: PCP - Diagnosis (1) CHF (congestive heart failure) Priority: Primary Status: Chronic (2) Atrial fibrillation Priority: Primary Status: Chronic (3) Anticoagulant long-term use Priority: Primary Status: Chronic (4) Hyperlipidemia Priority: Secondary Status: Chronic (5) Elevated troponin Priority: Secondary Status: Acute (6) CKD (chronic kidney disease) Priority: Secondary Status: Chronic (7) Bladder tumor Priority: Secondary Status: Chronic (8) Acute respiratory failure with hypoxia Priority: Primary Status: Acute 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) Priority: Secondary Status: Chronic (10) UTI (urinary tract infection) Priority: Secondary Status: Suspected - Respiratory Orders Oxygen / L per min (2L per minute) Smoking Cessation: Smoking cessation has been advised. For more information, call the [place] Tobacco Quit Line at 9-349-CWST-NOW. - Diet/Nutrition Diet/Nutrition Orders: Renal, Cardiac - Services Needed Following services are medically necessary services: Nursing, Home Health Aide, Physical Therapy, Occupational Therapy - Transfer Medications Home Medications: Aspirin [Lo-Dose Aspirin EC] 81 mg PO DAILY 11/05/16 [History] Atorvastatin Calcium [Lipitor] 20 mg PO HS 11/05/16 [History] LORazepam [Ativan] 0.5 mg PO TID PRN 11/05/16 [History] Melatonin 10 mg PO HS PRN 11/05/16 [History] Warfarin [Coumadin] 3 mg PO DAILY 01/07/17 [History] Acetaminophen [Tylenol] 650 mg PO Q6HR PRN tab 02/11/17 [Rx] Bismuth Subsalicylate [PEPTO-BISMOL (262mg/15mL) Susp] 30 ml PO QID PRN [Rx] Docusate [Colace] 200 mg PO BID #60 tab 02/11/17 [Rx] Omeprazole [PriLOSEC] 20 mg PO DAILY@0630 #30 tab 02/11/17 [Rx] Albuterol Neb [AccuNeb] 0.63 mg IH TID 02/15/17 [History] Furosemide [Lasix] 20 mg PO DAILY 03/06/17 [History] Budesonide/Formoterol 160/4.5 [Symbicort 160/4.5] 2 puff IH BIDR 03/30/17 [ History] Metoprolol [Lopressor] 25 mg PO BID 03/30/17 [History] Umeclidinium [place] [Incruse Ellipta] 1 puff IH DAILY 03/30/17 [History] HYDROcodone/Acet 5/325 mg [[place] 5-325 mg] 1 tab PO Q4HR PRN #10 tablet [Rx] Allergies/Adverse Reactions: 3 Allergy/AdvReac Type Severity Reaction Status Date / Time tetanus immune globulin Allergy Intermediate unknown Verified 03/06/17 17:39 Certification: Further, I certify that my clinical findings support that this patient is homebound (i.e. absences from home require considerable and taxing effort and are for medical reasons or [employer] services or infrequently or short duration when for other reasons) because: Homebound Reason: Patient requires assistance of a person or device to safely leave home Attestation: My signature below is to certify that this patient is under my care and that I, or nurse practitioner, or a physician's medical assistant secretary working with me, has a face-to -face encounter with this patient.
--- NOTE | 2017-04-08 12:03 | Discharge Summary ---
Date of Encounter: 04/08/17 Time of Encounter: 11:50 - Discharge Diagnosis (1) CHF (congestive heart failure) Priority: Primary Status: Chronic Comments: Acute on chronic CHFE possibly secondary to Afib with RVR Continue diuresis at home with lasix 20mg bid Digoxin has been added by cardiology, electrolytes acceptable, continue same dose of 0.125mg at home, follow up with cardiology Patient and son at the bedside encouraged to check weights daily at home, and check blood pressure, as well as take an extra dose of Lasix if patient gains weight inappropriately Follow-up with cardiology in the office. Qualifiers: Congestive heart failure type: diastolic Congestive heart failure chronicity: acute on chronic Qualified Code(s): I50.33 - Acute on chronic diastolic (congestive) heart failure (2) Atrial fibrillation Priority: Secondary Status: Chronic Comments: presented with RAPID ventricular response on admission. His metoprolol was increased to 50 mg twice a day. He was started on digoxin. HR controlled at this time. Continue the same medications. Follow-up with cardiology. Qualifiers: Atrial fibrillation type: chronic Qualified Code(s): I48.2 - Chronic atrial fibrillation (3) Anticoagulant long-term use Priority: Secondary Status: Chronic Comments: INR is therapeutic. Continue home dose of Coumadin. (4) Hyperlipidemia Priority: Secondary Status: Chronic Comments: Continue statin. Qualifiers: Hyperlipidemia type: mixed hyperlipidemia Qualified Code(s): E78.2 - Mixed hyperlipidemia (5) Elevated troponin Priority: Primary Status: Acute Comments: She presented with troponin elevated to 0.1, overnight, patient complained of chest pressure. His chest x-ray was done which was negative for acute processes. His troponin was repeated which was 0.18, 6 hours later history from the remains of 0.18. The patient continues to argue that he does not have chest pressure nor chest pain and his symptoms were probably due to someone's perfume. Himself and his son had declined further pursuance follow-up with troponin. Follow-up with cardiology. (6) CKD (chronic kidney disease) Priority: Secondary Status: Chronic Comments: Creatinine is stable and at baseline. Qualifiers: Chronic kidney disease stage: stage 3 (moderate) Qualified Code(s): N18.3 - Chronic kidney disease, stage 3 (moderate) (7) Bladder tumor Priority: Secondary Status: Chronic Comments: Follow-up for voiding trial as outpatient. Urology revealed patient during the stay. (8) Acute respiratory failure with hypoxia Priority: Primary Status: Acute Comments: Secondary to CHF exacerbation and A. fib with RVR. Patient qualified for home oxygen. He continues to argue that he does not need home oxygen. Encouraged to keep oxygen on all the time. May be weaned by primary physician. 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) Priority: Secondary Status: Chronic Comments: Chronic, stable, follow up with cardiology (10) UTI (urinary tract infection) Priority: Secondary Status: Ruled-out Comments: Urine culture was negative Qualifiers: Urinary tract infection type: site unspecified Hematuria presence: with hematuria Qualified Code(s): N39.0 - Urinary tract infection, site not specified; R31.9 - Hematuria, unspecified; R31.9 - Hematuria, unspecified (11) Thrombophilia Priority: Primary Status: Acute Comments: Follow up with PCP for repeat CBC, and referral to Oncology should thrombophilia /leukocytosis persists - Discharge Medications Prescriptions: Digoxin [Lanoxin] 0.125 mg PO DAILY #30 tablet Furosemide [Lasix] 20 mg PO BIDDIURETIC #60 tablet Metoprolol [Lopressor] 50 mg PO BID #60 tablet Phenazopyridine [Pyridium] 100 mg PO TID PRN #120 tablet PRN Reason: Pain Home Medications: Aspirin [Lo-Dose Aspirin EC] 81 mg PO DAILY 11/05/16 [History] Atorvastatin Calcium [Lipitor] 20 mg PO HS 11/05/16 [History] LORazepam [Ativan] 0.5 mg PO TID PRN 11/05/16 [History] Melatonin 10 mg PO HS PRN 11/05/16 [History] Warfarin [Coumadin] 3 mg PO DAILY 01/07/17 [History] Acetaminophen [Tylenol] 650 mg PO Q6HR PRN tab 02/11/17 [Rx] Bismuth Subsalicylate [PEPTO-BISMOL (262mg/15mL) Susp] 30 ml PO QID PRN [Rx] Docusate [Colace] 200 mg PO BID #60 tab 02/11/17 [Rx] Omeprazole [PriLOSEC] 20 mg PO DAILY@0630 #30 tab 02/11/17 [Rx] Albuterol Neb [AccuNeb] 0.63 mg IH TID 02/15/17 [History] Budesonide/Formoterol 160/4.5 [Symbicort 160/4.5] 2 puff IH BIDR 03/30/17 [ History] Umeclidinium [place] [Incruse Ellipta] 1 puff IH DAILY 03/30/17 [History] HYDROcodone/Acet 5/325 mg [[place] 5-325 mg] 1 tab PO Q4HR PRN #10 tablet [Rx] Digoxin [Lanoxin] 0.125 mg PO DAILY #30 tablet 04/08/17 [Rx] Fluticasone Propionate Nasal [Flonase] 100 mcg NS DAILY bottle 04/08/17 [Rx] Furosemide [Lasix] 20 mg PO BIDDIURETIC #60 tablet 04/08/17 [Rx] Metoprolol [Lopressor] 50 mg PO BID #60 tablet 04/08/17 [Rx] Phenazopyridine [Pyridium] 100 mg PO TID PRN #120 tablet 04/08/17 [Rx] Allergies/Adverse Reactions: 3 Allergy/AdvReac Type Severity Reaction Status Date / Time tetanus immune globulin Allergy Intermediate unknown Verified 03/06/17 17:39 Procedures/tests Complete & Pending: Procedures Performed prior 72 hours Category Date Time Status EKG [ECG 12 lead ECG] [ECG] Stat Y 04/08/17 02:35 Completed Date of admission: 04/05/17 16:45 Primary care physician: Marycruz Mackenzie Consults: 04/05/17 18:33 Consult to Occupational Rehabilitation Aide [CONS] Routine Reason for SW Consult: D/C planning for home health. Had [facility] before admission. 04/06/17 01:02 Consult to Cardiology [CONS] Routine Comment: Consulting Provider: [facility] Reason for Consult: CHF excerbation Time Notified: 01:03 Call Completed: No 04/06/17 16:15 Consult to Urology [CONS] Routine Consulting Provider: [facility] Reason for Consult: chronic indwelling stephenson, bladder CA, family requests to see urologist Call Completed: Yes Discharging clinician: Arturo Khalil Anticipated date of discharge: 04/08/17 - Patient Status Disposition: Home Health Service Condition: Fair Functional capacity at discharge: independent ambulation Overall status at discharge: patient is progressing back to baseline - Discharge Instructions Follow Up With: Marycruz Mackenzie MD [Primary Care Provider] - 04/14/17 1:45 pm - Diet and Activity Activity: resume usual activities as tolerated, wear oxygen at all times Diet: low fat, low cholesterol, low salt diet Interval History: See below Hospital course: Mr. Hayes is a 86 year old male with PMH of CAD, CHF, s/p TAVR for , DVT, PE, on anticoagulation with coumadin, afib, bladder tumor with chronic indwelling stephenson cath who was admitted for acute hypoxic failure secondary to CHF decompensation and A. fib with RVR. He was seen by cardiology and he was started on IV diuresis. He was switched to PO diuretics once he started to clinically improved. His troponin was elevated, but thought to be adynamic. He is seen at bedside this morning, reports clinical improvement and wishes to be discharged home. He continues to require oxygen, he qualified for home oxygen. He continued to have leukocytosis and thrombophilia throughout his admission, the patient is encouraged to follow up with primary care physician regarding these He was started on digoxin and his metoprolol and lasix has been increased, patient and son at bedside educated about his med rec. Follow up with cardiology and PCP, as well as Coumadin clinic Rest of details as in section on diagnoses - Time Spent with Patient Total time spent providing and/or coordinating discharge services: Greater than 30 minutes - Constitutional Vitals: Temp Pulse Resp BP Pulse Ox 98.0 F 84 16 123/78 91 04/08/17 11:24 04/08/17 11:24 04/08/17 07:38 04/08/17 11:24 04/08/17 11:24 General appearance: Present: A&O X 3, no acute distress, answers questions appropriately - Head Head exam: Present: atraumatic, normocephalic - Eye Eye exam: Present: PERRL, conjuntiva pink, sclera anicteric Pupils: Present: PERRL - Neck Neck exam general surgery: Present: supple, trachea midline. Absent: lymphadenopathy - Respiratory Respiratory exam: Present: rales. Absent: accessory muscle use, rhonchi, wheezes - Cardiovascular Cardiovascular exam: Present: irregular rhythm, +S1, +S2. Absent: diastolic murmur, gallop, rubs, systolic murmur - GI/Abdominal GI/Abdominal exam: Present: normal bowel sounds, soft, no peritoneal signs. Absent: distended, tenderness - Extremities Exam Extremities exam: Present: warm, radial pulses palpable and symmetrical. Absent : calf tenderness, cyanotic, pedal edema - Neurological Exam Neurological exam: Present: alert, CN II-XII intact, oriented X3, no focal deficits. Absent: pronater drift, facial droop, speech deficit - Skin Skin exam: Present: dry, intact - VTE Documentation of Mechanical Device: Graduated compression elastic hosiery
--- NOTE | 2017-04-08 15:43 | Electrocardiograph Report ---
[address] [address] Test Date: 2017-04-08 Pat Name: Homero Hayes Department: 113 Room: 3B41 Gender: M [employer] Buffer: : 1930 Requested By: Quang Chapman Order Number: [id number] Reading MD: Brandon De Jesus Measurements Intervals [place] Rate: 102 P: DC: 0 QRS: -71 QRSD: 159 T: 21 QT: 372 QTc: 430 Interpretive Statements ATRIAL FIBRILLATION WITH RAPID VENTRICULAR RESPONSE WITH ABERRANT CONDUCTION OR VENTRICULAR PREMATURE COMPLEXES RIGHT BUNDLE BRANCH BLOCK LEFT ANTERIOR FASCICULAR BLOCK Electronically Signed On 04-08-2017 15:41:45 EDT by Brandon De Jesus
--- NOTE | 2017-04-09 18:23 | Electrocardiograph Report ---
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
== END 2017-04-08 12:57 | disposition home health service (06) | DRG 308 ==
LOC: 3BNU 13:11 → EMEROO 13:11 → 3BNU 16:41 → SUATTDRO 16:45
PROVIDERS: ADMIT Internal Medicine; ATTEND Internal Medicine

== ENCOUNTER 2017-04-10 10:47 | Inpatient (IN) ==
--- NOTE | 2017-04-10 10:58 | Emergency Department Note ---
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 Per EMS, patient had woken up in the morning with slurred speech and confusion. Last known well was last night around 7 or 8 PM. Family states he was playing board games with them last night and had been talking appropriately. Denies any prior history of stroke. Patient does have history of atrial fibrillation and is on Coumadin. Patient was recently discharged from the hospital 2 days ago after being admitted for atrial fibrillation with RVR and congestive heart failure. He had cardiac evaluation at that time and had his metoprolol increased. Onset (ago): unknown (Last known well at 7 PM yesterday) Pain Severity: moderate Consistency: Worsening Improves with: nothing Worsens with: nothing Associated symptoms: Reports: confusion, other (sinus fullness). Denies: chest pain, cough, nausea/vomiting, shortness of breath Treatments Prior to Arrival: none - Related Data Home Medications Medication Instructions Recorded Confirmed Aspirin [Lo-Dose Aspirin EC] 81 mg PO DAILY 11/05/16 04/10/17 Atorvastatin Calcium [Lipitor] 20 mg PO HS 11/05/16 04/10/17 LORazepam [Ativan] 0.5 mg PO TID PRN 11/05/16 04/10/17 Melatonin 10 mg PO HS PRN 11/05/16 04/10/17 Warfarin [Coumadin] 3 mg PO DAILY 01/07/17 04/10/17 Albuterol Neb [AccuNeb] 0.63 mg IH TID 02/15/17 04/10/17 Budesonide/Formoterol 160/4.5 2 puff IH BIDR 03/30/17 04/10/17 [Symbicort 160/4.5] Umeclidinium [place] [Incruse 1 puff IH DAILY 03/30/17 04/10/17 Ellipta] Furosemide [Lasix] 20 mg PO BID PRN 04/10/17 04/10/17 Omeprazole [PriLOSEC] 20 mg PO DAILY 04/10/17 04/10/17 Previous Rx's Medication Instructions Recorded Acetaminophen [Tylenol] 650 mg PO Q6HR PRN tab 02/11/17 Bismuth Subsalicylate 30 ml PO QID PRN 02/11/17 [PEPTO-BISMOL (262mg/15mL) Susp] Docusate [Colace] 200 mg PO BID #60 tab 02/11/17 HYDROcodone/Acet 5/325 mg [[place] 1 tab PO Q4HR PRN #10 tablet 04/01/17 5-325 mg] Digoxin [Lanoxin] 0.125 mg PO DAILY #30 tablet 04/08/17 Fluticasone Propionate Nasal 100 mcg NS DAILY bottle 04/08/17 [Flonase] Metoprolol [Lopressor] 50 mg PO BID #60 tablet 04/08/17 Phenazopyridine [Pyridium] 100 mg PO TID PRN #120 tablet 04/08/17 Allergies Allergy/AdvReac Type Severity Reaction Status Date / Time tetanus immune globulin Allergy Intermediate unknown Verified 03/06/17 17:39 All systems ED: reviewed and negative except as stated. Past Medical History - Past Medical History Attestation: Yes The following information was validated with the patient. Source: patient Medical history: Reports: atrial fibrillation, cancer, CHF, COPD, coronary artery disease, myocardial infarction, pulmonary embolus, valvular heart disease Surgical history: Reports: angioplasty/stent, appendectomy, knee replacement, vascular surgery (TAVR) Psychiatric history: Reports: no psych history - Social History Smoking Status: Former smoker Smokeless Tobacco Status: No Alcohol use: Reports: none Drug use: Reports: none Physical Exam - General Limitations: altered mental status General appearance: alert, in no apparent distress - Head Head exam: atraumatic, normocephalic, normal inspection - Eye Eye exam: Present: normal appearance, PERRL, EOMI - ENT ENT exam: normal exam, normal oropharynx, mucous membranes moist - Neck Neck exam: Present: normal inspection, full ROM, trachea midline - Chest Chest inspection: Present: normal inspection, symmetric chest wall rise - Respiratory Respiratory exam: Present: normal lung sounds bilaterally - Cardiovascular Cardiovascular exam: Present: regular rate, normal rhythm, normal heart sounds - Abdominal Exam Abdominal exam: Present: soft, Non-Tender. Absent: tenderness, distention, guarding, rebound, rigidity - Extremities Exam Extremities exam: Present: normal inspection, full ROM. Absent: tenderness, pedal edema - Back Exam Back exam: Present: normal inspection - Neurological Exam Neurological exam: Present: alert, other (oriented to self and month) - Expanded Neurological Exam Patient oriented to: Present: person, time Speech: Present: fluid speech (slow) Motor strength - LUE: 3/5 Motor strength - RUE: 3/5 Motor strength - LLE: 3/5 Motor strength - RLE: 3/5 Sensory exam upper extremity: light touch: Normal Sensory exam lower extremity: light touch: Normal Coma Scale Eye Opening: Spontaneous Coma Scale Motor Response: Obeys Commands Coma Scale Verbal Response: Oriented Coma Scale Total: 15 - Psychiatric Psychiatric exam: Present: normal affect, normal mood - Skin Skin exam: Present: warm, dry, intact, normal color Course Course Narrative: Patient seen and examined. Patient seems to have generalized weakness along with some slurred speech and some intermittent altered mentation. Upon my examination, he remembers that he was just discharged from the hospital. He is able to say his name as well as the month. His speech does not seem terribly slurred but is slow. He does require redirecting to answer his questions. He does follow commands. GCS is intermittent 14/15. Will commence altered mental status workup along with CT of the head to evaluate for CVA. Since his last known well was around 7 PM last night, patient would be out of the window to being tPA candidate. Since he is also on anticoagulation, he would not be a candidate. Patient's oxygenation is 88% on room air. Placed on some oxygen and get a chest x-ray and urinalysis to evaluate for other signs of infection that could cause altered mentation. There is some difficulty with obtaining full NIH examination due to pt being somewhat somnolent and needing redirection for following commands. NIH 9 based on upper and lower extremity weakness and slurred speech. - Reevaluation(s) Reevaluation #1: lab called, crit troponin 0.17. Patient's prior troponin level was 0.18 2 days ago. Patient currently denying any chest pain or difficulty breathing. This appears chronic. We will hold off on any aspirin therapy. Chest x-ray does show signs of some worsening congestive heart failure. CT of the head negative for any acute strokes. We will admit for CVA workup as well as altered mental status. Discussed with hospitalist Dr. Mann who has accepted patient for admission. Time: 17:13 Vital Signs Temperature 97.7 F 04/10/17 10:48 Pulse Rate 91 04/10/17 10:48 Respiratory Rate 24 04/10/17 10:48 Blood Pressure 137/77 04/10/17 10:48 O2 Sat by Pulse Oximetry 95 04/10/17 10:48 Temperature 97.5 F L 04/10/17 13:41 Pulse Rate 77 04/10/17 13:41 Respiratory Rate 18 04/10/17 16:17 Blood Pressure 107/69 04/10/17 13:41 O2 Sat by Pulse Oximetry 98 04/10/17 16:17 Oxygen Delivery Oxygen Delivery Nasal Cannula Medical Decision Making - Medical Records Medical records reviewed: Yes I reviewed the patient's medical records. - Lab Data Lab results reviewed: Yes I reviewed the patient's lab results. Result diagrams: 04/10/17 11:03 04/10/17 11:03 Lab Results 04/10/17 04/10/17 04/10/17 Range/Units 10:51 11:03 11:03 WBC 16.9 H (4.3-11.1) K/mcL RBC 4.27 (4.19-5.50) M/mcL Hgb 11.0 L (12.9-16.9) g/dL Hct 35.1 L (37.5-50.1) % MCV 82.2 L (83.0-100.0) fL MCH 25.8 L (28.0-33.3) pg MCHC 31.3 L (31.6-35.5) g/dL RDW 17.7 H (11.5-14.5) % Plt Count 674 H (140-400) K/mcL MPV 8.5 L (9.4-12.4) fL Immature Gran % 0.7 (0-4) % Seg Neutrophils % 79.2 % Lymphocytes % 11.0 % Monocytes % 6.9 % Eosinophils % 1.7 % Basophils % 0.5 % Neutrophils # 13.4 H (1.6-8.9) K/mcL Lymphocytes # 1.9 (0.6-4.6) K/mcL Monocytes # 1.2 (0.0-1.3) K/mcL Eosinophils # 0.3 (0.0-0.6) K/mcL Basophils # 0.1 (0.0-0.2) K/mcL Immature Plt Fraction 2.0 (1.1-6.1) % PT 23.9 H (9.4-12.1) Seconds INR 2.2 APTT 34.8 (26.0-36.0) Seconds Sodium (136-145) mEq/L Potassium (3.5-4.5) mEq/L Chloride (98-109) mEq/L Carbon Dioxide (19-29) mEq/L BUN (8-26) mg/dL Creatinine (0.72-1.25) mg/dL Est GFR ( Amer) (> 60) Est GFR (Non-Af Amer) (> 60) BUN/Creatinine Ratio (6-26) Glucose (70-99) mg/dL POC Glucose 97 H (58-89) Calculated Osmolality (280-300) Calcium (8.6-10.8) mg/dL Total Bilirubin (0.2-1.2) mg/dL Direct Bilirubin (0.0-0.5) mg/dL Indirect Bilirubin (0.0-1.2) mg/dL AST (5-34) Units/L ALT (0-55) Units/L Alkaline Phosphatase (38-126) Units/L Ammonia (18-72) mcmol/L Troponin I (0-0.03) ng/mL B-Natriuretic Peptide (0-100) pg/mL Serum Total Protein (6.0-8.3) g/dL Albumin (3.5-5.0) g/dL Globulin (2.4-3.5) g/dL Albumin/Globulin Ratio (1.1-2.2) Ethyl Alcohol (0-10) mg/dL 04/10/17 04/10/17 04/10/17 Range/Units 11:03 11:03 11:03 WBC (4.3-11.1) K/mcL RBC (4.19-5.50) M/mcL Hgb (12.9-16.9) g/dL Hct (37.5-50.1) % MCV (83.0-100.0) fL MCH (28.0-33.3) pg MCHC (31.6-35.5) g/dL RDW (11.5-14.5) % Plt Count (140-400) K/mcL MPV (9.4-12.4) fL Immature Gran % (0-4) % Seg Neutrophils % % Lymphocytes % % Monocytes % % Eosinophils % % Basophils % % Neutrophils # (1.6-8.9) K/mcL Lymphocytes # (0.6-4.6) K/mcL Monocytes # (0.0-1.3) K/mcL Eosinophils # (0.0-0.6) K/mcL Basophils # (0.0-0.2) K/mcL Immature Plt Fraction (1.1-6.1) % PT (9.4-12.1) Seconds INR APTT (26.0-36.0) Seconds Sodium 136 (136-145) mEq/L Potassium 4.1 (3.5-4.5) mEq/L Chloride 98 (98-109) mEq/L Carbon Dioxide 29 (19-29) mEq/L BUN 17 (8-26) mg/dL Creatinine 0.91 (0.72-1.25) mg/dL Est GFR ( Amer) > 60 (> 60) Est GFR (Non-Af Amer) > 60 (> 60) BUN/Creatinine Ratio 19 (6-26) Glucose 94 (70-99) mg/dL POC Glucose (58-89) Calculated Osmolality 283 (280-300) Calcium 9.6 (8.6-10.8) mg/dL Total Bilirubin 1.1 (0.2-1.2) mg/dL Direct Bilirubin 0.5 (0.0-0.5) mg/dL Indirect Bilirubin 0.6 (0.0-1.2) mg/dL AST 29 (5-34) Units/L ALT 23 (0-55) Units/L Alkaline Phosphatase 129 H (38-126) Units/L Ammonia 19 (18-72) mcmol/L Troponin I 0.17 H* (0-0.03) ng/mL B-Natriuretic Peptide (0-100) pg/mL Serum Total Protein 7.3 (6.0-8.3) g/dL Albumin 3.0 L (3.5-5.0) g/dL Globulin 4.3 H (2.4-3.5) g/dL Albumin/Globulin Ratio 0.7 L (1.1-2.2) Ethyl Alcohol < 10 (0-10) mg/dL 04/10/17 Range/Units 11:03 WBC (4.3-11.1) K/mcL RBC (4.19-5.50) M/mcL Hgb (12.9-16.9) g/dL Hct (37.5-50.1) % MCV (83.0-100.0) fL MCH (28.0-33.3) pg MCHC (31.6-35.5) g/dL RDW (11.5-14.5) % Plt Count (140-400) K/mcL MPV (9.4-12.4) fL Immature Gran % (0-4) % Seg Neutrophils % % Lymphocytes % % Monocytes % % Eosinophils % % Basophils % % Neutrophils # (1.6-8.9) K/mcL Lymphocytes # (0.6-4.6) K/mcL Monocytes # (0.0-1.3) K/mcL Eosinophils # (0.0-0.6) K/mcL Basophils # (0.0-0.2) K/mcL Immature Plt Fraction (1.1-6.1) % PT (9.4-12.1) Seconds INR APTT (26.0-36.0) Seconds Sodium (136-145) mEq/L Potassium (3.5-4.5) mEq/L Chloride (98-109) mEq/L Carbon Dioxide (19-29) mEq/L BUN (8-26) mg/dL Creatinine (0.72-1.25) mg/dL Est GFR ( Amer) (> 60) Est GFR (Non-Af Amer) (> 60) BUN/Creatinine Ratio (6-26) Glucose (70-99) mg/dL POC Glucose (58-89) Calculated Osmolality (280-300) Calcium (8.6-10.8) mg/dL Total Bilirubin (0.2-1.2) mg/dL Direct Bilirubin (0.0-0.5) mg/dL Indirect Bilirubin (0.0-1.2) mg/dL AST (5-34) Units/L ALT (0-55) Units/L Alkaline Phosphatase (38-126) Units/L Ammonia (18-72) mcmol/L Troponin I (0-0.03) ng/mL B-Natriuretic Peptide 666 H (0-100) pg/mL Serum Total Protein (6.0-8.3) g/dL Albumin (3.5-5.0) g/dL Globulin (2.4-3.5) g/dL Albumin/Globulin Ratio (1.1-2.2) Ethyl Alcohol (0-10) mg/dL - Radiology Data Radiology results reviewed: Yes I reviewed the patient's radiology results. Chest X-Ray 04/10/17 10:54 IMPRESSION: Cardiomegaly with vascular congestion and suspected interstitial pulmonary edema. Radiographic follow-up recommended to assure resolution. D/ /10/2017 12:37:20 Quang Siddiqui MD / merlene Interpreting Provider: Quang Siddiqui MD Head CT 04/10/17 16:31 IMPRESSION: No acute intracranial abnormality. Findings were called to Gely Sarmiento at 4:57 pm on 04/10/2017. D/ / Agatha Thomas Cha, MD / Agatha Thomas Cha, MD Interpreting Provider: Agatha Thomas Cha, MD - EKG Data EKG #1 EKG attestation: Yes I reviewed and interpreted this EKG. EKG results narrative: EKG done at 1104 shows atrial fibrillation with a rate of [address] elevation. Right bundle branch block present. Left anterior fascicular block present. Left axis deviation. Mild ST depression in leads V2 and V3. Appear unchanged from prior EKG done 04/08/2017. Critical Care Time Critical Care Time: Yes Total Critical Care Time: 35 Attestation: cc time 35 min Attestation Statement - Attestation Attestation: Patient was seen with resident physician. I reviewed the history, physical, assessment and plan, and agree with the findings. I also personally evaluated this patient and had [id number] time with this patient. 86-year-old male presents to the emergency department with chief complaint of mental status change. Patient apparently was found this morning to have some slurred speech and not acting his usual self. No focal weakness. Comes in today with slow speech but not classically slurred. He Moves all extremities. Patient himself Denies complaints. He was able to answer all questions and was alert to person place and time. Moved all extremities. On exam vital signs are stable. ENT is unremarkable. Heart and lungs mild crackles to lung exams. Abdomen soft and nontender. Extremities unremarkable. Neurologically patient is alert oriented to place and date, moves all extremities has some generalized weakness but nothing focal. Cranial nerves are intact. ED course labs demonstrated elevated troponin, which is actually lower than it was a couple days ago. Patient also has CHF on x-ray. EKG demonstrates a atrial fibrillation which is not new. Patient is appropriately anticoagulated. We did contemplate doing a stroke alert, but the patient's symptoms are really not consistent with activating that protocol. He was doing well and he was more of an elderly mental status change workup which is ultimately what we did. At the time of admission was felt that patient likely was having issues related to CHF. Hemodynamically remained stable. We will admit to the hospitalist service for further evaluation and treatment. I agree with the resident physician assessment and plan. Critical care time 35 minutes.
[2017-04-10 11:11] LABS: Basophils # 0.1 K/mcL (0.0-0.2); Basophils % 0.5 %; Eosinophils # 0.3 K/mcL (0.0-0.6); Eosinophils % 1.7 %; Hematocrit 35.1 % (37.5-50.1); Immature Granulocytes % 0.7 % (0-4); Lymphocytes # 1.9 K/mcL (0.6-4.6); Mean Corpuscular HGB Conc 31.3 g/dL (31.6-35.5); Mean Corpuscular Hemoglobin 25.8 pg (28.0-33.3); Mean Corpuscular Volume 82.2 fL (83.0-100.0); Mean Platelet Volume 8.5 fL (9.4-12.4); Monocytes # 1.2 K/mcL (0.0-1.3); Monocytes % 6.9 %; Neutrophils # 13.4 K/mcL (1.6-8.9); Platelet Count 674 K/mcL (140-400); Red Blood Count 4.27 M/mcL (4.19-5.50); Red Cell Distribution Width 17.7 % (11.5-14.5); Segmented Neutrophils % 79.2 %
[2017-04-10 11:15] LABS: INR 2.2; Prothrombin Time 23.9 Seconds (9.4-12.1)
[2017-04-10 11:18] LABS: Activated Partial Thrombo Time 34.8 Seconds (26.0-36.0)
[2017-04-10 11:24] LABS: Alanine Aminotransferase 23 Units/L (0-55); Albumin/Globulin Ratio 0.7 (1.1-2.2); Alkaline Phosphatase 129 Units/L (38-126); Aspartate Amino Transferase 29 Units/L (5-34); BUN/Creatinine Ratio 19 (6-26); Bilirubin,Direct 0.5 mg/dL (0.0-0.5); Bilirubin,Indirect 0.6 mg/dL (0.0-1.2); Bilirubin,Total 1.1 mg/dL (0.2-1.2); Blood Urea Nitrogen 17 mg/dL (8-26); Calcium 9.6 mg/dL (8.6-10.8); Carbon Dioxide 29 mEq/L (19-29); Chloride 98 mEq/L (98-109); Globulin 4.3 g/dL (2.4-3.5); Glucose 94 mg/dL (70-99); Osmolality,Calculated 283 (280-300); Potassium 4.1 mEq/L (3.5-4.5); Sodium 136 mEq/L (136-145); Total Protein 7.3 g/dL (6.0-8.3); eGFR For African Americans > 60 (> 60); eGFR For Non-African Americans > 60 (> 60)
[2017-04-10 11:25] LABS: Ethanol < 10 mg/dL (0-10)
[2017-04-10] MEDS ORDERED: Ondansetron 4 MG/2 ML VIAL IVP PRN (12:54)
[2017-04-10] MEDS ORDERED: Naloxone 0.4 MG/ML INJ IVP PRN (12:54)
--- NOTE | 2017-04-10 13:04 | Internal Med History&Physical ---
<Gely Sarmiento - Last Filed: 04/10/17 18:25> Date of Encounter: 04/10/17 Time of Encounter: 13:03 Assessment and Plan (1) TIA (transient ischemic attack) Current visit: Yes Status: Suspected 1 family found patient this am experiencing garbled speech, by the time he arrived to the ED his sx had resolved and was able to speak clearly. No facial droop no focal weakness . He did fail bedside swallow . We will make patient NPO continue with [facility] evaluation 2 obtain MRI MRA brain 3 continue cardiac monitoring 4 continue ASA and statin 5 check lipid panel 6 consult neurology 7 fall precautions 8 aspiration precaution 9 we will convert po meds to IV Qualifiers: Transient cerebral ischemia type: unspecified Qualified Code(s): G45.9 - Transient cerebral ischemic attack, unspecified (2) Elevated troponin Current visit: No Status: Chronic 1 this appears to be chronically elevated. We will continue to trend patient denies any chest pain this time Continuous cardiac monitoring (3) Atrial fibrillation Current visit: No Status: Chronic Presently rate controlled we will continue with digoxin as well as metoprolol. Continue with Coumadin Qualifiers: Atrial fibrillation type: chronic Qualified Code(s): I48.2 - Chronic atrial fibrillation (4) Bladder tumor Current visit: No Status: Chronic 1 patient is being followed by urology Dr. Kee will continue his outpatient consult as needed. (5) CHF (congestive heart failure) Current visit: No Status: Chronic 1 echo completed 03/29/2017 Impressions: LVEF 60%. Normal LV chamber size and function. Mild to moderate concentric left ventricular hypertrophy. Indeterminate diastolic function. Atypical septal motion consistent with bundle branch block. Moderately dilated right ventricle with normal appearing function. Severely dilated right atrium. Bioprosthetic aortic valve appears well seated in the LVOT. Leaflets not well visualized. Mild aortic regurgitation. Unable to determine if valvular or perivalvular. No aortic stenosis. Mean gradient 13 mmHg. Mild tricuspid regurgitation. Estimated RVSP is 40 mmHg. Mild pulmonary hypertension. Patient does have some vascular congestion on his chest x-ray as well as crackles in bases bilaterally no pedal edema. On Lasix 20 mg twice a day-we will increase to 40 Monitoring intake and output daily weights 1500 fluid restriction -when taking oral Low-sodium diet Qualifiers: Congestive heart failure type: diastolic Congestive heart failure chronicity: acute on chronic Qualified Code(s): I50.33 - Acute on chronic diastolic (congestive) heart failure (6) Chronic indwelling Santamaria catheter Current visit: No Status: Chronic (7) S/P TAVR (transcatheter aortic valve replacement) Current visit: No Status: Chronic (8) DVT prophylaxis Current visit: No Status: Acute 1 on coumdin Internal Medicine - H&P: HPI Chief complaint: slurred speech Admitted From: Emergency Dept Plans for Post Hospital Care: Home History of present illness: Mr. Hayes is a 86 year old male with medical history of CHF bladder cancer and treatment of Dr. Kee COPD DVT status post IVC filter valvular disease with TAVR complete [facility] earlier this month. He has had recent hospitalizations for CHF exacerbation with most recent dated 04/06/2017. According to his family he was doing well after discharge last night he was up with his family playing cards last known well approximately 10 PM. Some time during the night he did awake with short of breath and was having a nosebleed. He written a note which was found by family members as stated he was unable to breathe and nose was congested. By mouth members found patient this morning with dried blood around his face as well as confused with garbled speech. He was brought to the ER for evaluation. According to ER by time patient arrived T speech had improved and was clear however he was very slow to process information CT of head was negative rest of lab work was unremarkable he was admitted for further workup evaluation. Presently patient is alert oriented 3 , speech is clear however he slow to respond, follows commands no facial droop equal strength in all 4 extremities. Did discuss CODE STATUS with family which agreed patient is to be DNR CCA with no intubation. He is hemodynamically stable this time. Past Med Surg Social Fam HX - Past Medical History Medical history: atrial fibrillation, cancer, CHF, COPD, coronary artery disease , myocardial infarction, pulmonary embolus, valvular heart disease Psychiatric history: no psych history - Past Surgical History Surgical History: angioplasty/stent, appendectomy, knee replacement, vascular surgery (TAVR) - Social History Smoking Status: Former smoker Smokeless Tobacco Status: No Alcohol use: none Drug use: none - Family History Father Hx Family Cardiac Disorders: Yes Internal Medicine - H&P: Meds Aspirin [Lo-Dose Aspirin EC] 81 mg PO DAILY 11/05/16 [History] Atorvastatin Calcium [Lipitor] 20 mg PO HS 11/05/16 [History] LORazepam [Ativan] 0.5 mg PO TID PRN 11/05/16 [History] Melatonin 10 mg PO HS PRN 11/05/16 [History] Warfarin [Coumadin] 3 mg PO DAILY 01/07/17 [History] Acetaminophen [Tylenol] 650 mg PO Q6HR PRN tab 02/11/17 [Rx] Bismuth Subsalicylate [PEPTO-BISMOL (262mg/15mL) Susp] 30 ml PO QID PRN [Rx] Docusate [Colace] 200 mg PO BID #60 tab 02/11/17 [Rx] Albuterol Neb [AccuNeb] 0.63 mg IH TID 02/15/17 [History] Budesonide/Formoterol 160/4.5 [Symbicort 160/4.5] 2 puff IH BIDR 03/30/17 [ History] Umeclidinium [place] [Incruse Ellipta] 1 puff IH DAILY 03/30/17 [History] HYDROcodone/Acet 5/325 mg [[place] 5-325 mg] 1 tab PO Q4HR PRN #10 tablet [Rx] Digoxin [Lanoxin] 0.125 mg PO DAILY #30 tablet 04/08/17 [Rx] Fluticasone Propionate Nasal [Flonase] 100 mcg NS DAILY bottle 04/08/17 [Rx] Metoprolol [Lopressor] 50 mg PO BID #60 tablet 04/08/17 [Rx] Phenazopyridine [Pyridium] 100 mg PO TID PRN #120 tablet 04/08/17 [Rx] Furosemide [Lasix] 20 mg PO BID PRN 04/10/17 [History] Omeprazole [PriLOSEC] 20 mg PO DAILY 04/10/17 [History] 3 Allergy/AdvReac Type Severity Reaction Status Date / Time tetanus immune globulin Allergy Intermediate unknown Verified 03/06/17 17:39 All Systems PM: A 10-system review of systems was performed and is negative for pertinent findings except as documented above in the HPI. - Constitutional Constitutional: no chills, no fever(s), no night sweats - EENT Eyes: no change in vision, no discharge, no pain, no photophobia Nose, mouth and throat: epistaxis - Cardiovascular Cardiovascular ROS IM: dyspnea, no chest pain, no diaphoresis, no lightheadedness, no palpitations, no syncope - Respiratory Respiratory: dyspnea - Gastrointestinal Gastrointestinal: no abdominal pain, no diarrhea, no hematemesis, no hematochezia, no melena, no nausea, no vomiting - Musculoskeletal Musculoskeletal ROS IM: no numbness, no tingling - Integumentary Integumentary IM: no rash, no unusual bruising - Neurological Neurological ROS: no confusion, no convulsions, no focal weakness, no numbness, no tingling, no tremor(s) - Hematologic/Lymphatic Hematologic/Lymphatic: no easy bruising - Constitutional Vitals: Temp Pulse Resp BP Pulse Ox 97.7 F 80 18 107/68 98 04/10/17 10:48 04/10/17 12:00 04/10/17 12:00 04/10/17 12:00 04/10/17 12:00 General appearance: Present: A&O X 3, answers questions appropriately - Head Head exam: Present: atraumatic, normocephalic - Eye Eye exam: Present: PERRL, conjuntiva pink, sclera anicteric Pupils: Present: PERRL - Neck Neck exam general surgery: Present: supple, trachea midline. Absent: lymphadenopathy - Respiratory Respiratory exam: Present: rales. Absent: accessory muscle use, rhonchi, wheezes Additional comments: Crackles in bases bilaterally - Cardiovascular Cardiovascular exam: Present: RRR, +S1, +S2. Absent: diastolic murmur, gallop, rubs, systolic murmur - Extremities Exam Extremities exam: Present: warm, radial pulses palpable and symmetrical. Absent : calf tenderness, cyanotic, pedal edema - Neurological Exam Neurological exam: Present: CN II-XII intact, oriented X3, no focal deficits, strengths equal and symetr throughout. Absent: pronater drift, facial droop, speech deficit - Skin Skin exam: Present: dry, intact Internal Med - H&P Results - Labs CBC & Chem 7: 04/10/17 11:03 04/10/17 11:03 - EKG Data Prior EKG available for review: yes When compared to previous EKG: there is no significant change EKG comments: 04/10/17 13:23 Afib - Diagnostic Studies Chest x-ray Additional comments: Chest X-Ray 04/10/17 10:54 IMPRESSION: Cardiomegaly with vascular congestion and suspected interstitial pulmonary edema. Radiographic follow-up recommended to assure resolution. D/ /10/2017 12:37:20 Quang Siddiqui MD / merlene Interpreting Provider: Quang Siddiqui MD Head CT 04/10/17 11:11 IMPRESSION: No acute intracranial abnormality. D/ / Suraj Matos MD / Suraj Matos MD Interpreting Provider: Suraj Matos MD <Jovan Mann - Last Filed: 04/10/17 19:31> Date of Encounter: 04/10/17 Internal Medicine - H&P: HPI History of present illness: Mr. Hayes is a 86 year old male All Systems PM: A 10-system review of systems was performed and is negative for pertinent findings except as documented above in the HPI. - Constitutional Vitals: Temp Pulse Resp BP Pulse Ox 98.7 F 99 22 152/93 95 04/10/17 16:55 04/10/17 17:30 04/10/17 17:30 04/10/17 17:30 04/10/17 17:30 Internal Med - H&P Results - Labs CBC & Chem 7: 04/10/17 11:03 04/10/17 11:03 Labs: Cardiac Enzymes 04/10/17 Range/Units 16:08 Troponin I 0.15 H* (0-0.03) ng/mL Urine 04/10/17 Range/Units Unknown Urine Color [place] A (Yellow) Urine Clarity Cloudy A (Clear) Urine pH 7.0 (5.0-8.0) pH Units Ur Specific [place] 1.016 (1.010-1.025) Urine Protein Negative (Neg-Trace) mg/dL Urine Glucose (UA) Normal (Normal) mg/dL - ABG Interpretation ABG results: 04/10/17 17:24 ABG pH 7.45 ABG pCO2 43 ABG pO2 81 L ABG HCO3 30 H ABG Total CO2 31 H ABG O2 Saturation 96 ABG Base Excess 5 H - Impressions ITS Impressions Head CT 04/10/17 16:31 IMPRESSION: No acute intracranial abnormality. Findings were called to Gely Sarmiento at 4:57 pm on 04/10/2017. D/ / Agatha Thomas Cha, MD / Agatha Thomas Cha, MD Interpreting Provider: Agatha Thomas Cha, MD - Attending Attestation I independently obtained history and examined this patient and my medical decision-making was reviewed with the nurse practitioner. I agree with the documented findings, disposition and treatment plan as described. My findings are summarized below: A stroke alert was called at 4:25 PM. I arrived at the bedside within 2 minutes. The patient was aphasic and had sudden onset right upper extremity weakness. On my evaluation appears to have decreased responsiveness. Pupils are equal round reactive to light extraocular movements are intact and is not following commands. He appears to be obtunded. He has right-sided flaccid paralysis and loss of sensation on the right as well as right sided facial droop. Due to concern for opioid medication overdose I administered 1 dose 0.4 mg of Narcan. There was no response to this. Due to sudden change in mental status and neurological condition and new focal neurological deficits we proceeded with the stroke alert. We took the patient down to CT and performed a repeat noncontrast head CT and CT angiogram of the head and neck with IV contrast. During this time and continue to reevaluate the patient. He appeared to be hemodynamically stable however still obtunded, minimally responsive. We proceeded to take the patient to the emergency department and called [facility] neurology. They had a live evaluation of the patient's condition and deemed him not a candidate for TPA due to onset of symptoms last night and anticoagulation with Coumadin with therapeutic INR of 2.2. I discussed the imaging findings with the [facility] neurologist who sees no significant flow restrictive lesion on the CTA. I discussed the head CT with the radiologist who sees no acute intracranial abnormality. During this time the patient remained difficult to arouse but hemodynamically stable. His blood glucose was 85. Oxygen saturation was maintained above 93% with supplemental oxygen by nasal cannula. Soon after the telemetry neurology evaluation the patient started to arouse and had some spontaneous movements. He appeared to be confused but was moving all 4 extremities. He has facial droop had resolved. Due to his altered mental status CO2 narcosis as well as worsening sepsis enter the differential and therefore we obtained a lactic acid which was 0.9 and ABG which showed pH of 7.45 PCO2 within normal limits. He was able to answer simple questions but speech was still very slurred. We ordered a stat MRA and MRI of the brain. The reports of the MRI were read as multiple tiny acute infarcts in the left frontal and right parietal lobes suggestive cardioembolic source. 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 Plan: Urine checks per protocol. NIHSS. Nothing by mouth. Aspiration precautions. Speech evaluation. PT OT. DVT prophylaxis. Hold Coumadin due to nothing by mouth. Resume when he has a reliable oral intake. Check INR daily and if it drops below 2.0 we will start heparin drip. Consult neurology. Rectal aspirin daily. Check lipid panel. Continue with statin. IV fluids. Permissive hypertension to allow blood pressure up to 200/90. Focal seizure enter the differential when the patient became altered and we ordered loading dose of Keppra and EEG, however now in view of the new diagnosis of acute stroke, a seizure is less likely and therefore we will hold off on the above. I discussed plan of care with patient's family. After the MRI and patient is neurological condition improved and he is close to his baseline. Prognosis: Is guarded recurrent embolic strokes while on Coumadin. CODE STATUS: He is DNR/DNI and this was confirmed with the family at the bedside. The high probability of emergent and significant clinical decompensation with potential impairment of organ function including nervous and respiratory systems required my full attention and presence at the bedside. I spent 60 minutes of critical care time which involved decision making of high complexity to assess, manipulate, and support vital organ system, in order to prevent further life threatening deterioration of the patient's condition. The critical care time was spent in the patient's room and/or its close proximity (CT scan area, ED room) and involved obtaining updated history and frequently examining the patient, reviewing EKGs, imaging studies and laboratory data, ordering medications and laboratory studies, discussing the case with consultants and reevaluating for clinical response. The time took to perform any procedures was not included in the critical care time quoted above and is billed separately. Jovan Mann MD
[2017-04-10] MEDS ORDERED: Albuterol 2.5 MG/3 ML NEBULIZER IH PRN (13:56)
[2017-04-10 15:18] LABS: Bilirubin,Urine Negative (Negative); Blood,Urine Negative (Negative); Clarity,Urine Cloudy (Clear); Color,Urine Orange (Yellow); Glucose,Urine (UA) Normal (Normal); Ketones,Urine Negative (Negative); Leukocyte Esterase,Urine Small (Negative); Nitrite,Urine Positive (Negative); Protein,Urine Negative (Neg-Trace); Specific Gravity,Urine 1.016 (1.010-1.025); Urobilinogen,Urine Normal (Normal)
[2017-04-10 15:20] LABS: Bacteria,Urine None Seen per hpf (None-Few); Hyaline Casts,Urine None Seen per lpf (None-Few); RBC,Urine 0-3 per hpf (0-3); Squamous Epithelial Cell,Urine None Seen per lpf (None-Few); WBC,Urine 0-3 per hpf (0-3)
[2017-04-10 15:23] LABS: Amphetamine Screen,Urine Negative ng/mL (Cutoff=1000); Barbiturate Screen,Urine Negative ng/mL (Cutoff=200); Benzodiazepines Screen,Urine Negative ng/mL (Cutoff=200); Cannabinoid Screen,Urine Negative ng/mL (Cutoff = 50); Cocaine Screen,Urine Negative ng/mL (Cutoff= 300); Opiate Screen,Urine Negative ng/mL (Cutoff=300); Phencyclidine Screen,Urine Negative ng/mL (Cutoff=25)
[2017-04-10] MEDS: Ipratropium/Albuterol Neb 3 ML IH SCH ×2 (16:17→21:05)
[2017-04-10 17:28] LABS: ABG Base Excess 5 mEq/L (-2 to 3); ABG HCO3 30 mEq/L (21-27); ABG Oxygen Saturation 96 % (95-98); ABG PCO2 43 mmHg (35-45); ABG PH 7.45 pH Units (7.32-7.45); ABG PO2 81 mmHg (85-104); ABG TCO2 31 mEq/L (20-26); Blood Gas Modality nc
[2017-04-10] MEDS ORDERED: Warfarin perPT PO PRN (18:00)
[2017-04-10] MEDS ORDERED: *HR* Warfarin 3 MG TABLET PO SCH (18:00)
--- NOTE | 2017-04-10 18:21 | Event Note ---
Date of Encounter: 04/10/17 Time of Encounter: 16:45 Called to patient room per nursing staff . During Neuro assessment patient became unresponsive to verbal tactile stimuli. I had seen the patient approx 20 min earlier and he was A/O X 3 appropriate and following commands with no focal deficits. He now appeared obtunded pupils were equal round and reactive there appears to be right sided facial droop and right-sided flaccid paralysis and loss of sensation. Blood sugar obtained 131 Tox screen neg, Stroke alert called at 4:[address] Mann at bedside. Concern of narcotic overdose narcan given with no response . Tranported to CT SCan for repeat STAT CT of head without contrast and CT angiogram of head and neck with IV contrast. Patient was stable throughout procedure however continue to be minimally responsive occasionally opening eyes to painful stimuli. He was transported to the emergency department and [facility] neurology contacted, via telecom Dr. Betancourt neurologist with [facility] was updated on patient's case and present condition. He did a live evaluation and deemed him not candidate for TPA due to symptomatology began last night and the patient is anticoagulated on Coumadin with therapeutic INR of 2.2. Dr. Mann did review findings with [facility] neurologist , who did not see any acute intracranial abnormalities at that time. During this assessment the patient continued to be difficult to arouse he was hemodynamically stable his glucose was 85 oxygen saturations was 93% despite supplementation per nasal cannula. ABG was obtained as well as a lactate. PH was 7.45 and PCO2 43 After neurology evaluation the patient began to arouse and had some spontaneous movements there was no facial droop. Stat MRI MRA of brain obtained. I did consult and review this case with neurology Dr. Bojorquez who agreed with our plan also advised to initiate Keppra. Results of MRI revealed multiple tiny acute infarcts in the left frontal and right parietal lobes suggestive of cardioembolic source. Patient does have known history of atrial fibrillation he is rate controlled and on Coumadin with therapeutic INR. Again discussed these results with Dr. Bojorquez who advised to continue Keppra at this time. MRI results and plan discussed with family per who verbalized understanding and agreed with plan. Confirmed patient's DNR CCA DNI status. We will continue with NIHSS assessment maintained nothing by mouth with aspiration precautions as well as seizure precautions.
[2017-04-10] MEDS ORDERED: 0.9 % Sodium Chloride 250 ML IVC ONE (18:50)
[2017-04-10] MEDS: 0.9 % Sodium Chloride 1,000 ML IVC SCH (19:10)
[2017-04-10] MEDS: Budesonide/Formoterol 160/4.5 MDI IH SCH (21:06)
[2017-04-11] MEDS: Ipratropium/Albuterol Neb 3 ML IH SCH ×4 (05:32→22:12)
[2017-04-11 06:05] LABS: Basophils # 0.1 K/mcL (0.0-0.2); Basophils % 0.5 %; Eosinophils # 0.4 K/mcL (0.0-0.6); Eosinophils % 2.8 %; Hematocrit 32.4 % (37.5-50.1); Immature Granulocytes % 0.5 % (0-4); Lymphocytes # 1.7 K/mcL (0.6-4.6); Mean Corpuscular HGB Conc 30.9 g/dL (31.6-35.5); Mean Corpuscular Hemoglobin 25.5 pg (28.0-33.3); Mean Corpuscular Volume 82.7 fL (83.0-100.0); Mean Platelet Volume 8.6 fL (9.4-12.4); Monocytes % 7.6 %; Neutrophils # 9.8 K/mcL (1.6-8.9); Platelet Count 443 K/mcL (140-400); Red Blood Count 3.92 M/mcL (4.19-5.50); Red Cell Distribution Width 17.8 % (11.5-14.5); Segmented Neutrophils % 75.6 %
[2017-04-11 06:10] LABS: INR 2.3; Prothrombin Time 24.9 Seconds (9.4-12.1)
[2017-04-11 06:21] LABS: BUN/Creatinine Ratio 19 (6-26); Blood Urea Nitrogen 17 mg/dL (8-26); Carbon Dioxide 28 mEq/L (19-29); Chloride 102 mEq/L (98-109); Chol/HDL Ratio 3.8 (0-4.9); Cholesterol 133 mg/dL (< 200); Glucose 72 mg/dL (70-99); HDL Cholesterol 35 mg/dL (40-59); LDL Cholesterol,Calculated 83 mg/dL (0-99); Osmolality,Calculated 286 (280-300); Potassium 4.1 mEq/L (3.5-4.5); Sodium 138 mEq/L (136-145); Triglycerides 76 mg/dL (< 150); eGFR For African Americans > 60 (> 60); eGFR For Non-African Americans > 60 (> 60)
[2017-04-11] MEDS ORDERED: *HR* Digoxin 0.5 MG/2 ML AMPUL IVP SCH (09:00)
[2017-04-11] MEDS ORDERED: *HR* Digoxin 0.125 MG TABLET PO SCH (09:00)
[2017-04-11] MEDS ORDERED: Aspirin Enteric Coated 81 MG Tablet PO SCH (09:00)
[2017-04-11] MEDS ORDERED: Pantoprazole 40 MG VIAL IVP SCH (09:00)
[2017-04-11] MEDS: (Umeclidinium Bromide [Incruse Ellipta] 1 PUFF) IH SCH (09:11)
[2017-04-11] MEDS: 0.9 % Sodium Chloride 1,000 ML IVC SCH (09:12)
[2017-04-11] MEDS ORDERED: Furosemide 20 MG TABLET PO PRN (09:29)
[2017-04-11] MEDS ORDERED: Melatonin 3 MG TABLET PO PRN (09:29)
[2017-04-11] MEDS ORDERED: *HR* LORazepam 0.5 MG TABLET PO PRN (09:29)
[2017-04-11] MEDS ORDERED: *HR* HYDROcodone/Acet 5/325 mg TABLET PO PRN (09:29)
[2017-04-11] MEDS ORDERED: Bismuth Subsalicylate 120 ML ORAL SUSPENSION PO PRN (09:29)
--- NOTE | 2017-04-11 10:27 | Internal Med Progress Note ---
Date of Encounter: 04/11/17 Time of Encounter: 08:30 - Assessment and plan (1) Acute embolic stroke Current Visit: Yes Status: Acute Assessment and plan: Multiple tiny acute ischemic infarcts in the left frontal and right parietal lobes and left cerebellar hemisphere. Possible embolic source. Continue Coumadin and aspirin and statin. Neurology consultation on patient. We will follow recommendations. Continue Keppra per neurology recommendations. Physical therapy and speech therapy evaluation. Moderate risk for complications. 2-D echocardiogram done last week does not show any atrial thrombus. (2) Anticoagulant long-term use Current Visit: Yes Status: Chronic Assessment and plan: Continue Coumadin. Target INR 2-3 (3) Atrial fibrillation Current Visit: Yes Status: Chronic Assessment and plan: Remains in A. fib. Rate controlled. Qualifiers: Atrial fibrillation type: chronic Qualified Code(s): I48.2 - Chronic atrial fibrillation (4) Bladder tumor Current Visit: Yes Status: Chronic Assessment and plan: With chronic indwelling Santamaria catheter. No indication for antibiotics at this time. Will follow culture results. (5) CHF (congestive heart failure) Current Visit: Yes Status: Chronic Assessment and plan: Keep on fluid restriction. Resume Lasix. No signs of acute heart failure at this time Qualifiers: Congestive heart failure type: diastolic Congestive heart failure chronicity: acute on chronic Qualified Code(s): I50.33 - Acute on chronic diastolic (congestive) heart failure (6) Chronic indwelling Santamaria catheter Current Visit: Yes Status: Chronic Assessment and plan: Due to bladder tumor. (7) DVT prophylaxis Current Visit: Yes Status: Acute Assessment and plan: On Coumadin and INR is therapeutic (8) S/P TAVR (transcatheter aortic valve replacement) Current Visit: No Status: Chronic - Subjective Interval history: Patient is awake and alert. Lying in bed. Appears comfortable. Denies any new complaints at this time. No focal weakness reported. No slurred speech. Was evaluated by speech therapy earlier today and started on diet. - Constitutional Vitals: Temp Pulse Resp BP Pulse Ox 97.7 F 82 16 103/66 97 04/11/17 07:00 04/11/17 07:00 04/11/17 07:00 04/11/17 07:00 04/11/17 07:00 General appearance: Present: cooperative, A&O X 3, pleasant, no acute distress, answers questions appropriately - Neck Neck exam general surgery: Present: supple, trachea midline. Absent: lymphadenopathy - Respiratory Respiratory exam: Present: CTAB. Absent: accessory muscle use, rales, rhonchi, wheezes - Cardiovascular Cardiovascular exam: Present: RRR, +S1, +S2. Absent: diastolic murmur, gallop, rubs, systolic murmur - GI/Abdominal GI/Abdominal exam: Present: normal bowel sounds, soft, no peritoneal signs. Absent: distended, tenderness - Extremities Exam Extremities exam: Present: warm, radial pulses palpable and symmetrical. Absent : calf tenderness, cyanotic, pedal edema - Neurological Exam Neurological exam: Present: alert, CN II-XII intact, oriented X3, no focal deficits, strengths equal and symetr throughout. Absent: facial droop, speech deficit - Skin Skin exam: Present: dry, intact Internal Medicine: Result - Labs CBC & Chem 7: 04/11/17 05:49 04/11/17 05:49 Labs: Short CBC 04/11/17 Range/Units 05:49 WBC 13.0 H (4.3-11.1) K/mcL Hgb 10.0 L (12.9-16.9) g/dL Hct 32.4 L (37.5-50.1) % Plt Count 443 H (140-400) K/mcL Neutrophils # 9.8 H (1.6-8.9) K/mcL BMP 04/11/17 05:49 Sodium 138 Potassium 4.1 Chloride 102 Carbon Dioxide 28 BUN 17 Creatinine 0.91 Glucose 72 Calcium 9.0 Cardiac Enzymes 04/10/17 Range/Units 22:50 Troponin I 0.15 H* (0-0.03) ng/mL Urine 04/10/17 Range/Units Unknown Urine Color [place] A (Yellow) Urine Clarity Cloudy A (Clear) Urine pH 7.0 (5.0-8.0) pH Units Ur Specific [place] 1.016 (1.010-1.025) Urine Protein Negative (Neg-Trace) mg/dL Urine Glucose (UA) Normal (Normal) mg/dL - ABG Interpretation ABG results: ABG ABG pH 7.45 pH Units (7.32-7.45) 04/10/17 17:24 ABG pCO2 43 mmHg (35-45) 04/10/17 17:24 ABG pO2 81 mmHg (85-104) L 04/10/17 17:24 ABG O2 Saturation 96 % (95-98) 04/10/17 17:24 PT/INR, D-dimer PT 24.9 Seconds (9.4-12.1) H 04/11/17 05:49 Consult Discharge Plan - Plan Referrals: Marycruz Mackenzie MD [Primary Care Provider] -
--- NOTE | 2017-04-11 10:45 | Neurology - Consult Note ---
Date of Encounter: 04/11/17 Time of Encounter: 10:44 Assessment and Plan (1) Acute embolic stroke Current Visit: Yes Status: Acute 86 year old man with chronic persistent Atrial fibrillation current on Coumadin with therapeutic INR, and also on Aspirin daily. MRI of brain did show few punctate ischemic infarct, bilateral hemisphere involvement consistent with embolic infarct. Symptoms rapidly improved. Treatment at this time appear adequate and due to his advanced age and co-morbidities, i would recommend simply keep him on current anticoagulation therapy with coumain and antiplatelet therapy with aspirin. Will keep him on Keppra 500mg bid for now although seizures appear unlikely. The true nature of recurrent mental status changes unclear due to lack of changes in his vital signs and it appears that that the patient did not lose his consciousness during the spells. Will obtain routine EEG in the morning. if this returns normal then keppra can be discontinued. History of Present Illness Chief complaint: slurred speech and loss of consciousness HPI: Mr. Hayes is a 86 year old male with PMH significant for CHF, atrial fibrillation on coumadin and aspirin, COPD, aortic stenosis, Nonrheumatoid aortic valve stenossi, CKD who developed acute onset of slurred speech. Yesterday the patient woke up and was found to have slurred speech and was confused although no focal neurological deficits noted. Patient has history of chronic persistent atrial fibrillation and has been on coumadin and aspirin. INT was 2.2 when in ER. Not to be a candidate for tPA thrombolysis due to being on coumadin with therapeutic INR. He was brought in for stroke work up. Per medical staff, the patient subsequently developed episode of acutely altered mental status, described as unresponsiveness. reportedly he was found to be not responsive with eyes opena and not responding to verbal and painful stimuli. During the first spell his vitals were within normal limits. Then he recovered and then had another spells lasting more than 30 minutes. Patient had stat CTA of brain and neck which showed no acute intracranial abnormalities. MRI of brain however, showed presence of few punctate ischemic infarct at both hemisphere indicating embolic stroke of central source. At the time of this interview, patient symptoms resolved and he is back to his baseline. When asked about the spells he tells me that he was having a dream at the time and that during the episodes he was feeling somebody was pinching him but he did not want to wake up because he wanted to sleep. Patient was started keppra 500mg bid for possible seizures. However, during the spells no motor activity was reported. Past Med Surg Social Fam HX - Past Medical History Medical history: atrial fibrillation, cancer, CHF, COPD, coronary artery disease , myocardial infarction, pulmonary embolus, valvular heart disease Psychiatric history: no psych history - Past Surgical History Surgical History: angioplasty/stent, appendectomy, knee replacement, vascular surgery (TAVR) - Social History Smoking Status: Former smoker Smokeless Tobacco Status: No Alcohol use: none Drug use: none - Family History Father Name: Claudette Hayes Living Status: Age at : 81 Cause of : Brain aneursym Hx Family Cardiac Disorders: Yes Hx Family Respiratory Disorders: No Hx Family Cancer: No Hx Family GI Disorders: No Hx Family Genitourinary Disorders: No Hx Family Endocrine Disorder: Yes (Brother) Hx Family Musculoskeletal Disorders: No Hx Family Neuromuscular Disorders: No Hx Family Neurologic Disorders: No Hx Family HEENT Disorders: No Hx Family Autoimmune Disorders: No Hx Family Reproductive Disorders: No Hx Family Psychosocial Disorders: No Hx Family Medical Disorders: Yes Medications and Allergies Aspirin [Lo-Dose Aspirin EC] 81 mg PO DAILY 11/05/16 [History] Atorvastatin Calcium [Lipitor] 20 mg PO HS 11/05/16 [History] LORazepam [Ativan] 0.5 mg PO TID PRN 11/05/16 [History] Melatonin 10 mg PO HS PRN 11/05/16 [History] Warfarin [Coumadin] 3 mg PO DAILY 01/07/17 [History] Acetaminophen [Tylenol] 650 mg PO Q6HR PRN tab 02/11/17 [Rx] Bismuth Subsalicylate [PEPTO-BISMOL (262mg/15mL) Susp] 30 ml PO QID PRN [Rx] Docusate [Colace] 200 mg PO BID #60 tab 02/11/17 [Rx] Albuterol Neb [AccuNeb] 0.63 mg IH TID 02/15/17 [History] Budesonide/Formoterol 160/4.5 [Symbicort 160/4.5] 2 puff IH BIDR 03/30/17 [ History] Umeclidinium [place] [Incruse Ellipta] 1 puff IH DAILY 03/30/17 [History] HYDROcodone/Acet 5/325 mg [[place] 5-325 mg] 1 tab PO Q4HR PRN #10 tablet [Rx] Digoxin [Lanoxin] 0.125 mg PO DAILY #30 tablet 04/08/17 [Rx] Fluticasone Propionate Nasal [Flonase] 100 mcg NS DAILY bottle 04/08/17 [Rx] Metoprolol [Lopressor] 50 mg PO BID #60 tablet 04/08/17 [Rx] Phenazopyridine [Pyridium] 100 mg PO TID PRN #120 tablet 04/08/17 [Rx] Furosemide [Lasix] 20 mg PO BID PRN 04/10/17 [History] Omeprazole [PriLOSEC] 20 mg PO DAILY 04/10/17 [History] 3 Allergy/AdvReac Type Severity Reaction Status Date / Time tetanus immune globulin Allergy Intermediate unknown Verified 03/06/17 17:39 All Systems: A 10-system review of systems was performed and is negative for pertinent findings except as documented above in the HPI. Physical Examination - Vital Signs Vital Signs: Initial Vital Signs Temp Pulse Resp BP Pulse Ox 97.7 F 91 24 137/77 95 04/10/17 10:48 04/10/17 10:48 04/10/17 10:48 04/10/17 10:48 04/10/17 10:48 - Constitutional General appearance: comfortable - Neurologic Detailed motor examination: full strength in all major muscle groups Motor examination - right side: 5/5: deltoids, biceps, triceps, wrist flexion, wrist extension, deaf and hard of hearing teacher, hip flexors, tibialis Anterior, quadriceps, toe extension (EHL), plantarflexion Motor examination - left side: 5/5: deltoids, biceps, triceps, wrist flexion, wrist extension, hip flexors, deaf and hard of hearing teacher, quadriceps, tibialis Anterior, toe extension (EHL), plantarflexion Detailed sensory examination: intact Reflex and gait examination: intact Reflexes: Biceps: 1+, Triceps: 1+, Brachioradialis: 1+, Patella: 1+, Achilles: 1 + Mental Status Examination: awake, alert, oriented to person, oriented to place, oriented to time, follows commands appropriately, answers questions appropriately, no agnosia, no aphasia, no aproxia Cranial nerve examination: PERRL, EOMI, visual [place] intact, corneal reflexes brisk symmetrically, sensory to face intact, mastication intact, no facial asymmetry is present, no dysarthria, hearing is intact symmetrically, soft palate elevates bilaterally upon phonation, gag reflex intact, flexes SCM and trapezius muscles symmetrically with full power, tongue protrudes midline, no atrophy or facial fasiculations present Cerebellar examination: no dysmetria, performs finger to nose and heel to lopez symmetrically without ataxia, no gait ataxia, no truncal ataxia, no difficulty with rapid alternating movements Results - Laboratory Findings CBC and BMP: 04/11/17 05:49 04/11/17 05:49 Abnormal lab findings: Abnormal lab results WBC 13.0 K/mcL (4.3-11.1) H 04/11/17 05:49 RBC 3.92 M/mcL (4.19-5.50) L 04/11/17 05:49 Hgb 10.0 g/dL (12.9-16.9) L 04/11/17 05:49 Hct 32.4 % (37.5-50.1) L 04/11/17 05:49 MCV 82.7 fL (83.0-100.0) L 04/11/17 05:49 MCH 25.5 pg (28.0-33.3) L 04/11/17 05:49 MCHC 30.9 g/dL (31.6-35.5) L 04/11/17 05:49 RDW 17.8 % (11.5-14.5) H 04/11/17 05:49 Plt Count 443 K/mcL (140-400) H 04/11/17 05:49 MPV 8.6 fL (9.4-12.4) L 04/11/17 05:49 Neutrophils # 9.8 K/mcL (1.6-8.9) H 04/11/17 05:49 PT 24.9 Seconds (9.4-12.1) H 04/11/17 05:49 ABG pO2 81 mmHg (85-104) L 04/10/17 17:24 ABG HCO3 30 mEq/L (21-27) H 04/10/17 17:24 ABG Total CO2 31 mEq/L (20-26) H 04/10/17 17:24 ABG Base Excess 5 mEq/L (-2 to 3) H 04/10/17 17:24 Alkaline Phosphatase 129 Units/L (38-126) H 04/10/17 11:03 Troponin I 0.15 ng/mL (0-0.03) H* 04/10/17 22:50 B-Natriuretic Peptide 666 pg/mL (0-100) H 04/10/17 11:03 Albumin 3.0 g/dL (3.5-5.0) L 04/10/17 11:03 Globulin 4.3 g/dL (2.4-3.5) H 04/10/17 11:03 Albumin/Globulin Ratio 0.7 (1.1-2.2) L 04/10/17 11:03 HDL Cholesterol 35 mg/dL (40-59) L 04/11/17 05:49 Urine Color [place] (Yellow) A 04/10/17 Unknown Urine Clarity Cloudy (Clear) A 04/10/17 Unknown Urine Nitrite Positive (Negative) A 04/10/17 Unknown Ur Leukocyte Esterase Small (Negative) H 04/10/17 Unknown Ur Culture Indicated? YES (NO) A 04/10/17 Unknown Consult Discharge Plan - Plan Referrals: Marycruz Mackenzie MD [Primary Care Provider] -
[2017-04-11] MEDS: levETIRAcetam 250 MG TABLET PO SCH ×2 (11:05→23:20)
[2017-04-11] MEDS: Aspirin Enteric Coated 81 MG Tablet PO SCH (11:05)
[2017-04-11] MEDS: Budesonide/Formoterol 160/4.5 MDI IH SCH ×2 (11:13→22:12)
[2017-04-11] MEDS: Furosemide 20 MG TABLET PO SCH (20:20)
[2017-04-11] MEDS: Fluticasone Propionate Nasal 50 MCG/SPRAY BOTTLE NS SCH (20:20)
[2017-04-12] MEDS: Ipratropium/Albuterol Neb 3 ML IH SCH ×3 (04:06→15:58)
[2017-04-12 04:17] LABS: Prothrombin Time 21.9 Seconds (9.4-12.1)
--- NOTE | 2017-04-12 06:24 | Electrocardiograph Report ---
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
--- NOTE | 2017-04-12 06:34 | Electrocardiograph Report ---
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
[2017-04-12] MEDS: (Umeclidinium Bromide [Incruse Ellipta] 1 PUFF) IH SCH (07:55)
[2017-04-12] MEDS: Aspirin Enteric Coated 81 MG Tablet PO SCH (08:04)
[2017-04-12] MEDS: Furosemide 20 MG TABLET PO SCH (08:04)
[2017-04-12] MEDS: Fluticasone Propionate Nasal 50 MCG/SPRAY BOTTLE NS SCH (08:04)
[2017-04-12] MEDS ORDERED: Bismuth Subsalicylate 120 ML ORAL SUSPENSION PO PRN (08:48)
[2017-04-12] MEDS ORDERED: *HR* Digoxin 0.125 MG TABLET PO SCH (09:00)
[2017-04-12] MEDS: levETIRAcetam 250 MG TABLET PO SCH (09:53)
[2017-04-12 10:57] VITALS: BP 108/73
[2017-04-12] MEDS: Budesonide/Formoterol 160/4.5 MDI IH SCH (11:27)
--- NOTE | 2017-04-12 13:11 | EEG/EMG/Oth Biometrics Report ---
EEG Procedure Report Date of procedure: 04/12/17 EEG Procedure: Routine EEG Procedure Note: This EEG was acquired with standard international 1020 system with EKG recording. The background EEG activity was characterized by the presence of posterior dominant alpha rhythm with the best frequency up to 8 Hz.. The background activity was reactive to eye openings. Sleep stages were characterized by the presence of background fragmentation, vertex waves, K complexes, and sleep spindles. There are no electrographic seizures identified during this tracing. There are no epileptiform discharges and focal slowing noted during this recording. Photic stimulation produced no abnormalities. Hyperventilation procedure was not performed EKG tracing showed no significant cardiac dysrhythmia. Impression: This is essentially a normal awake and asleep EEG. Clinical Correlation: Normal EEGs, however, do not exclude epilepsy. Clinical correlation advised.
--- NOTE | 2017-04-12 14:23 | Discharge Summary ---
Date of Encounter: 04/12/17 Time of Encounter: 14:17 - Discharge Diagnosis (1) Acute embolic stroke Priority: Primary Status: Acute (2) Anticoagulant long-term use Priority: Secondary Status: Chronic (3) Atrial fibrillation Priority: Secondary Status: Chronic Qualifiers: Atrial fibrillation type: chronic Qualified Code(s): I48.2 - Chronic atrial fibrillation (4) Bladder tumor Priority: Secondary Status: Chronic (5) CHF (congestive heart failure) Priority: Secondary Status: Chronic Qualifiers: Congestive heart failure type: diastolic Congestive heart failure chronicity: acute on chronic Qualified Code(s): I50.33 - Acute on chronic diastolic (congestive) heart failure (6) Chronic indwelling Santamaria catheter Priority: Secondary Status: Chronic (7) DVT prophylaxis Priority: Secondary Status: Acute (8) S/P TAVR (transcatheter aortic valve replacement) Priority: Secondary Status: Chronic - Discharge Medications Prescriptions: levETIRAcetam [Keppra] 500 mg PO Q12H #60 tablet Home Medications: Aspirin [Lo-Dose Aspirin EC] 81 mg PO DAILY 11/05/16 [History] Atorvastatin Calcium [Lipitor] 20 mg PO HS 11/05/16 [History] LORazepam [Ativan] 0.5 mg PO TID PRN 11/05/16 [History] Melatonin 10 mg PO HS PRN 11/05/16 [History] Warfarin [Coumadin] 3 mg PO DAILY 01/07/17 [History] Acetaminophen [Tylenol] 650 mg PO Q6HR PRN tab 02/11/17 [Rx] Bismuth Subsalicylate [PEPTO-BISMOL (262mg/15mL) Susp] 30 ml PO QID PRN [Rx] Docusate [Colace] 200 mg PO BID #60 tab 02/11/17 [Rx] Albuterol Neb [AccuNeb] 0.63 mg IH TID 02/15/17 [History] Budesonide/Formoterol 160/4.5 [Symbicort 160/4.5] 2 puff IH BIDR 03/30/17 [ History] Umeclidinium [place] [Incruse Ellipta] 1 puff IH DAILY 03/30/17 [History] HYDROcodone/Acet 5/325 mg [[place] 5-325 mg] 1 tab PO Q4HR PRN #10 tablet [Rx] Digoxin [Lanoxin] 0.125 mg PO DAILY #30 tablet 04/08/17 [Rx] Fluticasone Propionate Nasal [Flonase] 100 mcg NS DAILY bottle 04/08/17 [Rx] Metoprolol [Lopressor] 50 mg PO BID #60 tablet 04/08/17 [Rx] Phenazopyridine [Pyridium] 100 mg PO TID PRN #120 tablet 04/08/17 [Rx] Furosemide [Lasix] 20 mg PO BID PRN 04/10/17 [History] Omeprazole [PriLOSEC] 20 mg PO DAILY 04/10/17 [History] levETIRAcetam [Keppra] 500 mg PO Q12H #60 tablet 04/12/17 [Rx] Allergies/Adverse Reactions: 3 Allergy/AdvReac Type Severity Reaction Status Date / Time tetanus immune globulin Allergy Intermediate unknown Verified 03/06/17 17:39 Procedures/tests Complete & Pending: Procedures Performed prior 72 hours Category Date Time Status ECG 12 lead ECG [ECG] Routine Y 04/10/17 16:59 Completed Date of admission: 04/10/17 19:18 Primary care physician: Marycruz Mackenzie Consults: 04/11/17 07:44 Consult to Neurology [CONS] Routine Consulting Provider: [facility] Reason for Consult: Stroke; failed coumadin therapy Call Completed: Yes 04/12/17 10:04 Consult to Interpret Exam [CONS] Routine Consulting Provider: Ozzie Bojorquez Consult to Interpret Exam: Interpret EEG Discharging clinician: Joseph Palomino Anticipated date of discharge: 04/12/17 - Patient Status Disposition: Home Health Service Condition: Good Functional capacity at discharge: uses cane/walker Overall status at discharge: patient is progressing back to baseline - Discharge Instructions Instructions: Warfarin (By mouth), Coronary Artery Disease (DC), Peripheral Vascular Disorders (DC), Hemorrhagic Stroke (DC) Follow Up With: Marycruz Mackenzie MD [Primary Care Provider] - 04/14/17 1:45 pm () Ozzie Bojorquez MD [Partnered Physician] - 04/26/17 1:00 pm (Stroke follow up- [place] [facility]) - Diet and Activity Activity: as per physical therapy, increase activity as tolerated Diet: low fat, low cholesterol, low salt diet Hospital course: Mr. Crago is a 86 year old male patient with a history of CHF, bladder cancer, COPD, DVT who presented to the ER with confusion and garbled speech. He was suspected of having a TIA and while on the floor, his condition deteriorated further and so he underwent a repeat CT scan of the head and per neurology recommendations underwent MRI of the brain. MRI of the brain showed multiple embolic infarcts in the left frontal, right parietal lobes and left cerebellar hemisphere. Patient's INR was therapeutic. Neurology did not recommend any changes to her Coumadin regimen. Patient is already on aspirin and statin. He has been placed on Keppra to prevent seizures. Patient underwent EGD today which did not show any seizure-like activity. Presently patient is doing much better. His symptoms are mostly subsided. He is stable to be discharged home with home health and physical therapy. He will follow up with neurology for further management. - Time Spent with Patient Total time spent providing and/or coordinating discharge services: Less than 30 minutes (25 min) - Constitutional Vitals: Temp Pulse Resp BP Pulse Ox 97.6 F 73 16 108/73 97 04/12/17 10:54 04/12/17 10:54 04/12/17 11:28 04/12/17 10:54 04/12/17 11:28 General appearance: Present: cooperative, A&O X 3, pleasant, no acute distress, answers questions appropriately - Neck Neck exam general surgery: Present: supple, trachea midline. Absent: lymphadenopathy - Respiratory Respiratory exam: Present: CTAB. Absent: accessory muscle use, rales, rhonchi, wheezes - Cardiovascular Cardiovascular exam: Present: RRR, +S1, +S2. Absent: diastolic murmur, gallop, rubs, systolic murmur - GI/Abdominal GI/Abdominal exam: Present: normal bowel sounds, soft, no peritoneal signs. Absent: distended, tenderness
--- NOTE | 2017-04-12 14:48 | Physician Discharge Referral ---
Home Health/Hosp Referral Info Transfer to: Home Health Provider in Charge Post Discharge: PCP - Diagnosis (1) Acute embolic stroke Priority: Primary Status: Acute (2) Anticoagulant long-term use Priority: Secondary Status: Chronic (3) Atrial fibrillation Priority: Secondary Status: Chronic (4) Bladder tumor Priority: Secondary Status: Chronic (5) CHF (congestive heart failure) Priority: Secondary Status: Chronic (6) Chronic indwelling Santamaria catheter Priority: Secondary Status: Chronic (7) DVT prophylaxis Priority: Secondary Status: Acute (8) S/P TAVR (transcatheter aortic valve replacement) Priority: Secondary Status: Chronic - Respiratory Orders Oxygen / L per min (2) Smoking Cessation: Smoking cessation has been advised. For more information, call the [facility] Tobacco Quit Line at 8-713-NJOL-NOW. - Diet/Nutrition Diet/Nutrition Orders: Cardiac - Activity Activity Orders: Walker - Services Needed Following services are medically necessary services: Physical Therapy, Occupational Therapy - Transfer Medications Prescriptions: levETIRAcetam [Keppra] 500 mg PO Q12H #60 tablet Home Medications: Aspirin [Lo-Dose Aspirin EC] 81 mg PO DAILY 11/05/16 [History] Atorvastatin Calcium [Lipitor] 20 mg PO HS 11/05/16 [History] LORazepam [Ativan] 0.5 mg PO TID PRN 11/05/16 [History] Melatonin 10 mg PO HS PRN 11/05/16 [History] Warfarin [Coumadin] 3 mg PO DAILY 01/07/17 [History] Acetaminophen [Tylenol] 650 mg PO Q6HR PRN tab 02/11/17 [Rx] Bismuth Subsalicylate [PEPTO-BISMOL (262mg/15mL) Susp] 30 ml PO QID PRN [Rx] Docusate [Colace] 200 mg PO BID #60 tab 02/11/17 [Rx] Albuterol Neb [AccuNeb] 0.63 mg IH TID 02/15/17 [History] Budesonide/Formoterol 160/4.5 [Symbicort 160/4.5] 2 puff IH BIDR 03/30/17 [ History] Umeclidinium [place] [Incruse Ellipta] 1 puff IH DAILY 03/30/17 [History] HYDROcodone/Acet 5/325 mg [[place] 5-325 mg] 1 tab PO Q4HR PRN #10 tablet [Rx] Digoxin [Lanoxin] 0.125 mg PO DAILY #30 tablet 04/08/17 [Rx] Fluticasone Propionate Nasal [Flonase] 100 mcg NS DAILY bottle 04/08/17 [Rx] Metoprolol [Lopressor] 50 mg PO BID #60 tablet 04/08/17 [Rx] Phenazopyridine [Pyridium] 100 mg PO TID PRN #120 tablet 04/08/17 [Rx] Furosemide [Lasix] 20 mg PO BID PRN 04/10/17 [History] Omeprazole [PriLOSEC] 20 mg PO DAILY 04/10/17 [History] levETIRAcetam [Keppra] 500 mg PO Q12H #60 tablet 04/12/17 [Rx] Allergies/Adverse Reactions: 3 Allergy/AdvReac Type Severity Reaction Status Date / Time tetanus immune globulin Allergy Intermediate unknown Verified 03/06/17 17:39 Certification: Further, I certify that my clinical findings support that this patient is homebound (i.e. absences from home require considerable and taxing effort and are for medical reasons or voodoo services or infrequently or short duration when for other reasons) because: Homebound Reason: Patient requires assistance of a person or device to safely leave home Attestation: My signature below is to certify that this patient is under my care and that I, or nurse practitioner, or a physician's insurance underwriting assistant working with me, has a face-to -face encounter with this patient.
[2017-04-12] MEDS ORDERED: *HR* Warfarin 4 MG TABLET PO ONE (18:00)
== END 2017-04-12 16:12 | disposition home health service (06) | DRG 64 ==
LOC: 2ANU 10:47 → EMEROO 10:47 → 2ANU 13:26
PROVIDERS: ADMIT Internal Medicine; ATTEND Internal Medicine

== ENCOUNTER 2017-04-22 12:49 | Inpatient (IN) ==
[2017-04-22] MEDS ORDERED: Furosemide 40 MG/4 ML VIAL IVP ONE (13:11)
--- NOTE | 2017-04-22 13:15 | Emergency Department Note ---
START Narrative - START START: I examined this patient and my medical decision-making was reviewed with the Resident Physician. I agree with the documented findings, disposition and treatment plan as described except to the extent set forth below. 86 year old male with HX of COPD/CHF and wears 3lnc [facility] continoutusly and has had to incresed his oxygen needs at home to 4LNC recently because his pulse ox was droppping to 80% by walking less tht 20 feet to the bathroom. HE states tht this typically happens when his CHF excebrates and does notice some increase lower extremity swellling. Decreased breath sound on exams. mild wheezes. We will do cardiopulmonary workup and likely admit for COPD/CHf xcerbation
--- NOTE | 2017-04-22 13:15 | Emergency Department Note ---
Disposition Clinical Impression: Supratherapeutic INR Acute exacerbation of CHF (congestive heart failure) Qualifiers: Congestive heart failure type: unspecified congestive heart failure type Qualified Code(s): I50.9 - Heart failure, unspecified Acute and chronic respiratory failure ([id number]) Qualifiers: Respiratory failure complication: unspecified whether with hypoxia or hypercapnia Qualified Code(s): J96.20 - Acute and chronic respiratory failure, unspecified whether with hypoxia or hypercapnia Disposition: Admitted As Inpatient Condition: Fair Referrals: Marycruz Mackenzie MD [Primary Care Provider] - Forms: ED Satisfaction Letter Time of Disposition: 15:28 SOB HPI - General Chief Complaint: ED Shortness of Breath/Dyspnea Stated Complaint: HUNG, CHF Time Seen by Provider: 04/22/17 13:04 Source: patient Limitations: no limitations Nursing Notes Reviewed: Yes Vital Signs Reviewed: Yes - History of Present Illness Mr. Hayes, 78-year-old male, presents from home with son bedside for evaluation of dyspnea. Onset this morning. Patient has congestive heart failure and COPD with baseline oxygen 3 L nasal cannula at all times. Son noted that pulse ox at home was 80% on 3 L in 90-92% on 4 L. Additionally, patient had worsening exertional dyspnea were and after moving 20 feet with 3 L, his pulse ox was in the mid to high 70s. He has had multiple exacerbations of congestive heart failure and notes this feels the same. He knew it was time to come in to be evaluated. Patient denies respirator distress while sitting still the bed however, movement such moving from supine to sitting at bedside makes him dyspneic. Patient has been on BiPAP previously and wishes to avoid it if at all possible at this time. PMH: A. fib on Coumadin. COPD on 3 L nasal cannula baseline. CAD with ACS status post AR with stents. Aortic stenosis. History PE. Cardiac catheter 02/09/17: LVEF 55%. Stents patent. ROS: Positive: Dyspnea at rest, dyspnea with exertion, increased bilateral lower extremity swelling Negative: Fever, chills, cough, chest pains, palpitations - Related Data Home Medications Medication Instructions Recorded Confirmed Aspirin [Lo-Dose Aspirin EC] 81 mg PO DAILY 11/05/16 04/22/17 Atorvastatin Calcium [Lipitor] 20 mg PO HS 11/05/16 04/22/17 LORazepam [Ativan] 0.5 mg PO TID PRN 11/05/16 04/22/17 Melatonin 10 mg PO HS PRN 11/05/16 04/22/17 Warfarin [Coumadin] 3 mg PO DAILY 01/07/17 04/22/17 Albuterol Neb [AccuNeb] 0.63 mg IH TID 02/15/17 04/22/17 Budesonide/Formoterol 160/4.5 2 puff IH BIDR 03/30/17 04/22/17 [Symbicort 160/4.5] Umeclidinium [place] [Incruse 1 puff IH DAILY 03/30/17 04/22/17 Ellipta] Furosemide [Lasix] 20 mg PO BID PRN 04/10/17 04/22/17 Omeprazole [PriLOSEC] 20 mg PO DAILY 04/10/17 04/22/17 Amoxicillin 875 mg PO Q12H 04/22/17 04/22/17 Ipratropium/Albuterol Neb [Duoneb] 3 ml IH Q6HR 04/22/17 04/22/17 Megestrol Acetate [Megace] 400 mg PO DAILY 04/22/17 04/22/17 levETIRAcetam [Keppra] 250 mg PO BID 04/22/17 04/22/17 Previous Rx's Medication Instructions Recorded Acetaminophen [Tylenol] 650 mg PO Q6HR PRN tab 02/11/17 Bismuth Subsalicylate 30 ml PO QID PRN 02/11/17 [PEPTO-BISMOL (262mg/15mL) Susp] Docusate [Colace] 200 mg PO BID #60 tab 02/11/17 HYDROcodone/Acet 5/325 mg [[place] 1 tab PO Q4HR PRN #10 tablet 04/01/17 5-325 mg] Digoxin [Lanoxin] 0.125 mg PO DAILY #30 tablet 04/08/17 Fluticasone Propionate Nasal 100 mcg NS DAILY bottle 04/08/17 [Flonase] Metoprolol [Lopressor] 50 mg PO BID #60 tablet 04/08/17 Allergies Allergy/AdvReac Type Severity Reaction Status Date / Time tetanus immune globulin Allergy Unknown unknown Verified 04/22/17 13:59 All systems ED: reviewed and negative except as stated. Review of Systems: As Per HPI Past Medical History - Past Medical History Medical history: Reports: atrial fibrillation, cancer, CHF, COPD, coronary artery disease, myocardial infarction, pulmonary embolus, valvular heart disease Surgical history: Reports: angioplasty/stent, appendectomy, knee replacement, vascular surgery (TAVR) Psychiatric history: Reports: no psych history - Social History Smoking Status: Former smoker Smokeless Tobacco Status: No Alcohol use: Reports: none Drug use: Reports: none Physical Exam Vital Signs Reviewed General: Patient is alert, oriented, and in no acute distress while at rest in bed. HEENT: No facial asymmetry. Head is normocephalic and atraumatic. Oral mucosa moist. Trachea midline. Cardiovascular: Heart regular rate and rhythm without clicks, rubs, gallops, or murmurs. No JVD. PMI nondisplaced. Lateral posterior tibial pulses 2/44. 1+ pitting pedal edema bilaterally. Respiratory: Symmetric chest rise with poor respiratory effort. Prolonged expiratory phase. Bilateral breath sounds are diminished and coarse. No crackles or rhonchi. Abdomen: Bowel sounds present normoactive x-4 quadrants. Abdomen is soft, nondistended, and nontender. No organomegaly noted. Neuro: GCS 15. Psych: Patient's affect is appropriate for situation. - General Limitations: no limitations General appearance: alert, in no apparent distress Course Course Narrative: Patient is awake, alert, oxygenating 92% on 4 L nasal cannula. Mild increase in work of breathing. He wishes to avoid BiPAP if at all possible. Patient's EKG has changes compared to previous and that there is some slurring of the ST transition in the precordial leads. Patient is on digoxin; will order digoxin level to rule out dig toxicity. BNP is elevated at a 900s. - We will provide Lasix and begin BiPAP. I do not believe patient's pressure can tolerate nitroglycerin drip. Will provide Ativan by mouth to help patient tolerated BiPAP more easily. Troponin is elevated at 0.22. - This is consistent with his baseline troponin levels. Patient has no chest pain. We will begin aspirin and continue to monitor. INR is elevated at 5.1 - recommendation is to not take his next 1-2 doses. No vitamin K or blood products needed at this time. Patient has no hematuria, hematochezia, melena. Digoxin level is not toxic. 14:30 Patient reevaluated. He is doing well on BiPAP and is oxygenating at 98% I discussed the patient with the admitting hospitalist, Dr. Lopez, who agrees to accept the patient. Chest X-Ray 04/22/17 13:11 IMPRESSION: No significant change in pulmonary edema. D/ / Elvis Cuellar MD / Elvis Cuellar MD Interpreting Provider: Elvis Cuellar MD Vital Signs Temperature 97.6 F 04/22/17 12:56 Pulse Rate 91 04/22/17 12:56 Respiratory Rate 22 04/22/17 12:56 Blood Pressure 105/67 04/22/17 12:56 O2 Sat by Pulse Oximetry 91 04/22/17 12:56 Temperature 97.6 F 04/22/17 12:56 Pulse Rate 95 04/22/17 14:22 Respiratory Rate 20 04/22/17 14:22 Blood Pressure 129/83 04/22/17 14:22 O2 Sat by Pulse Oximetry 93 04/22/17 14:22 Oxygen Delivery Oxygen Delivery Nasal Cannula Shortness of Breath/Dyspnea - Medical Records Medical records reviewed: Yes I reviewed the patient's medical records. - Lab Data Lab results reviewed: Yes I reviewed the patient's lab results. Result diagrams: 04/22/17 13:27 04/22/17 13:27 Lab Results 04/22/17 04/22/17 04/22/17 Range/Units 13:27 13:27 13:27 WBC 17.5 H (4.3-11.1) K/mcL RBC 4.21 (4.19-5.50) M/mcL Hgb 10.5 L (12.9-16.9) g/dL Hct 33.3 L (37.5-50.1) % MCV 79.1 L (83.0-100.0) fL MCH 24.9 L (28.0-33.3) pg MCHC 31.5 L (31.6-35.5) g/dL RDW 17.7 H (11.5-14.5) % Plt Count 328 (140-400) K/mcL MPV 9.4 (9.4-12.4) fL Immature Gran % 0.7 (0-4) % Seg Neutrophils % 84.5 % Lymphocytes % 7.3 % Monocytes % 7.0 % Eosinophils % 0.3 % Basophils % 0.2 % Neutrophils # 14.8 H (1.6-8.9) K/mcL Lymphocytes # 1.3 (0.6-4.6) K/mcL Monocytes # 1.2 (0.0-1.3) K/mcL Eosinophils # 0.1 (0.0-0.6) K/mcL Basophils # 0.0 (0.0-0.2) K/mcL PT (9.4-12.1) Seconds INR Sodium 139 (136-145) mEq/L Potassium 3.3 L (3.5-4.5) mEq/L Chloride 99 (98-109) mEq/L Carbon Dioxide 30 H (19-29) mEq/L BUN 11 (8-26) mg/dL Creatinine 0.84 (0.72-1.25) mg/dL Est GFR ( Amer) > 60 (> 60) Est GFR (Non-Af Amer) > 60 (> 60) BUN/Creatinine Ratio 13 (6-26) Glucose 121 H (70-99) mg/dL Calculated Osmolality 289 (280-300) Lactic Acid 2.0 (0.5-2.2) mmol/L Calcium 9.3 (8.6-10.8) mg/dL Troponin I (0-0.03) ng/mL B-Natriuretic Peptide (0-100) pg/mL Digoxin 0.8 (0.8-2.0) ng/mL 04/22/17 04/22/17 04/22/17 Range/Units 13:27 13:27 13:27 WBC (4.3-11.1) K/mcL RBC (4.19-5.50) M/mcL Hgb (12.9-16.9) g/dL Hct (37.5-50.1) % MCV (83.0-100.0) fL MCH (28.0-33.3) pg MCHC (31.6-35.5) g/dL RDW (11.5-14.5) % Plt Count (140-400) K/mcL MPV (9.4-12.4) fL Immature Gran % (0-4) % Seg Neutrophils % % Lymphocytes % % Monocytes % % Eosinophils % % Basophils % % Neutrophils # (1.6-8.9) K/mcL Lymphocytes # (0.6-4.6) K/mcL Monocytes # (0.0-1.3) K/mcL Eosinophils # (0.0-0.6) K/mcL Basophils # (0.0-0.2) K/mcL PT 58.0 H* D (9.4-12.1) Seconds INR 5.2 H* D Sodium (136-145) mEq/L Potassium (3.5-4.5) mEq/L Chloride (98-109) mEq/L Carbon Dioxide (19-29) mEq/L BUN (8-26) mg/dL Creatinine (0.72-1.25) mg/dL Est GFR ( Amer) (> 60) Est GFR (Non-Af Amer) (> 60) BUN/Creatinine Ratio (6-26) Glucose (70-99) mg/dL Calculated Osmolality (280-300) Lactic Acid (0.5-2.2) mmol/L Calcium (8.6-10.8) mg/dL Troponin I 0.22 H* (0-0.03) ng/mL B-Natriuretic Peptide 919 H (0-100) pg/mL Digoxin (0.8-2.0) ng/mL - Radiology Data Radiology results reviewed: Yes I reviewed the patient's radiology results. - EKG Data EKG attestation: Yes I reviewed and interpreted this EKG. EKG results narrative: EKG dated April 2017 at 12:54 interpreted as atrial fibrillation with a rate of 85. Right bundle branch block. There is some slurring of the QRS complex in the precordial leads otherwise compared to previous EKG dated [address]-T changes.
[2017-04-22 13:37] LABS: Basophils % 0.2 %; Eosinophils # 0.1 K/mcL (0.0-0.6); Eosinophils % 0.3 %; Hematocrit 33.3 % (37.5-50.1); Hemoglobin 10.5 g/dL (12.9-16.9); Immature Granulocytes % 0.7 % (0-4); Lymphocytes # 1.3 K/mcL (0.6-4.6); Lymphocytes % 7.3 %; Mean Corpuscular HGB Conc 31.5 g/dL (31.6-35.5); Mean Corpuscular Hemoglobin 24.9 pg (28.0-33.3); Mean Corpuscular Volume 79.1 fL (83.0-100.0); Mean Platelet Volume 9.4 fL (9.4-12.4); Monocytes # 1.2 K/mcL (0.0-1.3); Neutrophils # 14.8 K/mcL (1.6-8.9); Platelet Count 328 K/mcL (140-400); Red Blood Count 4.21 M/mcL (4.19-5.50); Red Cell Distribution Width 17.7 % (11.5-14.5); Segmented Neutrophils % 84.5 %
[2017-04-22 13:47] LABS: BUN/Creatinine Ratio 13 (6-26); Blood Urea Nitrogen 11 mg/dL (8-26); Calcium 9.3 mg/dL (8.6-10.8); Carbon Dioxide 30 mEq/L (19-29); Chloride 99 mEq/L (98-109); Glucose 121 mg/dL (70-99); Osmolality,Calculated 289 (280-300); Potassium 3.3 mEq/L (3.5-4.5); Sodium 139 mEq/L (136-145); eGFR For African Americans > 60 (> 60); eGFR For Non-African Americans > 60 (> 60)
[2017-04-22 13:55] LABS: INR 5.2
[2017-04-22] MEDS ORDERED: *HR* LORazepam 0.5 MG TABLET PO ONE (14:01)
[2017-04-22] MEDS ORDERED: Aspirin 81 MG TAB.CHEW PO ONE (14:01)
[2017-04-22 14:56] LABS: Digoxin 0.8 ng/mL (0.8-2.0)
--- NOTE | 2017-04-22 17:12 | Event Note ---
Date of Encounter: 04/22/17 Time of Encounter: 17:09 Patients and examined with nurse practitioner. Acute congestive heart failure exacerbation and acute bronchitis. Will start the patient on Lasix 40 mg IV bid. Will give azithromycin for acute bronchitis. Sputum culture. Patient has hypoxic respiratory failure requiring BiPAP therapy. He is do not resuscitate, do not intubate
[2017-04-22] MEDS ORDERED: Albuterol 2.5 MG/3 ML NEBULIZER IH PRN (18:05)
[2017-04-22] MEDS ORDERED: Acetaminophen 325 MG TABLET PO PRN (18:06)
[2017-04-22] MEDS ORDERED: Naloxone 0.4 MG/ML INJ IVP PRN (18:10)
--- NOTE | 2017-04-22 18:20 | Internal Med History&Physical ---
Date of Encounter: 04/22/17 Time of Encounter: 18:18 Assessment and Plan (1) CHF (congestive heart failure) Current visit: Yes Status: Chronic Intermediate diastolic dysfunction, EF 55% per recent echocardiogram. Has had recurrent episodes of congestive heart failure since a TAVR procedure in March 2017 at [facility]. Crackles throughout bilateral lobes anterior and posterior, continues to be dyspneic on 3-4 L nasal cannula. However has improved with diuresis and is no longer requiring BiPAP for respiratory support. Continue diuresis, Lasix 40 mg IVP BID Strict I's and O's, 1.5 L fluid restriction Echocardiogram to reassess aortic valve following recent TAVR Continuous telemetry CMP and CBC in the morning Qualifiers: Congestive heart failure type: diastolic Congestive heart failure chronicity: acute on chronic Qualified Code(s): I50.33 - Acute on chronic diastolic (congestive) heart failure (2) Bronchitis Current visit: Yes Status: Acute Continues to be dyspneic however is improved from initial presentation. Chest x -ray not suspicious for pneumonia however he does have leukocytosis at 17.5. Due to history of COPD he is a risk for respiratory infections, he does report increasing sputum production. We will start azithromycin IV piggyback 500 mg daily DuoNeb nebs every 4 hours scheduled Albuterol every 2 hours scheduled Sputum cultures (3) Hypokalemia Current visit: Yes Status: Acute Initial metabolic panel reveals hypokalemia. Patient remains hemodynamically stable at this time with atrial fibrillation rate control. Due to increasing Lasix will give patient additional 40 mEq dose of by mouth potassium (4) CAD (coronary artery disease) Current visit: Yes Status: Acute History of CAD, prior DC requiring stent placement. Continue aspirin, statin, digoxin and beta bronwyn Qualifiers: Coronary Disease-Associated Artery/Lesion type: [place] artery [place] vs. transplanted heart: [place] heart Associated angina: angina presence unspecified Qualified Code(s): I25.10 - Atherosclerotic heart disease of [place] coronary artery without angina pectoris (5) Atrial fibrillation Current visit: Yes Status: Chronic Currently A. fib rate control. Does not appear to be contributing to patient's current condition. Resume digoxin, holding today's dose of warfarin will resume warfarin with pharmacy to dose based on PT/INR results Qualifiers: Atrial fibrillation type: chronic Qualified Code(s): I48.2 - Chronic atrial fibrillation (6) Hyperlipidemia Current visit: Yes Status: Chronic Continue statin Qualifiers: Hyperlipidemia type: mixed hyperlipidemia Qualified Code(s): E78.2 - Mixed hyperlipidemia (7) Elevated troponin Current visit: Yes Status: Chronic Patient is chronically elevated troponins. History of coronary artery disease, atrial fibrillation, aortic stenosis requiring prosthetic valve, determining to chronic elevation of troponin. However we will continue to trend troponins this time (8) Aortic stenosis Current visit: Yes Status: Chronic Recently underwent a TAVR at [facility] in March 2017. Reports increasing dyspnea, and recurrent episodes of congestive heart failure since undergoing procedure. Echocardiogram to reevaluate aortic stenosis and prostatic valve Qualifiers: Cardiac valve disease etiology: etiology unspecified Qualified Code(s): I35.0 - Nonrheumatic aortic (valve) stenosis (9) Supratherapeutic INR Current visit: Yes Status: Acute On Coumadin for atrial fibrillation and prostatic valve. Supratherapeutic PT/ INR 58/5.2. Today's dose of Coumadin and resume with pharmacy to dose. Check PT/INR in the morning and dose as recommended per pharmacy (10) DVT prophylaxis Current visit: Yes Status: Acute On Coumadin, supratherapeutic PT/INR. Internal Medicine - H&P: HPI Chief complaint: Worsening exertional dyspnea, CHF and bronchitis Admitted From: Home Plans for Post Hospital Care: Home History of present illness: Mr. Hayes is a 86 year old male with PMH of prostatic valve replacement, atrial fibrillation on Coumadin, DC with stent placement, COPD requiring 3 L nasal cannula home oxygen, PE and bladder cancer. He presents today to [facility] with severe dyspnea which began this morning. He reports that over the last few days he has noticed some lower extremity swelling, and increased shortness of breath; also reporting increasing oxygen needs. He wears 3 L nasal cannula at home however is now requiring 4 Lnc to maintain oxygen saturations. He reports becoming significantly dyspneic with simple activities and ambulation. He reports that while walking to the bathroom is approximately 20 feet his oxygen dropped to 80%. He was recently being treated by his primary care provider for what he describes as a COPD exacerbation and was placed on amoxicillin. Denies any fever, chills, chest pain, nausea, vomiting, diarrhea. Admits to exertional dyspnea, fatigue, cough with moderately increased sputum production and increased swelling in bilateral lower extremities. Chest x-ray reveals pulmonary edema. Troponin chronically elevated 0.22, BNP 919 Past Med Surg Social Fam HX - Past Medical History Medical history: atrial fibrillation, cancer, CHF, COPD, coronary artery disease , myocardial infarction, pulmonary embolus, valvular heart disease Psychiatric history: no psych history - Past Surgical History Surgical History: angioplasty/stent, appendectomy, knee replacement, vascular surgery (TAVR) - Social History Smoking Status: Former smoker Smokeless Tobacco Status: No Alcohol use: none Drug use: none - Family History Father Living Status: Hx Family Cardiac Disorders: Yes Hx Family Respiratory Disorders: No Hx Family Cancer: No Hx Family GI Disorders: No Hx Family Endocrine Disorder: Yes (Brother) Hx Family Neuromuscular Disorders: No Hx Family Neurologic Disorders: No Hx Family HEENT Disorders: No Hx Family Autoimmune Disorders: No Internal Medicine - H&P: Meds Aspirin [Lo-Dose Aspirin EC] 81 mg PO DAILY 11/05/16 [History] Atorvastatin Calcium [Lipitor] 20 mg PO HS 11/05/16 [History] LORazepam [Ativan] 0.5 mg PO TID PRN 11/05/16 [History] Melatonin 10 mg PO HS PRN 11/05/16 [History] Warfarin [Coumadin] 3 mg PO DAILY 01/07/17 [History] Acetaminophen [Tylenol] 650 mg PO Q6HR PRN tab 02/11/17 [Rx] Bismuth Subsalicylate [PEPTO-BISMOL (262mg/15mL) Susp] 30 ml PO QID PRN [Rx] Docusate [Colace] 200 mg PO BID #60 tab 02/11/17 [Rx] Albuterol Neb [AccuNeb] 0.63 mg IH TID 02/15/17 [History] Budesonide/Formoterol 160/4.5 [Symbicort 160/4.5] 2 puff IH BIDR 03/30/17 [ History] Umeclidinium [place] [Incruse Ellipta] 1 puff IH DAILY 03/30/17 [History] HYDROcodone/Acet 5/325 mg [[place] 5-325 mg] 1 tab PO Q4HR PRN #10 tablet [Rx] Digoxin [Lanoxin] 0.125 mg PO DAILY #30 tablet 04/08/17 [Rx] Fluticasone Propionate Nasal [Flonase] 100 mcg NS DAILY bottle 04/08/17 [Rx] Metoprolol [Lopressor] 50 mg PO BID #60 tablet 04/08/17 [Rx] Furosemide [Lasix] 20 mg PO BID PRN 04/10/17 [History] Omeprazole [PriLOSEC] 20 mg PO DAILY 04/10/17 [History] Amoxicillin 875 mg PO Q12H 04/22/17 [History] Ipratropium/Albuterol Neb [Duoneb] 3 ml IH Q6HR 04/22/17 [History] Megestrol Acetate [Megace] 400 mg PO DAILY 04/22/17 [History] levETIRAcetam [Keppra] 250 mg PO BID 04/22/17 [History] 3 Allergy/AdvReac Type Severity Reaction Status Date / Time tetanus immune globulin Allergy Unknown unknown Verified 04/22/17 13:59 All Systems PM: A 10-system review of systems was performed and is negative for pertinent findings except as documented above in the HPI. - Constitutional Constitutional: no chills, no fever(s), no night sweats - EENT Eyes: no change in vision, no discharge, no pain, no photophobia Ears: no ear discharge, no ear pain, no tinnitus Nose, mouth and throat: no dysphagia, no nasal discharge, no neck pain, no sore throat - Cardiovascular Cardiovascular ROS IM: as per HPI, dyspnea on exertion, edema, no chest pain, no diaphoresis, no dyspnea, no irregular heart rhythm, no lightheadedness, no palpitations, no syncope - Respiratory Respiratory: as per HPI, cough (with moderately increased sputum production), dyspnea on exertion, no dyspnea, no wheezing, no pain on inspiration, no chest congestion, no excessive phlegm production, no pain with cough - Gastrointestinal Gastrointestinal: no abdominal pain, no diarrhea, no hematemesis, no hematochezia, no melena, no nausea, no vomiting - Musculoskeletal Musculoskeletal ROS IM: no numbness, no tingling - Integumentary Integumentary IM: no rash, no unusual bruising - Neurological Neurological ROS: no confusion, no convulsions, no focal weakness, no numbness, no tingling, no tremor(s) - Hematologic/Lymphatic Hematologic/Lymphatic: no easy bruising - Constitutional Vitals: Temp Pulse Resp BP Pulse Ox 97.6 F 87 17 100/68 90 04/22/17 12:56 04/22/17 16:06 04/22/17 16:06 04/22/17 16:06 04/22/17 16:06 General appearance: Present: cooperative, mild distress (Upon my assessment he appears in mild respiratory distress on 3 L nasal cannula satting 93%. Transient drops in O2 sat saturations to 90% with conversations and while eating dinner.), A&O X 3, answers questions appropriately - Head Head exam: Present: atraumatic, normocephalic - Eye Eye exam: Present: EOMI, PERRL, conjuntiva pink, sclera anicteric Pupils: Present: PERRL - Neck Neck exam general surgery: Present: supple, trachea midline. Absent: lymphadenopathy - Respiratory Respiratory exam: Present: CTAB, rales, respiratory distress (Mild respiratory distress persists no accessory muscle usage ), tachypnea. Absent: accessory muscle use, rhonchi, wheezes - Cardiovascular Cardiovascular exam: Present: RRR, +S1, +S2. Absent: diastolic murmur, gallop, rubs, systolic murmur - GI/Abdominal GI/Abdominal exam: Present: normal bowel sounds, soft, no peritoneal signs. Absent: distended, tenderness - Extremities Exam Extremities exam: Present: normal capillary refill, pedal edema, warm, radial pulses palpable and symmetrical. Absent: calf tenderness, cyanotic, mottling, tenderness - Expanded Lower Extremities Exam Lower Leg exam: Present: swelling. Absent: erythema Ankle exam: Present: swelling. Absent: erythema Foot/Toe exam: Present: swelling. Absent: erythema - Neurological Exam Neurological exam: Present: alert, CN II-XII intact, oriented X3, no focal deficits. Absent: pronater drift, facial droop, speech deficit - Skin Skin exam: Present: dry, intact Internal Med - H&P Results - Labs CBC & Chem 7: 04/22/17 13:27 04/22/17 13:27 - EKG Data -: EKG Interpreted by Myself - EKG Data Prior EKG available for review: yes - Impressions Atrial fibrillation right bundle branch block rate controlled - Diagnostic Studies Chest x-ray Status: image reviewed by me Additional comments: Pulmonary edema - VTE Reasons for not Prescribing Prophylaxis: Not indicated-Anticoagulated or INR therapeutic
[2017-04-22] MEDS: Ipratropium/Albuterol Neb 3 ML IH SCH ×2 (20:02→23:17)
[2017-04-22] MEDS: Budesonide/Formoterol 160/4.5 MDI IH SCH (20:02)
[2017-04-22] MEDS: *HR* HYDROcodone/Acet 5/325 mg TABLET PO PRN (20:34)
[2017-04-22] MEDS: levETIRAcetam 250 MG TABLET PO SCH (20:35)
[2017-04-22] MEDS: Azithromycin 500 MG in D5% in Water 250 ML IVPB SCH (20:39)
[2017-04-22] MEDS: Furosemide 40 MG/4 ML VIAL IVP SCH (20:41)
[2017-04-22] MEDS: Melatonin 3 MG TABLET PO PRN (23:23)
[2017-04-22] MEDS: *HR* LORazepam 0.5 MG TABLET PO PRN (23:23)
[2017-04-23] MEDS: *HR* HYDROcodone/Acet 5/325 mg TABLET PO PRN (00:23)
[2017-04-23 01:05] LABS: Basophils % 0.2 %; Eosinophils # 0.2 K/mcL (0.0-0.6); Eosinophils % 1.6 %; Hematocrit 29.4 % (37.5-50.1); Hemoglobin 9.4 g/dL (12.9-16.9); Immature Granulocytes % 0.5 % (0-4); Lymphocytes # 1.9 K/mcL (0.6-4.6); Lymphocytes % 14.2 %; Mean Corpuscular Hemoglobin 24.9 pg (28.0-33.3); Mean Corpuscular Volume 77.8 fL (83.0-100.0); Mean Platelet Volume 9.5 fL (9.4-12.4); Monocytes # 1.2 K/mcL (0.0-1.3); Monocytes % 8.8 %; Neutrophils # 10.2 K/mcL (1.6-8.9); Platelet Count 275 K/mcL (140-400); Red Blood Count 3.78 M/mcL (4.19-5.50); Red Cell Distribution Width 17.8 % (11.5-14.5); Segmented Neutrophils % 74.7 %
[2017-04-23 01:15] LABS: INR 4.9; Prothrombin Time 54.7 Seconds (9.4-12.1)
[2017-04-23 01:26] LABS: Alanine Aminotransferase 11 Units/L (0-55); Albumin 2.4 g/dL (3.5-5.0); Albumin/Globulin Ratio 0.6 (1.1-2.2); Alkaline Phosphatase 98 Units/L (38-126); Aspartate Amino Transferase 25 Units/L (5-34); BUN/Creatinine Ratio 15 (6-26); Bilirubin,Total 0.8 mg/dL (0.2-1.2); Blood Urea Nitrogen 12 mg/dL (8-26); Calcium 8.8 mg/dL (8.6-10.8); Carbon Dioxide 30 mEq/L (19-29); Chloride 96 mEq/L (98-109); Globulin 3.8 g/dL (2.4-3.5); Glucose 102 mg/dL (70-99); Osmolality,Calculated 284 (280-300); Sodium 137 mEq/L (136-145); Total Protein 6.2 g/dL (6.0-8.3); eGFR For African Americans > 60 (> 60); eGFR For Non-African Americans > 60 (> 60)
[2017-04-23] MEDS: Ipratropium/Albuterol Neb 3 ML IH SCH ×5 (03:32→20:36)
[2017-04-23] MEDS: Budesonide/Formoterol 160/4.5 MDI IH SCH ×2 (07:39→20:36)
--- NOTE | 2017-04-23 08:16 | Internal Med Progress Note ---
<Quang Chapman - Last Filed: 04/23/17 16:37> Date of Encounter: 04/23/17 Time of Encounter: 08:16 - Assessment and plan (1) Acute diastolic (congestive) heart failure Current Visit: Yes Status: Acute Assessment and plan: Chest x-ray reveals no significant change in pulmonary edema BNP 919, Rales on exam, 2+ pitting pedal edema Patient reports this is his third hospitalization for CHF exacerbation following TAVR at [facility] on 03/10/17. He was hospitalized at [facility] for 5 days following last admission at [facility] on 03/15/17. Patient reports taking Lasix 40MG in AM and 20mg qhs prior to arrival Continue Lasix 40mg IV BID, if necessary may increase to 40 mg IV TID per cardiology recommendation Strict I's and O's, 1.5 L fluid restriction 03/29/17 Echo revealed LVEF 60%, mild to moderate concentric left ventricular hypertrophy,indeterminate diastolic function, atypical septal motion consistent with bundle branch block, severely dilated right atrium, bioprosthetic aortic valve appears well seated in the LVOT, and mild pulmonary hypertension. Cardiology following (2) Elevated troponin Current Visit: Yes Status: Chronic Assessment and plan: Chronically elevated troponin in the setting of coronary artery disease, atrial fibrillation Serial troponin flat/ downtrendin.22 --> .025 --> 0.22 EKG reveals Atrial fibrillation with right bundle branch block, no signs of ischemia Cardiology following (3) Acute and chronic respiratory failure ([id number]) Current Visit: Yes Status: Acute Assessment and plan: Patient reports his SpO2 dropped to 77% on home while on his baseline 3L of supplemental O2. Patient has hypoxic respiratory failure requiring BiPAP therapy. Continue duonebs and supplemental O2 Perform walk test when able. He is do not resuscitate, do not intubate Qualifiers: Respiratory failure complication: hypoxia Qualified Code(s): J96.21 - Acute and chronic respiratory failure with hypoxia (4) Acute exacerbation of chronic obstructive pulmonary disease (COPD) Current Visit: Yes Status: Acute Assessment and plan: Patient started taking Amoxicillin on 03/18/17 for URI. CXR reveals no significant change in pulmonary edema. WBC 17.5 --> 13.7 Sputum culture pending Continue steroids, antibiotics, and bronchodilators. Mucinex prn (5) CAD (coronary artery disease) Current Visit: No Status: Chronic Assessment and plan: History of CAD, prior MS requiring stent placement. Continue aspirin, statin, and beta bronwyn Qualifiers: Coronary Disease-Associated Artery/Lesion type: [place] artery [place] vs. transplanted heart: [place] heart Associated angina: without angina Qualified Code(s): I25.10 - Atherosclerotic heart disease of [place] coronary artery without angina pectoris (6) S/P TAVR (transcatheter aortic valve replacement) Current Visit: No Status: Chronic Assessment and plan: Recent TAVR due to severe aotic stenosis TTE 03/29/17 with good position of valve. Will continue to monitor. Goal INR is 2-3. Adjust Coumadin per pharmacy (7) Atrial fibrillation Current Visit: Yes Status: Chronic Assessment and plan: A. fib rate controlled. Goal INR is 2-3. Adjust Coumadin per pharmacy. Qualifiers: Atrial fibrillation type: chronic Qualified Code(s): I48.2 - Chronic atrial fibrillation (8) Supratherapeutic INR Current Visit: Yes Status: Acute Assessment and plan: Coumadin for atrial fibrillation and prostatic valve. Supratherapeutic PT/INR 58 /5.2. Monitor PT/INR Goal INR is 2-3. Adjust Coumadin per pharmacy. (9) Hyperlipidemia Current Visit: No Status: Chronic Assessment and plan: Continue statin Qualifiers: Hyperlipidemia type: mixed hyperlipidemia Qualified Code(s): E78.2 - Mixed hyperlipidemia (10) Hypokalemia Current Visit: Yes Status: Resolved Assessment and plan: K 3.0 --> 4.4 Supplement K Continue to monitor (11) Hypomagnesemia Current Visit: Yes Status: Resolved Assessment and plan: Mag 1.2 --> 2.0 Supplement Mag Continua to monitor (12) DVT prophylaxis Current Visit: Yes Status: Acute Assessment and plan: On Coumadin per pharmacy dosing. - Subjective Interval history: Patient seen and examined. He reports this is his third hospitalization for CHF exacerbation following TAVR at [facility] on 03/10/17. He was hospitalized at [facility] for 5 days following last admission at [facility] on 03/15/17. Patient reports taking Lasix 40MG in AM and 20mg qhs. Patient has conversational dyspnea. He reports his SpO2 dropped to 77% on home while on his baseline 3L of supplemental O2. Patient started taking Amoxicillin on 03/18/17 for URI and reports brown sputum production today. Patient denies fever, chills, CP, abd pain, N/V/D, or worsening weakness. Son is at bedside. - Constitutional Vitals: Temp Pulse Resp BP Pulse Ox 98.1 F 86 17 109/88 88 04/23/17 07:00 04/23/17 07:00 04/23/17 07:41 04/23/17 07:00 04/23/17 07:41 General appearance: Present: cooperative, A&O X 3, pleasant, no acute distress, answers questions appropriately - Head Head exam: Present: atraumatic, normal inspection, normocephalic - Eye Eye exam: Present: EOMI, PERRL, conjuntiva pink, sclera anicteric - ENT ENT exam: Present: mucous membranes moist, normal oropharynx - Neck Neck exam general surgery: Present: normal inspection, supple, trachea midline. Absent: tenderness - Respiratory Respiratory exam: Present: decreased breath sounds, rales. Absent: accessory muscle use, respiratory distress Additional comments: conversational dyspnea on 3L supplemental O2 - Cardiovascular Cardiovascular exam: Present: irregular rhythm, +S1, +S2, systolic murmur - GI/Abdominal GI/Abdominal exam: Present: normal bowel sounds, soft. Absent: guarding, tenderness - Extremities Exam Extremities exam: Present: pedal edema (2+), warm, radial pulses palpable and symmetrical - Back Exam Back exam: Present: normal inspection. Absent: paraspinal tenderness, tenderness - Neurological Exam Neurological exam: Present: alert, oriented X3, no focal deficits, strengths equal and symetr throughout. Absent: speech deficit - Psychiatric Psychiatric exam: Present: normal affect, normal mood - Skin Skin exam: Present: dry, normal color, warm. Absent: erythema Internal Medicine: Result - Labs CBC & Chem 7: 04/23/17 00:04 04/23/17 14:24 Labs: Short CBC 04/23/17 Range/Units 00:04 WBC 13.7 H (4.3-11.1) K/mcL Hgb 9.4 L (12.9-16.9) g/dL Hct 29.4 L (37.5-50.1) % Plt Count 275 (140-400) K/mcL Neutrophils # 10.2 H (1.6-8.9) K/mcL BMP 04/23/17 00:04 Sodium 137 Potassium 3.0 L Chloride 96 L Carbon Dioxide 30 H BUN 12 Creatinine 0.79 Glucose 102 H Calcium 8.8 Cardiac Enzymes 04/22/17 04/23/17 Range/Units 18:33 00:04 Troponin I 0.25 H* 0.22 H* (0-0.03) ng/mL Liver Function 04/23/17 Range/Units 00:04 Total Bilirubin 0.8 (0.2-1.2) mg/dL AST 25 (5-34) Units/L ALT 11 (0-55) Units/L Alkaline Phosphatase 98 (38-126) Units/L Albumin 2.4 L (3.5-5.0) g/dL - ABG Interpretation ABG results: PT/INR, D-dimer PT 54.7 Seconds (9.4-12.1) H* 04/23/17 00:04 - Pulse Oximetry Interpretation Digit-Finger Pulse Oximetry Readin (on 3L O2 via NC) Actions taken: none - Impressions ITS Impressions Chest X-Ray 04/22/17 13:11 IMPRESSION: No significant change in pulmonary edema. D/ / Elvis Cuellar MD / Elvis Cuellar MD Interpreting Provider: Elvis Cuellar MD - VTE Reasons for not Prescribing Prophylaxis: Not indicated-Anticoagulated or INR therapeutic Consult Discharge Plan - Plan Instructions: Heart Failure (DC), Atrial Fibrillation (DC), Pneumonia (DC) Referrals: Marycruz Mackenzie MD [Primary Care Provider] - <Latrell Leal - Last Filed: 04/23/17 17:52> Date of Encounter: 04/23/17 - Assessment and plan (1) Acute and chronic respiratory failure ([id number]) Current Visit: Yes Status: Acute Qualifiers: Respiratory failure complication: hypoxia Qualified Code(s): J96.21 - Acute and chronic respiratory failure with hypoxia (2) Acute diastolic (congestive) heart failure Current Visit: Yes Status: Acute (3) Acute exacerbation of chronic obstructive pulmonary disease (COPD) Current Visit: Yes Status: Acute (4) CAD (coronary artery disease) Current Visit: No Status: Chronic Qualifiers: Coronary Disease-Associated Artery/Lesion type: [place] artery [place] vs. transplanted heart: [place] heart Associated angina: without angina Qualified Code(s): I25.10 - Atherosclerotic heart disease of [place] coronary artery without angina pectoris (5) CKD (chronic kidney disease) Current Visit: No Status: Chronic Qualifiers: Chronic kidney disease stage: stage 3 (moderate) Qualified Code(s): N18.3 - Chronic kidney disease, stage 3 (moderate) (6) S/P TAVR (transcatheter aortic valve replacement) Current Visit: No Status: Chronic (7) Hypertension, essential Current Visit: No Status: Chronic - Constitutional Vitals: Temp Pulse Resp BP Pulse Ox 97.9 F 90 17 104/68 95 04/23/17 15:00 04/23/17 15:00 04/23/17 16:21 04/23/17 15:00 04/23/17 16:21 Internal Medicine: Result - Labs CBC & Chem 7: 04/23/17 00:04 04/23/17 14:24 Labs: Short CBC 04/23/17 Range/Units 00:04 WBC 13.7 H (4.3-11.1) K/mcL Hgb 9.4 L (12.9-16.9) g/dL Hct 29.4 L (37.5-50.1) % Plt Count 275 (140-400) K/mcL Neutrophils # 10.2 H (1.6-8.9) K/mcL BMP 04/23/17 04/23/17 00:04 14:24 Sodium 137 Potassium 3.0 L 4.4 D Chloride 96 L Carbon Dioxide 30 H BUN 12 Creatinine 0.79 Glucose 102 H Calcium 8.8 Cardiac Enzymes 04/22/17 04/23/17 Range/Units 18:33 00:04 Troponin I 0.25 H* 0.22 H* (0-0.03) ng/mL Liver Function 04/23/17 Range/Units 00:04 Total Bilirubin 0.8 (0.2-1.2) mg/dL AST 25 (5-34) Units/L ALT 11 (0-55) Units/L Alkaline Phosphatase 98 (38-126) Units/L Albumin 2.4 L (3.5-5.0) g/dL - ABG Interpretation ABG results: PT/INR, D-dimer PT 54.7 Seconds (9.4-12.1) H* 04/23/17 00:04 - Attending Attestation I examined this patient and my medical decision-making was reviewed with the Resident Physician on 04/23/17. I agree with the documented findings, disposition and treatment plan as described except to the extent set forth below. Mr Hayes is currently admitted for acute exac CHF. He remains moderate to high risk due to potential for worsening respiratory and cardiac status. Mr Hayes feels OK. He does not think he is breathing much better. He feels very weak and tired. No CP. No fever or chills. Exam Alert. Fatigued. Mucus membranes dry Heart with murmur Rales bilaterally Abd soft I/P 1. Acute CHF 2. Hx TAVR Further diagnoses and plan as above.
[2017-04-23] MEDS ORDERED: Potassium Effervescent 25 MEQ TABLET.EFF PO ONE (08:32)
[2017-04-23 08:47] LABS: Magnesium 1.2 mg/dL (1.6-2.6)
[2017-04-23] MEDS: Furosemide 40 MG/4 ML VIAL IVP SCH ×2 (09:06→18:03)
[2017-04-23] MEDS: Aspirin Enteric Coated 81 MG Tablet PO SCH (09:06)
[2017-04-23] MEDS: Megestrol Acetate 400 MG/10 ML UDC PO SCH (09:06)
[2017-04-23] MEDS: levETIRAcetam 250 MG TABLET PO SCH ×2 (09:07→20:49)
[2017-04-23] MEDS: *HR* Digoxin 0.125 MG TABLET PO SCH (09:07)
[2017-04-23] MEDS ORDERED: methylPREDNISolone 125 MG/2 ML VIAL IVP ONE (10:05)
[2017-04-23] MEDS ORDERED: Magnesium Sulfate 2 GM in D5% in Water 100 ML IVPB ONE (10:45)
[2017-04-23] MEDS: Fluticasone Propionate Nasal 50 MCG/SPRAY BOTTLE NS SCH (11:51)
--- NOTE | 2017-04-23 12:02 | Cardiology Consult Note ---
Date of Encounter: 04/23/17 Time of Encounter: 11:15 Assessment and Plan (1) Acute on chronic diastolic CHF (congestive heart failure), NYHA class 3 Current Visit: Yes Status: Acute Per cardiology: -Known diastolic CHF. -Admitted with increased shortness of breath. -Reports weights are up about 3 pounds at home. -Patient reports compliance with fluid and sodium restriction and daily weights. -Reports worsening edema. 2+ pitting edema noted. -BNP 919. -On lasix 40mg IV BID. -Net negative 470ml. -Strict i/os, fluid restirction, daily weight. -Agree with IV diuresis. -Will continue to monitor. (2) CAD (coronary artery disease) Current Visit: Yes Status: Chronic Per cardiology: -Known history of CAD s/p previous PCI. -[facility] 01/2017 with patent stents, otherwise arteries angiographically free of disease. -Denies chest pain. -On asa, statin, beta bronwyn. -Will continue to monitor. Qualifiers: Coronary Disease-Associated Artery/Lesion type: [place] artery [place] vs. transplanted heart: [place] heart Associated angina: angina presence unspecified Qualified Code(s): I25.10 - Atherosclerotic heart disease of [place] coronary artery without angina pectoris (3) Atrial fibrillation Current Visit: Yes Status: Chronic Per cardiology: -Known chronic atrial fibrillation. -On beta bronwyn and digoxin. -On coumadin for anticoagulation. -Of note, INR today 4.9. -Average HR previous 12 hours noted to be 87. -Will continue to monitor. Qualifiers: Atrial fibrillation type: chronic Qualified Code(s): I48.2 - Chronic atrial fibrillation (4) Elevated troponin Current Visit: No Status: Chronic Per cardiology: -Elevated troponin 0.22, 0.25, 0.22 in the setting of CHF. -Per review of records, has chronically elevated troponin. -Denies chest pain. -ECG with no acute ischemic changes. -Recent C as above. -Do not suspect NSTEMI, suspect demand ischemia related to above. No cardiac rehab consult warranted. (5) S/P TAVR (transcatheter aortic valve replacement) Current Visit: No Status: Chronic Per cardiology: -Recent TAVR. -TTE 03/29/17 with good position of valve. -Will continue to monitor. Discussion w patient/family: The assessment and plan as outlined above was discussed with the patient and/or family members who expressed understanding and agreement. All questions were answered. Thank you for involving us in the care of your patient. Please call with any questions. Discussed and reviewed with . History of Present Illness Consult date: 04/23/17 Requesting physician: Quang Chapman Consult reason: CHF Chief complaint: shortness of breath History of present illness: Mr. Hayes is a 86 year old male with a relevant past medical history of CAD s/p PCI, chronic atrial fibrillation, CHF, hyperlipidemia, PE, IVC filter, bladder cancer, severe aortic stenosis s/p recent TAVR. Patient has had multiple admission for CHF. Patient presented to [facility] with complaints of increased shortness of breath. Patient states he called his primary cardiology provider and was advised to increase lasix to 40mg in am and 20mg in pm. Patient states that did not help his shortness of breath. Patient reports increased peripheral edema and increased weight. Patient states his weights are up about 3 pounds from baseline. Patient states breathing is slightly improved today. Past Med Surg Social Fam HX - Past Medical History Attestation: Yes The following information was validated with the patient. Source: patient, old records reviewed, obtained from family Medical history: atrial fibrillation, cancer, CHF, COPD, coronary artery disease , myocardial infarction, pulmonary embolus, valvular heart disease Psychiatric history: no psych history - Past Surgical History Surgical History: angioplasty/stent, appendectomy, knee replacement, vascular surgery (TAVR) - Social History Smoking Status: Former smoker Smokeless Tobacco Status: No Alcohol use: none Drug use: none - Family History Father Living Status: Hx Family Cardiac Disorders: Yes Hx Family Respiratory Disorders: No Hx Family Cancer: No Hx Family GI Disorders: No Hx Family Endocrine Disorder: Yes (Brother) Hx Family Neuromuscular Disorders: No Hx Family Neurologic Disorders: No Hx Family HEENT Disorders: No Hx Family Autoimmune Disorders: No Medications and Allergies Aspirin [Lo-Dose Aspirin EC] 81 mg PO DAILY 11/05/16 [History] Atorvastatin Calcium [Lipitor] 20 mg PO HS 11/05/16 [History] LORazepam [Ativan] 0.5 mg PO TID PRN 11/05/16 [History] Melatonin 10 mg PO HS PRN 11/05/16 [History] Warfarin [Coumadin] 3 mg PO DAILY 01/07/17 [History] Acetaminophen [Tylenol] 650 mg PO Q6HR PRN tab 02/11/17 [Rx] Bismuth Subsalicylate [PEPTO-BISMOL (262mg/15mL) Susp] 30 ml PO QID PRN [Rx] Docusate [Colace] 200 mg PO BID #60 tab 02/11/17 [Rx] Albuterol Neb [AccuNeb] 0.63 mg IH TID 02/15/17 [History] Budesonide/Formoterol 160/4.5 [Symbicort 160/4.5] 2 puff IH BIDR 03/30/17 [ History] Umeclidinium [place] [Incruse Ellipta] 1 puff IH DAILY 03/30/17 [History] HYDROcodone/Acet 5/325 mg [[place] 5-325 mg] 1 tab PO Q4HR PRN #10 tablet [Rx] Digoxin [Lanoxin] 0.125 mg PO DAILY #30 tablet 04/08/17 [Rx] Fluticasone Propionate Nasal [Flonase] 100 mcg NS DAILY bottle 04/08/17 [Rx] Metoprolol [Lopressor] 50 mg PO BID #60 tablet 04/08/17 [Rx] Furosemide [Lasix] 20 mg PO BID PRN 04/10/17 [History] Omeprazole [PriLOSEC] 20 mg PO DAILY 04/10/17 [History] Amoxicillin 875 mg PO Q12H 04/22/17 [History] Ipratropium/Albuterol Neb [Duoneb] 3 ml IH Q6HR 04/22/17 [History] Megestrol Acetate [Megace] 400 mg PO DAILY 04/22/17 [History] levETIRAcetam [Keppra] 250 mg PO BID 04/22/17 [History] 3 Allergy/AdvReac Type Severity Reaction Status Date / Time tetanus immune globulin Allergy Unknown unknown Verified 04/22/17 13:59 All Systems Review: A 10-system review of systems was performed and is negative for pertinent findings except as documented above in the HPI. - Constitutional Constitutional: weight gain - Cardiovascular Cardiovascular: as per HPI, dyspnea at rest, dyspnea on exertion, leg edema Physical Examination Vital Signs, Last 4 Hours Resp Pulse Ox 04/23/17 11:09 17 95 04/23/17 09:00 89 Vital Signs Temperature 97.6 F 04/22/17 12:56 Pulse Rate 91 04/22/17 12:56 Respiratory Rate 22 04/22/17 12:56 Blood Pressure 105/67 04/22/17 12:56 O2 Sat by Pulse Oximetry 91 04/22/17 12:56 Temperature 98.1 F 04/23/17 07:00 Pulse Rate 86 04/23/17 07:00 Respiratory Rate 17 04/23/17 11:09 Blood Pressure 109/88 04/23/17 07:00 O2 Sat by Pulse Oximetry 95 04/23/17 11:09 Oxygen Delivery Oxygen Delivery Bipap General: Conversant, No Apparent Distress HEENT: Atraumatic, Normocephaly, Mucus Membranes Moist Neck: No JVD, Normal carotid pulses Cardiac: Other (Irregularly, irregular) Lungs: Other (Crackles noted to bilateral lower lobes. ) Neuro: Alert and responsive, No focal deficits noted Abdomen: Soft, Non-Tender Skin: No rashes noted on visualized skin Musculoskeletal: No Chest Wall Tenderness Extremities: No Clubbing, No Cyanosis, Normal Pulses, Other (2+ bilateral lower extremity pitting edema. ) Results 04/23/17 00:04 04/23/17 00:04 Lab Results Impressions Chest X-Ray 04/22/17 13:11 IMPRESSION: No significant change in pulmonary edema. D/ / Elvis Cuellar MD / Elvis Cuellar MD Interpreting Provider: Elvis Cuellar MD Active Medications Acetaminophen (Tylenol) 650 mg PO Q6HR PRN PRN Reason: Mild Pain (1-3) Stop: 10/22/17 18:07 Hydrocodone Bitart/Acetaminophen ([place] 5-325 Mg) 1 tab PO Q4HR PRN PRN Reason: Severe Pain Stop: 10/22/17 18:07 Last Admin: 04/23/17 00:23 Dose: 1 tab Albuterol Sulfate (Proventil Neb) 2.5 mg IH Q2H PRN; Protocol PRN Reason: Shortness Of Breath/Wheezing Stop: 10/22/17 18:06 Albuterol/Ipratropium (Duoneb) 3 ml IH [id number] SUMMER Stop: 10/22/17 20:01 Last Admin: 04/23/17 11:08 Dose: 3 ml Aspirin (Aspirin Ec) 81 mg PO DAILY SUMMER Stop: 10/23/17 09:01 Last Admin: 04/23/17 09:06 Dose: 81 mg Atorvastatin Calcium (Lipitor) 20 mg PO HS SUMMER Stop: 10/22/17 21:01 Last Admin: 04/22/17 20:34 Dose: 20 mg Budesonide/Formoterol Fumarate (Symbicort) 2 puff IH BIDR SUMMER PRN Reason: Protocol Stop: 10/22/17 22:01 Last Admin: 04/23/17 07:39 Dose: 2 puff Digoxin (Lanoxin) 0.125 mg PO DAILY SUMMER Stop: 10/23/17 09:01 Last Admin: 04/23/17 09:07 Dose: 0.125 mg Docusate Sodium (Colace) 200 mg PO BID SUMMER PRN Reason: Protocol Stop: 10/22/17 21:01 Last Admin: 04/23/17 09:07 Dose: 200 mg Fluticasone Propionate (Flonase) 100 mcg NS DAILY SUMMER PRN Reason: Protocol Stop: 10/23/17 09:01 Last Admin: 04/23/17 11:51 Dose: Not Given Furosemide (Lasix) 40 mg IVP BIDDIURETIC SUMMER Stop: 10/22/17 21:01 Last Admin: 04/23/17 09:06 Dose: 40 mg Guaifenesin (Mucinex Dm) 1 each PO BID SUMMER Stop: 10/23/17 21:01 Azithromycin 500 mg/ Dextrose 250 mls @ 252 mls/hr IVPB Q24H SUMMER Stop: 10/22/17 19:01 Last Admin: 04/22/17 20:39 Dose: 252 mls/hr Levetiracetam (Keppra) 250 mg PO BID SUMMER Stop: 10/22/17 21:01 Last Admin: 04/23/17 09:07 Dose: 250 mg Lorazepam (Ativan) 0.5 mg PO TID PRN PRN Reason: Anxiety Stop: 10/22/17 18:07 Last Admin: 04/22/17 23:23 Dose: 0.5 mg Megestrol Acetate (Megace) 400 mg PO DAILY SUMMER PRN Reason: Protocol Stop: 10/23/17 09:01 Last Admin: 04/23/17 09:06 Dose: 400 mg Melatonin (Melatonin) 9 mg PO HS PRN PRN Reason: Sleep Last Admin: 04/22/17 23:23 Dose: 9 mg Metoprolol Tartrate (Lopressor) 50 mg PO BID [facility] Stop: 10/22/17 21:01 Last Admin: 04/23/17 09:07 Dose: 50 mg Naloxone HCl (Narcan) 0.4 mg IVP Q2MIN PRN PRN Reason: Opioid Reversal Stop: 10/22/17 18:11 Omeprazole (Prilosec) 20 mg PO DAILY SUMMER PRN Reason: Protocol Stop: 10/23/17 09:01 Last Admin: 04/23/17 09:07 Dose: 20 mg Prednisone (Prednisone) 40 mg PO DAILY [facility] Stop: 10/24/17 09:01 Warfarin Sodium (Coumadin Perpt) 1 each PO DAILY@1800 PRN PRN Reason: SEE COMMENTS Stop: 10/23/17 18:01 Laboratory Tests 04/22/17 04/22/17 04/22/17 13:27 13:27 13:27 WBC 17.5 H Hgb 10.5 L INR Creatinine Magnesium Troponin I 0.22 H* B-Natriuretic Peptide 919 H 04/22/17 04/23/17 04/23/17 18:33 00:04 00:04 WBC 13.7 H Hgb 9.4 L INR Creatinine Magnesium Troponin I 0.25 H* 0.22 H* B-Natriuretic Peptide 04/23/17 04/23/17 00:04 00:04 WBC Hgb INR 4.9 H* Creatinine 0.79 Magnesium 1.2 L Troponin I B-Natriuretic Peptide - Imaging and Cardiology Chest Xray: report reviewed Echo: report reviewed Cardiac cath: report reviewed - EKG Interpretation EKG results cardiology: personally reviewed (ECG with atrial fibrillation, RBBB , HR 85.), other (Telemetry reviewed with average HR previous 12 hours noted to be 87, atrial fibrillation.) Consult Discharge Plan - Plan Referrals: Marycruz Mackenzie MD [Primary Care Provider] -
--- NOTE | 2017-04-23 16:24 | Event Note ---
Date of Encounter: 04/23/17 Time of Encounter: 16:15 Nurse practitioner's consultation cosigned. Unable to add attestation due to technical difficulties with [employer]. Please consider this the attestation for the consultation. I have personally performed a face to face evaluation on this patient. I have reviewed and agree with the care plan. History and Exam by me shows: Patient is an 86-year-old female with a history of CAD, previous PCI, chronic atrial fibrillation, diastolic heart failure, and severe aortic stenosis s/p TAVR. Unfortunate, patient has had multiple recent admissions regarding dyspnea and heart failure. Upon my evaluation, patient appeared comfortable. No significant conversational dyspnea noted. Mild rales noted on examination. TTE 03/29/2017: LVEF 60%. Mild to moderate concentric LVH. Moderately dilated right ventricle with normal function. Severe right atrial enlargement. Bioprosthetic aortic valve appeared well-seated. Leaflets not well visualized. Mild aortic regurgitation, unclear if valvular or perivalvular. Mean gradient 13 mmHg. Mild TR. Estimated RVSP RVSP 40 mmHg consistent with mild pulmonary hypertension. Chest x-ray no significant change in pulmonary edema. Lab work: The BC 13.7, hemoglobin 9.4. INR 4.9. BMP essentially normal. Mild troponin elevation, flat - 0.25, 0.22. Impressions: 1. Respiratory insufficiency multifactorial. Suspect mostly related to diastolic heart failure. Patient also has underlying COPD. 2. History of severe aortic stenosis status post TAVR. TTE performed 03/2017 demonstrates acceptable findings. 3. Chronic atrial fibrillation, controlled heart rate. Supratherapeutic INR. 4. [place] CAD, prior PCI. 5. Minimal troponin elevation, flat. Presentation, findings not consistent with ACS. Recommendations: 1. Agree with diuresis. If necessary, increase to 40 mg IV TID. Monitor I's and O's, daily weights, serum creatinine. CHF education provided. 2. Continue aspirin, statin, and beta bronwyn therapy. 3. Goal INR is 2-3. Adjust Coumadin per pharmacy. No further inpatient cardiology recommendations. Please call if any further questions or concerns. Thanks, Vaughn Mtz DO, FACC
[2017-04-23] MEDS ORDERED: Warfarin perPT PO PRN (18:00)
[2017-04-23] MEDS: Azithromycin 500 MG in D5% in Water 250 ML IVPB SCH (18:03)
[2017-04-23] MEDS: GuaiFENesin/Dextromethorphan TABLET PO SCH (20:49)
[2017-04-24] MEDS: Ipratropium/Albuterol Neb 3 ML IH SCH ×7 (00:04→23:51)
[2017-04-24] MEDS: Melatonin 3 MG TABLET PO PRN ×2 (00:12→21:42)
[2017-04-24] MEDS: *HR* LORazepam 0.5 MG TABLET PO PRN ×2 (00:12→21:43)
[2017-04-24 06:24] LABS: Basophils % 0.1 %; Hemoglobin 9.4 g/dL (12.9-16.9); Immature Granulocytes % 0.6 % (0-4); Lymphocytes % 5.9 %; Mean Corpuscular HGB Conc 31.3 g/dL (31.6-35.5); Mean Corpuscular Hemoglobin 24.9 pg (28.0-33.3); Mean Corpuscular Volume 79.6 fL (83.0-100.0); Mean Platelet Volume 9.8 fL (9.4-12.4); Monocytes % 5.8 %; Neutrophils # 15.2 K/mcL (1.6-8.9); Platelet Count 319 K/mcL (140-400); Red Blood Count 3.77 M/mcL (4.19-5.50); Red Cell Distribution Width 17.8 % (11.5-14.5); Segmented Neutrophils % 87.6 %
[2017-04-24 06:31] LABS: INR 3.6
[2017-04-24 06:36] LABS: BUN/Creatinine Ratio 25 (6-26); Calcium 9.5 mg/dL (8.6-10.8); Carbon Dioxide 34 mEq/L (19-29); Chloride 96 mEq/L (98-109); Glucose 138 mg/dL (70-99); Magnesium 1.9 mg/dL (1.6-2.6); Osmolality,Calculated 292 (280-300); Potassium 3.9 mEq/L (3.5-4.5); Sodium 138 mEq/L (136-145); eGFR For African Americans > 60 (> 60); eGFR For Non-African Americans > 60 (> 60)
[2017-04-24 06:37] LABS: Blood Urea Nitrogen 23 mg/dL (8-26)
[2017-04-24] MEDS: Budesonide/Formoterol 160/4.5 MDI IH SCH ×2 (08:21→19:57)
[2017-04-24] MEDS: Furosemide 40 MG/4 ML VIAL IVP SCH ×2 (10:38→18:14)
[2017-04-24] MEDS: Aspirin Enteric Coated 81 MG Tablet PO SCH (10:38)
[2017-04-24] MEDS: predniSONE 20 MG TABLET PO SCH (10:39)
[2017-04-24] MEDS: levETIRAcetam 250 MG TABLET PO SCH ×2 (10:39→21:42)
[2017-04-24] MEDS: GuaiFENesin/Dextromethorphan TABLET PO SCH ×2 (10:39→21:43)
[2017-04-24] MEDS: Megestrol Acetate 400 MG/10 ML UDC PO SCH (10:39)
[2017-04-24] MEDS: *HR* Digoxin 0.125 MG TABLET PO SCH (10:39)
[2017-04-24] MEDS: Fluticasone Propionate Nasal 50 MCG/SPRAY BOTTLE NS SCH (10:40)
--- NOTE | 2017-04-24 10:52 | Internal Med Progress Note ---
<Maile Blackburn - Last Filed: 04/24/17 15:35> Date of Encounter: 04/24/17 Time of Encounter: 09:00 - Assessment and plan (1) Acute and chronic respiratory failure ([id number]) Current Visit: Yes Status: Acute Assessment and plan: - Hypoxic respiratory failure requiring BiPAP therapy in ED - Per patient his SpO2 dropped to 77% on home while on his baseline 3L of supplemental O2. - Likely secondary to acute exacerbation of CHF and COPD. - Clinically improves as patient reports better breathing and maintains O2 sat > 94% on only 3L NC - Continue Duonebs and supplemental O2 Qualifiers: Respiratory failure complication: hypoxia Qualified Code(s): J96.21 - Acute and chronic respiratory failure with hypoxia (2) Acute diastolic (congestive) heart failure Current Visit: Yes Status: Acute Assessment and plan: - Shortness of breath, bilateral lower extremity edema and BNP 919 on initial presentation. - CXR on 04/22/17 found no significant change in pulmonary edema - Echocardiogram on 03/29/17 revealed LVEF 60%, mild to moderate concentric left ventricular hypertrophy,indeterminate diastolic function, atypical septal motion consistent with bundle branch block, severely dilated right atrium, bioprosthetic aortic valve appears well seated in the LVOT, and mild pulmonary hypertension. - Per patient, this is his third hospitalization for CHF exacerbation following TAVR at [facility] on 03/10/17. He was hospitalized at [facility] for 5 days following last admission at [facility] on 03/15/17. Patient reports taking Lasix 40MG in AM and 20mg qhs prior to arrival - Continue Lasix 40mg IV BID. Per cardiology, may increase to 40 mg IV TID if necessary. No further inpatient cardiology recommendations per cardiology. - Strict I/O, daily weight, 1.5 L fluid restriction (3) Acute exacerbation of chronic obstructive pulmonary disease (COPD) Current Visit: Yes Status: Acute Assessment and plan: - Recent Amoxicillin use for URI in late February. - CXR on 04/22/17 found no significant change in pulmonary edema. - Will attempt to obtain sputum culture. - Continue steroids, antibiotics, bronchodilators, Mucinex prn and supplemental oxygen. (4) S/P TAVR (transcatheter aortic valve replacement) Current Visit: No Status: Chronic Assessment and plan: - Recent TAVR at [facility] for severe aotic stenosis - TTE 03/29/17 revealed good position of valve. - Goal INR is 2-3. Continue Coumadin, dosing adjustment per pharmacy - Continue to monitor. (5) CAD (coronary artery disease) Current Visit: No Status: Chronic Assessment and plan: - History of prior [place] requiring stent placement. - Continue aspirin, statin, and beta bronwyn Qualifiers: Coronary Disease-Associated Artery/Lesion type: [place] artery [place] vs. transplanted heart: [place] heart Associated angina: without angina Qualified Code(s): I25.10 - Atherosclerotic heart disease of [place] coronary artery without angina pectoris (6) Hypertension, essential Current Visit: No Status: Chronic Assessment and plan: - BP within normal range. - Continue current antihypertensive regimen. - Subjective Interval history: Patient was seen and examined this morning. Patient reports doing well without significant shortness of breath. Patient denies chest pain, palpitation, diaphoresis, lightheadedness. - Constitutional Vitals: Temp Pulse Resp BP Pulse Ox 98.2 F 94 16 101/66 95 04/24/17 07:30 04/24/17 07:30 04/24/17 07:30 04/24/17 07:30 04/24/17 07:30 General appearance: Present: cooperative, A&O X 3, pleasant, no acute distress, answers questions appropriately - Head Head exam: Present: atraumatic, normocephalic - Eye Eye exam: Present: EOMI, conjuntiva pink, sclera anicteric - Neck Neck exam general surgery: Present: supple, trachea midline. Absent: lymphadenopathy - Respiratory Respiratory exam: Present: CTAB. Absent: accessory muscle use, rales, rhonchi, wheezes - Cardiovascular Cardiovascular exam: Present: RRR, +S1, +S2. Absent: diastolic murmur, gallop, rubs, systolic murmur - GI/Abdominal GI/Abdominal exam: Present: normal bowel sounds, soft, no peritoneal signs. Absent: distended, tenderness - Extremities Exam Extremities exam: Present: warm. Absent: calf tenderness, cyanotic, pedal edema - Neurological Exam Neurological exam: Present: CN II-XII intact, no focal deficits. Absent: facial droop, speech deficit - Skin Skin exam: Present: dry, intact, warm Internal Medicine: Result - Labs CBC & Chem 7: 04/24/17 05:47 04/24/17 05:47 Labs: Short CBC 04/24/17 Range/Units 05:47 WBC 17.3 H (4.3-11.1) K/mcL Hgb 9.4 L (12.9-16.9) g/dL Hct 30.0 L (37.5-50.1) % Plt Count 319 (140-400) K/mcL Neutrophils # 15.2 H (1.6-8.9) K/mcL BMP 04/23/17 04/24/17 14:24 05:47 Sodium 138 Potassium 4.4 D 3.9 Chloride 96 L Carbon Dioxide 34 H BUN 23 D Creatinine 0.91 Glucose 138 H Calcium 9.5 - ABG Interpretation ABG results: PT/INR, D-dimer PT 40.0 Seconds (9.4-12.1) H 04/24/17 05:47 - VTE Reasons for not Prescribing Prophylaxis: Not indicated-Anticoagulated or INR therapeutic Consult Discharge Plan - Plan Instructions: Heart Failure (DC), Atrial Fibrillation (DC), Pneumonia (DC) Referrals: Marycruz Mackenzie MD [Primary Care Provider] - <Latrell Leal - Last Filed: 04/24/17 17:35> Date of Encounter: 04/24/17 - Assessment and plan (1) Acute and chronic respiratory failure ([id number]) Current Visit: Yes Status: Acute Qualifiers: Respiratory failure complication: hypoxia Qualified Code(s): J96.21 - Acute and chronic respiratory failure with hypoxia (2) Acute diastolic (congestive) heart failure Current Visit: Yes Status: Acute (3) Acute exacerbation of chronic obstructive pulmonary disease (COPD) Current Visit: Yes Status: Acute (4) CAD (coronary artery disease) Current Visit: No Status: Chronic Qualifiers: Coronary Disease-Associated Artery/Lesion type: [place] artery [place] vs. transplanted heart: [place] heart Associated angina: without angina Qualified Code(s): I25.10 - Atherosclerotic heart disease of [place] coronary artery without angina pectoris (5) CKD (chronic kidney disease) Current Visit: No Status: Chronic Qualifiers: Chronic kidney disease stage: stage 3 (moderate) Qualified Code(s): N18.3 - Chronic kidney disease, stage 3 (moderate) (6) S/P TAVR (transcatheter aortic valve replacement) Current Visit: No Status: Chronic (7) Hypertension, essential Current Visit: No Status: Chronic - Constitutional Vitals: Temp Pulse Resp BP Pulse Ox 97.9 F 88 22 115/70 96 04/24/17 14:55 04/24/17 15:23 04/24/17 15:23 04/24/17 15:23 04/24/17 15:23 Internal Medicine: Result - Labs CBC & Chem 7: 04/24/17 05:47 04/24/17 05:47 Labs: Short CBC 04/24/17 Range/Units 05:47 WBC 17.3 H (4.3-11.1) K/mcL Hgb 9.4 L (12.9-16.9) g/dL Hct 30.0 L (37.5-50.1) % Plt Count 319 (140-400) K/mcL Neutrophils # 15.2 H (1.6-8.9) K/mcL BMP 04/23/17 04/24/17 14:24 05:47 Sodium 138 Potassium 4.4 D 3.9 Chloride 96 L Carbon Dioxide 34 H BUN 23 D Creatinine 0.91 Glucose 138 H Calcium 9.5 - ABG Interpretation ABG results: PT/INR, D-dimer PT 40.0 Seconds (9.4-12.1) H 04/24/17 05:47 - Attending Attestation I examined this patient and my medical decision-making was reviewed with the Resident Physician on 04/24/17. I agree with the documented findings, disposition and treatment plan as described except to the extent set forth below. Mr Hayes is currently admitted for acute resp failure and CHF. He remains moderate to high risk due to potential for worsening resp and cardiac status. Mr Hayes is up to eat lunch. He is breathing somewhat better today. No CP. No fever or chills. Appears to be negative fluid balance. Exam Alert. Comfortable Mucus membranes dry Heart reg with murmur Lungs with some rales Abd soft Edema present I/P 1. Hypoxia 2. CHF Further diagnoses and plan as above.
--- NOTE | 2017-04-24 11:01 | Electrocardiograph Report ---
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
[2017-04-24] MEDS: Azithromycin 500 MG in D5% in Water 250 ML IVPB SCH (18:14)
[2017-04-25 03:26] LABS: Mean Corpuscular Hemoglobin 24.8 pg (28.0-33.3); Mean Corpuscular Volume 79.9 fL (83.0-100.0); Mean Platelet Volume 9.5 fL (9.4-12.4); Platelet Count 340 K/mcL (140-400); Red Blood Count 3.63 M/mcL (4.19-5.50); Red Cell Distribution Width 17.9 % (11.5-14.5)
[2017-04-25 03:38] LABS: INR 3.3; Prothrombin Time 36.2 Seconds (9.4-12.1)
[2017-04-25 03:43] LABS: BUN/Creatinine Ratio 31 (6-26); Blood Urea Nitrogen 25 mg/dL (8-26); Calcium 9.1 mg/dL (8.6-10.8); Carbon Dioxide 34 mEq/L (19-29); Chloride 95 mEq/L (98-109); Glucose 124 mg/dL (70-99); Osmolality,Calculated 288 (280-300); Potassium 3.8 mEq/L (3.5-4.5); Sodium 136 mEq/L (136-145); eGFR For African Americans > 60 (> 60); eGFR For Non-African Americans > 60 (> 60)
[2017-04-25] MEDS: Ipratropium/Albuterol Neb 3 ML IH SCH ×3 (04:17→10:54)
[2017-04-25 07:36] VITALS: BP 111/80
[2017-04-25] MEDS: Budesonide/Formoterol 160/4.5 MDI IH SCH (08:10)
--- NOTE | 2017-04-25 09:58 | Discharge Summary ---
<Maile Blackburn - Last Filed: 04/25/17 10:54> Date of Encounter: 04/25/17 Time of Encounter: 09:00 - Discharge Diagnosis (1) Acute and chronic respiratory failure ([id number]) Priority: Primary Status: Acute Qualifiers: Respiratory failure complication: hypoxia Qualified Code(s): J96.21 - Acute and chronic respiratory failure with hypoxia (2) Acute diastolic (congestive) heart failure Priority: Primary Status: Acute (3) Acute exacerbation of chronic obstructive pulmonary disease (COPD) Priority: Secondary Status: Acute (4) S/P TAVR (transcatheter aortic valve replacement) Priority: Secondary Status: Chronic (5) CAD (coronary artery disease) Priority: Secondary Status: Chronic Qualifiers: Coronary Disease-Associated Artery/Lesion type: [place] artery [place] vs. transplanted heart: [place] heart Associated angina: without angina Qualified Code(s): I25.10 - Atherosclerotic heart disease of [place] coronary artery without angina pectoris (6) Hypertension, essential Priority: Secondary Status: Chronic - Discharge Medications Prescriptions: Furosemide [Lasix] 40 mg PO BID #30 tablet predniSONE [PredniSONE] 40 mg PO DAILY #4 tablet Home Medications: Aspirin [Lo-Dose Aspirin EC] 81 mg PO DAILY 11/05/16 [History] Atorvastatin Calcium [Lipitor] 20 mg PO HS 11/05/16 [History] LORazepam [Ativan] 0.5 mg PO TID PRN 11/05/16 [History] Melatonin 10 mg PO HS PRN 11/05/16 [History] Acetaminophen [Tylenol] 650 mg PO Q6HR PRN tab 02/11/17 [Rx] Bismuth Subsalicylate [PEPTO-BISMOL (262mg/15mL) Susp] 30 ml PO QID PRN [Rx] Docusate [Colace] 200 mg PO BID #60 tab 02/11/17 [Rx] Albuterol Neb [AccuNeb] 0.63 mg IH TID 02/15/17 [History] Budesonide/Formoterol 160/4.5 [Symbicort 160/4.5] 2 puff IH BIDR 03/30/17 [ History] Umeclidinium [place] [Incruse Ellipta] 1 puff IH DAILY 03/30/17 [History] HYDROcodone/Acet 5/325 mg [[place] 5-325 mg] 1 tab PO Q4HR PRN #10 tablet [Rx] Digoxin [Lanoxin] 0.125 mg PO DAILY #30 tablet 04/08/17 [Rx] Fluticasone Propionate Nasal [Flonase] 100 mcg NS DAILY bottle 04/08/17 [Rx] Metoprolol [Lopressor] 50 mg PO BID #60 tablet 04/08/17 [Rx] Omeprazole [PriLOSEC] 20 mg PO DAILY 04/10/17 [History] Ipratropium/Albuterol Neb [Duoneb] 3 ml IH Q6HR 04/22/17 [History] Megestrol Acetate [Megace] 400 mg PO DAILY 04/22/17 [History] levETIRAcetam [Keppra] 250 mg PO BID 04/22/17 [History] Furosemide [Lasix] 40 mg PO BID #30 tablet 04/25/17 [Rx] Warfarin [Coumadin] 3 mg PO DAILY #0 04/25/17 [Rx] predniSONE [PredniSONE] 40 mg PO DAILY #4 tablet 04/25/17 [Rx] Allergies/Adverse Reactions: 3 Allergy/AdvReac Type Severity Reaction Status Date / Time tetanus immune globulin Allergy Unknown unknown Verified 04/22/17 13:59 Date of admission: 04/22/17 15:31 Primary care physician: Marycruz Mackenzie Consults: 04/22/17 18:31 Consult to Motion Picture Operator [CONS] Routine Reason for SW Consult: CURRENT [facility] 02@3L/[place] 04/23/17 10:04 Consult to Cardiology [CONS] Routine Comment: Consulting Provider: Cardiology [place] Reason for Consult: 3rd admit for CHF exacerbation s/p TAVR on 03/10/17 Time Notified: 09:38 Call Completed: Yes 04/24/17 15:19 Consult to Physical Therapy [CONS] Routine Comment: Evaluate, develop and implement POC Reason for Consult: discharge planning OT [Consult to Occupational Therapy] [CONS] Routine Comment: Evaluate, develop and implement POC Reason for Consult: discharge planning. Discharging clinician: Maile Blackburn Anticipated date of discharge: 04/25/17 - Patient Status Disposition: Home, Self-Care Condition: Fair Functional capacity at discharge: independent ambulation Overall status at discharge: patient is progressing back to baseline - Discharge Instructions Instructions: Furosemide (By mouth), Prednisone (By mouth), Heart Failure (DC) , Atrial Fibrillation (DC), Pneumonia (DC) Follow Up With: Marycruz Mackenzie MD [Primary Care Provider] - (Within a week) Additional Instructions: Please take prescribed prednisone 40 mg by mouth daily for 4 more days. Please restart your home dose Warfarin on 04/26/17 and follow up with Coumadin clinic on Wednesday. Please take Lasix 40 mg by mouth twice a day as recommended by [place] cardiology. Please follow up with your primary care provider with a week and with [place] cardiology as needed. Please come back to emergency room if you develop symptoms such as worsening shortness of breath, chest pain, diaphoresis, lightheadedeness/syncope. - Diet and Activity Activity: increase activity as tolerated Diet: diabetic diet, low fat, low cholesterol, low salt diet Hospital course: Mr. Hayes is a 86 year old male with PMH of CAD s/p PCI, chronic A-fib, CHF, hyperlipidemia, PE, IVC filter, bladder cancer, severe aortic stenosis s/p recent TAVR. Patient presented to [place] [facility] ED with complaint of worsening shortness of breath and lower extremity swelling. Patient was noted to have WBC 17.5, BNP 919, troponin 0.22 and INR 5.2 in ED. Patient was admitted on 04/22/17 for acute exacerbation of CHF and started on BiPAP and IV Lasix. Per patient, this is his third hospitalization for CHF exacerbation following TAVR at [facility] on 03/10/17. He was hospitalized at [facility] for 5 days following last admission at [facility] on 03/15/17. Cardiology was consulted and agrees with diuresis. Patient's respiratory status and swelling improve as patient had net negative 2.27 L of fluid since admission. On the day of discharge (04/25/17), patient is able to maintain O2 sat above 94% on 3L NC, which is his oxygen dosage at home, and his INR had decreased to 3.3. Patient thinks he is ready to go home and likes to go home. Given patient's clinical improvement and hemodynamical stability, patient will be discharge home on 04/25/17 with home health for aide and PT/OT. Patient is instructed to finish 4 more days of prednisone 40 mg PO daily for his COPD and continue Lasix 40 mg PO BID as recommended by cardiology. Given patient's INR at 3.3, patient is instructed to restart his home dose Warfarin on 04/26/17 and follow up with Coumadin clinic on Wednesday. Patient will need to follow up with his primary care provider with a week and with [facility] as needed. Patient is also instructed to come back to emergency room if he develops symptoms such as worsening shortness of breath, chest pain, diaphoresis, lightheadedeness/syncope. Patient and his son showed their understanding and agreement with the discharge plan. All questions were answered. - Time Spent with Patient Total time spent providing and/or coordinating discharge services: Greater than 30 minutes (47 minutes) - Constitutional Vitals: Temp Pulse Resp BP Pulse Ox 98 F 91 16 111/80 95 04/25/17 07:34 04/25/17 07:34 04/25/17 07:44 04/25/17 07:34 04/25/17 07:44 General appearance: Present: cooperative, A&O X 3, no acute distress, answers questions appropriately - Head Head exam: Present: atraumatic, normocephalic - Eye Eye exam: Present: EOMI, conjuntiva pink, sclera anicteric - Neck Neck exam general surgery: Present: supple, trachea midline. Absent: lymphadenopathy - Respiratory Respiratory exam: Present: rales (few crackles, better compared to yesterday.). Absent: accessory muscle use, rhonchi, wheezes - Cardiovascular Cardiovascular exam: Present: RRR, +S1, +S2. Absent: diastolic murmur, gallop, rubs, systolic murmur - GI/Abdominal GI/Abdominal exam: Present: normal bowel sounds, soft, no peritoneal signs. Absent: distended, tenderness - Extremities Exam Extremities exam: Present: pedal edema (Mild), warm, radial pulses palpable and symmetrical. Absent: calf tenderness, cyanotic - Neurological Exam Neurological exam: Present: oriented X3, no focal deficits. Absent: facial droop, speech deficit - Skin Skin exam: Present: dry, intact, warm - VTE Reasons for not Prescribing Prophylaxis: Not indicated-Anticoagulated or INR therapeutic Documentation of Mechanical Device: Intermittent pneumatic compression device <Latrell Leal - Last Filed: 04/25/17 14:08> Date of Encounter: 04/25/17 - Discharge Diagnosis (1) Acute and chronic respiratory failure ([id number]) Status: Acute Qualifiers: Respiratory failure complication: hypoxia Qualified Code(s): J96.21 - Acute and chronic respiratory failure with hypoxia (2) Acute diastolic (congestive) heart failure Status: Acute (3) Acute exacerbation of chronic obstructive pulmonary disease (COPD) Status: Acute (4) CAD (coronary artery disease) Status: Chronic Qualifiers: Coronary Disease-Associated Artery/Lesion type: [place] artery [place] vs. transplanted heart: [place] heart Associated angina: without angina Qualified Code(s): I25.10 - Atherosclerotic heart disease of [place] coronary artery without angina pectoris (5) CKD (chronic kidney disease) Priority: Secondary Status: Chronic Qualifiers: Chronic kidney disease stage: stage 3 (moderate) Qualified Code(s): N18.3 - Chronic kidney disease, stage 3 (moderate) (6) S/P TAVR (transcatheter aortic valve replacement) Status: Chronic (7) Hypertension, essential Status: Chronic Date of admission: 04/22/17 15:31 Primary care physician: Marycruz Mackenzie Consults: 04/22/17 18:31 Consult to Motion Picture Operator [CONS] Routine Reason for SW Consult: CURRENT [facility] 02@3/[place] 04/23/17 10:04 Consult to Cardiology [CONS] Routine Comment: Consulting Provider: Kayden Chapman Reason for Consult: 3rd admit for CHF exacerbation s/p TAVR on 03/10/17 Time Notified: 09:38 Call Completed: Yes 04/24/17 15:19 Consult to Physical Therapy [CONS] Routine Comment: Evaluate, develop and implement POC Reason for Consult: discharge planning OT [Consult to Occupational Therapy] [CONS] Routine Comment: Evaluate, develop and implement POC Reason for Consult: discharge planning. Hospital course: Mr. Hayes is a 86 year old male - Time Spent with Patient Total time spent providing and/or coordinating discharge services: 39min - Constitutional Vitals: Temp Pulse Resp BP Pulse Ox 98 F 91 20 111/80 98 04/25/17 07:34 04/25/17 07:34 04/25/17 10:54 04/25/17 07:34 04/25/17 10:54 - Attending Attestation I examined this patient and my medical decision-making was reviewed with the Resident Physician on 04/25/17. I agree with the documented findings, disposition and treatment plan as described except to the extent set forth below. Mr Hayes has been admitted for acute exac CHF. He has diuresed well and is breathing about baseline now. He is afebrile with stable vitals. Son is at bedside. He is ready for discharge home. Exam Alert. Comfortable up in chair. Mucus membranes dry Heart distant with murmur Lungs with scant rales Abd soft Less edema Plan D/C home today on increased Lasix Followup with PCP and cardiology.
--- NOTE | 2017-04-25 10:49 | Physician Discharge Referral ---
Home Health/Hosp Referral Info Transfer to: Home Health Provider in Charge Post Discharge: PCP - Diagnosis (1) Acute and chronic respiratory failure ([id number]) Priority: Primary Status: Acute (2) Acute diastolic (congestive) heart failure Priority: Primary Status: Acute (3) Acute exacerbation of chronic obstructive pulmonary disease (COPD) Priority: Secondary Status: Acute (4) S/P TAVR (transcatheter aortic valve replacement) Priority: Secondary Status: Chronic (5) CAD (coronary artery disease) Priority: Secondary Status: Chronic (6) Hypertension, essential Priority: Secondary Status: Chronic - Respiratory Orders Oxygen / L per min (3L) Smoking Cessation: Smoking cessation has been advised. For more information, call the [employer] Quit Line at 7-965-VCHI-NOW. - Diet/Nutrition Diet/Nutrition Orders: Cardiac - Activity Activity Orders: Ambulate - Services Needed Following services are medically necessary services: Home Health Aide, Physical Therapy, Occupational Therapy - Transfer Medications Prescriptions: Furosemide [Lasix] 40 mg PO BID #30 tablet predniSONE [PredniSONE] 40 mg PO DAILY #4 tablet Home Medications: Aspirin [Lo-Dose Aspirin EC] 81 mg PO DAILY 11/05/16 [History] Atorvastatin Calcium [Lipitor] 20 mg PO HS 11/05/16 [History] LORazepam [Ativan] 0.5 mg PO TID PRN 11/05/16 [History] Melatonin 10 mg PO HS PRN 11/05/16 [History] Acetaminophen [Tylenol] 650 mg PO Q6HR PRN tab 02/11/17 [Rx] Bismuth Subsalicylate [PEPTO-BISMOL (262mg/15mL) Susp] 30 ml PO QID PRN [Rx] Docusate [Colace] 200 mg PO BID #60 tab 02/11/17 [Rx] Albuterol Neb [AccuNeb] 0.63 mg IH TID 02/15/17 [History] Budesonide/Formoterol 160/4.5 [Symbicort 160/4.5] 2 puff IH BIDR 03/30/17 [ History] Umeclidinium [place] [Incruse Ellipta] 1 puff IH DAILY 03/30/17 [History] HYDROcodone/Acet 5/325 mg [[place] 5-325 mg] 1 tab PO Q4HR PRN #10 tablet [Rx] Digoxin [Lanoxin] 0.125 mg PO DAILY #30 tablet 04/08/17 [Rx] Fluticasone Propionate Nasal [Flonase] 100 mcg NS DAILY bottle 04/08/17 [Rx] Metoprolol [Lopressor] 50 mg PO BID #60 tablet 04/08/17 [Rx] Omeprazole [PriLOSEC] 20 mg PO DAILY 04/10/17 [History] Ipratropium/Albuterol Neb [Duoneb] 3 ml IH Q6HR 04/22/17 [History] Megestrol Acetate [Megace] 400 mg PO DAILY 04/22/17 [History] levETIRAcetam [Keppra] 250 mg PO BID 04/22/17 [History] Furosemide [Lasix] 40 mg PO BID #30 tablet 04/25/17 [Rx] Warfarin [Coumadin] 3 mg PO DAILY #0 04/25/17 [Rx] predniSONE [PredniSONE] 40 mg PO DAILY #4 tablet 04/25/17 [Rx] Allergies/Adverse Reactions: 3 Allergy/AdvReac Type Severity Reaction Status Date / Time tetanus immune globulin Allergy Unknown unknown Verified 04/22/17 13:59 Certification: Further, I certify that my clinical findings support that this patient is homebound (i.e. absences from home require considerable and taxing effort and are for medical reasons or druze services or infrequently or short duration when for other reasons) because: Homebound Reason: Patient requires assistance of a person or device to safely leave home Attestation: My signature below is to certify that this patient is under my care and that I, or nurse practitioner, or a physician's housekeeper and laundry assistant working with me, has a face-to -face encounter with this patient.
[2017-04-25] MEDS: Megestrol Acetate 400 MG/10 ML UDC PO SCH (13:17)
[2017-04-25] MEDS: Furosemide 40 MG/4 ML VIAL IVP SCH ×2 (13:18→13:28)
[2017-04-25] MEDS: *HR* Digoxin 0.125 MG TABLET PO SCH (13:18)
[2017-04-25] MEDS: levETIRAcetam 250 MG TABLET PO SCH (13:18)
[2017-04-25] MEDS: predniSONE 20 MG TABLET PO SCH (13:19)
[2017-04-25] MEDS: GuaiFENesin/Dextromethorphan TABLET PO SCH (13:19)
[2017-04-25] MEDS: Aspirin Enteric Coated 81 MG Tablet PO SCH (13:19)
[2017-04-25] MEDS: Fluticasone Propionate Nasal 50 MCG/SPRAY BOTTLE NS SCH (13:20)
== END 2017-04-25 14:30 | disposition home or self-care (01) | DRG 291 ==
LOC: EMEROO 12:49 → 2NENU 15:31
PROVIDERS: ADMIT Hospitalist; ATTEND Internal Medicine

== ENCOUNTER 2017-08-23 19:40 | Observation (INO) ==
[2017-08-23] MEDS ORDERED: Ondansetron ODT 4 MG TAB.RAPDIS SL ONE (19:49)
--- NOTE | 2017-08-23 20:49 | Emergency Department Note ---
Disposition Clinical Impression: Elevated troponin, Elevated bilirubin Nausea & vomiting Qualifiers: Vomiting type: unspecified Vomiting Intractability: non-intractable Qualified Code(s): R11.2 - Nausea with vomiting, unspecified Diarrhea Qualifiers: Diarrhea type: unspecified type Qualified Code(s): R19.7 - Diarrhea, unspecified Disposition: Admitted As Inpatient Condition: Fair Referrals: Marycruz Mackenzie MD [Primary Care Provider] - Forms: ED Satisfaction Letter, Work/School Release Time of Disposition: 00:26 General Adult HPI - General Chief complaint: ED General Medical Stated complaint: "think I have the flu" Time Seen by Provider: 08/23/17 20:25 Source: patient, family Limitations: no limitations Nursing Notes Reviewed: Yes Vital Signs Reviewed: Yes - History of Present Illness HPI Narrative: 86 y/o male who reports that yesterday he had chills but otherwise felt fine. Today he had a fever of 101 at home and then developed nausea and vomiting and diarrhea. He vomited x2 in car on the way to the ED. a couple of months ago he had a radiator mechanic aortic valve replacement done at [facility]. No new rashes or edema. He has had a cough. He also admits to prostate problems and has been having trouble urinating. He currently does not have any nausea. Pain Scale: 0 Improves with: nothing Worsens with: nothing Associated symptoms: Reports: denies other symptoms Treatments Prior to Arrival: none - Related Data Home Medications Medication Instructions Recorded Confirmed Aspirin [Lo-Dose Aspirin EC] 81 mg PO DAILY 11/05/16 08/11/17 Atorvastatin Calcium [Lipitor] 20 mg PO HS 11/05/16 08/11/17 LORazepam [Ativan] 0.5 mg PO HS PRN 11/05/16 08/11/17 Omeprazole [PriLOSEC] 20 mg PO DAILY 04/10/17 08/11/17 Ipratropium/Albuterol Neb [Duoneb] 3 ml IH Q6HR 04/22/17 08/11/17 Ipratropium [Atrovent Inhaler] 2 puff IH QID 08/11/17 08/11/17 Metoprolol [Lopressor] 25 mg PO BID 08/11/17 08/11/17 Warfarin [Coumadin] 2.5 mg PO Q48H 08/11/17 08/11/17 Warfarin [Coumadin] 3 mg PO Q48H 08/11/17 08/11/17 Previous Rx's Medication Instructions Recorded Digoxin [Lanoxin] 0.125 mg PO DAILY #30 tablet 04/08/17 Furosemide [Lasix] 40 mg PO BID #30 tablet 04/25/17 Allergies Allergy/AdvReac Type Severity Reaction Status Date / Time tetanus immune globulin Allergy Unknown unknown Verified 04/22/17 13:59 All systems ED: reviewed and negative except as stated. Constitutional: Reports: fever ENT ED: Denies: throat pain Cardiovascular: Denies: chest pain Respiratory: Reports: cough Gastrointestinal: Reports: nausea, vomiting, diarrhea. Denies: abdominal pain Musculoskeletal: Denies: back pain Integumentary: Denies: rash Hematological/Lymphatic: Reports: easy bruising Past Medical History - Past Medical History Medical history: Reports: atrial fibrillation, cancer, CHF, COPD, coronary artery disease, hypertension, myocardial infarction, pulmonary embolus, valvular heart disease Surgical history: Reports: angioplasty/stent, appendectomy, knee replacement, vascular surgery (TAVR) Psychiatric history: Reports: no psych history - Social History Smoking Status: Former smoker Smokeless Tobacco Status: No Alcohol use: Reports: none Drug use: Reports: none Physical Exam - General Limitations: no limitations General appearance: alert - Head Head exam: atraumatic - Eye Eye exam: Present: normal appearance, PERRL - ENT ENT exam: normal exam, normal oropharynx - Neck Neck exam: Present: normal inspection - Chest Chest inspection: Present: normal inspection - Respiratory Respiratory exam: Present: normal lung sounds bilaterally. Absent: respiratory distress - Cardiovascular Cardiovascular exam: Present: regular rate, normal rhythm - Abdominal Exam Abdominal exam: Present: soft, Non-Tender - Extremities Exam Extremities exam: Present: normal inspection - Neurological Exam Neurological exam: Present: alert, oriented X3 - Skin Skin exam: Present: warm, dry Course Course Narrative: CT shows no acute findings. No CBD dilation or signs of cholecystitis. Troponin is elevated, but it is chronically so. No chest pain. He has had no further N/V in the ED, however he feels too weak to go home as he says he is now so weak that he cannot walk. Neurologically intact. No signs of cauda equina. No anion gap. He does have leukocytosis. He has absolutely no abdominal pain passively or on palpation. Will admit due to inability to ambulate along with N/V/D. He has absolutely no RUQ pain on palpation. No cholangitis. Bilirubin elevation explained by N/V/D with dehydration. EKG shows new ST depression in AVL, however all other leads are unchanged. No chest pain. Troponin is chronically elevated. However will give ASA. Vital Signs Temperature 99.7 F H 08/23/17 19:43 Pulse Rate 93 08/23/17 19:43 Respiratory Rate 16 08/23/17 19:43 Blood Pressure 131/71 08/23/17 19:43 O2 Sat by Pulse Oximetry 96 08/23/17 19:43 Temperature 99.7 F H 08/23/17 19:43 Pulse Rate 92 08/24/17 00:22 Respiratory Rate 18 08/24/17 00:22 Blood Pressure 106/61 08/24/17 00:22 O2 Sat by Pulse Oximetry 93 08/24/17 00:22 Oxygen Delivery Oxygen Delivery Nasal Cannula Medical Decision Making - Medical Records Medical records reviewed: Yes I reviewed the patient's medical records. - Lab Data Lab results reviewed: Yes I reviewed the patient's lab results. Result diagrams: 08/23/17 20:52 08/23/17 20:52 Lab Results 08/23/17 08/23/17 08/23/17 Range/Units 20:07 20:41 20:52 WBC 18.9 H (4.3-11.1) K/mcL RBC 5.23 (4.19-5.50) M/mcL Hgb 12.1 L (12.9-16.9) g/dL Hct 38.9 (37.5-50.1) % MCV 74.4 L (83.0-100.0) fL MCH 23.1 L (28.0-33.3) pg MCHC 31.1 L (31.6-35.5) g/dL RDW 19.9 H (11.5-14.5) % Plt Count 355 (140-400) K/mcL MPV 9.8 (9.4-12.4) fL Immature Gran % 0.5 (0-4) % Seg Neutrophils % 84.8 % Lymphocytes % 6.4 % Monocytes % 8.1 % Eosinophils % 0.0 % Basophils % 0.2 % Neutrophils # 16.1 H (1.6-8.9) K/mcL Lymphocytes # 1.2 (0.6-4.6) K/mcL Monocytes # 1.5 H (0.0-1.3) K/mcL Eosinophils # 0.0 (0.0-0.6) K/mcL Basophils # 0.0 (0.0-0.2) K/mcL PT 22.5 H (9.4-12.1) Seconds INR 2.1 Sodium (136-145) mEq/L Potassium (3.5-5.1) mEq/L Chloride (98-107) mEq/L Carbon Dioxide (23-29) mEq/L BUN (8-23) mg/dL Creatinine (0.70-1.30) mg/dL Est GFR ( Amer) (> 60) Est GFR (Non-Af Amer) (> 60) BUN/Creatinine Ratio (6-26) Glucose (70-105) mg/dL Calculated Osmolality (280-300) Lactic Acid (0.5-2.2) mmol/L Calcium (8.6-10.3) mg/dL Total Bilirubin (0.3-1.0) mg/dL Direct Bilirubin (0.0-0.2) mg/dL Indirect Bilirubin (0.0-1.2) mg/dL AST (13-39) Units/L ALT (7-52) Units/L Alkaline Phosphatase (34-104) Units/L Troponin I (< 0.04) ng/mL Serum Total Protein (6.4-8.9) g/dL Albumin (3.5-5.7) g/dL Globulin (2.4-3.5) g/dL Albumin/Globulin Ratio (1.1-2.2) Urine Color Dark Yellow (Yellow) Urine Clarity Clear (Clear) Urine pH 6.5 (5.0-8.0) pH Units Ur Specific [place] 1.021 (1.010-1.025) Urine Protein 100 H (Neg-Trace) mg/dL Urine Glucose (UA) Normal (Normal) mg/dL Urine Ketones Negative (Negative) mg/dL Urine Blood Negative (Negative) Urine Nitrite Negative (Negative) Urine Bilirubin Negative (Negative) Urine Urobilinogen Normal (Normal) mg/dL Ur Leukocyte Esterase Small H (Negative) Urine Microscopic RBC 0-3 (0-3) per hpf Urine Microscopic WBC 5-15 H (0-3) per hpf Ur Squamous Epith Cells Moderate H (None-Few) per lpf Urine Bacteria None Seen (None-Few) per hpf Hyaline Casts None Seen (None-Few) per lpf Ur Culture Indicated? YES A (NO) 08/23/17 08/23/17 Range/Units 20:52 21:31 WBC (4.3-11.1) K/mcL RBC (4.19-5.50) M/mcL Hgb (12.9-16.9) g/dL Hct (37.5-50.1) % MCV (83.0-100.0) fL MCH (28.0-33.3) pg MCHC (31.6-35.5) g/dL RDW (11.5-14.5) % Plt Count (140-400) K/mcL MPV (9.4-12.4) fL Immature Gran % (0-4) % Seg Neutrophils % % Lymphocytes % % Monocytes % % Eosinophils % % Basophils % % Neutrophils # (1.6-8.9) K/mcL Lymphocytes # (0.6-4.6) K/mcL Monocytes # (0.0-1.3) K/mcL Eosinophils # (0.0-0.6) K/mcL Basophils # (0.0-0.2) K/mcL PT (9.4-12.1) Seconds INR Sodium 131 L (136-145) mEq/L Potassium 4.2 (3.5-5.1) mEq/L Chloride 92 L (98-107) mEq/L Carbon Dioxide 30 H (23-29) mEq/L BUN 19 (8-23) mg/dL Creatinine 1.10 (0.70-1.30) mg/dL Est GFR ( Amer) > 60 (> 60) Est GFR (Non-Af Amer) > 60 (> 60) BUN/Creatinine Ratio 17 (6-26) Glucose 124 H (70-105) mg/dL Calculated Osmolality 276 L (280-300) Lactic Acid 1.4 (0.5-2.2) mmol/L Calcium 9.8 (8.6-10.3) mg/dL Total Bilirubin 1.4 H (0.3-1.0) mg/dL Direct Bilirubin 0.5 H (0.0-0.2) mg/dL Indirect Bilirubin 0.9 (0.0-1.2) mg/dL AST 25 (13-39) Units/L ALT 13 (7-52) Units/L Alkaline Phosphatase 147 H (34-104) Units/L Troponin I 0.09 H* (< 0.04) ng/mL Serum Total Protein 8.1 (6.4-8.9) g/dL Albumin 3.7 (3.5-5.7) g/dL Globulin 4.4 H (2.4-3.5) g/dL Albumin/Globulin Ratio 0.8 L (1.1-2.2) Urine Color (Yellow) Urine Clarity (Clear) Urine pH (5.0-8.0) pH Units Ur Specific [place] (1.010-1.025) Urine Protein (Neg-Trace) mg/dL Urine Glucose (UA) (Normal) mg/dL Urine Ketones (Negative) mg/dL Urine Blood (Negative) Urine Nitrite (Negative) Urine Bilirubin (Negative) Urine Urobilinogen (Normal) mg/dL Ur Leukocyte Esterase (Negative) Urine Microscopic RBC (0-3) per hpf Urine Microscopic WBC (0-3) per hpf Ur Squamous Epith Cells (None-Few) per lpf Urine Bacteria (None-Few) per hpf Hyaline Casts (None-Few) per lpf Ur Culture Indicated? (NO) - Radiology Data Radiology results reviewed: Yes I reviewed the patient's radiology results. - EKG Data EKG #1 EKG attestation: Yes I reviewed and interpreted this EKG. Interpretation: other (Afib. ST depression in AVL. Normal rate.) Attestation Statement - Attestation Attestation: I, Delbert Maravilla DO, examined this patient [id number] and my medical decision-making was reviewed with Dr. Saturnino Sapp, Resident Physician. I agree with the documented findings, disposition and treatment plan as described except to the extent set forth below. Please see my progress notes for details. 86-year-old male presents to the emergency room care the family for complaint of generalized malaise, weakness, nausea vomiting and diarrhea. Patient has multiple medical issues. Vital signs are reviewed and are unremarkable this point. Patient will is borderline febrile. Patient will have screening evaluation with chest x-ray CT of the abdomen laboratory workup including CBC chemistry liver function testing lipase urinalysis. He will also have EKG and fluid hydration started at this point. Patient is concerning for possible dehydration causing some of his symptoms. Physical exam shows a very thin frail -appearing gentleman that does not appear to be a specific distress at this time. His lungs are clear with intermittent wheezing. Heart is regular. Abdomen is soft with some mild tenderness but no point tenderness guarding or rigidity noted at this time. He does not have any signs of pitting edema or swelling in lower extremities. Patient has conversational without any acute issue. Cranial nerves III through XII are grossly intact. He moves all 4 extremities with purpose. No other acute issues noted at this time. Patient is otherwise clinically stable. Disposition will be determined once the workup is completed. Fluid hydration CT imaging and labs are still pending. No critical care provider the patient's treatment course at this time. See detailed documentation of the physical exam, medical intervention, medical decision-making and disposition in the resident physician's note. 2300 Patient has negative workup at this time but feels too weak to go home. Patient denies any other symptoms or issues. Patient will be admitted for symptomatic control of generalized malaise secondary to dehydration and nausea vomiting and diarrhea.
[2017-08-23 20:51] LABS: Bilirubin,Urine Negative (Negative); Blood,Urine Negative (Negative); Clarity,Urine Clear (Clear); Color,Urine Dark Yellow (Yellow); Glucose,Urine (UA) Normal (Normal); Ketones,Urine Negative (Negative); Leukocyte Esterase,Urine Small (Negative); Nitrite,Urine Negative (Negative); PH,Urine 6.5 pH Units (5.0-8.0); Protein,Urine 100 mg/dL (Neg-Trace); Specific Gravity,Urine 1.021 (1.010-1.025); Urobilinogen,Urine Normal (Normal)
[2017-08-23 20:53] LABS: Bacteria,Urine None Seen per hpf (None-Few); Hyaline Casts,Urine None Seen per lpf (None-Few); RBC,Urine 0-3 per hpf (0-3); Squamous Epithelial Cell,Urine Moderate per lpf (None-Few)
[2017-08-23 21:00] LABS: Basophils % 0.2 %; Hematocrit 38.9 % (37.5-50.1); Hemoglobin 12.1 g/dL (12.9-16.9); Immature Granulocytes % 0.5 % (0-4); Lymphocytes # 1.2 K/mcL (0.6-4.6); Lymphocytes % 6.4 %; Mean Corpuscular HGB Conc 31.1 g/dL (31.6-35.5); Mean Corpuscular Hemoglobin 23.1 pg (28.0-33.3); Mean Corpuscular Volume 74.4 fL (83.0-100.0); Mean Platelet Volume 9.8 fL (9.4-12.4); Monocytes # 1.5 K/mcL (0.0-1.3); Monocytes % 8.1 %; Neutrophils # 16.1 K/mcL (1.6-8.9); Platelet Count 355 K/mcL (140-400); Red Blood Count 5.23 M/mcL (4.19-5.50); Red Cell Distribution Width 19.9 % (11.5-14.5); Segmented Neutrophils % 84.8 %
[2017-08-23 21:19] LABS: BUN/Creatinine Ratio 17 (6-26); Blood Urea Nitrogen 19 mg/dL (8-23); Calcium 9.8 mg/dL (8.6-10.3); Carbon Dioxide 30 mEq/L (23-29); Chloride 92 mEq/L (98-107); Glucose 124 mg/dL (70-105); Osmolality,Calculated 276 (280-300); Potassium 4.2 mEq/L (3.5-5.1); Sodium 131 mEq/L (136-145); eGFR For African Americans > 60 (> 60); eGFR For Non-African Americans > 60 (> 60)
[2017-08-23 21:47] LABS: INR 2.1; Prothrombin Time 22.5 Seconds (9.4-12.1)
[2017-08-23 21:49] LABS: Alanine Aminotransferase 13 Units/L (7-52); Albumin 3.7 g/dL (3.5-5.7); Albumin/Globulin Ratio 0.8 (1.1-2.2); Alkaline Phosphatase 147 Units/L (34-104); Aspartate Amino Transferase 25 Units/L (13-39); Bilirubin,Direct 0.5 mg/dL (0.0-0.2); Bilirubin,Indirect 0.9 mg/dL (0.0-1.2); Bilirubin,Total 1.4 mg/dL (0.3-1.0); Globulin 4.4 g/dL (2.4-3.5); Total Protein 8.1 g/dL (6.4-8.9)
[2017-08-23 22:02] LABS: Troponin I 0.09 ng/mL (< 0.04)
[2017-08-23] MEDS ORDERED: 0.9 % Sodium Chloride 1,000 ML IVC ONE (22:13)
[2017-08-24] MEDS ORDERED: Aspirin 325 MG TABLET PO ONE (00:02)
--- NOTE | 2017-08-24 01:29 | Internal Med History&Physical ---
<Elisa Nixon - Last Filed: 08/24/17 02:20> Date of Encounter: 08/24/17 Time of Encounter: 01:27 Assessment and Plan (1) Gastroenteritis Current visit: Yes Status: Acute Yesterday he had fever and chills all day, today he had watery diarrhea 4x and vomiting 2x. He has increased weakness. He last had diarrhea around 2 PM in the afternoon. Denied melena, hematechezia, falls. Likely viral gastroenteritis. Appears dehydrated. Plan to treat conservatively. Abd/ pelvis CT no acute abnormality. CXR no acute cardiopulmonary process Afebrile, WBC 18.9 Bili and alk phos increased in the setting of dehydration. Likely falsely elevated. No abdominal pain or Abd CT findings. troponin is at baseline. U/A: positive small leukocyte esterase. plan: supportive care. encourage oral hydration and gentle IVF since he was already given a bolus of IVF in ED. Order Zofran. Blood and urine cultures pending (2) Atrial fibrillation Current visit: No Status: Chronic History of A fib on anticoagulation with Coumadin, digoxin and Lopressor for rhythm control. Continue home medications once they have been confirmed and reconciled. Qualifiers: Atrial fibrillation type: chronic Qualified Code(s): I48.2 - Chronic atrial fibrillation (3) Bladder tumor Current visit: No Status: Chronic He reported that he has bladder cancer and he receives treatment from Dr. Maldonado of urology. (4) CHF (congestive heart failure) Current visit: No Status: Chronic Continue home Lasix and Lopressor once home medications has been confirmed and reconciled ECHO 03/29/2017: LVEF 60%, mild to moderate concentric left ventricular hypertrophy, indeterminate diastolic function. Mild aortic regurgitation. Mild pulmonary hypertension (5) S/P TAVR (transcatheter aortic valve replacement) Current visit: No Status: Chronic s/p mechanical aortic valve replacement done at [facility]. He just finished 3 months of cardiac rehab (6) COPD (chronic obstructive pulmonary disease) Current visit: Yes Status: Acute History is COPD continue home duoneb and Atrovent (7) Hyperlipidemia Current visit: No Status: Chronic History of hyperlipidemia continue home Lipitor once home medications have been confirmed and reconciled. Qualifiers: Hyperlipidemia type: mixed hyperlipidemia Qualified Code(s): E78.2 - Mixed hyperlipidemia (8) DVT prophylaxis Current visit: No Status: Acute Continue home Coumadin Internal Medicine - H&P: HPI Chief complaint: nausea/vomiting/diarhea Admitted From: Emergency Dept Plans for Post Hospital Care: Home History of present illness: Mr. Hayes is a 86 year old male with PMH afib on anticoagulation, CHF, COPD, coronary artery disease, hypertension, myocardial infarction, pulmonary embolus , valvular heart disease who presented to [facility] complaining of nausea, vomiting, diarrhea. He stated that yesterday he developed fever and chills but today he had watery diarrhea 4x and vomited 2x. He stated that he is feeling weak. He denied melena, hematechezia, chest pain, shortness of breath, syncope, falls, abdominal pain. He denies sick contacts, travel, eating new foods. He stated that he felt too weak to go home. He just finished 3mo of cardiac rehab for s/ p mechanical aortic valve replacement done at [facility]. He lives that home with his son and his family. In ED he was given a bolus of IVF, Zofran, aspirin, blood and urine cultures taken. Abd CT demonstrated no acute intra-abdominal process. CXR no acute cardio pulmonary process. He stated that he would like to be a DNR CCA DNI, quoting "86yo is old enough". Past Med Surg Social Fam HX - Past Medical History Medical history: atrial fibrillation, cancer, CHF, COPD, coronary artery disease , hypertension, myocardial infarction, pulmonary embolus, valvular heart disease Psychiatric history: no psych history - Past Surgical History Surgical History: angioplasty/stent, appendectomy, knee replacement, vascular surgery (TAVR) - Social History Smoking Status: Former smoker Smokeless Tobacco Status: No Alcohol use: none Drug use: none Current living situation: Home, With Family - Family History Father Living Status: Hx Family Cardiac Disorders: Yes Hx Family Respiratory Disorders: No Hx Family Cancer: No Hx Family GI Disorders: No Hx Family Endocrine Disorder: Yes (Brother) Hx Family Neuromuscular Disorders: No Hx Family Neurologic Disorders: No Hx Family HEENT Disorders: No Hx Family Autoimmune Disorders: No Internal Medicine - H&P: Meds Aspirin [Lo-Dose Aspirin EC] 81 mg PO DAILY 11/05/16 [History] Atorvastatin Calcium [Lipitor] 20 mg PO HS 11/05/16 [History] LORazepam [Ativan] 0.5 mg PO HS PRN 11/05/16 [History] Digoxin [Lanoxin] 0.125 mg PO DAILY #30 tablet 04/08/17 [Rx] Omeprazole [PriLOSEC] 20 mg PO DAILY 04/10/17 [History] Ipratropium/Albuterol Neb [Duoneb] 3 ml IH Q6HR 04/22/17 [History] Furosemide [Lasix] 40 mg PO BID #30 tablet 04/25/17 [Rx] Ipratropium [Atrovent Inhaler] 2 puff IH QID 08/11/17 [History] Metoprolol [Lopressor] 25 mg PO BID 08/11/17 [History] Warfarin [Coumadin] 2.5 mg PO Q48H 08/11/17 [History] Warfarin [Coumadin] 3 mg PO Q48H 08/11/17 [History] 3 Allergy/AdvReac Type Severity Reaction Status Date / Time tetanus immune globulin Allergy Unknown unknown Verified 04/22/17 13:59 All Systems PM: A 10-system review of systems was performed and is negative for pertinent findings except as documented above in the HPI. - Constitutional Constitutional: chills, fever(s), weakness, no anorexia, no falls - Cardiovascular Cardiovascular ROS IM: no chest pain, no diaphoresis, no palpitations - Respiratory Respiratory: no cough, no dyspnea, no wheezing - Gastrointestinal Gastrointestinal: diarrhea, nausea, vomiting, no abdominal pain, no hematochezia , no melena - Integumentary Integumentary IM: no rash - Neurological Neurological ROS: no dizziness, no frequent falls - Psychiatric Psychiatric: no confusion - Constitutional Vitals: Temp Pulse Resp BP Pulse Ox 99.7 F H 87 18 112/68 94 08/23/17 19:43 08/24/17 01:21 08/24/17 01:21 08/24/17 01:21 08/24/17 01:21 General appearance: Present: A&O X 3, pleasant, no acute distress, answers questions appropriately - Head Head exam: Present: atraumatic, normocephalic - Eye Eye exam: Present: normal appearance. Absent: nystagmus - Respiratory Respiratory exam: Present: CTAB, rales (bases b/l). Absent: respiratory distress, rhonchi, wheezes - Cardiovascular Cardiovascular exam: Present: irregular rhythm. Absent: clicks - GI/Abdominal GI/Abdominal exam: Present: normal bowel sounds, soft. Absent: distended, firm , guarding, tenderness - Extremities Exam Extremities exam: Absent: tenderness - Neurological Exam Neurological exam: Present: alert, oriented X3 - Psychiatric Psychiatric exam: Present: normal affect, normal mood - Skin Skin exam: Present: dry, intact Internal Med - H&P Results - Labs CBC & Chem 7: 08/23/17 20:52 08/23/17 20:52 Labs: Short CBC 08/23/17 Range/Units 20:52 WBC 18.9 H (4.3-11.1) K/mcL Hgb 12.1 L (12.9-16.9) g/dL Hct 38.9 (37.5-50.1) % Plt Count 355 (140-400) K/mcL Neutrophils # 16.1 H (1.6-8.9) K/mcL BMP 08/23/17 20:52 Sodium 131 L Potassium 4.2 Chloride 92 L Carbon Dioxide 30 H BUN 19 Creatinine 1.10 Glucose 124 H Calcium 9.8 Cardiac Enzymes 08/23/17 Range/Units 20:52 Troponin I 0.09 H* (< 0.04) ng/mL Liver Function 08/23/17 Range/Units 20:52 Total Bilirubin 1.4 H (0.3-1.0) mg/dL Direct Bilirubin 0.5 H (0.0-0.2) mg/dL AST 25 (13-39) Units/L ALT 13 (7-52) Units/L Alkaline Phosphatase 147 H (34-104) Units/L Albumin 3.7 (3.5-5.7) g/dL Urine 08/23/17 Range/Units 20:07 Urine Color Dark Yellow (Yellow) Urine Clarity Clear (Clear) Urine pH 6.5 (5.0-8.0) pH Units Ur Specific [place] 1.021 (1.010-1.025) Urine Protein 100 H (Neg-Trace) mg/dL Urine Glucose (UA) Normal (Normal) mg/dL - Impressions ITS Impressions Chest X-Ray 08/23/17 20:38 IMPRESSION: 1. No focal airspace disease. 2. Coarse lung markings suggestive of underlying emphysema. D/ / 08/23/2017 22:21:31 Justin Nugent MD / raffaele Interpreting Provider: Justin Nugent MD Abdomen/Pelvis CT 08/23/17 21:53 IMPRESSION: 1. No acute abnormality in the abdomen or pelvis. 2. Colonic diverticulosis without evidence of acute diverticulitis. 3. Left inguinal hernia containing a loop of nonobstructed sigmoid colon. 4. Cholelithiasis. 5. Bilateral Bosniak category 2 renal lesions. No follow-up imaging acquired. 6. Mildly nodular liver surface raising the possibility of cirrhosis. 7. Severe prostatomegaly. D/ / Vaughn Cheney MD / Vaughn Cheney MD Interpreting Provider: Vaughn Cheney MD <Pradip Ang P - Last Filed: 08/24/17 02:23> Date of Encounter: 08/24/17 Internal Medicine - H&P: HPI History of present illness: Mr. Hayes is a 86 year old male All Systems PM: A 10-system review of systems was performed and is negative for pertinent findings except as documented above in the HPI. - Constitutional Vitals: Temp Pulse Resp BP Pulse Ox 99.7 F H 87 18 104/66 94 08/23/17 19:43 08/24/17 01:21 08/24/17 02:09 08/24/17 02:09 08/24/17 01:21 Internal Med - H&P Results - Labs CBC & Chem 7: 08/23/17 20:52 08/23/17 20:52 - Attending Attestation I examined this patient and my medical decision-making was reviewed with the Resident Physician. I agree with the documented findings, disposition and treatment plan as described except to the extent set forth below. 86/male Admitted with dehydration. Possible UTI. IV fluids/antibiotics Home in 1-2 days. If family is unable to cope up then please consider placement.
[2017-08-24] MEDS ORDERED: Naloxone 0.4 MG/ML INJ IVP PRN (02:06)
[2017-08-24] MEDS ORDERED: Ondansetron ODT 4 MG TAB.RAPDIS SL PRN (02:12)
[2017-08-24] MEDS ORDERED: 0.9 % Sodium Chloride 500 ML IVC SCH (02:15)
[2017-08-24] MEDS ORDERED: 0.9 % Sodium Chloride 1,000 ML IVC SCH (02:15)
[2017-08-24] MEDS ORDERED: Ipratropium/Albuterol Neb 3 ML IH PRN (02:18)
[2017-08-24] MEDS ORDERED: *HR* Warfarin 2.5 MG TABLET PO ONE (02:45)
[2017-08-24 03:59] LABS: Basophils % 0.2 %; Eosinophils % 0.1 %; Hematocrit 35.2 % (37.5-50.1); Hemoglobin 10.8 g/dL (12.9-16.9); Immature Granulocytes % 0.5 % (0-4); Lymphocytes # 2.1 K/mcL (0.6-4.6); Mean Corpuscular HGB Conc 30.7 g/dL (31.6-35.5); Mean Corpuscular Hemoglobin 23.2 pg (28.0-33.3); Mean Corpuscular Volume 75.5 fL (83.0-100.0); Mean Platelet Volume 10.5 fL (9.4-12.4); Monocytes # 2.2 K/mcL (0.0-1.3); Monocytes % 11.4 %; Neutrophils # 14.6 K/mcL (1.6-8.9); Platelet Count 300 K/mcL (140-400); Red Blood Count 4.66 M/mcL (4.19-5.50); Red Cell Distribution Width 19.2 % (11.5-14.5); Segmented Neutrophils % 76.8 %
[2017-08-24] MEDS: Ipratropium/Albuterol Neb 3 ML IH SCH ×4 (04:15→21:57)
[2017-08-24 04:50] LABS: Alanine Aminotransferase 11 Units/L (7-52); Albumin 3.2 g/dL (3.5-5.7); Albumin/Globulin Ratio 0.8 (1.1-2.2); Alkaline Phosphatase 124 Units/L (34-104); Aspartate Amino Transferase 21 Units/L (13-39); BUN/Creatinine Ratio 17 (6-26); Bilirubin,Total 1.4 mg/dL (0.3-1.0); Blood Urea Nitrogen 18 mg/dL (8-23); Calcium 9.2 mg/dL (8.6-10.3); Carbon Dioxide 30 mEq/L (23-29); Chloride 95 mEq/L (98-107); Globulin 3.8 g/dL (2.4-3.5); Glucose 108 mg/dL (70-105); Osmolality,Calculated 276 (280-300); Sodium 132 mEq/L (136-145); eGFR For African Americans > 60 (> 60); eGFR For Non-African Americans > 60 (> 60)
[2017-08-24] MEDS: *HR* Digoxin 0.125 MG TABLET PO SCH (08:29)
[2017-08-24] MEDS: cefTRIAXone 2,000 MG in Water for inj. (sterile) 20 ML 20 ML IVP SCH (08:29)
[2017-08-24] MEDS: Aspirin Enteric Coated 81 MG Tablet PO SCH (08:29)
[2017-08-24] MEDS ORDERED: Furosemide 40 MG TABLET PO SCH (09:00)
--- NOTE | 2017-08-24 10:29 | Internal Med Progress Note ---
<Aleksey Mercado - Last Filed: 08/24/17 19:08> Date of Encounter: 08/24/17 Time of Encounter: 10:27 - Assessment and plan (1) Gastroenteritis Status: Acute Assessment and plan: -N/V/D Likely 2/2 viral gastroenteritis -Appears dehydrated; Plan to treat conservatively. -Abd/ pelvis CT no acute abnormality. -Afebrile, WBC 18.9 -Bili and alk phos increased in the setting of dehydration; Likely falsely elevated Plan: -Prilosec 20 mg PO DAILY -Zofran 4 mg SL Q4 PRN (2) UTI (urinary tract infection) Status: Ruled-out Assessment and plan: -Patient has an elevated white count at 19.0 -UA demonstrated small amt of leukocyte esterase -Patient has severely enlarged prostate -5-15 WBCs -Blood and urine CX pending -Rocephin 2 g IV Q24 Qualifiers: Urinary tract infection type: site unspecified Hematuria presence: with hematuria Qualified Code(s): N39.0 - Urinary tract infection, site not specified; R31.9 - Hematuria, unspecified; R31.9 - Hematuria, unspecified (3) Atrial fibrillation Status: Chronic Assessment and plan: Digoxin 0.125 mg PO DAILY Coumadin 2.5 mg PO Q48 Coumadin 3 mg PO Q48 Lopressor 25 mg PO BID Qualifiers: Atrial fibrillation type: chronic Qualified Code(s): I48.2 - Chronic atrial fibrillation (4) S/P TAVR (transcatheter aortic valve replacement) Status: Chronic Assessment and plan: -s/p mechanical aortic valve replacement done at [facility] -He just finished 3 months of cardiac rehab (5) CAD (coronary artery disease) Status: Chronic Assessment and plan: -Patient has a known hx of CAD -ASA 81 mg PO DAILY -Lipitor 20 mg PO HS Qualifiers: Coronary Disease-Associated Artery/Lesion type: [place] artery [place] vs. transplanted heart: [place] heart Associated angina: without angina Qualified Code(s): I25.10 - Atherosclerotic heart disease of [place] coronary artery without angina pectoris (6) Bladder tumor Status: Chronic Assessment and plan: -Hx of bladder cancer -Receives treatment from Dr. Maldonado of urology (7) COPD (chronic obstructive pulmonary disease) Status: Acute Assessment and plan: -History is COPD continue home duoneb and Atrovent -Duoneb 3 ml IH Q6 [facility] Qualifiers: Qualified Code(s): J44.9 - Chronic obstructive pulmonary disease, unspecified (8) DVT prophylaxis Status: Acute Assessment and plan: -Continue home Coumadin - Subjective Interval history: Mr. Hyaes is a 86 year old male with PMH afib on anticoagulation, CHF, COPD, CAD , HTN, VA, PE, valvular heart disease who presented to [facility] complaining of N/V/ D. He stated that he developed fever and chills nad had watery diarrhea 4x and vomited 2x. Reported feeling weak. He denied melena, hematechezia, CP, SOB, syncope, falls, abdominal pain. Denied sick contacts, travel, eating new foods. He stated that he felt too weak to go home. Just finished 3mo of cardiac rehab for s/p mechanical aortic valve replacement done at [facility]. He lives that home with his son and his family. In ED he was given a bolus of IVF, Zofran, ASA, blood and urine CXs taken. Abd CT demonstrated no acute intra- abdominal process. CXR no acute cardio pulmonary process. He stated that he would like to be a DNR CCA DNI. - Constitutional Vitals: Temp Pulse Resp BP Pulse Ox 97.6 F 81 15 105/59 96 08/24/17 07:14 08/24/17 08:15 08/24/17 07:14 08/24/17 07:14 08/24/17 07:14 General appearance: Present: A&O X 3, pleasant, no acute distress, answers questions appropriately - Head Head exam: Present: atraumatic, normocephalic - Eye Eye exam: Present: PERRL, conjuntiva pink, sclera anicteric Pupils: Present: PERRL - Neck Neck exam general surgery: Present: supple, trachea midline. Absent: lymphadenopathy - Respiratory Respiratory exam: Present: CTAB. Absent: accessory muscle use, rales, rhonchi, wheezes - Cardiovascular Cardiovascular exam: Present: RRR, +S1, +S2. Absent: diastolic murmur, gallop, rubs, systolic murmur - GI/Abdominal GI/Abdominal exam: Present: normal bowel sounds, soft, no peritoneal signs. Absent: distended, tenderness - Extremities Exam Extremities exam: Present: warm, radial pulses palpable and symmetrical. Absent : calf tenderness, cyanotic, pedal edema - Neurological Exam Neurological exam: Present: CN II-XII intact, oriented X3, no focal deficits. Absent: pronater drift, facial droop, speech deficit - Skin Skin exam: Present: dry, intact Internal Medicine: Result - Labs CBC & Chem 7: 08/24/17 02:38 08/24/17 02:38 Labs: Short CBC 08/24/17 Range/Units 02:38 WBC 19.0 H (4.3-11.1) K/mcL Hgb 10.8 L (12.9-16.9) g/dL Hct 35.2 L (37.5-50.1) % Plt Count 300 (140-400) K/mcL Neutrophils # 14.6 H (1.6-8.9) K/mcL BMP 08/24/17 02:38 Sodium 132 L Potassium 4.0 Chloride 95 L Carbon Dioxide 30 H BUN 18 Creatinine 1.07 Glucose 108 H Calcium 9.2 Liver Function 08/24/17 Range/Units 02:38 Total Bilirubin 1.4 H (0.3-1.0) mg/dL AST 21 (13-39) Units/L ALT 11 (7-52) Units/L Alkaline Phosphatase 124 H (34-104) Units/L Albumin 3.2 L (3.5-5.7) g/dL - ABG Interpretation ABG results: PT/INR, D-dimer PT 22.5 Seconds (9.4-12.1) H 08/23/17 20:41 Consult Discharge Plan - Plan Referrals: Marycruz Mackenzie MD [Primary Care Provider] - 08/30/17 1:45 am <Garfield Tellez - Last Filed: 08/25/17 17:38> Date of Encounter: 08/25/17 - Constitutional Vitals: Temp Pulse Resp BP Pulse Ox 98.0 F 83 18 93/52 94 08/25/17 11:24 08/25/17 11:24 08/25/17 11:24 08/25/17 11:24 08/25/17 11:24 Internal Medicine: Result - Labs CBC & Chem 7: 08/25/17 10:33 08/24/17 02:38 Labs: Short CBC 08/25/17 Range/Units 10:33 WBC 13.2 H (4.3-11.1) K/mcL Hgb 10.1 L (12.9-16.9) g/dL Hct 32.5 L (37.5-50.1) % Plt Count 270 (140-400) K/mcL Neutrophils # 10.6 H (1.6-8.9) K/mcL - ABG Interpretation ABG results: PT/INR, D-dimer PT 20.1 Seconds (9.4-12.1) H 08/25/17 03:59 - Attending Attestation I examined this patient and my medical decision-making was reviewed with the Resident Physician. I agree with the documented findings, disposition and treatment plan as described except to the extent set forth below.
[2017-08-24] MEDS: Acetaminophen 325 MG TABLET PO PRN ×2 (16:58→23:59)
--- NOTE | 2017-08-24 17:35 | Electrocardiograph Report ---
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 : 1930 Requested By: Saturnino Sapp Order Number: [id number] Reading MD: Arminda De Jesus Measurements Intervals [place] Rate: 84 P: [place]: 0 QRS: -81 QRSD: 151 T: -33 QT: 391 QTc: 432 Interpretive Statements ATRIAL FIBRILLATION WITH ABERRANT CONDUCTION OR VENTRICULAR PREMATURE COMPLEXES RIGHT BUNDLE BRANCH BLOCK [120+ ms QRS DURATION, UPRIGHT V1, 40+ ms S IN I/aVL/V4/V5/V6] LEFT ANTERIOR FASCICULAR BLOCK [QRS AXIS <= -45, QR IN I, RS IN II] MODERATE T-WAVE ABNORMALITY, CONSIDER INFERIOR ISCHEMIA [-0.1+ mV T WAVE IN II/aVF] Electronically Signed On 08-24-2017 17:33:38 EST by Arminda De Jesus
[2017-08-24] MEDS ORDERED: *HR* Warfarin 3 MG TABLET PO SCH ×2 (18:00→21:00)
[2017-08-24] MEDS: Furosemide 40 MG TABLET PO SCH (21:21)
[2017-08-25] MEDS: Ipratropium/Albuterol Neb 3 ML IH SCH ×2 (04:21→10:57)
[2017-08-25 04:57] LABS: INR 1.8; Prothrombin Time 20.1 Seconds (9.4-12.1)
[2017-08-25] MEDS: Furosemide 40 MG TABLET PO SCH (07:38)
[2017-08-25] MEDS: cefTRIAXone 2,000 MG in Water for inj. (sterile) 20 ML 20 ML IVP SCH (07:38)
[2017-08-25] MEDS: Aspirin Enteric Coated 81 MG Tablet PO SCH (07:38)
[2017-08-25] MEDS: *HR* Digoxin 0.125 MG TABLET PO SCH (07:38)
[2017-08-25] MEDS: Acetaminophen 325 MG TABLET PO PRN (07:51)
--- NOTE | 2017-08-25 10:10 | Discharge Summary ---
<Aleksey Mercado - Last Filed: 08/25/17 13:27> Orders not resulted at time of discharge: Pending orders 08/25/17 09:52 CBC [Complete Blood Count] [HEME] Stat Date of Encounter: 08/25/17 Time of Encounter: 10:09 - Discharge Diagnosis (1) Gastroenteritis Priority: Primary Status: Acute (2) UTI (urinary tract infection) Priority: Secondary Status: Ruled-out Qualifiers: Urinary tract infection type: site unspecified Hematuria presence: with hematuria Qualified Code(s): N39.0 - Urinary tract infection, site not specified; R31.9 - Hematuria, unspecified; R31.9 - Hematuria, unspecified (3) Atrial fibrillation Priority: Secondary Status: Chronic Qualifiers: Atrial fibrillation type: chronic Qualified Code(s): I48.2 - Chronic atrial fibrillation (4) S/P TAVR (transcatheter aortic valve replacement) Priority: Secondary Status: Chronic (5) CAD (coronary artery disease) Priority: Secondary Status: Chronic Qualifiers: Coronary Disease-Associated Artery/Lesion type: [place] artery [place] vs. transplanted heart: [place] heart Associated angina: without angina Qualified Code(s): I25.10 - Atherosclerotic heart disease of [place] coronary artery without angina pectoris (6) Bladder tumor Priority: Secondary Status: Chronic (7) COPD (chronic obstructive pulmonary disease) Priority: Secondary Status: Acute Qualifiers: Qualified Code(s): J44.9 - Chronic obstructive pulmonary disease, unspecified (8) DVT prophylaxis Priority: Secondary Status: Acute Hospital course: Mr. Hayes is an 86 year old male with PMH afib on anticoagulation, CHF, COPD, CAD, HTN, [place], PE, valvular heart disease who presented to [facility] complaining of N/ V/D. He stated that he developed fever and chills nad had watery diarrhea 4x and vomited 2x. Reported feeling weak. He denied melena, hematechezia, CP, SOB , syncope, falls, abdominal pain. Denied sick contacts, travel, eating new foods. He stated that he felt too weak to go home. Just finished 3mo of cardiac rehab for s/p mechanical aortic valve replacement done at [facility]. He lives that home with his son and his family. In ED he was given a bolus of IVF, Zofran, ASA, blood and urine CXs taken. Abd CT demonstrated no acute intra- abdominal process. CXR no acute cardio pulmonary process. Patient had an elevated white count at 19.0. UA demonstrated small amt of leukocyte esterase5-15 WBCs. Patient was started on Rocephin. Patient known to have a severely enlarged prostate. Blood and urine cultures were drawn; were both negative. His N/V/D all resolved shortly after admission. Patient was seen and examined on date of discharge. He reports that he is feeling well today. Denies having fever, chills, nausea, vomiting, shortness of breath, or dysuria. Patient has no further complaints at this time. - Time Spent with Patient Total time spent providing and/or coordinating discharge services: Greater than 30 minutes (41 minutes) - Discharge Medications Home Medications: Aspirin [Lo-Dose Aspirin EC] 81 mg PO DAILY 11/05/16 [History] Atorvastatin Calcium [Lipitor] 20 mg PO HS 11/05/16 [History] LORazepam [Ativan] 0.5 mg PO HS PRN 11/05/16 [History] Digoxin [Lanoxin] 0.125 mg PO DAILY #30 tablet 04/08/17 [Rx] Omeprazole [PriLOSEC] 20 mg PO DAILY 04/10/17 [History] Furosemide [Lasix] 40 mg PO BID #30 tablet 04/25/17 [Rx] Metoprolol [Lopressor] 25 mg PO BID 08/11/17 [History] Warfarin [Coumadin] 2.5 mg PO Q48H 08/11/17 [History] Warfarin [Coumadin] 3 mg PO Q48H 08/11/17 [History] Allergies/Adverse Reactions: 3 Allergy/AdvReac Type Severity Reaction Status Date / Time tetanus immune globulin Allergy Unknown unknown Verified 04/22/17 13:59 Date of admission: 08/24/17 01:54 Primary care physician: Marycruz Mackenzie Consults: 08/24/17 17:11 Consult to Physical Therapy [CONS] Routine Comment: Evaluate, develop and implement POC Reason for Consult: Patient has weakness and poor mobility Discharging clinician: Aleksey Mercado Anticipated date of discharge: 08/25/17 - Constitutional Vitals: Temp Pulse Resp BP Pulse Ox 98.2 F 90 18 106/71 96 08/25/17 07:21 08/25/17 07:21 08/25/17 07:21 08/25/17 07:21 08/25/17 07:21 General appearance: Present: A&O X 3, pleasant, no acute distress, answers questions appropriately - Head Head exam: Present: atraumatic, normocephalic - Eye Eye exam: Present: PERRL, conjuntiva pink, sclera anicteric Pupils: Present: PERRL - Neck Neck exam general surgery: Present: supple, trachea midline. Absent: lymphadenopathy - Respiratory Respiratory exam: Present: CTAB. Absent: accessory muscle use, rales, rhonchi, wheezes - Cardiovascular Cardiovascular exam: Present: RRR, +S1, +S2. Absent: diastolic murmur, gallop, rubs, systolic murmur - GI/Abdominal GI/Abdominal exam: Present: normal bowel sounds, soft, no peritoneal signs. Absent: distended, tenderness - Extremities Exam Extremities exam: Present: warm, radial pulses palpable and symmetrical. Absent : calf tenderness, cyanotic, pedal edema - Neurological Exam Neurological exam: Present: CN II-XII intact, oriented X3, no focal deficits. Absent: pronater drift, facial droop, speech deficit - Skin Skin exam: Present: dry, intact - Patient Status Disposition: Home, Self-Care Condition: Fair Overall status at discharge: patient is progressing back to baseline - Discharge Instructions Follow Up With: Marycruz Mackenzie MD [Primary Care Provider] - 08/30/17 1:45 am - Diet and Activity Activity: increase activity as tolerated Diet: advance to your usual diet <Garfield Tellez - Last Filed: 08/25/17 17:47> Date of Encounter: 08/25/17 Hospital course: Mr. Hayes is a 86 year old male - Time Spent with Patient Total time spent providing and/or coordinating discharge services: Date of admission: 08/24/17 01:54 Primary care physician: Marycruz Mackenzie Consults: 08/24/17 17:11 Consult to Physical Therapy [CONS] Routine Comment: Evaluate, develop and implement POC Reason for Consult: Patient has weakness and poor mobility - Constitutional Vitals: Temp Pulse Resp BP Pulse Ox 98.0 F 83 18 93/52 94 08/25/17 11:24 08/25/17 11:24 08/25/17 11:24 08/25/17 11:08/25/17 11:24 - Attending Attestation I examined this patient and my medical decision-making was reviewed with the Resident Physician. I agree with the documented findings, disposition and treatment plan as described except to the extent set forth below.
[2017-08-25 11:03] LABS: Basophils % 0.3 %; Eosinophils # 0.2 K/mcL (0.0-0.6); Eosinophils % 1.1 %; Hematocrit 32.5 % (37.5-50.1); Hemoglobin 10.1 g/dL (12.9-16.9); Immature Granulocytes % 0.3 % (0-4); Lymphocytes # 1.2 K/mcL (0.6-4.6); Lymphocytes % 9.4 %; Mean Corpuscular HGB Conc 31.1 g/dL (31.6-35.5); Mean Corpuscular Hemoglobin 23.4 pg (28.0-33.3); Mean Corpuscular Volume 75.2 fL (83.0-100.0); Mean Platelet Volume 10.1 fL (9.4-12.4); Monocytes # 1.2 K/mcL (0.0-1.3); Monocytes % 8.7 %; Neutrophils # 10.6 K/mcL (1.6-8.9); Platelet Count 270 K/mcL (140-400); Red Blood Count 4.32 M/mcL (4.19-5.50); Red Cell Distribution Width 19.1 % (11.5-14.5); Segmented Neutrophils % 80.2 %
[2017-08-25 11:26] VITALS: BP 93/52
[2017-08-25] MEDS ORDERED: *HR* Warfarin 2.5 MG TABLET PO SCH ×2 (18:00)
[2017-08-26] MEDS ORDERED: *HR* Warfarin 3 MG TABLET PO SCH (18:00)
== END 2017-08-25 14:35 | disposition home or self-care (01) ==
LOC: 2NNU 19:40 → EMEROO 19:40 → 2NNU 08-24 02:11
PROVIDERS: ADMIT Internal Medicine; ATTEND Internal Medicine